=== PATIENT | male | born 1960 | race Caucasian/White ===

== ENCOUNTER 2020-09-19 06:48 | Outpatient (REF) | payer OTHER, SELFPAY | END 2020-09-19 06:49 | disposition home or self-care (01) | LOC: HO.LAB 06:48 | PROVIDERS: PCP Internal Medicine; Visit Provider Internal Medicine | DX: Z20.828 Contact with and (suspected) exposure to other viral communicable diseases (principal) | CPT/HCPCS: C9803; U0003 ==

== ENCOUNTER 2020-10-27 11:54 | Emergency (ER) | payer OTHER, SELFPAY ==
[2020-10-27 12:46] VITALS: BP 164/87; PULSE 84; RESP 16; TEMP 37; O2SAT 96
--- NOTE | 2020-10-27 13:06 | CT_ITS ---
NECK CT WITH IV CONTRAST INDICATION: Left facial swelling. Rule out left-sided peritonitis. COMPARISON: None available. TECHNIQUE: Multidetector CT acquisition of the neck was obtained following the administration of 60cc of Omnipaque 350IV contrast. Multiplanar reformats were acquired and utilized for image interpretation. This CT examination was performed using dose optimization techniques as appropriate, variously including the following: *Automated exposure control *Adjustment of mA and/or kV according to patient size (this includes techniques or standardized protocols for targeted exams where dose is matched to indication/reason for exam; i.e. extremities or head) *Use of iterative reconstruction technique FINDINGS: There is subtle stranding superficial to the left parotid gland and inferior to the left parotid tail that could reflect early parotitis. No drainable fluid collections to suggest abscess. No radiopaque calculi along Stensen's or Abad's duct. The submandibular glands are normal. There is a heterogeneous 1.4 cm right thyroid lobe nodule that should be further assessed with thyroid ultrasound. No contour abnormality or pathologic enhancement is seen within the oral cavity or pharyngeal mucosal space. No retropharyngeal fluid collection is seen. The laryngeal structures are normal. The parapharyngeal fat is preserved. The carotid sheath vasculature opacify normally. The superior mediastinum is unremarkable. The lung apices are clear. The mastoid air cells and visualized portions of the paranasal sinuses are well-aerated. Multilevel cervical spondylosis. The imaged portions of the brain parenchyma are unremarkable. CT/CT soft tissue neck w con IMPRESSION: - There is subtle stranding superficial to the left parotid gland and inferior to the left parotid tail that could reflect early parotitis. No drainable fluid collections to suggest abscess. No radiopaque calculi along Stensen's or Abad's duct. - There is a heterogeneous 1.4 cm right thyroid lobe nodule that should be further assessed with thyroid ultrasound.
[2020-10-27] MEDS: Acetaminophen 325 MG TABLET 650 MG PO (13:21)
--- NOTE | 2020-10-27 13:45 | ED.GENADULT ---
HPI - General Adult General Chief complaint: General Medical Stated complaint: Dental Pain Time Seen by Provider: 10/27/20 12:53 Source: patient Mode of arrival: ambulatory History of Present Illness HPI narrative: 60-year-old male with past medical history of hypertension, hyperlipidemia, diabetes presenting to the emergency department with facial pain x2 weeks. He states he started having upper dental pain which progressed into facial swelling. He states the left side is more swollen than the right. He had a phone call with his primary care doctor on 10/23 who prescribed him amoxicillin which he has been taking. He states the swelling has gone down with antibiotics but today the pain was severe so he came to the ED. He did not take his medications today along with the antibiotics. He states the pain radiates to his neck and head. He denies associated dizziness, nasal congestion, sore throat, difficulty swallowing, chest pain, shortness of breath, cough, vomiting. He denies similar episodes previously. He denies sick contacts at home. Related Data Previous Rx's Medication Instructions Recorded losartan 50 mg tablet 100 mg PO DAILY #180 tab 08/23/20 mometasone-formoterol HFA 100 2 puff INHALATION BID 30 Days #13 g 08/30/20 mcg-5 mcg/actuation aerosol inhaler blood sugar diagnostic #200 ea 09/05/20 chlorthalidone 25 mg tablet 25 mg PO DAILY #90 tab 10/01/20 montelukast 10 mg tablet 10 mg PO DAILY 90 Days #90 tab 10/09/20 fenofibrate micronized 200 mg 200 mg PO DAILY #30 cap 10/15/20 capsule amoxicillin 875 mg tablet 875 mg PO BID 7 Days #14 tab 10/23/20 ciprofloxacin [Cipro] 500 mg PO BID 10 Days #100 ml 10/27/20 clindamycin HCl [Cleocin HCl] 450 mg PO TID 10 Days #90 cap 10/27/20 Allergies Allergy/AdvReac Type Severity Reaction Status Date / Time acetaminophen [From PERCOCET] Allergy Unknown SWELLING Unverified 07/12/20 15:31 aspirin [ASA] Allergy Unknown UNKNOWN Unverified 07/12/20 15:31 oxycodone [From PERCOCET] Allergy Unknown SWELLING Unverified 07/12/20 15:31 promethazine [From PHENERGAN] Allergy Unknown RASH Unverified 07/12/20 15:31 seafood Allergy Unknown anaphylaxis Unverified 06/26/20 00:00 tramadol [TRAMADOL] Allergy Unknown UNKNOWN, Unverified 07/12/20 15:31 GI upset fluticasone [Advair Diskus] AdvReac Unknown tachycardia Verified 04/26/20 00:00 salmeterol [Advair Diskus] AdvReac Unknown tachycardia Verified 04/26/20 00:00 Cortisone Allergy Unknown Uncoded 06/26/20 00:00 Isoniazid Allergy Unknown rash Uncoded 06/26/20 00:00 SEAFOOD Allergy Unknown ANAPHYLAXIS Uncoded 07/12/20 15:31 Review of Systems Constitutional: Constitutional: Denies fever(s) and Reports headache(s) Eyes: Eyes: Reports no additional eye complaints ENT: Denies dizziness, Denies otalgia, Reports headache(s), Denies nasal congestion and Denies sore throat Comments: Facial swelling and pain Cardiovascular: Cardiovascular: Denies chest pain and Denies dyspnea Respiratory: Respiratory: Denies cough and Denies dyspnea Gastrointestinal: Gastrointestinal: Denies abdominal pain and Denies vomiting Musculoskeletal: Musculoskeletal: Reports no additional musculoskeletal complaints Integumentary/Breasts: Skin/Breast: Denies rash Neurologic: Denies dizziness and Reports headache(s) Psychiatric: Psychiatric: Reports no additional psychiatric complaints Hematologic/Lymphatic: Hematologic/Lymphatic: Denies easy bleeding PMFSH Past Medical History Medical History Chronic inflammation of pancreas Diabetes type 1, uncontrolled FH: cholecystectomy Hypertriglyceridemia Pancreatic abnormality Social History Social History Alcohol intake: never Smoking Status: Never smoker Advance Directives: No Advance Directives Information Provided: Yes Physical Exam Vital Signs: Vital Signs: Last Vital Signs Temp 98.7 F 10/27/20 15:23 Pulse 75 10/27/20 15:23 Resp 16 10/27/20 15:23 BP 165/87 H 10/27/20 15:23 Pulse Ox 98 10/27/20 15:23 Body Mass Index 30.0 Const: Other: Sitting upright in bed General: cooperative Orientation/consciousness: patient oriented x3 HENMT: Other: Dentition intact, no pharyngeal erythema, no tonsillar hypertrophy, no uvular deviation, no sublingual woodiness, swelling noted to bilateral preauricular regions left greater than the right, tenderness to palpation in the left preauricular region, no erythema or warmth, no dental abscess or fluctuance, no dental tenderness, no trismus Head: Yes atraumatic Ears: TM's normal bilaterally and mastoids normal Mouth: Normal oral and palatal mucosa present and moist mucous membranes Eyes: Pupils: Equal, round and reactive pupils present EOM: EOMs intact bilaterally Neck: Neck: Yes no meningeal signs, Yes trachea midline and Yes supple Resp: Other: no stridor Effort & Inspection: normal respiratory effort, able to speak in complete sentences and no audible wheezes Cardio: Rate: regular rate GI: Inspection: No distended and No obesity Skin: Lesions: no lesions Rashes: no rashes Neuro: General: patient oriented x3 and no meningeal signs Cranial nerves: Yes Equal, round and reactive pupils present Extrem: General: Yes normal to inspection Course Reevaluation(s) Reevaluation #1: patient at CT now Time: 14:54 Reevaluation #2: Pt. sitting upright, no changes in respiratory status. CT shows early signs of parotitis will change antibiotic course, advised pt. to stop the amoxicillin. Will discharge home with antibiotics and follow up with PCP. Thyroid nodule was also incidentally found, which I did not mention upon discharge. 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 A communication was sent to his primary for further follow up. Medical Decision Making MDM Narrative Medical decision making narrative: 60-year-old male presenting to the emergency department with facial pain, currently taking amoxicillin Vital significant for hypertension blood pressure 160-87 most likely because he did not take his blood pressure medications today, otherwise nontoxic appearing, hemodynamically stable Will plan for basic labs. We will check for electrolyte abnormalities. Will check inflammatory markers. Patient is afebrile will defer blood cultures at this time. Will plan for CT of the soft tissues to rule out underlying infection. He does not have evidence of dental pain or abscess. No pharyngeal erythema to suggest peritonsillar abscess. Neck is supple less likely to be a retropharyngeal abscess. No sublingual willingness to suggest Clarence's. He does not have any respiratory compromise, handling his secretions well. He does have swelling around his parotid gland will plan for CT as mentioned above. No evidence of mastoiditis. No evidence of otitis media. Lab Data Result diagrams: 10/27/20 13:49 10/27/20 13:49 Labs: Lab Results 10/27/20 10/27/20 10/27/20 Range/Units 13:49 13:49 13:49 WBC 8.4 (4.8-10.8) X10*3/uL RBC 4.94 (4.60-5.80) X10*6/uL Hgb 13.6 L (14.0-18.0) g/dl Hct 40.0 L (42-52) % MCV 81.0 (80-98) fL MCH 27.5 (27.0-33.0) pg MCHC 34.0 (31.0-36.0) g/dl RDW 13.1 (11.0-16.0) % Plt Count 233 (160-400) X10*3/uL MPV 10.2 (9.4-12.4) fL Immature Gran % (Auto) 0.4 (0.0-0.4) % Neut % (Auto) 78.0 H (45-73) % Lymph % (Auto) 12.1 L (20-40) % Kendall % (Auto) 8.5 (2-11) % Eos % (Auto) 0.4 (0-4) % Baso % (Auto) 0.6 (0-2) % Lymph # (Auto) 1.0 L (1.2-4.9) X10*3/uL Kendall # (Auto) 0.7 (0.1-1.2) X10*3/uL Eos # (Auto) 0.0 (0.0-0.4) X10*3/uL Baso # (Auto) 0.1 (0.0-0.2) X10*3/uL Abs Immat Gran (auto) 0.03 (0.00-0.03) X10*3/uL Absolute Neuts (auto) 6.6 (2.0-8.3) X10*3/uL Absolute Nucleated RBC 0.000 (0.0-0.012) X10*3/uL Nucleated RBC % (auto) 0.0 (0.0-0.2) /100WBC ESR 6 (0-15) MM/HR Sodium (135-145) mmol/L Potassium (3.3-5.1) mmol/l Chloride (96-108) mmol/L Carbon Dioxide (22-29) mmol/L Anion Gap (12-20) BUN (9-16) mg/dL Creatinine (0.5-1.4) mg/dL Estim Creat Clear Calc Estimated GFR Random Glucose (60-115) mg/dL Calcium (8.4-10.2) mg/dL Total Bilirubin (0.0-1.0) mg/dL AST (5-37) U/L ALT (0-40) U/L Alkaline Phosphatase (39-117) U/L C-Reactive Protein 1.16 H (< or = 0.50) mg/dL Total Protein (6.5-8.0) g/dL Albumin (3.5-5.0) g/dL 10/27/20 Range/Units 13:49 WBC (4.8-10.8) X10*3/uL RBC (4.60-5.80) X10*6/uL Hgb (14.0-18.0) g/dl Hct (42-52) % MCV (80-98) fL MCH (27.0-33.0) pg MCHC (31.0-36.0) g/dl RDW (11.0-16.0) % Plt Count (160-400) X10*3/uL MPV (9.4-12.4) fL Immature Gran % (Auto) (0.0-0.4) % Neut % (Auto) (45-73) % Lymph % (Auto) (20-40) % Kendall % (Auto) (2-11) % Eos % (Auto) (0-4) % Baso % (Auto) (0-2) % Lymph # (Auto) (1.2-4.9) X10*3/uL Kendall # (Auto) (0.1-1.2) X10*3/uL Eos # (Auto) (0.0-0.4) X10*3/uL Baso # (Auto) (0.0-0.2) X10*3/uL Abs Immat Gran (auto) (0.00-0.03) X10*3/uL Absolute Neuts (auto) (2.0-8.3) X10*3/uL Absolute Nucleated RBC (0.0-0.012) X10*3/uL Nucleated RBC % (auto) (0.0-0.2) /100WBC ESR (0-15) MM/HR Sodium 138 (135-145) mmol/L Potassium 3.9 (3.3-5.1) mmol/l Chloride 100 (96-108) mmol/L Carbon Dioxide 29 (22-29) mmol/L Anion Gap 13 (12-20) BUN 16 (9-16) mg/dL Creatinine 0.92 (0.5-1.4) mg/dL Estim Creat Clear Calc 87.7 Estimated GFR > 60 Random Glucose 146 H (60-115) mg/dL Calcium 9.6 (8.4-10.2) mg/dL Total Bilirubin 0.9 (0.0-1.0) mg/dL AST 24 (5-37) U/L ALT 21 (0-40) U/L Alkaline Phosphatase 60 (39-117) U/L C-Reactive Protein (< or = 0.50) mg/dL Total Protein 7.0 (6.5-8.0) g/dL Albumin 4.4 (3.5-5.0) g/dL Discharge Plan Discharge Clinical Impression: Facial swelling, Acute parotitis, Thyroid nodule Patient Disposition: Home, Self-Care Additional Instructions: Your lab tests today were unremarkable. Your CT scan shows you have parotitis no evidence of a dental infection. Please return to the emergency department for swelling worsens, difficulty swallowing, trouble breathing, unable to swallow her saliva, unable to eat or drink, but open your mouth, high fevers, unsteadiness, dizziness, or any other concerning symptoms. you may take Tylenol for pain as directed. Please stop taking amoxicillin antibiotics prescribed by your doctor. We are going to continue two different antibiotics, clindamycin and ciprofloxacin.You may experience some diarrhea with these so please drink plenty of fluids. Please call your doctor on Thursday for a follow up visit. Prescriptions: New clindamycin HCl [Cleocin HCl] 150 mg capsule 450 mg PO TID 10 Days Qty: 90 RF: 0 ciprofloxacin [Cipro] 500 mg/5 mL suspension,microcapsule recon 500 mg PO BID 10 Days Qty: 100 RF: 0 No Action losartan 50 mg tablet 100 mg PO DAILY Qty: 180 RF: 0 Dulera 100-5 mcg/actuation HFA aerosol inhaler 2 puff inhalation BID 30 Days Qty: 13 RF: 2 (DME) FreeStyle Lite Strips Strip See Rx Instructions .ROUTE .MEDSUPPLY Qty: 200 RF: 5 chlorthalidone 25 mg tablet 25 mg PO DAILY Qty: 90 RF: 0 montelukast 10 mg tablet 10 mg PO DAILY 90 Days Qty: 90 RF: 0 fenofibrate micronized 200 mg capsule 200 mg PO DAILY Qty: 30 RF: 2 amoxicillin 875 mg tablet 875 mg PO BID 7 Days Qty: 14 RF: 0 Interventions: ED Discharge Assessment Last Done: 10/27/20 15:43 Discharge Date/Time: 10/27/20 15:43
[2020-10-27 14:00] LABS: MANUAL DIFF FLAG NO
[2020-10-27 14:04] LABS: Basophils Absolute Auto 0.1 X10*3/uL (0.0-0.2); Basophils Percent Auto 0.6 % (0-2); Eosinophils Percent Auto 0.4 % (0-4); Hemoglobin 13.6 g/dl (14.0-18.0); Imm Gran Abs Auto 0.03 X10*3/uL (0.00-0.03); Imm Gran Pct Auto 0.4 % (0.0-0.4); Lymphocytes Percent Auto 12.1 % (20-40); Mean Corpuscular Hemoglobin 27.5 pg (27.0-33.0); Mean Platelet Volume 10.2 fL (9.4-12.4); Monocytes Absolute Auto 0.7 X10*3/uL (0.1-1.2); Monocytes Percent Auto 8.5 % (2-11); Neutrophils Absolute Auto 6.6 X10*3/uL (2.0-8.3); Platelet Count 233 X10*3/uL (160-400); Red Blood Count 4.94 X10*6/uL (4.60-5.80); Red Cell Distribution Width 13.1 % (11.0-16.0); White Blood Count 8.4 X10*3/uL (4.8-10.8)
[2020-10-27 14:19] LABS: C Reactive Protein 1.16 mg/dL (< or = 0.50)
[2020-10-27 14:22] LABS: Alanine Aminotransferase 21 U/L (0-40); Albumin Level 4.4 g/dL (3.5-5.0); Alkaline Phosphatase 60 U/L (39-117); Anion Gap 13 (12-20); Aspartate Amino Transferase 24 U/L (5-37); Bilirubin Total 0.9 mg/dL (0.0-1.0); Blood Urea Nitrogen 16 mg/dL (9-16); Calcium 9.6 mg/dL (8.4-10.2); Carbon Dioxide 29 mmol/L (22-29); Chloride 100 mmol/L (96-108); Creatinine Clr Calc Pharmacy 87.7; Estimated Glomerular Filt Rate > 60; Glucose Random 146 mg/dL (60-115); Potassium 3.9 mmol/l (3.3-5.1); Sodium 138 mmol/L (135-145)
[2020-10-27] MEDS: iohexoL 350 MG/ML 100 ML INFUS..BTL IV (14:54)
--- NOTE | 2020-10-27 14:57 | PC.NURSE ---
unsuccessful #20 iv insertion attempt by this rn rt anticubYaquelin louis rn successfully inserted #20 left AC
[2020-10-27 15:00] LABS: Erythrocyte Sedimentation Rate 6 MM/HR (0-15)
[2020-10-27 15:23] VITALS: BP 165/87; PULSE 75; RESP 16; TEMP 37.1; O2SAT 98
== END 2020-10-27 15:43 | disposition home or self-care (01) ==
PROVIDERS: Physician Assistant Medical; Emergency Provider Emergency Medicine; PCP Internal Medicine
DX: R22.0 Localized swelling, mass and lump, head (principal); K11.21 Acute sialoadenitis; E04.1 Nontoxic single thyroid nodule; I10 Essential (primary) hypertension; E10.9 Type 1 diabetes mellitus without complications
CPT/HCPCS: 36415; 70491; 80053; 85025; 85652; 86140; 99284; Q9967

== ENCOUNTER → 2020-10-30 10:14 | Outpatient (BNVA) | payer OTHER, SELFPAY | PROVIDERS: PCP Internal Medicine; Referring Provider Internal Medicine; Visit Provider Internal Medicine Endocrinology, Diabetes & Metabolism | DX: Z13.89 Encounter for screening for other disorder (principal) | CPT/HCPCS: Q3014 ==

== ENCOUNTER 2020-11-01 12:35 | Outpatient (REF) | payer OTHER, SELFPAY ==
--- NOTE | 2020-11-01 12:38 | US_ITS ---
EXAMINATION: US THYROID CLINICAL INFORMATION: Nontoxic single thyroid nodule. COMPARISON: CT soft tissue neck 10/27/2020. TECHNIQUE: Linear transducer hayes-scale and color Doppler examination with attention to the region of the thyroid. FINDINGS: SIZE: Measurements of the thyroid lobes and nodules are given in sagittal, anteroposterior and transverse dimensions respectively. Right Thyroid Lobe: 5.5 x 1.9 x 2.1 cm, volume 11.9 mL. Parenchyma: The gland echotexture is homogeneous. Thyroid vascularity is normal. Left Thyroid Lobe: 5.0 x 1.9 x 1.9 cm, volume 9.5 mL. Parenchyma: The gland echotexture is homogeneous. Thyroid vascularity is normal. Isthmus: 0.3 cm in maximum AP dimension. RIGHT THYROID LOBE: There are 4 nodules seen. 1. Location: Middle. Size: 1.2 x 0.8 x 1.2 cm. Nodule characteristics: Heterogeneous echogenicity with smooth margins and no intranodular Doppler flow 2. Location: Inferior. Size: 1.0 x 0.8 x 0.9 cm. Nodule characteristics: Heterogeneous echogenicity with smooth margins and additional nodular Doppler flow. 3. Location: Middle. Size: 0.6 x 0.3 x 0.5 cm. Nodule characteristics: Heterogeneous echogenicity with smooth margins and intranodular Doppler flow. 4. Location: Middle. Size: 0.3 x 0.2 x 0.3 cm. Nodule characteristics: Simple cyst. ISTHMUS: No nodules. LEFT THYROID LOBE: There are 4 nodules seen. 1. Location: Inferior. Size: 0.5 x 0.3 x 0.4 cm. Nodule characteristics: Heterogeneous echogenicity with smooth margins and intranodular Doppler flow.. 2. Location: Middle. Size: 0.6 x 0.4 x 0.5 cm. Nodule characteristics: Hypoechoic with smooth margins and no intranodular Doppler flow. 3. Location: Middle. Size: 0.2 x 0.1 x 0.2 cm. Nodule characteristics: Complex cyst. 4. Location: Superior. Size: 0.2 x 0.1 x 0.2 cm. Nodule characteristics: Complex cyst. NODES: No pathologic size criteria lymphadenopathy. US/US thyroid IMPRESSION: Multinodular thyroid gland. The largest nodules within the midpole and lower pole of the right thyroid lobe measure up to 1.2 cm and 1 cm respectively. Various management parameters for solitary thyroid nodules are in the literature. According to the latest 2016 [place] [employer] guidelines, recommendations for thyroid nodules are as follows: Benign: Purely cystic nodules (no solid component). Estimated risk of malignancy < 1%. Recommendation: No biopsy or ultrasound follow up required. Very low suspicion: Spongiform or partially cystic nodules without any of the sonographic features described in low, intermediate or high suspicions patterns. Estimated risk of malignancy < 3%. Recommendation: Consider FNA at > 2 cm. Observation without FNA is also a reasonable option. Recommend repeat ultrasound in 24 months for nodules measuring greater than 1 cm. Nodule measuring less than 1 cm do not require ultrasound follow up. Low suspicion: Isoechoic or hyperechoic solid nodule, or partially cystic nodule with eccentric solid areas, without microcalcification, irregular margin or extrathyroidal extension, or taller than wide shape. Estimated risk of malignancy 5-10%. Recommendation: FNA at > 1.5 cm. Recommend repeat ultrasound in 12-24 months for nodules measuring less than 1.5 cm. Intermediate suspicion: Hypoechoic solid nodule with smooth margins without microcalcification, extrathyroidal extension, or taller than wide shape. Estimated risk of malignancy 10-20%. Recommendation: FNA at > 1 cm. Recommend repeat ultrasound in 12-24 months for nodules measuring less than 1 cm. High suspicion: Solid hypoechoic nodule or solid hypoechoic component of a partially cystic nodule with one or more of the following features: irregular margins (infiltrative, microlobulated), microcalcifications, taller than wide shape, rim calcifications with small extrusive soft tissue component, evidence of extrathyroidal extension. Estimated risk of malignancy > 70-90%. Recommendation: FNA at > 1 cm. Recommend repeat ultrasound in 6-12 months for nodules measuring less than 1 cm.
== END 2020-11-01 12:36 | disposition home or self-care (01) ==
LOC: HO.US 12:35
PROVIDERS: PCP Internal Medicine; Visit Provider Internal Medicine
DX: E04.1 Nontoxic single thyroid nodule (principal)
CPT/HCPCS: 76536

== ENCOUNTER 2020-12-20 06:32 | Outpatient (REF) | payer OTHER, SELFPAY ==
[2020-12-20 08:31] LABS: Free T4 (Free Thyroxine) 0.94 ng/dL (0.71-1.85); Thyroid Stimulating Hormone 0.95 uIU/mL (0.32-4.0)
== END 2020-12-20 06:33 | disposition home or self-care (01) ==
LOC: HO.LAB 06:32
PROVIDERS: PCP Internal Medicine; Visit Provider Internal Medicine Endocrinology, Diabetes & Metabolism
DX: E10.65 Type 1 diabetes mellitus with hyperglycemia (principal)
CPT/HCPCS: 36415; 84439; 84443

== ENCOUNTER → 2021-01-09 09:04 | Outpatient (BNVA) | payer OTHER, SELFPAY | PROVIDERS: PCP Internal Medicine; Visit Provider Internal Medicine Endocrinology, Diabetes & Metabolism | DX: E04.2 Nontoxic multinodular goiter (principal) | CPT/HCPCS: 99212 ==

== ENCOUNTER 2021-01-09 10:13 | Outpatient (REF) | payer OTHER, SELFPAY ==
[2021-01-09 14:46] LABS: Free T4 (Free Thyroxine) 0.87 ng/dL (0.71-1.85); Thyroid Stimulating Hormone 0.62 uIU/mL (0.32-4.0)
[2021-01-14 18:07] LABS: Thyroglobulin Antibodies <1 IU/mL (< or = 1); Thyroid Peroxidase Antibodies <1 IU/mL (<9)
[2021-01-16 15:27] LABS: Thyroid Stimulating Immunoglob <89 % baseline (<140)
[2021-01-16 22:16] LABS: Thyrotropin Receptor Antibody <1.00 IU/L (<=2.00)
== END 2021-01-09 10:14 | disposition home or self-care (01) ==
LOC: HO.10HDL 10:13
PROVIDERS: Visit Provider Internal Medicine Endocrinology, Diabetes & Metabolism
DX: E04.2 Nontoxic multinodular goiter (principal)
CPT/HCPCS: 36415; 83520; 84439; 84443; 84445; 86376; 86800

== ENCOUNTER 2021-01-15 10:42 | Outpatient (REF) | payer OTHER, SELFPAY | END 2021-01-15 10:43 | disposition home or self-care (01) | LOC: HO.LAB 10:42 | PROVIDERS: Visit Provider Internal Medicine | DX: Z20.822 Contact with and (suspected) exposure to COVID-19 (principal) | CPT/HCPCS: 36415; C9803; U0003; U0005 ==

== ENCOUNTER → 2021-01-29 11:22 | Outpatient (BNVA) | payer OTHER, SELFPAY | PROVIDERS: PCP Internal Medicine; Visit Provider Internal Medicine Endocrinology, Diabetes & Metabolism | DX: E10.65 Type 1 diabetes mellitus with hyperglycemia (principal); E78.1 Pure hyperglyceridemia; I10 Essential (primary) hypertension; E66.9 Obesity, unspecified; E04.2 Nontoxic multinodular goiter | CPT/HCPCS: 82947; 99212 ==

== ENCOUNTER 2021-02-05 13:03 | Outpatient (REF) | payer OTHER, SELFPAY ==
[2021-02-05 14:18] LABS: Alanine Aminotransferase 19 U/L (0-40); Albumin Level 4.4 g/dL (3.5-5.0); Alkaline Phosphatase 56 U/L (39-117); Anion Gap 14 (12-20); Aspartate Amino Transferase 22 U/L (5-37); Bilirubin Total 1.1 mg/dL (0.0-1.0); Blood Urea Nitrogen 13 mg/dL (9-16); Calcium 9.5 mg/dL (8.4-10.2); Carbon Dioxide 25 mmol/L (22-29); Chloride 103 mmol/L (96-108); Estimated Glomerular Filt Rate > 60; Glucose Random 140 mg/dL (60-115); Potassium 3.9 mmol/L (3.3-5.1); Sodium 138 mmol/L (135-145); Total Protein 6.8 g/dL (6.5-8.0)
== END 2021-02-05 13:04 | disposition home or self-care (01) ==
LOC: HO.HMGCLDS 13:03
PROVIDERS: PCP Internal Medicine; Visit Provider Internal Medicine
DX: I10 Essential (primary) hypertension (principal); E10.65 Type 1 diabetes mellitus with hyperglycemia; E78.1 Pure hyperglyceridemia
CPT/HCPCS: 36415; 80053

== ENCOUNTER 2021-02-14 07:27 | Outpatient (REF) | payer OTHER, SELFPAY ==
--- NOTE | 2021-02-14 08:44 | PM.OP ---
Brief Operative Note Date of Service: 02/14/21 Pre-op diagnosis: Nontoxic multinodular goiter Post-op diagnosis: same Procedure: This procedure was explained to the patient. Alternatives, risks and benefits were discussed. Written consent was obtained. After sterile preparation of the skin, fine-needle aspiration biopsy of right lower pole thyroid nodule size 1.0 x 0.8 x 0.9 cm was performed under direct ultrasound guidance to confirm accurate needle placement. Five passes were performed with 27 gauge needles. Sample was submitted to cytology, initial cytology reading was adequate. 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 Patient tolerated procedure well. Aftercare instructions were provided. Impression: uncomplicated fine-needle aspiration biopsy of right lower pole thyroid nodule under direct ultrasound guidance. Surgeon: Kenneth Woods MD Anesthesia: local (Lidocaine 1 %.) Estimated blood loss (mL): 0 Condition: stable Disposition: same day
[2021-02-14] MEDS: Lidocaine HCl 1 % 20 ML VIAL 5 ML SUBCUT (09:56)
== END 2021-02-14 07:28 | disposition home or self-care (01) ==
LOC: HO.US 07:27
PROVIDERS: Visit Provider Internal Medicine Endocrinology, Diabetes & Metabolism
DX: E04.2 Nontoxic multinodular goiter (principal)
CPT/HCPCS: 10005; 88172; 88173

== ENCOUNTER → 2021-03-14 12:08 | Outpatient (BNVA) | payer OTHER, SELFPAY | PROVIDERS: PCP Internal Medicine; Visit Provider Internal Medicine Endocrinology, Diabetes & Metabolism | DX: E04.2 Nontoxic multinodular goiter (principal) | CPT/HCPCS: 99212 ==

== ENCOUNTER 2021-05-02 09:04 | Outpatient (REF) | payer OTHER, SELFPAY ==
[2021-05-02 14:04] LABS: Alanine Aminotransferase 19 U/L (0-40); Albumin Level 4.5 g/dL (3.5-5.0); Alkaline Phosphatase 52 U/L (39-117); Anion Gap 13 (12-20); Aspartate Amino Transferase 29 U/L (5-37); Bilirubin Total 1.4 mg/dL (0.0-1.0); Blood Urea Nitrogen 14 mg/dL (9-16); Calcium 9.5 mg/dL (8.4-10.2); Carbon Dioxide 26 mmol/L (22-29); Chloride 102 mmol/L (96-108); Cholesterol 162 mg/dL; Estimated Glomerular Filt Rate > 60; Glucose Fasting 183 mg/dL (60-99); HDL Cholesterol 41 mg/dL; LDL Cholesterol Calculated 95 mg/dl; Potassium 4.1 mmol/L (3.3-5.1); Sodium 137 mmol/L (135-145); Total Protein 7.1 g/dL (6.5-8.0); Triglycerides 132 mg/dL
[2021-05-03 07:56] LABS: LDL Cholesterol Direct 102 mg/dL (<100)
== END 2021-05-02 09:05 | disposition home or self-care (01) ==
LOC: HO.10HDL 09:04
PROVIDERS: Visit Provider Internal Medicine Endocrinology, Diabetes & Metabolism
DX: E78.1 Pure hyperglyceridemia (principal); E10.65 Type 1 diabetes mellitus with hyperglycemia
CPT/HCPCS: 36415; 80053; 80061; 83721

== ENCOUNTER → 2021-05-02 09:30 | Outpatient (BNVA) | payer OTHER, SELFPAY | PROVIDERS: PCP Internal Medicine; Visit Provider Internal Medicine Endocrinology, Diabetes & Metabolism | DX: E10.65 Type 1 diabetes mellitus with hyperglycemia (principal); E78.1 Pure hyperglyceridemia; E66.9 Obesity, unspecified; E04.2 Nontoxic multinodular goiter; I10 Essential (primary) hypertension | CPT/HCPCS: 82947; 99212 ==

== ENCOUNTER 2021-07-19 14:09 | Outpatient (REF) | payer OTHER, SELFPAY | END 2021-07-19 14:10 | disposition home or self-care (01) | LOC: HO.LAB 14:09 | PROVIDERS: PCP Internal Medicine; Visit Provider Internal Medicine | DX: Z20.822 Contact with and (suspected) exposure to COVID-19 (principal) | CPT/HCPCS: C9803; U0003; U0005 ==

== ENCOUNTER → 2021-08-16 09:20 | Outpatient (BNVA) | payer OTHER, SELFPAY | PROVIDERS: PCP Internal Medicine; Visit Provider Nurse Practitioner Gerontology | DX: E10.65 Type 1 diabetes mellitus with hyperglycemia (principal); E78.1 Pure hyperglyceridemia; E66.09 Other obesity due to excess calories; I10 Essential (primary) hypertension; Z68.30 Body mass index [BMI] 30.0-30.9, adult | CPT/HCPCS: 82947; 83036; 99212 ==

== ENCOUNTER 2021-09-02 08:53 | Emergency (ER) | payer OTHER, SELFPAY ==
--- NOTE | ~2021-09-02 | XR_ITS ---
EXAMINATION: XR CHEST CLINICAL INFORMATION: Left-sided pain COMPARISON: Previous chest x-ray most recent May 2018 TECHNIQUE: 2 views of the chest were obtained. FINDINGS: The cardiac and mediastinal contours are stable. The lungs are clear. There is no pleural effusion or pneumothorax. There are degenerative changes of the spine. XR/XR chest 2V IMPRESSION: Unremarkable examination.
--- NOTE | 2021-09-02 08:58 | ECG_ITS ---
Test Reason : CHEST PAIN Blood Pressure : / mmHG Vent. Rate : 083 BPM Atrial Rate : 083 BPM P-R Int : 166 ms QRS Dur : 086 ms QT Int : 364 ms P-R-T Axes : 031 001 014 degrees QTc Int : 427 ms Normal sinus rhythm Left axis deviation Otherwise normal ECG No significant changes seen Referred By: Generic ED Physician Electronically Signed By:LENY MARKS MD
[2021-09-02 09:10] VITALS: BP 173/100; PULSE 87; RESP 20; TEMP 36.3; O2SAT 98
--- NOTE | 2021-09-02 10:50 | ED.CHESTPAIN ---
HPI - Chest Pain General Chief Complaint: Chest Pain Stated Complaint: shoulder/chest/arm pain Time Seen by Provider: 09/02/21 09:58 Source: patient Mode of arrival: ambulatory History of Present Illness HPI narrative: 60-year-old male with past medical history of diabetes, HTN, HLD, nontoxic multinodular goiter, obesity, presenting to the ED complaining of left-sided chest pain rating down LUE x2 days with associated left finger/arm paresthesia/numbness. Reports swelling/pain to left anterior chest wall, pain worsened with arm movement/palpation. Also reports nausea. Denies fever, chills, cough, SOB, abdominal pain, LE edema, recent travel MD complaint: chest pain Related Data Home Medications Medication Instructions Recorded Confirmed albuterol sulfate 90 mcg/actuation 2 puff PO Q6H PRN 10/30/20 08/16/21 aerosol inhaler dutasteride 0.5 mg capsule 0.5 mg PO DAILY 10/30/20 08/16/21 tamsulosin 0.4 mg capsule 0.4 mg PO DAILY 10/30/20 08/16/21 azathioprine 50 mg tablet 100 mg PO DAILY 03/14/21 08/16/21 Previous Rx's Medication Instructions Recorded ondansetron HCl 4 mg tablet 4 mg PO DAILY PRN 30 Days #30 tab 02/19/21 (Zofran) clotrimazole-betamethasone 1 1 appl TOPICAL ONCE 30 Days #45 g 02/21/21 %-0.05 % topical cream omeprazole 20 mg capsule,delayed 20 mg PO BID #180 cap 02/21/21 release BD Insulin Syringe Ultra-Fine 0.5 #150 ea NS 05/02/21 mL 31 gauge x 5/16 (insulin syringe-needle U-100) Lantus Solostar U-100 Insulin 100 35 unit (0.35 mL) SUBCUT DAILY 30 05/02/21 unit/mL (3 mL) subcutaneous pen Days #15 ml NS (insulin glargine) alcohol swabs (Alcohol Prep Pads) 1 pad TOPICAL .6 times a day 30 05/02/21 Days #200 ea fenofibrate 160 mg tablet 160 mg PO DAILY 90 Days #90 tab 05/02/21 pen needle, diabetic 32 gauge x #50 ea 05/02/21 (BD Doris 2nd Gen Pen Needle) chlorthalidone 50 mg tablet 50 mg PO DAILY 90 Days #90 tab 06/25/21 montelukast 10 mg tablet 10 mg PO DAILY 90 Days #90 tab 07/18/21 losartan 50 mg tablet 100 mg PO DAILY #180 tab 08/12/21 atorvastatin 20 mg tablet 20 mg PO BEDTIME #30 tab 08/16/21 blood sugar diagnostic (FreeStyle #200 ea 08/16/21 Lite Strips) insulin aspart U-100 100 unit/mL 120 unit (1.2 mL) SUBCUT DAILY 30 08/16/21 subcutaneous solution ( Days #40 ml U-100 Insulin aspart) lancets 28 gauge #200 ea 08/16/21 mometasone-formoterol HFA 100 2 puff INHALATION BID 30 Days #13 g 08/19/21 mcg-5 mcg/actuation aerosol inhaler (Dulera) acetaminophen 500 mg tablet 500 mg PO Q6H PRN #20 tab 09/02/21 (Tylenol Extra Strength) cyclobenzaprine 5 mg tablet 5 mg PO Q8H PRN 5 Days #14 tab 09/02/21 lidocaine 5 % topical patch 1 patch TOPICAL DAILY PRN #30 ea 09/02/21 (Lidoderm) MDD remove after 12 hours naproxen 500 mg tablet 500 mg PO BID PRN 10 Days #20 tab 09/02/21 Allergies Allergy/AdvReac Type Severity Reaction Status Date / Time oxycodone [From PERCOCET] Allergy Unknown SWELLING Verified 08/16/21 10:22 promethazine [From PHENERGAN] Allergy Unknown RASH Verified 08/16/21 10:22 seafood Allergy Unknown anaphylaxis Verified 08/16/21 10:22 tramadol [TRAMADOL] Allergy Unknown UNKNOWN, Verified 08/16/21 10:22 GI upset fluticasone [Advair Diskus] AdvReac Unknown tachycardia Verified 08/16/21 10:22 salmeterol [Advair Diskus] AdvReac Unknown tachycardia Verified 08/16/21 10:22 Cortisone Allergy Unknown unknown Uncoded 08/16/21 10:22 Isoniazid Allergy Unknown rash Uncoded 08/16/21 10:22 Review of Systems Review of Systems: Constitutional: No Fever, No Chills, No Fatigue, No Malaise ENT/Mouth: No Ear Pain, No Nasal Congestion, No sore throat, No Rhinorrhea Eyes: No Eye Pain, No Swelling, No Vision Changes Cardiovascular:+ Chest Pain, No SOB, No Orthopnea, No Edema Respiratory: No Cough, No Dyspnea Gastrointestinal: + Nausea, No Vomiting, No Diarrhea, No Constipation, No Abdominal pain Genitourinary: No Dysuria, No Urinary Frequency, No Hematuria, No Urinary Incontinence, No Urgency, No Flank Pain Musculoskeletal: No joint pain, No Myalgias, No Joint Swelling Skin: No Skin Lesions, No rash Neuro: No Weakness, + Numbness, + Paresthesias,No Dizziness, No Headache Yes all other systems are reviewed and are negative Neurologic: Denies Sensory deficit (Neuro) [facility] Past Medical History Attestation statement: The following information was validated with the patient. Medical History (Updated 09/02/21 @ 14:51 by ARISTIDES James) Chronic inflammation of pancreas Diabetes type 1, uncontrolled FH: cholecystectomy Hypertension Hypertriglyceridemia Non-toxic multinodular goiter Obesity (BMI 30.0-34.9) Obesity due to excess calories Pancreatic abnormality Surgical History History of laminectomy Hx of cholecystectomy Hx of colonoscopy Hx of endoscopy Family History Family History Father Hypertension Hyperlipidemia Prostate cancer Diabetes Arthritis Mother Arthritis Hyperlipidemia Diabetes Osteoporosis Social History Social History Household Members: Spouse and Children Household Members Other:: daughter, , son Housing: House Alcohol intake: former Patient Tobacco Use Status: Never used Tobacco Second Hand Smoke Exposure: No Advance Directives: Yes Advance Directives Information Provided: Yes Advance Directives on File: No Current occupational status: disabled Physical Exam Vital Signs: Vital Signs: Last Vital Signs Temp 98.9 F 09/02/21 11:45 Pulse 89 09/02/21 11:45 Resp 12 09/02/21 11:45 BP 184/89 H 09/02/21 11:45 Pulse Ox 99 09/02/21 11:45 Body Mass Index 30.0 Const: General: cooperative, healthy appearing and no acute distress Orientation/consciousness: patient oriented x3 Limitations: no limitations HENMT: Head: Yes normal to inspection Ears: hearing grossly normal bilaterally General nose exam: Normal external nose present Face and sinus: Yes normal facial exam Eyes: General: appearance normal, both eyes and all related structures EOM: EOMs intact bilaterally Neck: Neck: Yes normal visual inspection and Yes no meningeal signs Chest: Other: + mild swelling noted to left superior anterior chest wall midclavicular line. No fluctuance/induration or cellulitis Chest palpation & inspection: no crepitus and tenderness (Left anterior chest wall reproducing subjective complaint) Resp: Effort & Inspection: normal respiratory effort Auscultation: clear to auscultation bilaterally, no rales, no rhonchi and no wheezes Cardio: Rate: regular rate Heart sounds: S1 normal heart sound present and S2 normal heart sound present GI: Inspection: Yes normal to inspection Palpation (GI): Soft to palpation, nontender, no guarding and not rigid Skin: Rashes: no rashes Wounds: no wounds Neuro: General: patient oriented x3, tone normal and no meningeal signs Sensory Exam: No Sensory deficit (Neuro) Extrem: General: Yes normal to inspection, Yes no pedal edema and Yes no calf tenderness Course Course Course Narrative: -1214--no leukocytosis. H&H stable. Initial troponin 5.9 > will obtain 3 hour repeat. Labs otherwise unremarkable XR chest 2V IMPRESSION: Unremarkable examination. -1450--repeat troponin without 50% rise, DE unlikely, results discussed with patient. Reports symptomatic improvement after additional medications given in the ED. Discussed worrisome signs and symptoms a needed follow-up with PCP/cardiology, verbalized understanding feel safe for discharge home at this time MDM - Chest Pain MDM Narrative Medical decision making narrative: 60-year-old male with past medical history of diabetes, HTN, HLD, nontoxic multinodular goiter, obesity, presenting to the ED complaining of left-sided chest pain rating down LUE x2 days with associated left finger/arm paresthesia/numbness. On exam hypertensive, patient took BP medication in triage, NAD/nontoxic, chest pain reproducible on exam, no crepitus, lungs CTA, no pedal edema/calf tenderness, distal pulses intact. Concern for ACS vs costochondritis vs MSK spasming. R/o PNA. Lower concern for PE/CHF Plan: EKG, labs, CXR, re-evaluate Medical Records Data Attestation: I reviewed the patient's medical records. Lab Data Attestation: I reviewed the patient's lab results. Result diagrams: 09/02/21 11:12 09/02/21 11:12 Labs: Lab Results 09/02/21 09/02/21 09/02/21 Range/Units 11:12 11:12 11:12 WBC 9.0 (4.8-10.8) X10*3/uL RBC 5.18 (4.60-5.80) X10*6/uL Hgb 14.4 (14.0-18.0) g/dl Hct 41.3 L (42.0-52.0) % MCV 79.7 L (80.0-98.0) fL MCH 27.8 (27.0-33.0) pg MCHC 34.9 (31.0-36.0) g/dl RDW 12.7 (11.0-16.0) % Plt Count 228 (160-400) X10*3/uL MPV 9.8 (9.4-12.4) fL Immature Gran % (Auto) 0.2 (0.0-0.4) % Neut % (Auto) 83.9 H (45-73) % Lymph % (Auto) 8.4 L (20-40) % [place] % (Auto) 7.1 (2-11) % Eos % (Auto) 0.1 (0-4) % Baso % (Auto) 0.3 (0-2) % Lymph # (Auto) 0.8 L (1.2-4.9) X10*3/uL [place] # (Auto) 0.6 (0.1-1.2) X10*3/uL Eos # (Auto) 0.0 (0.0-0.4) X10*3/uL Baso # (Auto) 0.0 (0.0-0.2) X10*3/uL Abs Immat Gran (auto) 0.02 (0.00-0.03) X10*3/uL Absolute Neuts (auto) 7.6 (2.0-8.3) x10*3/uL Absolute Nucleated RBC 0.000 (0.0-0.012) X10*3/uL Nucleated RBC % (auto) 0.0 (0.0-0.2) /100WBC Sodium 134 L (135-145) mmol/L Potassium 3.7 (3.3-5.1) mmol/L Chloride 99 (96-108) mmol/L Carbon Dioxide 26 (22-29) mmol/L Anion Gap 13 (12-20) BUN 13 (9-16) mg/dL Creatinine 0.91 (0.5-1.4) mg/dL Estim Creat Clear Calc 88.6 Estimated GFR > 60 Random Glucose 161 H (60-115) mg/dL Calcium 9.3 (8.4-10.2) mg/dL Magnesium 1.9 (1.6-2.6) mg/dL Total Bilirubin 1.0 (0.0-1.0) mg/dL Direct Bilirubin 0.3 (0.0-0.5) mg/dL AST 25 (5-37) U/L ALT 22 (0-40) U/L Alkaline Phosphatase 55 (39-117) U/L Troponin I High Sens 5.9 (<3.5-35.0) ng/L B-Natriuretic Peptide 20 (<100) pg/mL Total Protein 7.1 (6.5-8.0) g/dL Albumin 4.5 (3.5-5.0) g/dL 09/02/21 Range/Units 14:05 WBC (4.8-10.8) X10*3/uL RBC (4.60-5.80) X10*6/uL Hgb (14.0-18.0) g/dl Hct (42.0-52.0) % MCV (80.0-98.0) fL MCH (27.0-33.0) pg MCHC (31.0-36.0) g/dl RDW (11.0-16.0) % Plt Count (160-400) X10*3/uL MPV (9.4-12.4) fL Immature Gran % (Auto) (0.0-0.4) % Neut % (Auto) (45-73) % Lymph % (Auto) (20-40) % [place] % (Auto) (2-11) % Eos % (Auto) (0-4) % Baso % (Auto) (0-2) % Lymph # (Auto) (1.2-4.9) X10*3/uL [place] # (Auto) (0.1-1.2) X10*3/uL Eos # (Auto) (0.0-0.4) X10*3/uL Baso # (Auto) (0.0-0.2) X10*3/uL Abs Immat Gran (auto) (0.00-0.03) X10*3/uL Absolute Neuts (auto) (2.0-8.3) x10*3/uL Absolute Nucleated RBC (0.0-0.012) X10*3/uL Nucleated RBC % (auto) (0.0-0.2) /100WBC Sodium (135-145) mmol/L Potassium (3.3-5.1) mmol/L Chloride (96-108) mmol/L Carbon Dioxide (22-29) mmol/L Anion Gap (12-20) BUN (9-16) mg/dL Creatinine (0.5-1.4) mg/dL Estim Creat Clear Calc Estimated GFR Random Glucose (60-115) mg/dL Calcium (8.4-10.2) mg/dL Magnesium (1.6-2.6) mg/dL Total Bilirubin (0.0-1.0) mg/dL Direct Bilirubin (0.0-0.5) mg/dL AST (5-37) U/L ALT (0-40) U/L Alkaline Phosphatase (39-117) U/L Troponin I High Sens 7.3 (<3.5-35.0) ng/L B-Natriuretic Peptide (<100) pg/mL Total Protein (6.5-8.0) g/dL Albumin (3.5-5.0) g/dL ECG Data ECG #1: Attestation: I personally reviewed and interpreted this ECG as follows: ECG interpretation date: 09/02/21 ECG interpretation time: 10:02 Interpretation: EKG normal sinus rhythm with a rate of 83. Pr interval 166. QTC 427. Nonischemic-no STEMI Discharge Plan Discharge Clinical Impression: Chest pain Patient Disposition: Home, Self-Care Instructions: Chest Wall Pain (ED) Additional Instructions: Your blood work was reassuring today in the ED Is important for you to follow-up with her primary care doctor and cardiology If your symptoms persist or worsen, pain, for constant, dull shortness her, fever, swelling in her legs please return to the ED Flexeril is a muscle relaxer, take at night as it makes you drowsy, do not drive, drink alcohol, or operate machinery while taking it Naproxen as an anti-inflammatory / pain medication, take with food Lidoderm patches are numbing patches, apply to painful area In addition take Tylenol at home If symptoms persist or worsen, pain becomes unbearable, you developed urinary retention or incontinence, or weakness return to the ED Prescriptions: New acetaminophen [Tylenol Extra Strength] 500 mg tablet 500 mg PO Q6H PRN (Reason: pain or fever) Qty: 20 RF: 0 lidocaine [Lidoderm] 5 % adhesive patch,medicated 1 patch topical DAILY MDD remove after 12 hours PRN (Reason: pain) Qty: 30 RF: 0 naproxen 500 mg tablet 500 mg PO BID PRN (Reason: pain) 10 Days Qty: 20 RF: 0 cyclobenzaprine 5 mg tablet 5 mg PO Q8H PRN (Reason: pain (scale score 7-10)) 5 Days Qty: 14 RF: 0 No Action ondansetron HCl [Zofran] 4 mg tablet 4 mg PO DAILY PRN (Reason: nausea and vomiting) 30 Days Qty: 30 RF: 0 clotrimazole-betamethasone 1-0.05 % cream 1 appl topical ONCE 30 Days Qty: 45 RF: 0 omeprazole 20 mg capsule,delayed release(DR/EC) 20 mg PO BID Qty: 180 RF: 2 montelukast 10 mg tablet 10 mg PO DAILY 90 Days Qty: 90 RF: 0 losartan 50 mg tablet 100 mg PO DAILY Qty: 180 RF: 0 Dulera 100-5 mcg/actuation HFA aerosol inhaler 2 puff inhalation BID 30 Days Qty: 13 RF: 2 chlorthalidone 50 mg tablet 50 mg PO DAILY 90 Days Qty: 90 RF: 0 azathioprine 50 mg tablet 100 mg PO DAILY RF: 0 alcohol swabs [Alcohol Prep Pads] Pads, Medicated 1 pad topical .6 times a day 30 Days Qty: 200 RF: 8 fenofibrate 160 mg tablet 160 mg PO DAILY 90 Days Qty: 90 RF: 1 Lantus Solostar U-100 Insulin 100 unit/mL (3 mL) insulin pen 35 unit subcut DAILY 30 Days Qty: 15 RF: 5 (DME) pen needle, diabetic [BD Doris 2nd Gen Pen Needle] 32 gauge x 5/32 needle See Rx Instructions .ROUTE .MEDSUPPLY Qty: 50 RF: 4 (DME) insulin syringe-needle U-100 [BD Insulin Syringe Ultra-Fine] 0.5 mL 31 gauge x 5/16 syringe See Rx Instructions .ROUTE .MEDSUPPLY Qty: 150 RF: 6 dutasteride 0.5 mg capsule 0.5 mg PO DAILY RF: 0 tamsulosin 0.4 mg capsule 0.4 mg PO DAILY RF: 0 albuterol sulfate 90 mcg/actuation HFA aerosol inhaler 2 puff PO Q6H PRNRF: 0 insulin aspart U-100 [Novolog U-100 Insulin aspart] 100 unit/mL solution 120 unit subcut DAILY 30 Days Qty: 40 RF: 6 (DME) FreeStyle Lite Strips Strip See Rx Instructions .ROUTE .MEDSUPPLY Qty: 200 RF: 8 (DME) lancets 28 gauge misc See Rx Instructions ea topical .MEDSUPPLY Qty: 200 RF: 11 atorvastatin 20 mg tablet 20 mg PO BEDTIME Qty: 30 RF: 6 Referrals: Da Fall MD [Physician] - 5 days Kushal Cobb MD [Primary Care Provider] - 2 days
[2021-09-02] MEDS: NaPROXEN 500 MG TABLET PO (11:18)
[2021-09-02 11:19] LABS: MANUAL DIFF FLAG NO
[2021-09-02 11:21] LABS: Basophils Percent Auto 0.3 % (0-2); Eosinophils Percent Auto 0.1 % (0-4); Hematocrit 41.3 % (42.0-52.0); Hemoglobin 14.4 g/dl (14.0-18.0); Imm Gran Abs Auto 0.02 X10*3/uL (0.00-0.03); Imm Gran Pct Auto 0.2 % (0.0-0.4); Lymphocytes Absolute Auto 0.8 X10*3/uL (1.2-4.9); Lymphocytes Percent Auto 8.4 % (20-40); Mean Corpuscular HGB Conc 34.9 g/dl (31.0-36.0); Mean Corpuscular Hemoglobin 27.8 pg (27.0-33.0); Mean Corpuscular Volume 79.7 fL (80.0-98.0); Mean Platelet Volume 9.8 fL (9.4-12.4); Monocytes Absolute Auto 0.6 X10*3/uL (0.1-1.2); Monocytes Percent Auto 7.1 % (2-11); Neutrophils Absolute Auto 7.6 x10*3/uL (2.0-8.3); Neutrophils Percent Auto 83.9 % (45-73); Platelet Count 228 X10*3/uL (160-400); Red Blood Count 5.18 X10*6/uL (4.60-5.80); Red Cell Distribution Width 12.7 % (11.0-16.0)
[2021-09-02 11:45] VITALS: BP 184/89; PULSE 89; RESP 12; TEMP 37.2; O2SAT 99
[2021-09-02 11:48] LABS: Alanine Aminotransferase 22 U/L (0-40); Albumin Level 4.5 g/dL (3.5-5.0); Alkaline Phosphatase 55 U/L (39-117); Anion Gap 13 (12-20); Aspartate Amino Transferase 25 U/L (5-37); Bilirubin Direct 0.3 mg/dL (0.0-0.5); Blood Urea Nitrogen 13 mg/dL (9-16); Calcium 9.3 mg/dL (8.4-10.2); Carbon Dioxide 26 mmol/L (22-29); Chloride 99 mmol/L (96-108); Creatinine Clr Calc Pharmacy 88.6; Estimated Glomerular Filt Rate > 60; Glucose Random 161 mg/dL (60-115); Magnesium 1.9 mg/dL (1.6-2.6); Potassium 3.7 mmol/L (3.3-5.1); Sodium 134 mmol/L (135-145); Total Protein 7.1 g/dL (6.5-8.0)
[2021-09-02 11:52] LABS: B Type Natriuretic Peptide 20 pg/mL (<100); Troponin-I High Sensitivity 5.9 ng/L (<3.5-35.0)
[2021-09-02] MEDS: Cyclobenzaprine HCl 10 MG TABLET PO (14:02)
[2021-09-02] MEDS: Lidocaine 4 % Patch ADH..PATCH 1 PATCH TRANSDERMA (14:24)
[2021-09-02 14:38] LABS: Troponin-I High Sensitivity 7.3 ng/L (<3.5-35.0)
== END 2021-09-02 15:21 | disposition home or self-care (01) ==
PROVIDERS: Physician Assistant; Emergency Provider Emergency Medicine; PCP Internal Medicine
DX: R07.89 Other chest pain (principal); R20.2 Paresthesia of skin; Z79.899 Other long term (current) drug therapy
CPT/HCPCS: 36415; 71046; 80048; 80076; 83735; 83880; 84484; 85025; 93005; 99283; 99284

== ENCOUNTER → 2021-09-05 12:36 | Outpatient (BNVA) | payer OTHER, SELFPAY | PROVIDERS: PCP Internal Medicine; Referring Provider Internal Medicine; Visit Provider Internal Medicine | DX: R07.2 Precordial pain (principal) | CPT/HCPCS: 99202 ==

== ENCOUNTER 2021-09-10 10:02 | Emergency (ER) | payer OTHER, SELFPAY | END 2021-09-10 13:38 | disposition left against medical advice (07) | PROVIDERS: Emergency Provider Emergency Medicine; PCP Internal Medicine | DX: M54.50 Low back pain, unspecified (principal); M79.602 Pain in left arm ==

== ENCOUNTER 2021-09-11 17:38 | Emergency (ER) | payer OTHER, SELFPAY ==
--- NOTE | ~2021-09-11 | XR_ITS ---
EXAMINATION: XR CHEST CLINICAL INFORMATION: Chest pain COMPARISON: Chest x-ray 09/02/2021 TECHNIQUE: Frontal view of the chest was obtained. 1950 hours FINDINGS: Lungs are clear. No pulmonary vascular congestion. There is no pleural effusion. The heart size is normal. The cardiac and mediastinal contours are normal. There are multilevel degenerative changes of dorsal spine. XR/XR chest 1V IMPRESSION: Unremarkable examination.
[2021-09-11 18:15] VITALS: BP 172/99; PULSE 86; RESP 16; TEMP 36.7; O2SAT 98
[2021-09-11 19:20] VITALS: BP 206/83; PULSE 85; RESP 18; TEMP 37.1; O2SAT 97
--- NOTE | 2021-09-11 19:48 | ECG_ITS ---
Test Reason : hypertension Blood Pressure : / mmHG Vent. Rate : 082 BPM Atrial Rate : 082 BPM P-R Int : 170 ms QRS Dur : 094 ms QT Int : 364 ms P-R-T Axes : 027 002 015 degrees QTc Int : 425 ms Normal sinus rhythm Normal ECG When compared with ECG of 02-SEP-2021 10:02, No significant change was found Referred By: Boston Harris Electronically Signed By:LENY MARKS MD
--- NOTE | 2021-09-11 19:52 | ED_ITS ---
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 Patient's symptoms started about 10 days ago was seen and evaluated in the emergency department for chest pain with a negative cardiac workup then. Pain was described as severe constant dull aching pain radiates down from the neck to left shoulder, left scapular area, left chest, and left upper extremities. Pain is aggravated with movement of the neck or the left upper extremities, nothing relieves the pain, patient was seen by his PCP was prescribed oxycodone with partial relief of his pain. Patient declined any neck injury. Patient also is known to have high blood pressure taking losartan 100 mg and HCTZ 25 mg but found to have high blood pressure in the ED which thought to be pain related hypertension. Related Data Home Medications Medication Instructions Recorded Confirmed albuterol sulfate 90 mcg/actuation 2 puff PO Q6H PRN 10/30/20 09/05/21 aerosol inhaler dutasteride 0.5 mg capsule 0.5 mg PO DAILY 10/30/20 09/05/21 tamsulosin 0.4 mg capsule 0.4 mg PO DAILY 10/30/20 09/05/21 azathioprine 50 mg tablet 100 mg PO DAILY 03/14/21 09/05/21 Previous Rx's Medication Instructions Recorded ondansetron HCl 4 mg tablet 4 mg PO DAILY PRN 30 Days #30 tab 02/19/21 (Zofran) clotrimazole-betamethasone 1 1 appl TOPICAL ONCE 30 Days #45 g 02/21/21 %-0.05 % topical cream omeprazole 20 mg capsule,delayed 20 mg PO BID #180 cap 02/21/21 release BD Insulin Syringe Ultra-Fine 0.5 #150 ea NS 05/02/21 mL 31 gauge x 5/16 (insulin syringe-needle U-100) Lantus Solostar U-100 Insulin 100 35 unit (0.35 mL) SUBCUT DAILY 30 05/02/21 unit/mL (3 mL) subcutaneous pen Days #15 ml NS (insulin glargine) alcohol swabs (Alcohol Prep Pads) 1 pad TOPICAL .6 times a day 30 05/02/21 Days #200 ea fenofibrate 160 mg tablet 160 mg PO DAILY 90 Days #90 tab 05/02/21 pen needle, diabetic 32 gauge x #50 ea 05/02/21 (BD Doris 2nd Gen Pen Needle) losartan 50 mg tablet 100 mg PO DAILY #180 tab 08/12/21 atorvastatin 20 mg tablet 20 mg PO BEDTIME #30 tab 08/16/21 blood sugar diagnostic (FreeStyle #200 ea 08/16/21 Lite Strips) insulin aspart U-100 100 unit/mL 120 unit (1.2 mL) SUBCUT DAILY 30 08/16/21 subcutaneous solution (Novo Days #40 ml U-100 Insulin aspart) lancets 28 gauge #200 ea 08/16/21 mometasone-formoterol HFA 100 2 puff INHALATION BID 30 Days #13 g 08/19/21 mcg-5 mcg/actuation aerosol inhaler (Dulera) acetaminophen 500 mg tablet 500 mg PO Q6H PRN #20 tab 09/02/21 (Tylenol Extra Strength) cyclobenzaprine 5 mg tablet 5 mg PO Q8H PRN 5 Days #14 tab 09/02/21 lidocaine 5 % topical patch 1 patch TOPICAL DAILY PRN #30 ea 09/02/21 (Lidoderm) MDD remove after 12 hours naproxen 500 mg tablet 500 mg PO BID PRN 10 Days #20 tab 09/02/21 alprazolam 0.25 mg tablet 0.25 mg PO DAILY 30 Days #30 tab 09/04/21 chlorthalidone 25 mg tablet 25 mg PO DAILY 90 Days #90 tab 09/09/21 hydromorphone 2 mg tablet 2 mg PO Q6H PRN #7 tab 09/11/21 (Dilaudid) Allergies Allergy/AdvReac Type Severity Reaction Status Date / Time oxycodone [From PERCOCET] Allergy Unknown SWELLING Verified 09/05/21 13:28 promethazine [From PHENERGAN] Allergy Unknown RASH Verified 09/05/21 13:28 seafood Allergy Unknown anaphylaxis Verified 09/05/21 13:28 tramadol [TRAMADOL] Allergy Unknown UNKNOWN, Verified 09/05/21 13:28 GI upset fluticasone [Advair Diskus] AdvReac Unknown tachycardia Verified 09/05/21 13:28 salmeterol [Advair Diskus] AdvReac Unknown tachycardia Verified 09/05/21 13:28 Cortisone Allergy Unknown unknown Uncoded 09/05/21 13:28 Isoniazid Allergy Unknown rash Uncoded 09/05/21 13:28 Review of Systems Review of Systems: All other systems are reviewed and are negative Constitutional: Reports as per HPI and Reports no additional constitutional complaints Eyes: Reports as per HPI and Reports no additional eye complaints Reports system reviewed and no additional complaints, except as documented Cardiovascular: Reports as per HPI and Reports no additional cardiovascular complaints Respiratory: Reports as per HPI and Reports no additional respiratory complaints Gastrointestinal: Reports as per HPI and Reports no additional gastrointestinal complaints Genitourinary: Reports no additional female genitourinary complaints Musculoskeletal: Reports no additional musculoskeletal complaints Skin/Breast: Reports system reviewed and no additional complaints, except as docu Psychiatric: Reports no additional psychiatric complaints Endocrine: Reports no additional endocrine complaints Hematologic/Lymphatic: Reports no additional hematologic/lymphatic complaints Allergic/Immunologic: Reports no additional allergic/immunologic complaints Reports system reviewed and no additional complaints, except as documented and Reports Abnormal speech present [facility] Past Medical History Medical History Chronic inflammation of pancreas Diabetes type 1, uncontrolled FH: cholecystectomy Hypertension Hypertriglyceridemia Non-toxic multinodular goiter Obesity (BMI 30.0-34.9) Obesity due to excess calories Pancreatic abnormality Surgical History History of laminectomy Hx of cholecystectomy Hx of colonoscopy Hx of endoscopy Family History Family History Father Hypertension Hyperlipidemia Prostate cancer Diabetes Arthritis Mother Arthritis Hyperlipidemia Diabetes Osteoporosis Social History Social History Household Members: Spouse and Children Household Members Other:: daughter, , son Housing: House Alcohol intake: unknown Patient Tobacco Use Status: Never used Tobacco Second Hand Smoke Exposure: No Use of substances other than those prescribed or required for medical reasons: Unknown Advance Directives: No Advance Directives Information Provided: No Current occupational status: disabled Physical Exam Vital Signs: Vital Signs: Last Vital Signs Temp 98.8 F 09/11/21 19:20 Pulse 84 09/11/21 20:18 Resp 18 09/11/21 20:18 BP 137/110 H 09/11/21 20:18 Pulse Ox 99 09/11/21 20:18 Body Mass Index 30.0 Vital signs have been reviewed as appeared to be correct. Blood pressure elevated.Heart rate normal. Respiration rate normal. Temperature normal. Oxygen saturation normal. Appearance: Alert. Oriented X3. No acute distress. Head: Normal external exam. Normocephalic. Atraumatic. No Berkowitz signs noted. No raccoon eyes noted Eyes: PERRLA. EOMI. Conjunctiva and sclera normal. Eyelids normal. ENT: TM's Normal. Pharynx normal. Uvula midline. Moist mucous membranes. No trismus noted. No drooling noted. No muffled voice noted. Neck: Normal inspection. Neck supple. FROM. No adenopathy. Thyroid Normal. No meningeal signs. No neck mass noted. Increase pain radiating to the left upper extremities with turning the head to the right or left. CVS: Normal heart rate and rhythm. Heart sound normal. No murmurs noted. Pulses normal throughout. Respiratory: No respiratory distress. Painless inspiration. Breath sounds normal. No wheezes/rales/rhonchi noted. Chest nontender. No accessory muscle usage noted or decreased air movement noted. Abdomen: Soft and nontender. Bowel sounds normal in all 4 quadrants. No distention noted. No organomegaly noted. No visible injury noted. Back: No CVA tenderness. Full range of motion noted. Skin: Skin warm and dry. Normal skin color. Normal skin turgor. No rashes/lesions/lacerations noted. Extremities: No lower extremity edema. Extremities exhibit normal range of motion. Extremities nontender. Neuro: Oriented X 3. Cranial nerve exam: II-XII are grossly intact No motor deficit. No sensory deficit. Reflexes normal. Course Course Course Narrative: Assessment and plan. 61-year-old male came in with chest pain, physical exam labs are more consistent with cervical radiculopathy. Patient feels better with IV Dilaudid given in the ED. will discharge the patient on p.o. Dilaudid. Patient was instructed to follow up with his PCP to consider outpatient cervical spine MRI if symptoms persist. Medical Decision Making Lab Data Lab results reviewed: Yes I reviewed the patient's lab results. Result diagrams: 09/11/21 20:08 09/11/21 20:08 Labs: Lab Results 09/11/21 09/11/21 09/11/21 Range/Units 20:08 20:08 20:08 WBC 9.1 (4.8-10.8) X10*3/uL RBC 5.13 (4.60-5.80) X10*6/uL Hgb 14.5 (14.0-18.0) g/dl Hct 40.3 L (42.0-52.0) % MCV 78.6 L (80.0-98.0) fL MCH 28.3 (27.0-33.0) pg MCHC 36.0 (31.0-36.0) g/dl RDW 12.9 (11.0-16.0) % Plt Count 239 (160-400) X10*3/uL MPV 9.8 (9.4-12.4) fL Immature Gran % (Auto) 0.1 (0.0-0.4) % Neut % (Auto) 74.1 H (45-73) % Lymph % (Auto) 16.2 L (20-40) % [place] % (Auto) 8.4 (2-11) % Eos % (Auto) 0.9 (0-4) % Baso % (Auto) 0.3 (0-2) % Lymph # (Auto) 1.5 (1.2-4.9) X10*3/uL [place] # (Auto) 0.8 (0.1-1.2) X10*3/uL Eos # (Auto) 0.1 (0.0-0.4) X10*3/uL Baso # (Auto) 0.0 (0.0-0.2) X10*3/uL Abs Immat Gran (auto) 0.01 (0.00-0.03) X10*3/uL Absolute Neuts (auto) 6.7 (2.0-8.3) x10*3/uL Absolute Nucleated RBC 0.000 (0.0-0.012) X10*3/uL Nucleated RBC % (auto) 0.0 (0.0-0.2) /100WBC Sodium 133 L (135-145) mmol/L Potassium 3.6 (3.3-5.1) mmol/L Chloride 98 (96-108) mmol/L Carbon Dioxide 27 (22-29) mmol/L Anion Gap 12 (12-20) BUN 13 (9-16) mg/dL Creatinine 0.84 (0.5-1.4) mg/dL Estim Creat Clear Calc 94.8 Estimated GFR > 60 Random Glucose 105 (60-115) mg/dL Calcium 9.3 (8.4-10.2) mg/dL Total Bilirubin 0.7 (0.0-1.0) mg/dL Direct Bilirubin 0.2 (0.0-0.5) mg/dL AST 25 (5-37) U/L ALT 21 (0-40) U/L Alkaline Phosphatase 63 (39-117) U/L Troponin I High Sens 9.0 (<3.5-35.0) ng/L Total Protein 6.9 (6.5-8.0) g/dL Albumin 4.3 (3.5-5.0) g/dL Lipase 13 (8-78) U/L Imaging Data Chest x-ray: Radiologist's impression: Unremarkable examination ECG Data Attestation: I personally reviewed and interpreted this ECG as follows: Interpretation: Normal sinus rhythm at 82 beats per minute. Discharge Plan Discharge Clinical Impression: Cervical radiculopathy Patient Disposition: Home, Self-Care Instructions: Cervical Radiculopathy (ED) Prescriptions: New hydromorphone [Dilaudid] 2 mg tablet 2 mg PO Q6H PRN (Reason: pain) Qty: 7 RF: 0 No Action ondansetron HCl [Zofran] 4 mg tablet 4 mg PO DAILY PRN (Reason: nausea and vomiting) 30 Days Qty: 30 RF: 0 clotrimazole-betamethasone 1-0.05 % cream 1 appl topical ONCE 30 Days Qty: 45 RF: 0 omeprazole 20 mg capsule,delayed release(DR/EC) 20 mg PO BID Qty: 180 RF: 2 losartan 50 mg tablet 100 mg PO DAILY Qty: 180 RF: 0 Dulera 100-5 mcg/actuation HFA aerosol inhaler 2 puff inhalation BID 30 Days Qty: 13 RF: 2 chlorthalidone 25 mg tablet 25 mg PO DAILY 90 Days Qty: 90 RF: 0 acetaminophen [Tylenol Extra Strength] 500 mg tablet 500 mg PO Q6H PRN (Reason: pain or fever) Qty: 20 RF: 0 lidocaine [Lidoderm] 5 % adhesive patch,medicated 1 patch topical DAILY MDD remove after 12 hours PRN (Reason: pain) Qty: 30 RF: 0 naproxen 500 mg tablet 500 mg PO BID PRN (Reason: pain) 10 Days Qty: 20 RF: 0 cyclobenzaprine 5 mg tablet 5 mg PO Q8H PRN (Reason: pain (scale score 7-10)) 5 Days Qty: 14 RF: 0 alprazolam 0.25 mg tablet 0.25 mg PO DAILY 30 Days Qty: 30 RF: 0 azathioprine 50 mg tablet 100 mg PO DAILY RF: 0 alcohol swabs [Alcohol Prep Pads] Pads, Medicated 1 pad topical .6 times a day 30 Days Qty: 200 RF: 8 fenofibrate 160 mg tablet 160 mg PO DAILY 90 Days Qty: 90 RF: 1 Lantus Solostar U-100 Insulin 100 unit/mL (3 mL) insulin pen 35 unit subcut DAILY 30 Days Qty: 15 RF: 5 (DME) pen needle, diabetic [BD Doris 2nd Gen Pen Needle] 32 gauge x 5/32 needle See Rx Instructions .ROUTE .MEDSUPPLY Qty: 50 RF: 4 (DME) insulin syringe-needle U-100 [BD Insulin Syringe Ultra-Fine] 0.5 mL 31 gauge x 5/16 syringe See Rx Instructions .ROUTE .MEDSUPPLY Qty: 150 RF: 6 dutasteride 0.5 mg capsule 0.5 mg PO DAILY RF: 0 tamsulosin 0.4 mg capsule 0.4 mg PO DAILY RF: 0 albuterol sulfate 90 mcg/actuation HFA aerosol inhaler 2 puff PO Q6H PRNRF: 0 insulin aspart U-100 [Novolog U-100 Insulin aspart] 100 unit/mL solution 120 unit subcut DAILY 30 Days Qty: 40 RF: 6 (DME) FreeStyle Lite Strips Strip See Rx Instructions .ROUTE .MEDSUPPLY Qty: 200 RF: 8 (DME) lancets 28 gauge misc See Rx Instructions ea topical .MEDSUPPLY Qty: 200 RF: 11 atorvastatin 20 mg tablet 20 mg PO BEDTIME Qty: 30 RF: 6 Referrals: Kushal Cobb MD [Primary Care Provider] - 2 days
[2021-09-11 20:16] VITALS: RESP 18
[2021-09-11 20:16] LABS: MANUAL DIFF FLAG NO
[2021-09-11] MEDS: HYDROmorphone HCl 2 MG/ML VIAL IVPUSH (20:16)
[2021-09-11 20:17] LABS: Basophils Percent Auto 0.3 % (0-2); Eosinophils Absolute Auto 0.1 X10*3/uL (0.0-0.4); Eosinophils Percent Auto 0.9 % (0-4); Hematocrit 40.3 % (42.0-52.0); Hemoglobin 14.5 g/dl (14.0-18.0); Imm Gran Abs Auto 0.01 X10*3/uL (0.00-0.03); Imm Gran Pct Auto 0.1 % (0.0-0.4); Lymphocytes Absolute Auto 1.5 X10*3/uL (1.2-4.9); Lymphocytes Percent Auto 16.2 % (20-40); Mean Corpuscular Hemoglobin 28.3 pg (27.0-33.0); Mean Corpuscular Volume 78.6 fL (80.0-98.0); Mean Platelet Volume 9.8 fL (9.4-12.4); Monocytes Absolute Auto 0.8 X10*3/uL (0.1-1.2); Monocytes Percent Auto 8.4 % (2-11); Neutrophils Absolute Auto 6.7 x10*3/uL (2.0-8.3); Neutrophils Percent Auto 74.1 % (45-73); Platelet Count 239 X10*3/uL (160-400); Red Blood Count 5.13 X10*6/uL (4.60-5.80); Red Cell Distribution Width 12.9 % (11.0-16.0); White Blood Count 9.1 X10*3/uL (4.8-10.8)
[2021-09-11 20:18] VITALS: BP 137/110; PULSE 84; RESP 18; O2SAT 99
[2021-09-11 20:34] LABS: Alanine Aminotransferase 21 U/L (0-40); Albumin Level 4.3 g/dL (3.5-5.0); Alkaline Phosphatase 63 U/L (39-117); Anion Gap 12 (12-20); Aspartate Amino Transferase 25 U/L (5-37); Bilirubin Direct 0.2 mg/dL (0.0-0.5); Bilirubin Total 0.7 mg/dL (0.0-1.0); Blood Urea Nitrogen 13 mg/dL (9-16); Calcium 9.3 mg/dL (8.4-10.2); Carbon Dioxide 27 mmol/L (22-29); Chloride 98 mmol/L (96-108); Creatinine Clr Calc Pharmacy 94.8; Estimated Glomerular Filt Rate > 60; Glucose Random 105 mg/dL (60-115); Lipase 13 U/L (8-78); Potassium 3.6 mmol/L (3.3-5.1); Sodium 133 mmol/L (135-145); Total Protein 6.9 g/dL (6.5-8.0)
== END 2021-09-11 22:22 | disposition home or self-care (01) ==
PROVIDERS: Emergency Provider Emergency Medicine; PCP Internal Medicine
DX: M54.12 Radiculopathy, cervical region (principal); E10.9 Type 1 diabetes mellitus without complications; I10 Essential (primary) hypertension
CPT/HCPCS: 36415; 71045; 80048; 80076; 83690; 84484; 85025; 93005; 96374; 99284; J1170

== ENCOUNTER 2021-10-11 12:47 | Outpatient (REF) | payer OTHER, SELFPAY ==
--- NOTE | ~2021-10-11 | XR_ITS ---
EXAMINATION: XR CERVICAL SPINE CLINICAL INFORMATION: Myalgia. Pain in the shoulder. COMPARISON: Multiple prior examinations including CT of the neck October 2020 and x-ray of the cervical spine January 2019. TECHNIQUE: 5 views of the cervical spine including swimmer's view. FINDINGS: Multilevel cervical spondylosis manifested by endplate osteophytes and variable disc space narrowing involving C3-C4 through C5-C6. The cervical thoracic junction is partially obscured by overlying soft tissues and bone. Facets appear normal. The surrounding bone and soft tissues are unremarkable. XR/XR cervical spine 3V IMPRESSION: Multilevel cervical spondylosis, overall [id number], unchanged, compared with the prior exams.
--- NOTE | ~2021-10-11 | XR_ITS ---
EXAMINATION: XR SHOULDER, LEFT CLINICAL INFORMATION: Pain in left shoulder. COMPARISON: X-ray of the left shoulder February 2017. TECHNIQUE: AP external rotation, Grashey, scapular Y, and axillary views of the left shoulder. FINDINGS: Acromioclavicular Joint: Mild osteoarthritis with small marginal osteophytes, unchanged compared to prior. Glenohumeral Joint: Mild osteoarthritis with small marginal osteophytes. Surrounding bones, joints and soft tissues unremarkable. XR/XR shoulder LT min 2V IMPRESSION: Stable mild osteoarthritis.
== END 2021-10-11 12:48 | disposition home or self-care (01) ==
LOC: HO.XRAY 12:47
PROVIDERS: PCP Internal Medicine; Visit Provider Nurse Practitioner Family
DX: M79.18 Myalgia, other site (principal); M54.12 Radiculopathy, cervical region; M25.512 Pain in left shoulder
CPT/HCPCS: 72040; 73030; 99202

== ENCOUNTER → 2021-11-20 12:04 | Outpatient (BNVA) | payer OTHER, SELFPAY | PROVIDERS: PCP Internal Medicine; Visit Provider Registered Nurse Diabetes Educator | DX: E10.9 Type 1 diabetes mellitus without complications (principal) | CPT/HCPCS: 99211 ==

== ENCOUNTER → 2021-12-03 08:51 | Outpatient (BNVA) | payer OTHER, SELFPAY | PROVIDERS: PCP Internal Medicine; Visit Provider Nurse Practitioner Family | DX: M25.512 Pain in left shoulder (principal); M47.22 Other spondylosis with radiculopathy, cervical region | CPT/HCPCS: 99212 ==

== ENCOUNTER 2021-12-05 10:00 | Outpatient (RCR) | payer OTHER, SELFPAY ==
[2021-11-06 09:59] VITALS: BP 159/87
--- NOTE | 2021-11-06 13:37 | MHC.PT.EP ---
[facility] [place] Office [place] Office [place] Office [address] James Mojica [address] [phone] F: [phone] F: [phone] F: [phone] F: [phone] Physical Therapy Plan of Care Date of Evaluation: Date of Surgery: N/A Diagnosis: Radiculopathy,cervical region Assessment: Pt is a 61yo M who presents to PT with L neck pain radiating into his L UE. He presents today with current impairments in pain, decreased cervical ROM, decreased L shoulder ROM, decreased L UE strength, soft tissue restrictions, and impaired strength. He has soft tissue restrictions throughout L UT, levator, medial scap border. He is limited functionally by lifting, reaching, overhead ADLs, rotation, and general UE movement. His signs and symptoms may be consistent with cervical radiculopathy. He is a good candidate for skilled PT services to address current impairments in order to facilitate return to PLOF. Frequency and Duration: The patient will be seen 2x/week for 4 weeks Short Term Goals: Pt will be I with HEP to promote self management of symptoms Pt will centralize symptoms Penitentiary Goals: Pt will improve cervical ROM to WFL Pt will perform overhead ADLs without compensation with pain < 5 / 10 Pt will demonstrate improvements in functional mobility as evidenced by statistically significant improvement in Neck Pain Disability Index Questionnaire Treatment Plan: Modalities to reduce pain, spasms and effusion. Manual therapy to restore motion and function. Therapeutic exercise to improve strength and flexibility. Neuromuscular re-education for posture and balance. Therapeutic activities to return to functional activities of daily living. Electronically signed by: Liv Dominguez, PT, DPT Please sign and return to therapist. Thank you for your referral.
--- NOTE | 2021-12-13 12:51 | MHC.PT.DC ---
[facility] [place] Office [place] Office [place] Office [address] James Mojica [address] [phone] F: [phone] F: [phone] F: [phone] F: [phone] Physical Therapy Discharge Report Diagnosis: Radiculopathy,cervical region Date of Surgery: N/A Date of Evaluation: 11/06/21 Date of Discharge: 12/13/21 Treatments to Date: 6 Cancellations to Date: 3 No Shows to Date: 0 Discharge Status: Patient Elected to Stop Discharge Summary: Pt was seen for PT from 11/06/21-12/05/21. His last attended PT session was 12/05/21. Pt was making overall fair progress with skilled PT. Pt has requested to self D/C from PT as he continues to have a lot of pain. Pt is being D/C from PT at this time. Electronically signed by: Liv Dominguez, PT, DPT Please sign and return to therapist. Thank you for your referral.
== END 2021-12-13 12:51 | disposition home or self-care (01) ==
LOC: HO.PT 10:00
PROVIDERS: PCP Internal Medicine; Visit Provider Nurse Practitioner Family
DX: M54.12 Radiculopathy, cervical region (principal)
CPT/HCPCS: 97110; 97140; 97162; 97530

== ENCOUNTER → 2021-12-12 10:01 | Outpatient (BNVA) | payer OTHER, SELFPAY | PROVIDERS: PCP Internal Medicine; Visit Provider Nurse Practitioner Gerontology | DX: E10.65 Type 1 diabetes mellitus with hyperglycemia (principal); E78.1 Pure hyperglyceridemia; I10 Essential (primary) hypertension; E66.09 Other obesity due to excess calories; Z68.30 Body mass index [BMI] 30.0-30.9, adult; E04.2 Nontoxic multinodular goiter; B35.3 Tinea pedis; Z96.41 Presence of insulin pump (external) (internal) | CPT/HCPCS: 82947; 83036; 99212 ==

== ENCOUNTER 2021-12-30 08:37 | Outpatient (REF) | payer OTHER, SELFPAY ==
[2021-12-30 10:59] LABS: Blood Urea Nitrogen 17 mg/dL (9-16); Estimated Glomerular Filt Rate > 60
[2021-12-30 12:04] LABS: Microalbumin Urine < 5.0 mg/L
== END 2021-12-30 08:38 | disposition home or self-care (01) ==
LOC: HO.LAB 08:37
PROVIDERS: Nurse Practitioner Gerontology; PCP Internal Medicine; Visit Provider Nurse Practitioner Family
DX: Z01.818 Encounter for other preprocedural examination (principal); M96.1 Postlaminectomy syndrome, not elsewhere classified; M47.27 Other spondylosis with radiculopathy, lumbosacral region; M25.511 Pain in right shoulder; M79.18 Myalgia, other site; M25.512 Pain in left shoulder; M47.22 Other spondylosis with radiculopathy, cervical region; E10.9 Type 1 diabetes mellitus without complications; F41.1 Generalized anxiety disorder
CPT/HCPCS: 36415; 82043; 82565; 84520; 99212

== ENCOUNTER 2022-01-09 11:00 | Outpatient (REF) | payer OTHER, SELFPAY ==
--- NOTE | ~2022-01-09 | US_ITS ---
EXAMINATION: US THYROID CLINICAL INFORMATION: Nontoxic multinodular goiter. COMPARISON: Thyroid ultrasound 11/01/2020. CT soft tissue of the neck 10/27/2020. TECHNIQUE: Linear transducer grayscale and color Doppler examination with attention to the region of the thyroid. FINDINGS: SIZE: Measurements of the thyroid lobes and nodules are given in sagittal, anteroposterior and transverse dimensions respectively. Right Thyroid Lobe: 5.2 x 2.0 x 1.9 cm, volume 10.1 mL. Previously 5.5 x 1.9 x 2.1 cm, volume 11.9 mL. Parenchyma: The gland echotexture is homogeneous. Thyroid vascularity is normal. Left Thyroid Lobe: 4.4 x 1.8 x 1.7 cm, volume 7.1 mL. Previously 5.0 x 1.9 x 1.9 cm, volume 9.5 mL. Parenchyma: The gland echotexture is homogeneous. Thyroid vascularity is normal. Isthmus: 0.2 cm in maximum AP dimension. Previously 0.3 cm. Estimated total number of nodules greater than or equal to 1 cm: 0. Senior Office Assistant nodules are described as follows: 1. Location: Right mid. Size: 0.7 x 0.5 x 0.8 cm, volume 0.15 mL. Previously: 1.2 x 0.8 x 1.2 cm, volume 0.60 mL. Nodule characteristics: Composition: Mixed cystic and solid (1). Echogenicity: Hypoechoic (2). Shape: Not taller than wide (0). Margins: Smooth (0). Echogenic Foci: None (0). ACR TI-RADS total points: 3 ACR TI-RADS category: 3 Significant change in size (>/= 20% in 2 dimensions and minimal increase of 2 mm or 50% or greater increase in volume): This appears smaller and more cystic and less solid. Change in features: Change in ACR TI-RADS risk category: Not applicable 2. Location: Right inferior. Size: 0.35 x 0.30 x 0.37 cm, volume 0.02 mL. Previously: Not measured but probably stable image October exam. Nodule characteristics: Composition: Cystic(0). ACR TI-RADS total points: 0 ACR TI-RADS category: 1 Significant change in size (>/= 20% in 2 dimensions and minimal increase of 2 mm or 50% or greater increase in volume): Change in features: Change in ACR TI-RADS risk category: Not applicable Previously identified 1 x 0.8 x 0.9 cm spongiform nodule in the right lower pole is not appreciated. 3. Location: Left inferior. Size: 0.6 x 0.5 x 0.7 cm, volume 0.1 mL. Previously: 0.5 x 0.3 x 0.4 cm, volume 0.03 mL. Nodule characteristics: Composition: Solid/almost completely solid (2). Echogenicity: Hypoechoic (2). Shape: Not taller than wide (0). Margins: Smooth (0). Echogenic Foci: None (0). ACR TI-RADS total points: 4 ACR TI-RADS category: 4 Significant change in size (>/= 20% in 2 dimensions and minimal increase of 2 mm or 50% or greater increase in volume): Change in features: Change in ACR TI-RADS risk category: Not applicable 4. Location: Left mid. Size: 0.6 x 0.4 x 0.3 cm, volume 0.04 mL. Previously: 0.6 x 0.4 x 0.5 cm, volume 0.06 mL. Nodule characteristics: Composition: Solid/almost completely solid (2). Echogenicity: Hypoechoic (2). Shape: Not taller than wide (0). Margins: Smooth (0). Echogenic Foci: None (0). ACR TI-RADS total points: 4 ACR TI-RADS category: 4 Significant change in size (>/= 20% in 2 dimensions and minimal increase of 2 mm or 50% or greater increase in volume): Change in features: Change in ACR TI-RADS risk category: Not applicable NODES: There is a small right cervical lymph node. This is normal in size and demonstrates normal ultrasound morphology and flow.. US/US thyroid IMPRESSION: Small thyroid nodules. The largest nodule in the mid right lobe appears decreased in size and more cystic and less solid than on prior exam. Previously identified 1 x 0.8 x 0.9 cm spongiform nodule in the right lower pole is not appreciated.. ACR TI-RADS RECOMMENDATION REFERENCE: Ultrasound-guided fine-needle aspiration, followup ultrasound, no further follow up. * TR1 (0 point) and TR 2 (2 points): No FNA or follow up * TR3 (3 points): FNA if more than or equal to 2.5 cm in maximum dimension, followup ultrasound in 1, 3 and 5 years if 1.5 to 2.4 cm in maximum dimension. * TR4 (4-6 points): FNA if more than or equal to 1.5 cm in maximum dimension, followup ultrasound in 1, 2, 3 and 5 years if 1 to 1.4 cm in maximum dimension. * TR5 (more than or equal to 7 points): FNA if more than or equal to 1 cm in maximum dimension, followup ultrasound every year for 5 years if 0.5 to 0.9 cm in maximum dimension. * TR3, TR4 or TR5 nodules that are below the size threshold for follow up receive no follow up.
== END 2022-01-09 11:01 | disposition home or self-care (01) ==
LOC: HO.US 11:00
PROVIDERS: PCP Internal Medicine; Visit Provider Nurse Practitioner Gerontology
DX: E04.2 Nontoxic multinodular goiter (principal)
CPT/HCPCS: 76536

== ENCOUNTER → 2022-02-03 09:44 | Outpatient (BNVA) | payer OTHER, SELFPAY | PROVIDERS: PCP Internal Medicine; Visit Provider Internal Medicine Endocrinology, Diabetes & Metabolism | DX: E04.2 Nontoxic multinodular goiter (principal) | CPT/HCPCS: 99212 ==

== ENCOUNTER → 2022-02-26 08:31 | Outpatient (BNVA) | payer OTHER, SELFPAY | PROVIDERS: PCP Internal Medicine; Visit Provider Registered Nurse Diabetes Educator | DX: E10.9 Type 1 diabetes mellitus without complications (principal); Z96.41 Presence of insulin pump (external) (internal) | CPT/HCPCS: 99211 ==

== ENCOUNTER → 2022-03-13 09:46 | Outpatient (BNVA) | payer OTHER, SELFPAY | PROVIDERS: PCP Internal Medicine; Visit Provider Nurse Practitioner Gerontology | DX: E10.65 Type 1 diabetes mellitus with hyperglycemia (principal); E78.1 Pure hyperglyceridemia; E66.09 Other obesity due to excess calories; I10 Essential (primary) hypertension; Z68.30 Body mass index [BMI] 30.0-30.9, adult; Z79.4 Long term (current) use of insulin; Z96.41 Presence of insulin pump (external) (internal) | CPT/HCPCS: 82947; 83036; Q3014 ==

== ENCOUNTER → 2022-03-14 08:25 | Outpatient (BNVA) | payer OTHER, SELFPAY | PROVIDERS: PCP Internal Medicine; Visit Provider Registered Nurse Diabetes Educator | DX: E10.9 Type 1 diabetes mellitus without complications (principal); Z79.4 Long term (current) use of insulin; Z46.81 Encounter for fitting and adjustment of insulin pump | CPT/HCPCS: 99211 ==

== ENCOUNTER 2022-03-18 10:12 | Outpatient (REF) | payer OTHER, SELFPAY ==
[2022-03-18 11:49] LABS: Alanine Aminotransferase 23 U/L (0-40); Albumin Level 4.2 g/dL (3.5-5.0); Alkaline Phosphatase 66 U/L (39-117); Anion Gap 13 (12-20); Aspartate Amino Transferase 25 U/L (5-37); Bilirubin Total 1.4 mg/dL (0.0-1.0); Blood Urea Nitrogen 16 mg/dL (9-16); Calcium 9.7 mg/dL (8.4-10.2); Carbon Dioxide 32 mmol/L (22-29); Chloride 98 mmol/L (96-108); Cholesterol 160 mg/dL; Estimated Glomerular Filt Rate > 60; Glucose Fasting 148 mg/dL (60-99); HDL Cholesterol 34 mg/dL; LDL Cholesterol Calculated 76 mg/dl; Potassium 3.5 mmol/L (3.3-5.1); Sodium 139 mmol/L (135-145); Total Protein 6.9 g/dL (6.5-8.0); Triglycerides 250 mg/dL
[2022-03-18 12:08] LABS: Microalbumin Urine < 5.0 mg/L
[2022-03-19 08:32] LABS: LDL Cholesterol Direct 65 mg/dL (<100)
== END 2022-03-18 10:13 | disposition home or self-care (01) ==
LOC: HO.HMGCLDS 10:12
PROVIDERS: PCP Internal Medicine; Visit Provider Nurse Practitioner Gerontology
DX: E10.9 Type 1 diabetes mellitus without complications (principal)
CPT/HCPCS: 36415; 80053; 80061; 82043; 83721

== ENCOUNTER → 2022-05-19 08:57 | Outpatient (BNVA) | payer OTHER, SELFPAY | PROVIDERS: PCP Internal Medicine; Visit Provider Registered Nurse Diabetes Educator | DX: E10.9 Type 1 diabetes mellitus without complications (principal); Z46.81 Encounter for fitting and adjustment of insulin pump; Z79.4 Long term (current) use of insulin | CPT/HCPCS: 99211 ==

== ENCOUNTER → 2022-06-23 09:46 | Outpatient (BNVA) | payer OTHER, SELFPAY | PROVIDERS: PCP Internal Medicine; Visit Provider Registered Nurse Diabetes Educator | DX: E10.65 Type 1 diabetes mellitus with hyperglycemia (principal); Z46.81 Encounter for fitting and adjustment of insulin pump; Z79.4 Long term (current) use of insulin | CPT/HCPCS: 99211 ==

== ENCOUNTER → 2022-06-26 09:18 | Outpatient (BNVA) | payer OTHER, SELFPAY | PROVIDERS: PCP Internal Medicine; Visit Provider Student in an Organized Health Care Education/Training Program | DX: M25.541 Pain in joints of right hand (principal); M54.50 Low back pain, unspecified; R60.9 Edema, unspecified; K85.90 Acute pancreatitis without necrosis or infection, unspecified | CPT/HCPCS: 99202 ==

== ENCOUNTER 2022-06-26 10:46 | Outpatient (REF) | payer OTHER, SELFPAY ==
[2022-06-26 14:16] LABS: Bacteria Urine None Seen (None Seen); Hyaline Casts Urine 0-2 /LPF (0-2); RBC Urine 0-2 /HPF (0-2); Squamous Epithelial Cell Urine 0-2 /HPF (0-2); WBC Urine 0-5 /HPF (0-5)
[2022-06-26 14:19] LABS: Color Urine Yellow; Glucose Urine UA Negative (Negative); Leukocyte Esterase Urine Negative (Negative); Nitrite Urine Negative (Negative); Specific Gravity - Urine 1.015 (1.005-1.025); Urine Blood Negative (Negative); Urine Ketones Negative (Negative); Urine Protein Negative (Neg-Trace)
[2022-06-26 14:22] LABS: Appearance Urine Hazy
[2022-06-26 14:32] LABS: Alanine Aminotransferase 18 U/L (0-40); Albumin Level 4.3 g/dL (3.5-5.0); Alkaline Phosphatase 67 U/L (39-117); Anion Gap 17 (12-20); Aspartate Amino Transferase 24 U/L (5-37); Bilirubin Total 1.2 mg/dL (0.0-1.0); Blood Urea Nitrogen 13 mg/dL (9-16); C Reactive Protein 0.69 mg/dL (< or = 0.50); Calcium 9.5 mg/dL (8.4-10.2); Carbon Dioxide 27 mmol/L (22-29); Chloride 100 mmol/L (96-108); Estimated Glomerular Filt Rate > 60; Glucose Random 136 mg/dL (60-115); Potassium 3.9 mmol/L (3.3-5.1); Sodium 140 mmol/L (135-145); Total Protein 6.9 g/dL (6.5-8.0); Uric Acid 4.9 mg/dL (3.4-7.0)
[2022-06-26 14:40] LABS: Creatinine Urine 100.87 mg/dL; Total Protein Urine Random < 7 mg/dL (<12)
[2022-06-26 14:54] LABS: Thyroid Stimulating Hormone 0.72 uIU/mL (0.32-4.0)
[2022-06-26 15:00] LABS: Erythrocyte Sedimentation Rate 7 MM/HR (0-15)
[2022-06-27 08:16] LABS: HBS Num1 0.68 mIU/mL (0-7.99); HBc Num1 0.07 S/CO (0.00-0.79); HBsAGNum1 0.28 S/CO (0.00-0.99); Hepatitis A Antibody IgM 0.67 Index (0-0.79); Hepatitis B Core Antibody Nonreactive (Nonreactive); Hepatitis B Surface Antigen Negative (Negative); ~HepC Num1 0.11 S/CO (0.00-0.79); ~Hepatitis A Antibody IgM Nonreactive (Nonreactive); ~Hepatitis B Surface Antibody NONREACTIVE (Nonreactive); ~Hepatitis C Antibody Nonreactive (Nonreactive)
[2022-06-27 14:07] LABS: Complement C3 144 mg/dL (82-185)
[2022-06-28 15:41] LABS: IgA 204 mg/dL (70-320); IgG 1068 mg/dL (600-1540); IgM 41 mg/dL (50-300)
[2022-06-28 23:12] LABS: Anti Nuclear Antibody Screen NEGATIVE (NEGATIVE)
[2022-07-01 14:32] LABS: Immunoglobulin G Subclass 1 584 mg/dL (382-929); Immunoglobulin G Subclass 2 293 mg/dL (241-700); Immunoglobulin G Subclass 3 35 mg/dL (22-178); Immunoglobulin G Subclass 4 38.4 mg/dL (4-86); Immunoglobulin G Total 978 mg/dL (600-1540)
[2022-07-01 23:52] LABS: Prot Elec - Albumin 4.4 g/dL (3.8-4.8); Prot Elec - Alpha1 0.3 g/dL (0.2-0.3); Prot Elec - Alpha2 0.6 g/dL (0.5-0.9); Prot Elec - Beta 1 0.4 g/dL (0.4-0.6); Prot Elec - Beta 2 0.3 g/dL (0.2-0.5); Prot Elec - Gamma 0.9 g/dL (0.8-1.7); Prot Elec - Total Protein 6.9 g/dL (6.1-8.1)
[2022-07-02 09:11] LABS: TS Negative Control Passed; TS Panel A 9; TS Panel B 1; TS Positive Control Passed; TSpotTB Positive (Negative)
[2022-07-02 09:17] LABS: Anti DNA DS Antibody <1 IU/mL; Antibody to SS-A Antigen <1.0 NEG AI (<1.0 NEG); Antibody to SS-B Antigen <1.0 NEG AI (<1.0 NEG); SM/Ribonucleoprotein Ab <1.0 NEG AI (<1.0 NEG); Smith Protein <1.0 NEG AI (<1.0 NEG)
== END 2022-06-26 10:47 | disposition home or self-care (01) ==
LOC: HO.10HDL 10:46
PROVIDERS: Visit Provider Student in an Organized Health Care Education/Training Program
DX: M25.50 Pain in unspecified joint (principal); R80.9 Proteinuria, unspecified; D89.89 Other specified disorders involving the immune mechanism, not elsewhere classified; M25.511 Pain in right shoulder; M25.541 Pain in joints of right hand; M25.542 Pain in joints of left hand; M25.572 Pain in left ankle and joints of left foot; M79.671 Pain in right foot; M54.50 Low back pain, unspecified; R60.9 Edema, unspecified; Z11.59 Encounter for screening for other viral diseases; Z22.7 Latent tuberculosis
CPT/HCPCS: 36415; 80053; 81001; 82784; 84156; 84165; 84443; 84550; 85652; 86038; 86039; 86140; 86160; 86225; 86235; 86481; 86704; 86706; 86709; 86803; 87340

== ENCOUNTER 2022-06-27 09:18 | Outpatient (REF) | payer OTHER, SELFPAY ==
--- NOTE | ~2022-06-27 | XR_ITS ---
EXAMINATION: XR HAND, BILATERAL XR WRIST, BILATERAL CLINICAL INFORMATION: Pain. COMPARISON: None TECHNIQUE: 4 views of the bilateral hands and wrists. FINDINGS: Right: Bone alignment is normal. No fracture or dislocation is seen. There is mild arthritis at the DIP joint of the 2nd finger and IP joint and MCP joint of the thumb. Joint spaces are otherwise normal. Soft tissues are normal. Left: Bone alignment is normal. No fracture or dislocation is seen. There is mild arthritis at the IP joint and MCP joint of the thumb. Joint spaces are otherwise normal. Soft tissues are normal. XR/XR hand wrist RT IMPRESSION: Mild bilateral arthritis.
--- NOTE | ~2022-06-27 | XR_ITS ---
EXAMINATION: XR FOOT, BILATERAL XR ANKLE, BILATERAL CLINICAL INFORMATION: Pain. COMPARISON: Right foot x-ray October 2008. TECHNIQUE: 3 views of each foot and ankle. FINDINGS: Right Foot: Bone alignment is normal. No fracture or dislocation is seen. There is arthritis at the 1st MTP joint with joint space narrowing and osteophyte formation. Joint spaces are otherwise normal. There are calcaneal spurs. Right Ankle: Bone alignment is normal. No fracture or dislocation is seen. The ankle mortise is normal. Soft tissues are normal. Left Foot: Bone alignment is normal. No fracture or dislocation is seen. There is arthritis at the 1st MTP joint with joint space narrowing and osteophyte formation. Joint spaces are otherwise normal. There are calcaneal spurs. Left Ankle: Bone alignment is normal. No fracture or dislocation is seen. The ankle mortise is normal. Soft tissues are normal. XR/XR ankle LT 2V IMPRESSION: Bilateral arthritis at the 1st MTP joints and bilateral calcaneal spurs.
--- NOTE | ~2022-06-27 | XR_ITS ---
EXAMINATION: XR FOOT, BILATERAL XR ANKLE, BILATERAL CLINICAL INFORMATION: Pain. COMPARISON: Right foot x-ray October 2008. TECHNIQUE: 3 views of each foot and ankle. FINDINGS: Right Foot: Bone alignment is normal. No fracture or dislocation is seen. There is arthritis at the 1st MTP joint with joint space narrowing and osteophyte formation. Joint spaces are otherwise normal. There are calcaneal spurs. Right Ankle: Bone alignment is normal. No fracture or dislocation is seen. The ankle mortise is normal. Soft tissues are normal. Left Foot: Bone alignment is normal. No fracture or dislocation is seen. There is arthritis at the 1st MTP joint with joint space narrowing and osteophyte formation. Joint spaces are otherwise normal. There are calcaneal spurs. Left Ankle: Bone alignment is normal. No fracture or dislocation is seen. The ankle mortise is normal. Soft tissues are normal. 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
--- NOTE | ~2022-06-27 | XR_ITS ---
EXAMINATION: XR FOOT, BILATERAL XR ANKLE, BILATERAL CLINICAL INFORMATION: Pain. COMPARISON: Right foot x-ray October 2008. TECHNIQUE: 3 views of each foot and ankle. FINDINGS: Right Foot: Bone alignment is normal. No fracture or dislocation is seen. There is arthritis at the 1st MTP joint with joint space narrowing and osteophyte formation. Joint spaces are otherwise normal. There are calcaneal spurs. Right Ankle: Bone alignment is normal. No fracture or dislocation is seen. The ankle mortise is normal. Soft tissues are normal. Left Foot: Bone alignment is normal. No fracture or dislocation is seen. There is arthritis at the 1st MTP joint with joint space narrowing and osteophyte formation. Joint spaces are otherwise normal. There are calcaneal spurs. Left Ankle: Bone alignment is normal. No fracture or dislocation is seen. The ankle mortise is normal. Soft tissues are normal. 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
--- NOTE | ~2022-06-27 | XR_ITS ---
EXAMINATION: XR SACROILIAC JOINTS CLINICAL INFORMATION: Low back pain COMPARISON: None TECHNIQUE: 3 views of the sacroiliac joints FINDINGS: The sacroiliac joints are normal. No evidence of erosive or proliferative arthritis is seen. There are degenerative changes of the lower lumbar spine. Soft tissues are normal. XR/XR sacroiliac joint 1-2V IMPRESSION: Normal sacroiliac joints. Degenerative changes of the lower lumbar spine.
--- NOTE | ~2022-06-27 | XR_ITS ---
EXAMINATION: XR FOOT, BILATERAL XR ANKLE, BILATERAL CLINICAL INFORMATION: Pain. COMPARISON: Right foot x-ray October 2008. TECHNIQUE: 3 views of each foot and ankle. FINDINGS: Right Foot: Bone alignment is normal. No fracture or dislocation is seen. There is arthritis at the 1st MTP joint with joint space narrowing and osteophyte formation. Joint spaces are otherwise normal. There are calcaneal spurs. Right Ankle: Bone alignment is normal. No fracture or dislocation is seen. The ankle mortise is normal. Soft tissues are normal. Left Foot: Bone alignment is normal. No fracture or dislocation is seen. There is arthritis at the 1st MTP joint with joint space narrowing and osteophyte formation. Joint spaces are otherwise normal. There are calcaneal spurs. Left Ankle: Bone alignment is normal. No fracture or dislocation is seen. The ankle mortise is normal. Soft tissues are normal. 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
--- NOTE | ~2022-06-27 | XR_ITS ---
EXAMINATION: XR HAND, BILATERAL XR WRIST, BILATERAL CLINICAL INFORMATION: Pain. COMPARISON: None TECHNIQUE: 4 views of the bilateral hands and wrists. FINDINGS: Right: Bone alignment is normal. No fracture or dislocation is seen. There is mild arthritis at the DIP joint of the 2nd finger and IP joint and MCP joint of the thumb. Joint spaces are otherwise normal. Soft tissues are normal. Left: Bone alignment is normal. No fracture or dislocation is seen. There is mild arthritis at the IP joint and MCP joint of the thumb. Joint spaces are otherwise normal. Soft tissues are normal. XR/XR hand wrist LT IMPRESSION: Mild bilateral arthritis.
== END 2022-06-27 09:19 | disposition home or self-care (01) ==
LOC: HO.XRAY 09:18
PROVIDERS: PCP Internal Medicine; Visit Provider Student in an Organized Health Care Education/Training Program
DX: M79.671 Pain in right foot (principal); M25.542 Pain in joints of left hand; M25.572 Pain in left ankle and joints of left foot; M25.571 Pain in right ankle and joints of right foot; M54.50 Low back pain, unspecified; M25.531 Pain in right wrist; M25.532 Pain in left wrist
CPT/HCPCS: 72200; 73110; 73130; 73600; 73620

== ENCOUNTER 2022-07-02 09:53 | Outpatient (REF) | payer OTHER, SELFPAY ==
[2022-07-07 10:47] LABS: HLA B27 Negative (Negative)
== END 2022-07-02 09:54 | disposition home or self-care (01) ==
LOC: HO.10HDL 09:53
PROVIDERS: Visit Provider Student in an Organized Health Care Education/Training Program
DX: M25.511 Pain in right shoulder (principal)
CPT/HCPCS: 36415; 86812

== ENCOUNTER → 2022-07-17 09:13 | Outpatient (BNVA) | payer OTHER, SELFPAY | PROVIDERS: PCP Internal Medicine; Visit Provider Student in an Organized Health Care Education/Training Program | DX: M25.541 Pain in joints of right hand (principal); M25.572 Pain in left ankle and joints of left foot; R60.9 Edema, unspecified; M54.50 Low back pain, unspecified; K85.90 Acute pancreatitis without necrosis or infection, unspecified | CPT/HCPCS: 99212 ==

== ENCOUNTER 2022-07-18 09:44 | Outpatient (REF) | payer OTHER, SELFPAY ==
--- NOTE | ~2022-07-18 | CT_ITS ---
EXAMINATION: CT SOFT TISSUE NECK WITH CONTRAST CLINICAL INFORMATION: Edema, bilateral parotid. COMPARISON: Neck CT 10/27/2020. TECHNIQUE: Following the administration of 100 mL of Omnipaque 300 intravenous contrast, helical imaging was performed in the axial plane with generation of coronal and sagittal reformatted images. This CT examination was performed using dose optimization techniques as appropriate, variously including the following: *Automated exposure control *Adjustment of mA and/or kV according to patient size (this includes techniques or standardized protocols for targeted exams where dose is matched to indication/reason for exam; i.e. extremities or head) *Use of iterative reconstruction technique DLP: 425 mGy-cm FINDINGS: The parotid glands appear normal and symmetric. There is no evidence of fat stranding, sialolith, or dilatation of the parotid duct. The submandibular glands appear normal. The pharyngeal and laryngeal contours appear normal and unchanged from prior. The vocal folds are symmetric. No laryngeal lesion is seen. No enlarged or suspicious appearing cervical lymph nodes are seen. Thyroid nodules are again demonstrated, better defined on recent thyroid ultrasounds. There is no upper mediastinal adenopathy. No consolidation is seen within the upper lungs. The major neck vessels demonstrate normal enhancement. The imaged intracranial contents are unremarkable. The paranasal sinuses and mastoid air cells are clear. Multilevel degenerative changes are noted in the spine. CT/CT soft tissue neck w IV con IMPRESSION: No parotid abnormality identified. No evidence of inflammation or ductal dilatation. No evidence of neck mass or lymphadenopathy.
[2022-07-18] MEDS: iohexoL 350 MG/ML 100 ML INFUS..BTL IV (11:06)
== END 2022-07-18 09:45 | disposition home or self-care (01) ==
LOC: HO.CT 09:44
PROVIDERS: PCP Internal Medicine; Visit Provider Student in an Organized Health Care Education/Training Program
DX: R60.9 Edema, unspecified (principal)
CPT/HCPCS: 70491; Q9967

== ENCOUNTER → 2022-07-22 09:40 | Outpatient (BNVA) | payer OTHER, SELFPAY | PROVIDERS: PCP Internal Medicine; Visit Provider Registered Nurse Diabetes Educator | DX: Z46.81 Encounter for fitting and adjustment of insulin pump (principal); E10.9 Type 1 diabetes mellitus without complications | CPT/HCPCS: 99211 ==

== ENCOUNTER 2022-07-25 11:47 | Outpatient (REF) | payer OTHER, SELFPAY ==
--- NOTE | ~2022-07-25 | XR_ITS ---
EXAMINATION: XR CHEST 2 VIEWS CLINICAL INFORMATION: Latent tuberculosis. COMPARISON: Chest radiographs dated 09/11/2021. TECHNIQUE: Frontal and lateral views of the chest were obtained. FINDINGS: The heart, great vessels, pulmonary vasculature and mediastinum are normal. The lungs show no focal infiltrate, effusion or pneumothorax. There is no mass, nodule or thoracic lymphadenopathy seen. There is no acute osseous abnormality. There are upper abdominal surgical clips. XR/XR chest 2V IMPRESSION: No active cardiopulmonary disease.
== END 2022-07-25 11:48 | disposition home or self-care (01) ==
LOC: HO.XRAY 11:47
PROVIDERS: Visit Provider Internal Medicine
DX: Z22.7 Latent tuberculosis (principal)
CPT/HCPCS: 71046

== ENCOUNTER 2022-08-05 12:47 | Outpatient (REF) | payer OTHER, SELFPAY | END 2022-08-05 12:48 | disposition home or self-care (01) | LOC: HO.MRI 12:47 | PROVIDERS: Visit Provider Student in an Organized Health Care Education/Training Program | DX: Z13.89 Encounter for screening for other disorder (principal) ==

== ENCOUNTER → 2022-08-26 08:55 | Outpatient (BNVA) | payer OTHER, SELFPAY | PROVIDERS: PCP Internal Medicine; Visit Provider Internal Medicine Endocrinology, Diabetes & Metabolism | DX: Z46.81 Encounter for fitting and adjustment of insulin pump (principal); E10.65 Type 1 diabetes mellitus with hyperglycemia; Z79.4 Long term (current) use of insulin | CPT/HCPCS: 82947; 99212 ==

== ENCOUNTER 2022-09-05 08:35 | Outpatient (REF) | payer OTHER, SELFPAY ==
[2022-09-05 12:29] LABS: Microalbum/Creatinine Ratio Ur 3.7 ug/mg cr
[2022-09-05 12:52] LABS: Estimated Average Glucose 148 mg/dL; Hemoglobin A1c % 6.8 %
[2022-09-05 12:54] LABS: Rheumatoid Factor < 15.0 IU/mL (<15.0)
[2022-09-05 13:01] LABS: Cholesterol 180 mg/dL; HDL Cholesterol 31 mg/dL; LDL Cholesterol Calculated 71 mg/dl; Triglycerides 390 mg/dL
[2022-09-08 22:26] LABS: IgA 200 mg/dL (70-320); IgG 1004 mg/dL (600-1540); IgM 42 mg/dL (50-300)
[2022-09-09 14:32] LABS: Cyclic Citrullinated Peptide <16 UNITS
[2022-09-11 14:06] LABS: Vitamin D 25-OH, D2 <4 ng/mL; Vitamin D 25-OH, D3 32 ng/mL; Vitamin D 25-OH, Total 32 ng/mL (30-100)
== END 2022-09-05 08:36 | disposition home or self-care (01) ==
LOC: HO.HMGCLDS 08:35
PROVIDERS: Student in an Organized Health Care Education/Training Program; PCP Internal Medicine; Visit Provider Internal Medicine Endocrinology, Diabetes & Metabolism
DX: Z13.21 Encounter for screening for nutritional disorder (principal); E10.65 Type 1 diabetes mellitus with hyperglycemia; M25.541 Pain in joints of right hand; M25.511 Pain in right shoulder
CPT/HCPCS: 36415; 80061; 82043; 82306; 82784; 83036; 86200; 86334; 86431

== ENCOUNTER 2022-09-23 10:50 | Outpatient (REF) | payer OTHER, SELFPAY ==
[2022-09-23 13:34] LABS: MANUAL DIFF FLAG NO
[2022-09-23 13:35] LABS: Basophils Absolute Auto 0.1 X10*3/uL (0.0-0.2); Basophils Percent Auto 0.7 % (0-2); Eosinophils Percent Auto 0.6 % (0-4); Hematocrit 41.4 % (42.0-52.0); Hemoglobin 13.7 g/dl (14.0-18.0); Imm Gran Abs Auto 0.02 X10*3/uL (0.00-0.03); Imm Gran Pct Auto 0.3 % (0.0-0.4); Lymphocytes Absolute Auto 1.2 X10*3/uL (1.2-4.9); Mean Corpuscular HGB Conc 33.1 g/dl (31.0-36.0); Mean Corpuscular Hemoglobin 26.7 pg (27.0-33.0); Mean Corpuscular Volume 80.7 fL (80.0-98.0); Mean Platelet Volume 10.8 fL (9.4-12.4); Monocytes Absolute Auto 0.6 X10*3/uL (0.1-1.2); Monocytes Percent Auto 8.6 % (2-11); Neutrophils Absolute Auto 5.2 x10*3/uL (2.0-8.3); Neutrophils Percent Auto 72.8 % (45-73); Platelet Count 223 X10*3/uL (160-400); Red Blood Count 5.13 X10*6/uL (4.60-5.80); Red Cell Distribution Width 13.5 % (11.0-16.0); White Blood Count 7.2 X10*3/uL (4.8-10.8)
[2022-09-23 13:53] LABS: Alanine Aminotransferase 23 U/L (0-40); Albumin Level 4.2 g/dL (3.5-5.0); Alkaline Phosphatase 59 U/L (39-117); Anion Gap 11 (12-20); Aspartate Amino Transferase 22 U/L (5-37); Bilirubin Total 1.3 mg/dL (0.0-1.0); Blood Urea Nitrogen 13 mg/dL (9-16); Calcium 9.4 mg/dL (8.4-10.2); Carbon Dioxide 28 mmol/L (22-29); Chloride 102 mmol/L (96-108); Estimated Glomerular Filt Rate > 60; Glucose Random 107 mg/dL (60-115); Potassium 4.1 mmol/L (3.3-5.1); Sodium 137 mmol/L (135-145); Total Protein 6.7 g/dL (6.5-8.0)
[2022-09-23 14:13] LABS: Erythrocyte Sedimentation Rate 6 MM/HR (0-15)
[2022-10-10 19:03] LABS: TPMT Activity 13
== END 2022-09-23 10:51 | disposition home or self-care (01) ==
LOC: HO.10HDL 10:50
PROVIDERS: Visit Provider Student in an Organized Health Care Education/Training Program
DX: Z51.81 Encounter for therapeutic drug level monitoring (principal); Z79.624 Long term (current) use of inhibitors of nucleotide synthesis; M06.9 Rheumatoid arthritis, unspecified; K86.1 Other chronic pancreatitis; Z22.7 Latent tuberculosis
CPT/HCPCS: 36415; 80053; 82657; 85025; 85652; 86140; 99212

== ENCOUNTER 2022-10-23 12:59 | Outpatient (REF) | payer OTHER, SELFPAY ==
[2022-10-23 13:49] LABS: MANUAL DIFF FLAG NO
[2022-10-23 13:59] LABS: Basophils Percent Auto 0.7 % (0-2); Eosinophils Percent Auto 0.5 % (0-4); Hematocrit 41.3 % (42.0-52.0); Hemoglobin 13.5 g/dl (14.0-18.0); Imm Gran Abs Auto 0.02 X10*3/uL (0.00-0.03); Imm Gran Pct Auto 0.3 % (0.0-0.4); Lymphocytes Absolute Auto 0.9 X10*3/uL (1.2-4.9); Lymphocytes Percent Auto 15.3 % (20-40); Mean Corpuscular HGB Conc 32.7 g/dl (31.0-36.0); Mean Corpuscular Hemoglobin 26.6 pg (27.0-33.0); Mean Corpuscular Volume 81.5 fL (80.0-98.0); Mean Platelet Volume 10.4 fL (9.4-12.4); Monocytes Absolute Auto 0.5 X10*3/uL (0.1-1.2); Neutrophils Absolute Auto 4.6 x10*3/uL (2.0-8.3); Neutrophils Percent Auto 75.2 % (45-73); Platelet Count 248 X10*3/uL (160-400); Red Blood Count 5.07 X10*6/uL (4.60-5.80); Red Cell Distribution Width 13.8 % (11.0-16.0); White Blood Count 6.1 X10*3/uL (4.8-10.8)
[2022-10-23 14:30] LABS: Alanine Aminotransferase 52 U/L (0-40); Albumin Level 4.4 g/dL (3.5-5.0); Alkaline Phosphatase 50 U/L (39-117); Anion Gap 12 (12-20); Aspartate Amino Transferase 42 U/L (5-37); Bilirubin Total 1.9 mg/dL (0.0-1.0); Blood Urea Nitrogen 12 mg/dL (9-16); C Reactive Protein 0.43 mg/dL (< or = 0.50); Calcium 9.3 mg/dL (8.4-10.2); Carbon Dioxide 27 mmol/L (22-29); Chloride 105 mmol/L (96-108); Estimated Glomerular Filt Rate > 60; Glucose Random 164 mg/dL (60-115); Sodium 140 mmol/L (135-145); Total Protein 6.6 g/dL (6.5-8.0)
[2022-10-23 14:36] LABS: Erythrocyte Sedimentation Rate 8 MM/HR (0-15)
== END 2022-10-23 13:00 | disposition home or self-care (01) ==
LOC: HO.HMGCLDS 12:59
PROVIDERS: PCP Internal Medicine; Visit Provider Student in an Organized Health Care Education/Training Program
DX: M06.9 Rheumatoid arthritis, unspecified (principal); Z79.624 Long term (current) use of inhibitors of nucleotide synthesis; Z51.81 Encounter for therapeutic drug level monitoring
CPT/HCPCS: 36415; 80053; 85025; 85652; 86140

== ENCOUNTER 2022-11-04 12:26 | Outpatient (REF) | payer OTHER, SELFPAY ==
[2022-11-04 13:50] LABS: MANUAL DIFF FLAG NO
[2022-11-04 13:55] LABS: Basophils Absolute Auto 0.1 X10*3/uL (0.0-0.2); Eosinophils Absolute Auto 0.1 X10*3/uL (0.0-0.4); Eosinophils Percent Auto 1.2 % (0-4); Hemoglobin 13.3 g/dl (14.0-18.0); Imm Gran Abs Auto 0.02 X10*3/uL (0.00-0.03); Imm Gran Pct Auto 0.3 % (0.0-0.4); Lymphocytes Absolute Auto 1.2 X10*3/uL (1.2-4.9); Lymphocytes Percent Auto 17.1 % (20-40); Mean Corpuscular HGB Conc 32.4 g/dl (31.0-36.0); Mean Corpuscular Hemoglobin 26.3 pg (27.0-33.0); Mean Corpuscular Volume 81.2 fL (80.0-98.0); Mean Platelet Volume 11.2 fL (9.4-12.4); Monocytes Absolute Auto 0.6 X10*3/uL (0.1-1.2); Monocytes Percent Auto 8.7 % (2-11); Neutrophils Absolute Auto 5.2 x10*3/uL (2.0-8.3); Neutrophils Percent Auto 71.7 % (45-73); Platelet Count 229 X10*3/uL (160-400); Red Blood Count 5.05 X10*6/uL (4.60-5.80); Red Cell Distribution Width 14.1 % (11.0-16.0); White Blood Count 7.2 X10*3/uL (4.8-10.8)
[2022-11-04 14:18] LABS: Alanine Aminotransferase 75 U/L (0-40); Albumin Level 4.2 g/dL (3.5-5.0); Alkaline Phosphatase 54 U/L (39-117); Anion Gap 13 (12-20); Aspartate Amino Transferase 50 U/L (5-37); Bilirubin Total 1.3 mg/dL (0.0-1.0); Blood Urea Nitrogen 10 mg/dL (9-16); C Reactive Protein 0.48 mg/dL (< or = 0.50); Calcium 9.1 mg/dL (8.4-10.2); Carbon Dioxide 28 mmol/L (22-29); Chloride 103 mmol/L (96-108); Estimated Glomerular Filt Rate > 60; Glucose Random 151 mg/dL (60-115); Potassium 4.1 mmol/L (3.3-5.1); Sodium 140 mmol/L (135-145); Total Protein 6.6 g/dL (6.5-8.0)
[2022-11-04 14:42] LABS: Erythrocyte Sedimentation Rate 7 MM/HR (0-15)
== END 2022-11-04 12:27 | disposition home or self-care (01) ==
LOC: HO.10HDL 12:26
PROVIDERS: Visit Provider Student in an Organized Health Care Education/Training Program
DX: Z51.81 Encounter for therapeutic drug level monitoring (principal); Z79.624 Long term (current) use of inhibitors of nucleotide synthesis
CPT/HCPCS: 36415; 80053; 85025; 85652; 86140

== ENCOUNTER → 2022-11-05 10:56 | Outpatient (BNVA) | payer OTHER, SELFPAY | PROVIDERS: PCP Internal Medicine; Visit Provider Student in an Organized Health Care Education/Training Program | DX: M06.09 Rheumatoid arthritis without rheumatoid factor, multiple sites (principal); K86.1 Other chronic pancreatitis; Z22.7 Latent tuberculosis; Z79.899 Other long term (current) drug therapy | CPT/HCPCS: 99212 ==

== ENCOUNTER → 2022-11-26 09:06 | Outpatient (BNVA) | payer OTHER, SELFPAY | PROVIDERS: PCP Internal Medicine; Visit Provider Internal Medicine Endocrinology, Diabetes & Metabolism | DX: E10.65 Type 1 diabetes mellitus with hyperglycemia (principal); Z79.4 Long term (current) use of insulin; Z96.41 Presence of insulin pump (external) (internal) | CPT/HCPCS: 82947; 83036; 99212 ==

== ENCOUNTER → 2022-12-22 07:39 | Outpatient (REF) | payer OTHER, SELFPAY ==
[2022-12-22 07:50] LABS: MANUAL DIFF FLAG NO
[2022-12-22 08:01] LABS: Basophils Percent Auto 0.6 % (0-2); Eosinophils Absolute Auto 0.1 X10*3/uL (0.0-0.4); Eosinophils Percent Auto 1.1 % (0-4); Hematocrit 41.3 % (42.0-52.0); Imm Gran Abs Auto 0.01 X10*3/uL (0.00-0.03); Imm Gran Pct Auto 0.2 % (0.0-0.4); Lymphocytes Absolute Auto 1.5 X10*3/uL (1.2-4.9); Mean Corpuscular HGB Conc 33.9 g/dl (31.0-36.0); Mean Corpuscular Volume 79.6 fL (80.0-98.0); Monocytes Absolute Auto 0.6 X10*3/uL (0.1-1.2); Monocytes Percent Auto 9.2 % (2-11); Neutrophils Absolute Auto 4.2 x10*3/uL (2.0-8.3); Neutrophils Percent Auto 64.9 % (45-73); Platelet Count 181 X10*3/uL (160-400); Red Blood Count 5.19 X10*6/uL (4.60-5.80); Red Cell Distribution Width 13.8 % (11.0-16.0); White Blood Count 6.4 X10*3/uL (4.8-10.8)
--- NOTE | 2022-12-22 08:23 | ECG_ITS ---
Test Reason : chest pain Blood Pressure : / mmHG Vent. Rate : 090 BPM Atrial Rate : 090 BPM P-R Int : 160 ms QRS Dur : 084 ms QT Int : 350 ms P-R-T Axes : 038 015 027 degrees QTc Int : 428 ms Normal sinus rhythm Normal ECG When compared with ECG of 11-SEP-2021 20:02, No significant change was found Referred By: Kiley Napier Electronically Signed By:VAMSHI MANCINI MD
--- NOTE | 2022-12-22 08:23 | CA_ITS ---
Acquisition Time: 2022-12-22 10:46:27 Total Exercise Time: 00:05:05 Test Indications: CP Medications: SEE H Protocol: BHAVANI Max HR: 136 BPM 87% of Pred: 156 BPM Max BP: 210/088 mmHG Max Work Load: 7.0 METS Exercise stress test using Bhavani protoco total of 5 min 5 sec, METS 7.00, TAPHR up to 87% Pt tolerated well without any chest pain, Hypertensive response to exercise. EKG with occasional PVC' during exercise without any ischemic changes. Test reviewed with Dr. Mojica. Referred By: Kiley Napier Overread By: Montse Cummings NP
[2022-12-22 08:56] LABS: Alanine Aminotransferase 40 U/L (0-40); Albumin Level 4.1 g/dL (3.5-5.0); Alkaline Phosphatase 58 U/L (39-117); Anion Gap 13 (12-20); Aspartate Amino Transferase 29 U/L (5-37); Bilirubin Total 1.3 mg/dL (0.0-1.0); Blood Urea Nitrogen 11 mg/dL (9-16); Carbon Dioxide 27 mmol/L (22-29); Chloride 102 mmol/L (96-108); Cholesterol 155 mg/dL; Estimated Glomerular Filt Rate > 60; Glucose Fasting 240 mg/dL (60-99); HDL Cholesterol 31 mg/dL; LDL Cholesterol Calculated 59 mg/dl; Sodium 138 mmol/L (135-145); Total Protein 6.5 g/dL (6.5-8.0); Triglycerides 327 mg/dL
[2022-12-22 09:22] LABS: Creatinine Urine 206.55 mg/dL; Microalbum/Creatinine Ratio Ur 11.1 ug/mg cr
== END ==
LOC: HO.CARD 07:39
PROVIDERS: Student in an Organized Health Care Education/Training Program; PCP Internal Medicine; Visit Provider Internal Medicine
DX: R07.9 Chest pain, unspecified (principal); E78.5 Hyperlipidemia, unspecified; E10.9 Type 1 diabetes mellitus without complications; Z79.624 Long term (current) use of inhibitors of nucleotide synthesis
CPT/HCPCS: 36415; 80053; 80061; 82043; 85025; 93005; 93017

== ENCOUNTER 2023-02-16 12:23 | Outpatient (REF) | payer OTHER, SELFPAY ==
--- NOTE | ~2023-02-16 | XR_ITS ---
EXAMINATION: XR ABDOMEN KUB CLINICAL INDICATION: Chronic constipation COMPARISON: None available. TECHNIQUE: AP view of the abdomen. FINDINGS: There is a small amount of stool seen in the right colon. There are no dilated loops of bowel to suggest obstruction. There is no evidence of free air. No suspicious calcifications. Degenerative changes of the spine and hip joints. Post cholecystectomy. XR/XR abdomen 1V IMPRESSION: Small amount of stool in the right colon. No evidence of obstruction.
== END 2023-02-16 12:24 | disposition home or self-care (01) ==
LOC: HO.HMGCX 12:23
PROVIDERS: PCP Internal Medicine; Visit Provider Physician Assistant
DX: K59.04 Chronic idiopathic constipation (principal)
CPT/HCPCS: 74018

== ENCOUNTER → 2023-03-03 10:08 | Outpatient (BNVA) | payer OTHER, SELFPAY | PROVIDERS: PCP Internal Medicine; Visit Provider Internal Medicine Endocrinology, Diabetes & Metabolism | DX: E10.65 Type 1 diabetes mellitus with hyperglycemia (principal); E04.2 Nontoxic multinodular goiter; I10 Essential (primary) hypertension; E78.2 Mixed hyperlipidemia; Z79.4 Long term (current) use of insulin; Z96.41 Presence of insulin pump (external) (internal) | CPT/HCPCS: 82947; 83036; 99212 ==

== ENCOUNTER 2023-03-04 11:26 | Outpatient (REF) | payer OTHER, SELFPAY ==
[2023-03-04 12:59] LABS: Alanine Aminotransferase 29 U/L (0-40); Albumin Level 4.5 g/dL (3.5-5.0); Alkaline Phosphatase 71 U/L (39-117); Anion Gap 13 (12-20); Aspartate Amino Transferase 31 U/L (5-37); Bilirubin Total 1.8 mg/dL (0.0-1.0); Blood Urea Nitrogen 14 mg/dL (9-16); Calcium 9.4 mg/dL (8.4-10.2); Carbon Dioxide 27 mmol/L (22-29); Chloride 104 mmol/L (96-108); Estimated Glomerular Filt Rate > 60; Glucose Random 137 mg/dL (60-115); Sodium 140 mmol/L (135-145); Total Protein 6.9 g/dL (6.5-8.0)
== END 2023-03-04 11:27 | disposition home or self-care (01) ==
LOC: HO.LAB 11:26
PROVIDERS: PCP Internal Medicine; Visit Provider Nurse Practitioner Family
DX: R60.0 Localized edema (principal); I82.403 Acute embolism and thrombosis of unspecified deep veins of lower extremity, bilateral
CPT/HCPCS: 36415; 80053

== ENCOUNTER 2023-03-05 13:44 | Outpatient (REF) | payer OTHER, SELFPAY ==
--- NOTE | ~2023-03-05 | US_ITS ---
EXAMINATION: US VENOUS ULTRASOUND WITH DOPPLER LOWER EXTREMITY, BILATERAL CLINICAL INFORMATION: Pain. COMPARISON: No similar priors. TECHNIQUE: Ultrasound of the deep veins is performed from the hip to the calf with compression sonography and color and pulse Doppler assessment. Spectral analysis with color-flow imaging is performed. FINDINGS: RIGHT: There is normal venous compression and respiratory variation and augmented flow. The visualized common femoral vein, superficial femoral vein, profunda femoral vein, popliteal vein, and the trifurcation region shows no evidence of deep venous thrombosis. There is no significant popliteal fossa cyst. LEFT: There is normal venous compression and respiratory variation and augmented flow. The visualized common femoral vein, superficial femoral vein, profunda femoral vein, popliteal vein, and the trifurcation region shows no evidence of deep venous thrombosis. There is no significant popliteal fossa cyst. If the patient's symptoms persist, followup ultrasound in 5 days 7 days might be of value to exclude proximal propagation from a non-visualized calf vein. US/US venous duplex LE BI IMPRESSION: No DVT demonstrated in the bilateral lower extremities.
== END 2023-03-05 13:45 | disposition home or self-care (01) ==
LOC: HO.HMGCX 13:44
PROVIDERS: PCP Internal Medicine; Visit Provider Nurse Practitioner Family
DX: I82.403 Acute embolism and thrombosis of unspecified deep veins of lower extremity, bilateral (principal); R60.0 Localized edema
CPT/HCPCS: 93970

== ENCOUNTER → 2023-03-12 11:39 | Outpatient (BNVA) | payer OTHER, SELFPAY | PROVIDERS: PCP Internal Medicine; Visit Provider Student in an Organized Health Care Education/Training Program | DX: M06.09 Rheumatoid arthritis without rheumatoid factor, multiple sites (principal); K86.1 Other chronic pancreatitis; Z22.7 Latent tuberculosis | CPT/HCPCS: 99212 ==

== ENCOUNTER 2023-04-16 11:35 | Outpatient (REF) | payer OTHER, SELFPAY ==
[2023-04-16 12:15] LABS: Binax Internal Control QC Valid; Binax Now Covid-19 Ag Negative (Negative)
[2023-04-16 14:51] LABS: Influenza A PCR NEGATIVE (Negative); Influenza B PCR NEGATIVE (Negative); Resp Syncy Virus RNA Qual PCR NEGATIVE (Negative); SARS COV2 PCR INHOUSE NEGATIVE (Negative)
[2023-04-16 14:55] LABS: Anion Gap 11 (12-20); Blood Urea Nitrogen 15 mg/dL (9-16); Calcium 9.1 mg/dL (8.4-10.2); Carbon Dioxide 27 mmol/L (22-29); Chloride 104 mmol/L (96-108); Estimated Glomerular Filt Rate > 60; Glucose Random 132 mg/dL (60-115); Sodium 138 mmol/L (135-145)
== END 2023-04-16 11:36 | disposition home or self-care (01) ==
LOC: HO.HMGCLDS 11:35
PROVIDERS: Nurse Practitioner Family; Visit Provider Physician Assistant
DX: Z20.822 Contact with and (suspected) exposure to COVID-19 (principal); I10 Essential (primary) hypertension; B34.9 Viral infection, unspecified
CPT/HCPCS: 0241U; 36415; 80048; 87811

== ENCOUNTER 2023-05-04 09:11 | Outpatient (AMB) | payer OTHER, SELFPAY ==
--- NOTE | 2023-05-04 10:18 | MHC.OFFWIV ---
Intake Vital Signs 05/04/23 10: BP 142/84 H Blood Pressure Location Lt brachial Position Sitting Pulse 72 Pulse Source Pulse Oximeter Pulse Oximetry (%) 98 Oxygen Delivery Method Room Air Intake Visit Reasons: EST/right ear blockage(lobby) Intake Note: Patient here [place] the park this [place] he had a bug fly into his ear, he heard the insect kind of moving i his ear and is unsure if it came out. Patient Tobacco Use Status: Never used Tobacco Allergies cortisone Allergy (Unknown, Verified 05/04/23 10:22) Unknown isoniazid Allergy (Unknown, Verified 05/04/23 10:22) Rash oxycodone [From PERCOCET] Allergy (Unknown, Verified 05/04/23 10:) SWELLING promethazine [From PHENERGAN] Allergy (Unknown, Verified 05/04/23 10:) RASH seafood Allergy (Unknown, Verified 05/04/23 10:22) Anaphylaxis tramadol [TRAMADOL] Allergy (Unknown, Verified 05/04/23 10:) UNKNOWN, GI upset doxycycline Adverse Reaction (Intermediate, Verified 05/04/23 10:22) dizziness, abdominal discomfort fluticasone [Advair Diskus] Adverse Reaction (Unknown, Verified 05/04/23 10:22) tachycardia salmeterol [Advair Diskus] Adverse Reaction (Unknown, Verified 05/04/23 10:) tachycardia Do you need a note to return to daycare/school/sports/work: No HPI HPI Comments History of Present Illness Details Patient presents with discomfort in the right ear canal after a insect flew into it 2 days ago. He denies pain or discharge from the ear or difficulty hearing. Denies congestion or any other complaints. [facility] Medical History Ankle pain, left Bilateral hand pain Chronic inflammation of pancreas Diabetes type 1, uncontrolled DVT of lower extremity, bilateral FH: cholecystectomy GERD (gastroesophageal reflux disease) Hypertension Hypertriglyceridemia Mixed hyperlipidemia Mixed hyperlipidemia Non-toxic multinodular goiter Obesity (BMI 30.0-34.9) Obesity due to excess calories Pancreatic abnormality Surgical History History of laminectomy Hx of cholecystectomy Hx of colonoscopy Hx of endoscopy Family History Father Hypertension Hyperlipidemia Prostate cancer Diabetes Arthritis Mother Arthritis Hyperlipidemia Diabetes Osteoporosis Social History Household Members: Spouse and Children Household Members Other:: daughter, , son Housing: House Alcohol intake: former Year quit: 26 Patient Tobacco Use Status: Never used Tobacco e-Cigarette/Vaping Use: Never Used Second Hand Smoke Exposure: No service: No Current occupational status: disabled Cognitive needs: No Hearing needs: No Vision needs: No Review of Systems Const Reports as per HPI and Reports no additional complaints ENT Reports no additional complaints and Reports as per HPI Skin/Breast Denies lesions Neuro Reports no additional complaints and Reports as per HPI Physical Exam Vital Signs: Last Vital Signs Pulse 72 05/04/23 10:23 BP 142/84 H 05/04/23 10:23 Pulse Ox 98 05/04/23 10:23 Oxygen Delivery Method Room Air 05/04/23 10:23 Const General: cooperative, comfortable and no acute distress Orientation/consciousness: patient oriented x3 HEENT Ears: hearing grossly normal bilaterally, external ears normal, TM's normal bilaterally and Abnormal EAC present (Left canal reveals a small amount of dried blood) other (Remove blood with a peroxide soaked Q-tip. No insect or infection present.) Resp Effort & Inspection: normal respiratory effort Auscultation: clear to auscultation bilaterally Cardio Rate: regular rate Rhythm: regular rhythm Heart sounds: S1 normal heart sound present and S2 normal heart sound present Neuro General: patient oriented x3 Assessment & Plan Assessment & Plan (1) Insect bite of left ear: Code(s): S00.462A - Insect bite (nonvenomous) of left ear, initial encounter; W57.XXXA - Bitten or stung by nonvenomous insect and other nonvenomous arthropods, initial encounter Qualifiers: Encounter type: initial encounter Qualified Code(s): S00.462A - Insect bite (nonvenomous) of left ear, initial encounter; W57.XXXA - Bitten or stung by nonvenomous insect and other nonvenomous arthropods, initial encounter Plan: Advised patient there is no visible damage from insect and no insect remaining ear. There is no cerumen impaction. Return to clinic if any concerning symptoms. Coding Level of Care Code Est Pt Level 3 (61878) Diagnoses Insect bite of left ear S00.462A; W57.XXXA Encounter type: initial encounter
[2023-05-04 10:23] VITALS: BP 142/84; PULSE 72; O2SAT 98
== END 2023-05-04 10:50 | disposition home or self-care (01) ==
PROVIDERS: PCP Internal Medicine; Visit Provider Physician Assistant
DX: S00.462A Insect bite (nonvenomous) of left ear, initial encounter (principal); W57.XXXA Bitten or stung by nonvenomous insect and other nonvenomous arthropods, initial encounter
CPT/HCPCS: 99213

== ENCOUNTER 2023-05-14 09:25 | Outpatient (AMB) | payer OTHER, SELFPAY ==
--- NOTE | 2023-05-14 10:00 | MHC.AMDMED ---
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: DM1 with pump and sensor Associate Artistic Director Required: Yes Associate Artistic Director Language: Meter Repairer Name: Barbra [facility] [place] Accompanied by: Self / Same As Patient Allergies cortisone Allergy (Unknown, Verified 05/04/23 10:22) Unknown isoniazid Allergy (Unknown, Verified 05/04/23 10:22) Rash oxycodone [From PERCOCET] Allergy (Unknown, Verified 05/04/23 10:22) SWELLING promethazine [From PHENERGAN] Allergy (Unknown, Verified 05/04/23 10:) RASH seafood Allergy (Unknown, Verified 05/04/23 10:22) Anaphylaxis tramadol [TRAMADOL] Allergy (Unknown, Verified 05/04/23 10:) UNKNOWN, GI upset doxycycline Adverse Reaction (Intermediate, Verified 05/04/23 10:) dizziness, abdominal discomfort fluticasone [Advair Diskus] Adverse Reaction (Unknown, Verified 05/04/23 10:22) tachycardia salmeterol [Advair Diskus] Adverse Reaction (Unknown, Verified 05/04/23 10:) tachycardia HPI Comprehensive Diabetes Asmnt Most Recent Diabetes Results: Creatinine 0.85 mg/dL (0.5-1.4) 04/16/23 Blood Urea Nitrogen 15 mg/dL (9-16) 04/16/23 Sodium 138 mmol/L (135-145) 04/16/23 Potassium 4.0 mmol/L (3.3-5.1) 04/16/23 Chloride 104 mmol/L (96-108) 04/16/23 Carbon Dioxide 27 mmol/L (22-29) 04/16/23 Calcium 9.1 mg/dL (8.4-10.2) 04/16/23 AST 31 U/L (5-37) 03/04/23 ALT 29 U/L (0-40) 03/04/23 Total Protein 6.9 g/dL (6.5-8.0) 03/04/23 Albumin 4.5 g/dL (3.5-5.0) 03/04/23 [facility] Medical History Ankle pain, left Bilateral hand pain Chronic inflammation of pancreas Diabetes type 1, uncontrolled DVT of lower extremity, bilateral FH: cholecystectomy GERD (gastroesophageal reflux disease) Hypertension Hypertriglyceridemia Mixed hyperlipidemia Mixed hyperlipidemia Non-toxic multinodular goiter Obesity (BMI 30.0-34.9) Obesity due to excess calories Pancreatic abnormality Surgical History History of laminectomy Hx of cholecystectomy Hx of colonoscopy Hx of endoscopy Family History Father Hypertension Hyperlipidemia Prostate cancer Diabetes Arthritis Mother Arthritis Hyperlipidemia Diabetes Osteoporosis Social History Household Members: Spouse and Children Household Members Other:: daughter, , son Housing: House Alcohol intake: former Year quit: 26 Patient Tobacco Use Status: Never used Tobacco e-Cigarette/Vaping Use: Never Used Second Hand Smoke Exposure: No service: No Current occupational status: disabled Cognitive needs: No Hearing needs: No Vision needs: No Assessment & Plan Assessment & Plan (1) Diabetes mellitus type 1: Code(s): E10.9 - Type 1 diabetes mellitus without complications Plan: Patient presents for pump training for? T slim with control? IQ and Dexcom G6 Patient is experiencing postprandial hyperglycemia in the afternoon, and pattern of hyperglycemia overnight. See changes insulin pump below Patient given contact information for reliable Diabetes in order to switch insulin pump supplies provider The following topics were reviewed today: ?Sensor setting (if applicable) ??? High Alert: 200 mg/dl ??? Low Alert: 80 mg/dl Above Target: 41% At Target:59% Below Target: 0% Average glucose for the last 2 weeks 175 mg/dL Reviewed with patient the importance of accurate carb counting, and bolusing 15 minutes before meals Due to pattern of hyperglycemia after supper we have changed insulin to carb ratio in late afternoon and evening Insulin delivery settings Instructed patient to only use room temperature insulin, how to load cartridge or fill pod, with insulin. Fill tubing and cannula (if applicable) Troubleshooting after starting new pod or inserting new insulin set: Occlusion, adhesive tape sensitivity, redness Check BG 2 hours after site change Safety information: Patient understands the basic concepts of pump therapy, how to give insulin for meals and snacks, how to troubleshoot for hyper and hypoglycemia. Setting verified by [facility] Basal rate(s) (units/hour) : New 12 AM to 3 AM 1.9 units / hr New 3 AM to 11 AM 1.8 units / hr 11 AM? to 12 AM? 1.9 units / hr Bolus setting Insulin Carbohydrate Ratio (s) 12 AM? to 12 AM 1:4.5?? 11 AM to 2 PM 1:4 ?New 2 PM to 12 AM 1:3 Correction Factor / Sensitivity Factor 12 AM? to 12 AM 1:20 Active Insulin Time:? 3 hours Target(s): 12 AM? to 12 AM 120 mg/dL Target with Control IQ: 12 AM? to 12 AM 110 mg/dL Coding Level of Care Code Est Pt Level 1 (18438) Diagnoses Diabetes mellitus type 1 E10.9
== END 2023-05-14 10:02 | disposition home or self-care (01) ==
PROVIDERS: PCP Internal Medicine; Visit Provider Registered Nurse Diabetes Educator
DX: E10.9 Type 1 diabetes mellitus without complications (principal)

== ENCOUNTER → 2023-05-14 09:28 | Outpatient (BNVA) | payer OTHER, SELFPAY | PROVIDERS: PCP Internal Medicine; Visit Provider Registered Nurse Diabetes Educator | DX: Z46.81 Encounter for fitting and adjustment of insulin pump (principal); E10.9 Type 1 diabetes mellitus without complications | CPT/HCPCS: 99211 ==

== ENCOUNTER 2023-05-19 14:44 | Emergency (ER) | payer OTHER, SELFPAY ==
[2023-05-19 14:57] VITALS: BP 194/92; PULSE 87; RESP 18; TEMP 37; O2SAT 98; BMI 30.3
--- NOTE | 2023-05-19 14:59 | ED_ITS ---
HPI - General Adult General Chief complaint: Upper Respiratory Symptoms Stated complaint: Sore Throat Time Seen by Provider: 05/19/23 18:17 Source: patient, RN notes reviewed and old records reviewed Mode of arrival: ambulatory History of Present Illness HPI narrative: 62-year-old male with a past medical history of diabetes, GERD, HTN, HLD, ANA with CPAP, presenting to the ED complaining of sore throat/dryness x 6 months. States when lies down at night requires water next to bed and feels sometimes like he can not breathe from dryness. Denies difficulty urine inability to swallow/eat, choking, CP/SOB at present, ear pain, fever Onset (ago): month(s) Related Data Home Medications Medication Instructions Recorded Confirmed dutasteride 0.5 mg capsule 0.5 mg PO DAILY 10/30/20 04/23/23 alprazolam 0.25 mg tablet 0.25 mg PO DAILY PRN 06/26/22 04/23/23 polyethylene glycol 3350 17 g PO DAILY PRN 06/26/22 04/23/23 gram/dose oral powder betamethasone dipropionate 0.05 % topical 03/03/23 04/23/23 topical ointment Previous Rx's Medication Instructions Recorded mometasone-formoterol HFA 100 2 puff inhalation BID 30 days #13 08/19/21 mcg-5 mcg/actuation aerosol grams inhaler (Dulera) terbinafine HCl 1 % topical cream 1 appl topical BID Athelete's foot 12/12/21 #15 grams gabapentin 100 mg capsule 200 mg PO BID PRN for pain #120 03/27/22 caps albuterol sulfate 90 mcg/actuation 2 puff PO Q6H PRN bronchospasm 30 06/19/22 aerosol inhaler days #6.7 grams omeprazole 20 mg capsule,delayed 20 mg PO BID #180 caps 07/21/22 release blood sugar diagnostic (FreeStyle #200 ea 08/26/22 Lite Strips) glucagon 3 mg/actuation nasal 3 mg intranasal ONCE #2 ea 08/26/22 spray (Baqsimi) azathioprine 50 mg tablet 100 mg PO DAILY #60 tabs 10/24/22 BD Insulin Syringe Ultra-Fine 0.5 #150 ea 11/26/22 mL 31 gauge x 5/16 (insulin syringe-needle U-100) Lantus Solostar U-100 Insulin 100 35 unit (0.35 mL) subcut DAILY 30 11/26/22 unit/mL (3 mL) subcutaneous pen days #15 mL (insulin glargine) pen needle, diabetic 32 gauge x #50 ea 11/26/22 (BD Doris 2nd Gen Pen Needle) clotrimazole 1 % topical cream 1 appl topical BID 2 weeks #60 12/09/22 grams insulin aspart U-100 100 unit/mL 120 unit (1.2 mL) subcut DAILY 30 12/09/22 subcutaneous solution (Novolog days #40 mL U-100 Insulin aspart) tizanidine 2 mg tablet See Rx Instructions .Route 12/11/22 .COMPLEX #270 tabs atorvastatin 20 mg tablet 20 mg PO BEDTIME #90 tabs 01/15/23 losartan 100 mg tablet 100 mg PO DAILY 90 days #90 tabs 01/28/23 sennosides 8.6 mg tablet (senna) 8.6 mg PO BEDTIME PRN constipation 01/28/23 7 days #7 tabs tamsulosin 0.4 mg capsule (Flomax) 0.4 mg PO DAILY 5 days #5 caps 02/16/23 fluticasone propionate 50 1 spray intranasal DAILY 30 days 02/20/23 mcg/actuation nasal #16 grams spray,suspension (Allergy Relief (fluticasone)) alcohol swabs (Alcohol Prep Pads) 1 pad topical .6 times a day 30 03/03/23 days #200 ea lancets 28 gauge #200 ea 03/03/23 diclofenac sodium 1 % topical gel 4 g topical QID #100 grams 03/31/23 albuterol sulfate 90 mcg/actuation 2 puff inhalation Q6H PRN 04/16/23 aerosol inhaler shortness of breath or wheezing #6.7 grams ondansetron HCl 4 mg tablet 4 mg PO DAILY PRN nausea and 05/07/23 vomiting 30 days #30 tabs chlorthalidone 25 mg tablet 25 mg PO DAILY 90 days #90 tabs 05/17/23 Allergies Allergy/AdvReac Type Severity Reaction Status Date / Time cortisone Allergy Unknown Unknown Verified 05/19/23 14:56 isoniazid Allergy Unknown Rash Verified 05/19/23 14:56 oxycodone [From PERCOCET] Allergy Unknown SWELLING Verified 05/19/23 14:56 promethazine [From PHENERGAN] Allergy Unknown RASH Verified 05/19/23 14:56 seafood Allergy Unknown Anaphylaxis Verified 05/19/23 14:56 tramadol [TRAMADOL] Allergy Unknown UNKNOWN, Verified 05/19/23 14:56 GI upset doxycycline AdvReac Intermediate dizziness, Verified 05/19/23 14:56 abdominal discomfort fluticasone [Advair Diskus] AdvReac Unknown tachycardia Verified 05/19/23 14:56 salmeterol [Advair Diskus] AdvReac Unknown tachycardia Verified 05/19/23 14:56 Review of Systems Review of Systems: Constitutional: No Fever, No Chills ENT/Mouth: No Ear Pain, No Nasal Congestion, No Sinus Pain, No Hoarseness, +sore throat, No Rhinorrhea, No Swallowing Difficulty Cardiovascular: No Chest Pain, No SOB Respiratory: No Cough, No Sputum Gastrointestinal: No Nausea, No Vomiting, No Diarrhea, No Constipation, No Abdominal pain Musculoskeletal: No joint pain, No Myalgias, No Joint Swelling Skin: No Skin Lesions, No rash Neuro: No Weakness, No Numbness, No Paresthesias Yes all other systems are reviewed and are negative Constitutional: Constitutional: Reports as per [facility] Past Medical History Attestation statement: The following information was validated with the patient. Source: old records reviewed Medical History Ankle pain, left Bilateral hand pain Chronic inflammation of pancreas Diabetes type 1, uncontrolled DVT of lower extremity, bilateral FH: cholecystectomy GERD (gastroesophageal reflux disease) Hypertension Hypertriglyceridemia Mixed hyperlipidemia Mixed hyperlipidemia Non-toxic multinodular goiter Obesity (BMI 30.0-34.9) Obesity due to excess calories Pancreatic abnormality Surgical History History of laminectomy Hx of cholecystectomy Hx of colonoscopy Hx of endoscopy Family History Family History Father Hypertension Hyperlipidemia Prostate cancer Diabetes Arthritis Mother Arthritis Hyperlipidemia Diabetes Osteoporosis Social History Social History Household Members: Spouse and Children Household Members Other:: daughter, , son Housing: House Alcohol intake: former Year quit: 26 Patient Tobacco Use Status: Never used Tobacco e-Cigarette/Vaping Use: Never Used Second Hand Smoke Exposure: No Advance Directives: No Advance Directives Information Provided: No service: No Current occupational status: disabled Cognitive needs: No Hearing needs: No Vision needs: No Physical Exam ED Vital Signs: Vital Signs - 24 hr 05/19/23 14:57 Temperature 98.6 F Pulse Rate 87 Respiratory Rate 18 Blood Pressure 194/92 H Pulse Oximetry 98 Oxygen Delivery Method Room Air BMI result Body Mass Index 30.3 Const General: cooperative, healthy appearing and no acute distress Orientation/consciousness: patient oriented x3 Limitations: no limitations HENMT Head: Yes normal to inspection and Yes atraumatic Ears: hearing grossly normal bilaterally, external ears normal, TM's normal bilaterally and mastoids normal General nose exam: Normal external nose present Face and sinus: Yes normal facial exam Mouth: Normal oral and palatal mucosa present Teeth and gingiva: dentition normal Throat: Yes posterior oropharynx normal, Yes tonsils normal, Yes uvula midline, No peritonsillar mass, No uvula laterally displaced and No uvular edema Eyes General: appearance normal, both eyes and all related structures EOM: EOMs intact bilaterally Neck Neck: Yes normal visual inspection, Yes full ROM, Yes no lymphadenopathy, Yes no meningeal signs, Yes supple, No anterior neck swelling, No torticollis and No tracheal deviation Thyroid: Thyroid normal Resp Effort & Inspection: normal respiratory effort, not labored, no respiratory distress and no stridor Auscultation: clear to auscultation bilaterally Cardio Rate: regular rate Heart sounds: S1 normal heart sound present and S2 normal heart sound present Skin Rashes: no rashes Wounds: no wounds Neuro General: patient oriented x3, tone normal and no meningeal signs Gait exam (Neuro): Normal gait present Extrem General: Yes normal to inspection Course Course Course Narrative: RME- 62 year old male presents for evaluation of sore throat for the last week. Symptoms are worse at night. Plan for COVID and strep testing -1839--COVID and rapid strep negative. Discussed with patient at length with drilling engineering manager recommended close ENT and endocrinology follow-up Results discussed with patient including worrisome signs and symptoms and strict return precautions, and when to return to the emergency department. They verbalized understanding and feel safe for discharge at this time. Medications Administered Discontinued Medications Generic Name Dose Route Start Last Admin Trade Name Freq PRN Reason Stop Dose Admin Lidocaine/Diphenhydr/Alum/Mg/Simeth 10 ml 05/19/23 18:38 05/19/23 18:44 Mag&Al/Sim/Diphenhyd/Lidocaine 10 Ml Oral.Susp PO 05/19/23 18:39 10 ml ONCE ONE Administration Protocol Medical Decision Making Medical Decision Making MDM Narrative: 62-year-old male with a past medical history of diabetes, GERD, HTN, HLD, ANA with CPAP, presenting to the ED complaining of sore throat/dryness x 6 months. On exam hypertensive, NAD, nontoxic appearing, talking in complete sentences, no stridor, or pharynx WNL, uvula midline, no appreciable facial or neck swelling or torticollis. Handling secretions. Concern for ANA/CPAP causing/exacerbating symptoms vs underlying endocrinopathy vs strep pharyngitis. No evidence of INDUSTRIAL MECHANIC. Low suspicion for retropharyngeal abscess or obstruction Plan: COVID/rapid strep testing Please refer to course for remaining clinical decision making, interpretation of labs/imaging results, and discussions with consultants and/or family members. Differential Diagnosis Differential Diagnoses: The differential diagnosis associated with the presentation includes As above Lab Data MDM Lab Attestation statement: I reviewed the patient's lab results. Labs: Lab Results 05/19/23 05/19/23 Range/Units 16:44 16:44 COVID-19 (BIANCA) Negative (Negative) COVID-19 Clin Com See Note S. pyogenes GrpA REJI Negative (Negative) External Record Review External record reviewed: Inpatient record, Office record, Outpatient record, Prior outpatient labs, Prior outpatient radiology, Primary care record and Outside ED record Tests considered The following testing was considered but not selected: As above Discharge Plan Discharge Clinical Impression: Chronic sore throat, Throat dryness Patient Disposition: Home, Self-Care Instructions: Strep Throat (DC) Additional Instructions: You tested negative for strep and COVID Please follow-up with in the ENT specialist Gargle with warm salt water If you develop constant worsening sore throat, you are unable to eat/swallow, shortness of breath return to the emergency department Frank negativo para estreptococo y COVID Por favor, ashly un seguimiento con el especialista en otorrinolaringolog?a. Ashly g?rgaras con agua tibia con gisselle Si presenta dolor de garganta que empeora constantemente, no puede comer/tragar, dificultad para respirar, regrese al departamento de emergencias Prescriptions: No Action Dulera 100-5 mcg/actuation HFA aerosol inhaler 2 puff inhalation BID 30 Days Qty: 13 2RF gabapentin 100 mg capsule 200 mg PO BID PRN (Reason: for pain) Qty: 120 1RF albuterol sulfate 90 mcg/actuation HFA aerosol inhaler 2 puff PO Q6H PRN (Reason: bronchospasm) 30 Days Qty: 6.7 1RF omeprazole 20 mg capsule,delayed release(DR/EC) 20 mg PO BID Qty: 180 2RF azathioprine 50 mg tablet 100 mg PO DAILY Qty: 60 1RF insulin aspart U-100 [Novolog U-100 Insulin aspart] 100 unit/mL solution 120 unit subcut DAILY 30 Days Qty: 40 6RF Rx Instructions: via pump tizanidine 2 mg tablet See Rx Instructions .ROUTE .COMPLEX Qty: 270 0RF Dose Instruction: TAKE 1 TABLET BY MOUTH 3 TIMES A DAY NEEDED FOR FOR MUSCLE SPASM FOR 90 DAYS Rx Instructions: TAKE 1 TABLET BY MOUTH 3 TIMES A DAY NEEDED FOR FOR MUSCLE SPASM FOR 90 DAYS atorvastatin 20 mg tablet 20 mg PO BEDTIME Qty: 90 2RF fluticasone propionate [Allergy Relief (fluticasone)] 50 mcg/actuation spray,suspension 1 spray intranasal DAILY 30 Days Qty: 16 3RF Rx Instructions: administer into each nostril diclofenac sodium 1 % gel 4 g topical QID Qty: 100 1RF ondansetron HCl 4 mg tablet 4 mg PO DAILY PRN (Reason: nausea and vomiting) 30 Days Qty: 30 0RF chlorthalidone 25 mg tablet 25 mg PO DAILY 90 Days Qty: 90 0RF clotrimazole 1 % cream 1 appl topical BID 14 Days Qty: 60 0RF losartan 100 mg tablet 100 mg PO DAILY 90 Days Qty: 90 1RF sennosides [senna] 8.6 mg tablet 8.6 mg PO BEDTIME PRN (Reason: constipation) 7 Days Qty: 7 0RF tamsulosin [Flomax] 0.4 mg capsule 0.4 mg PO DAILY 5 Days Qty: 5 0RF Rx Instructions: Pt increasing daily dose 0.8mg temporarily, this is in addition to his regular 0.4mg. albuterol sulfate 90 mcg/actuation HFA aerosol inhaler 2 puff inhalation Q6H PRN (Reason: shortness of breath or wheezing) Qty: 6.7 0RF dutasteride 0.5 mg capsule 0.5 mg PO DAILY terbinafine HCl 1 % cream 1 appl topical BID Qty: 15 4RF Baqsimi 3 mg/actuation spray,non-aerosol 3 mg intranasal ONCE Qty: 2 5RF (DME) FreeStyle Lite Strips Strip See Rx Instructions .ROUTE .MEDSUPPLY Qty: 200 11RF Rx Instructions: 6 times a day betamethasone dipropionate 0.05 % ointment topical (DME) lancets 28 gauge misc See Rx Instructions topical .MEDSUPPLY Qty: 200 11RF Rx Instructions: 6 times a day alcohol swabs [Alcohol Prep Pads] Pads, Medicated 1 pad topical .6 times a day 30 Days Qty: 200 8RF alprazolam 0.25 mg tablet 0.25 mg PO DAILY PRN polyethylene glycol 3350 17 gram/dose powder PO DAILY PRN (DME) insulin syringe-needle U-100 [BD Insulin Syringe Ultra-Fine] 0.5 mL 31 gauge x 5/16 syringe See Rx Instructions .ROUTE .MEDSUPPLY Qty: 150 6RF Rx Instructions: 5 times a day Lantus Solostar U-100 Insulin 100 unit/mL (3 mL) insulin pen 35 unit subcut DAILY 30 Days Qty: 15 5RF (DME) pen needle, diabetic [BD Doris 2nd Gen Pen Needle] 32 gauge x 5/32 needle See Rx Instructions .ROUTE .MEDSUPPLY Qty: 50 4RF Rx Instructions: once a day Referrals: Kunal Hines [Physician] - Kiley Morris MD [Primary Care Provider] - 5 days Interventions: ED Discharge Assessment Last Done: 05/19/23 18:48 Discharge Date/Time: 05/19/23 18:48 Print Language: Macedonian
--- NOTE | 2023-05-19 16:47 | PC.NURSE ---
VIRAL SWABS OBTAINED, SENT TO LAB
[2023-05-19 17:37] LABS: COVID-19 Test Negative (Negative); IDNOW Serial# 6674DD1D; IDNOW Serial# BCCEAD1C; Strep A Nucleic Acid Negative (Negative)
[2023-05-19] MEDS: Mag&Al/Sim/Diphenhyd/Lidocaine 10 ML ORAL.SUSP PO (18:44)
== END 2023-05-19 18:48 | disposition home or self-care (01) ==
PROVIDERS: Physician Assistant; Emergency Provider Emergency Medicine; PCP Internal Medicine
DX: J02.9 Acute pharyngitis, unspecified (principal); Z20.822 Contact with and (suspected) exposure to COVID-19; E10.8 Type 1 diabetes mellitus with unspecified complications; I10 Essential (primary) hypertension; E78.2 Mixed hyperlipidemia; Z96.41 Presence of insulin pump (external) (internal); K21.9 Gastro-esophageal reflux disease without esophagitis; Z79.899 Other long term (current) drug therapy; Z79.4 Long term (current) use of insulin
CPT/HCPCS: 87635; 87651; 99282; 99283

== ENCOUNTER 2023-06-02 09:46 | Outpatient (AMB) | payer OTHER, SELFPAY ==
--- NOTE | 2023-06-02 09:47 | MHC.PC.OV ---
Vital Signs 06/02/23 09:49 Height 5 ft 7 in Weight 195 lb BMI 30.5 BP 150/80 H Blood Pressure Location Rt brachial Position Sitting Pulse 74 Pulse Source Pulse Oximeter Pulse Oximetry (%) 97 Intake Visit Reasons: [facility] – [place] 05/19 Throat pain Intake Note: pt is here for ED f/u from 05/19 for throat pain Global Compensation Manager Required: Yes Global Compensation Manager Language: Transportation Maintenance Supervisor Name: [id number] Information Interpreted: non-clinical & clinical Allergies cortisone Allergy (Unknown, Verified 06/02/23 10:06) Unknown isoniazid Allergy (Unknown, Verified 06/02/23 10:06) Rash oxycodone [From PERCOCET] Allergy (Unknown, Verified 06/02/23 10:06) SWELLING promethazine [From PHENERGAN] Allergy (Unknown, Verified 06/02/23 10:06) RASH seafood Allergy (Unknown, Verified 06/02/23 10:06) Anaphylaxis tramadol [TRAMADOL] Allergy (Unknown, Verified 06/02/23 10:06) UNKNOWN, GI upset doxycycline Adverse Reaction (Intermediate, Verified 06/02/23 10:06) dizziness, abdominal discomfort fluticasone [Advair Diskus] Adverse Reaction (Unknown, Verified 06/02/23 10:06) tachycardia salmeterol [Advair Diskus] Adverse Reaction (Unknown, Verified 06/02/23 10:06) tachycardia Medication List - Last Reconciled 06/02/23 by MONIQUE Jane albuterol sulfate 90 mcg/actuation 2 puffs PO Q6H PRN 30 days alcohol swabs (Alcohol Prep Pads) 1 pad topical .6 times a day 30 days atorvastatin 20 mg PO BEDTIME azathioprine 100 mg (2 x 50 mg) PO DAILY BD Insulin Syringe Ultra-Fine (insulin syringe-needle U-100) 5 times a day NS betamethasone dipropionate 0.05% topical blood sugar diagnostic (FreeStyle Lite Strips) 6 times a day chlorthalidone 25 mg PO DAILY 90 days clotrimazole 1% 1 appl topical BID 2 weeks diclofenac sodium 1% 4 grams topical QID dutasteride 0.5 mg PO DAILY fluticasone propionate 50 mcg/actuation (Allergy Relief (fluticasone)) 1 spray intranasal DAILY 30 days gabapentin 200 mg (2 x 100 mg) PO BID PRN glucagon 3 mg/actuation (Baqsimi) 3 mg intranasal ONCE insulin aspart U-100 (Novolog U-100 Insulin aspart) 120 units (1.2 mL) subcut DAILY 30 days lancets 6 times a day Lantus Solostar U-100 Insulin (insulin glargine) 35 units (0.35 mL) subcut DAILY 30 days NS losartan 100 mg PO DAILY 90 days mometasone-formoterol 100-5 mcg/actuation (Dulera) 2 puffs inhalation BID 30 days omeprazole 20 mg PO BID ondansetron HCl 4 mg PO DAILY PRN 30 days pen needle, diabetic (BD Doris 2nd Gen Pen Needle) once a day sennosides (senna) 8.6 mg PO BEDTIME PRN 7 days tamsulosin (Flomax) 0.4 mg PO DAILY 5 days terbinafine HCl 1% 1 appl topical BID tizanidine TAKE 1 TABLET BY MOUTH 3 TIMES A DAY NEEDED FOR FOR MUSCLE SPASM FOR 90 DAYS Tobacco use date assessed: 03/25/23 Fall risk assessment: No Falls in past year Last assessed Fall Risk: 06/02/23 Dental Screening Dental Screen Date: 06/02/23 Did you have a dental visit in the last 12 months?: Yes Did you have a dental problem in the last 6 months where you did not have access to dental care?: No Was dental information given to patient?: Patient has dentist HPI HPI Comments History of Present Illness Details 62-year-old male past medical history significant for chronic idiopathic constipation, hyperlipidemia, hypertension, rheumatoid arthritis, anxiety, GERD, type 1 diabetes mellitus, asthma and hypertriglyceridemia. Patient reported to [facility] Emergency Room for sore throat and dryness x6 months. Patient reports a requires water at bedside nightly and sometimes he feels like he cannot breathe due to dryness. Patient denied difficulty swallowing/eating, choking chest pain, shortness of breath ear pain or fever. COVID and rapid strep test negative. Patient was prescribed lidocaine viscous and recommeded to follow up with ENT. Patient states 2 weeks sorethroat and dryness. Patient states fells like his face gets swollen. Denies trouble swallowing, eating, sob, CP.Denies fevers,chills cough. ENT appointment scheduled for 06/08/23 [facility] Medical History (Updated 06/02/23 @ 10:26 by MONIQUE Jane) Ankle pain, left Bilateral hand pain Chronic inflammation of pancreas Chronic sore throat Diabetes type 1, uncontrolled DVT of lower extremity, bilateral FH: cholecystectomy GERD (gastroesophageal reflux disease) Hypertension Hypertriglyceridemia Mixed hyperlipidemia Mixed hyperlipidemia Non-toxic multinodular goiter Obesity (BMI 30.0-34.9) Obesity due to excess calories Pancreatic abnormality Surgical History History of laminectomy Hx of cholecystectomy Hx of colonoscopy Hx of endoscopy Family History Father Hypertension Hyperlipidemia Prostate cancer Diabetes Arthritis Mother Arthritis Hyperlipidemia Diabetes Osteoporosis Social History Household Members: Spouse and Children Household Members Other:: daughter, , son Housing: House Alcohol intake: former Year quit: 28 Patient Tobacco Use Status: Never used Tobacco e-Cigarette/Vaping Use: Never Used Second Hand Smoke Exposure: No service: No Current occupational status: disabled Cognitive needs: No Hearing needs: No Vision needs: No Questionnaire Thrive Questionnaire Date Thrive assessed: 12/09/22 JAVIER-7 AMB Questionnaire JAVIER-7 Date JAVIER - 7 assessed: 12/09/22 Source: Developed by Drs. Dontae Murray, Denice Jeff, Lai Eric and colleagues, with an educational braulio from [employer]. Review of Systems Const Denies chills, Denies fatigue, Denies fever(s) and Denies poor appetite Eyes Denies no additional complaints ENT Reports Normal hearing present, Denies dysphagia, Denies facial pain, Reports hoarseness, Denies nasal discharge, Denies neck pain, Denies odynophagia, Denies sinus pain, Reports sore throat and Denies tongue swelling Card Denies chest pain, Denies syncope, Denies rapid heart rate and Denies dyspnea Resp Denies cough and Denies dyspnea GI Denies change in stool character, Denies constipation, Denies dysphagia, Denies diarrhea, Denies nausea, Denies odynophagia and Denies vomiting Denies dysuria, Denies urinary frequency and Denies urinary urgency Musc Denies neck pain Neuro Reports Normal hearing present, Denies confusion and Denies syncope Psych Denies confusion Endo Denies fatigue Aller/Immun Denies tongue swelling Physical exam (Primary Care) Vital Signs: Last Vital Signs Pulse 74 06/02/23 09:49 BP 150/80 H 06/02/23 09:49 Pulse Ox 97 06/02/23 09:49 BMI result Body Mass Index 30.5 Tobacco/Smoking Status: Tobacco use Status Tobacco use date assessed 03/25/23 06/02/23 09:53 Patient Tobacco Use Status Never used Tobacco 06/02/23 09:53 e-Cigarette/Vaping Use Never Used 06/02/23 09:53 Thrive Assessment: Date of Thrive Assessment Date Thrive assessed 12/09/22 06/02/23 09:53 Const General: No confusion Orientation/consciousness: No confusion HENMT Head: Yes normocephalic and Yes atraumatic Ears: external ears normal and TM's normal bilaterally General nose exam: Normal external nose present and Normal nasal mucous membranes and turbinates present Face and sinus: Yes normal facial exam and Yes sinuses nontender Mouth: moist mucous membranes Throat: Yes tonsils normal Eyes Conjunctivae: conjunctivae normal Sclerae: sclerae normal Pupils: Equal, round and reactive pupils present and Pupils normal by confrontation EOM: EOMs intact bilaterally Direct Ophthalmoscopy: normal light reflex Chest Chest palpation & inspection: normal inspection of the chest Resp Effort & Inspection: normal respiratory effort Auscultation: clear to auscultation bilaterally, no crackles, no rhonchi and no wheezes Cardio Rate: regular rate Rhythm: regular rhythm Heart sounds: S1 normal heart sound present and S2 normal heart sound present GI Inspection: Yes normal to inspection Neuro General: No confusion Cranial nerves: Yes Equal, round and reactive pupils present and Yes Normal hearing present Extrem General: No edema Assessment and Plan Assessment & Plan (1) Diabetes type 1, uncontrolled: Code(s): E10.65 - Type 1 diabetes mellitus with hyperglycemia Plan: Cotninue on current medications (2) Hypertension: Code(s): I10 - Essential (primary) hypertension Qualifiers: Hypertension type: primary hypertension Qualified Code(s): I10 - Essential (primary) hypertension Plan: Continue on current medications. (3) Dry mouth: Code(s): R68.2 - Dry mouth, unspecified Plan: CBC, BMP, VLADIMIR, CRP and ESR ordered to r/o out autoimmune cause. (4) Chronic sore throat: Code(s): J31.2 - Chronic pharyngitis Plan: Patient advised to keep scheduled appointment with ENT and 06/08/2023 for further evaluation and treatment. Patient advised can gargle with warm salt water to Caitlin throat and advised to use cool mist humidifier nightly to put we straightened the recommended to drink plenty of fluids to stay hydrated. Patient agreeable with plan of care. Plan keep scheduled follow up with pcp. Orders: Orders Comprehensive Met. Panel Today R68.2 - Dry mouth, unspecified Basic Metabolic Panel Today R68.2 - Dry mouth, unspecified C Reactive Protein Today R68.2 - Dry mouth, unspecified Erythrocyte Sedimentation Rate Today R68.2 - Dry mouth, unspecified VLADIMIR Reflex Titer and Pattern Today R68.2 - Dry mouth, unspecified Coding Level of Care Code Est Pt Level 3 (12637) Diagnoses Diabetes type 1, uncontrolled E10.65 Hypertension I10 Hypertension type: primary hypertension Dry mouth R68.2 Chronic sore throat J31.2
[2023-06-02 09:49] VITALS: BP 150/80; PULSE 74; O2SAT 97; BMI 30.5
== END 2023-06-02 10:40 | disposition home or self-care (01) ==
PROVIDERS: PCP Internal Medicine; Visit Provider Nurse Practitioner Family
DX: E10.65 Type 1 diabetes mellitus with hyperglycemia (principal); I10 Essential (primary) hypertension; R68.2 Dry mouth, unspecified; J31.2 Chronic pharyngitis
CPT/HCPCS: 99213

== ENCOUNTER 2023-06-02 10:29 | Outpatient (REF) | payer OTHER, SELFPAY ==
[2023-06-02 11:50] LABS: Erythrocyte Sedimentation Rate 6 MM/HR (0-15)
[2023-06-02 12:50] LABS: Alanine Aminotransferase 22 U/L (0-40); Albumin Level 4.3 g/dL (3.5-5.0); Alkaline Phosphatase 64 U/L (39-117); Anion Gap 12 (12-20); Aspartate Amino Transferase 25 U/L (5-37); Bilirubin Total 1.6 mg/dL (0.0-1.0); Blood Urea Nitrogen 13 mg/dL (9-16); C Reactive Protein 0.54 mg/dL (< or = 0.50); Calcium 9.5 mg/dL (8.4-10.2); Carbon Dioxide 30 mmol/L (22-29); Chloride 101 mmol/L (96-108); Estimated Glomerular Filt Rate > 60; Glucose Random 163 mg/dL (60-115); Potassium 3.7 mmol/L (3.3-5.1); Sodium 139 mmol/L (135-145); Total Protein 7.3 g/dL (6.5-8.0)
[2023-06-08 15:18] LABS: Anti Nuclear Antibody Screen NEGATIVE (NEGATIVE)
== END 2023-06-02 10:30 | disposition home or self-care (01) ==
LOC: HO.10HDL 10:29
PROVIDERS: Visit Provider Nurse Practitioner Family
DX: R68.2 Dry mouth, unspecified (principal)
CPT/HCPCS: 36415; 80053; 85652; 86038; 86140

== ENCOUNTER 2023-06-15 09:15 | Outpatient (REF) | payer OTHER, SELFPAY ==
[2023-06-15 11:27] LABS: MANUAL DIFF FLAG NO
[2023-06-15 12:09] LABS: Basophils Absolute Auto 0.1 X10*3/uL (0.0-0.2); Basophils Percent Auto 0.8 % (0-2); Eosinophils Absolute Auto 0.1 X10*3/uL (0.0-0.4); Eosinophils Percent Auto 1.6 % (0-4); Hematocrit 42.5 % (42.0-52.0); Hemoglobin 14.3 g/dl (14.0-18.0); Imm Gran Abs Auto 0.02 X10*3/uL (0.00-0.03); Imm Gran Pct Auto 0.3 % (0.0-0.4); Lymphocytes Absolute Auto 1.4 X10*3/uL (1.2-4.9); Lymphocytes Percent Auto 22.4 % (20-40); Mean Corpuscular HGB Conc 33.6 g/dl (31.0-36.0); Mean Corpuscular Volume 80.2 fL (80.0-98.0); Mean Platelet Volume 10.4 fL (9.4-12.4); Monocytes Absolute Auto 0.6 X10*3/uL (0.1-1.2); Monocytes Percent Auto 9.3 % (2-11); Neutrophils Absolute Auto 4.2 x10*3/uL (2.0-8.3); Neutrophils Percent Auto 65.6 % (45-73); Platelet Count 221 X10*3/uL (160-400); White Blood Count 6.3 X10*3/uL (4.8-10.8)
[2023-06-15 12:44] LABS: Alanine Aminotransferase 20 U/L (0-40); Albumin Level 4.2 g/dL (3.5-5.0); Alkaline Phosphatase 66 U/L (39-117); Anion Gap 12 (12-20); Aspartate Amino Transferase 40 U/L (5-37); Blood Urea Nitrogen 12 mg/dL (9-16); C Reactive Protein 0.55 mg/dL (< or = 0.50); Calcium 9.5 mg/dL (8.4-10.2); Carbon Dioxide 29 mmol/L (22-29); Chloride 100 mmol/L (96-108); Estimated Glomerular Filt Rate > 60; Glucose Random 184 mg/dL (60-115); Potassium 3.6 mmol/L (3.3-5.1); Sodium 137 mmol/L (135-145); Total Protein 7.2 g/dL (6.5-8.0)
[2023-06-15 13:40] LABS: Erythrocyte Sedimentation Rate 10 MM/HR (0-15)
== END 2023-06-15 09:16 | disposition home or self-care (01) ==
LOC: HO.HMGCLDS 09:15
PROVIDERS: Nurse Practitioner Family; PCP Student in an Organized Health Care Education/Training Program; Visit Provider Student in an Organized Health Care Education/Training Program
DX: M06.9 Rheumatoid arthritis, unspecified (principal); R68.2 Dry mouth, unspecified
CPT/HCPCS: 36415; 80053; 85025; 85652; 86140

== ENCOUNTER 2023-06-16 10:56 | Outpatient (AMB) | payer OTHER, SELFPAY ==
[2023-06-16 11:00] VITALS: BP 154/88; PULSE 82; BMI 31.0
--- NOTE | 2023-06-16 11:00 | MHC.OFFVIS ---
Intake Vital Signs 06/16/23 11:00 Height 5 ft 7 in Weight 198 lb 3.129 oz BMI 31.0 BP 154/88 H Blood Pressure Location Lt brachial Position Sitting Pulse 82 Pulse Source Pulse Oximeter Intake Visit Reasons: f/u Type 1 DM Intake Note: Patient present today to follow up on Type 2 Diabetes Mellitus. Patient receives DME supplies through: [facility] Last Diabetic Eye exam: 06/16 has upcoming appointment 06/23/23 for eye exam. Last Podiatry Visit: None Random Glucose: 107mg/dl HgA1C: 6.9% Microbiology Laboratory Manager Required: Yes Microbiology Laboratory Manager Language: Base Loader Name: Madhavi medical staff Accompanied by: Self / Same As Patient Allergies cortisone Allergy (Unknown, Verified 06/16/23 11:07) Unknown isoniazid Allergy (Unknown, Verified 06/16/23 11:07) Rash oxycodone [From PERCOCET] Allergy (Unknown, Verified 06/16/23 11:07) SWELLING promethazine [From PHENERGAN] Allergy (Unknown, Verified 06/16/23 11:07) RASH seafood Allergy (Unknown, Verified 06/16/23 11:07) Anaphylaxis tramadol [TRAMADOL] Allergy (Unknown, Verified 06/16/23 11:07) UNKNOWN, GI upset doxycycline Adverse Reaction (Intermediate, Verified 06/16/23 11:07) dizziness, abdominal discomfort fluticasone [Advair Diskus] Adverse Reaction (Unknown, Verified 06/16/23 11:07) tachycardia salmeterol [Advair Diskus] Adverse Reaction (Unknown, Verified 06/16/23 11:07) tachycardia Medication List - Last Reconciled 06/16/23 by Dontae Callaway MD albuterol sulfate 90 mcg/actuation 2 puffs PO Q6H PRN 30 days alcohol swabs (Alcohol Prep Pads) 1 pad topical .6 times a day 30 days atorvastatin 20 mg PO BEDTIME azathioprine 100 mg (2 x 50 mg) PO DAILY BD Insulin Syringe Ultra-Fine (insulin syringe-needle U-100) 5 times a day NS betamethasone dipropionate 0.05% topical blood sugar diagnostic (FreeStyle Lite Strips) 6 times a day chlorthalidone 25 mg PO DAILY 90 days clotrimazole 1% 1 appl topical BID 2 weeks diclofenac sodium 1% 4 grams topical QID dutasteride 0.5 mg PO DAILY fluticasone propionate 50 mcg/actuation (Allergy Relief (fluticasone)) 1 spray intranasal DAILY 30 days gabapentin 200 mg (2 x 100 mg) PO BID PRN glucagon 3 mg/actuation (Baqsimi) 3 mg intranasal ONCE insulin aspart U-100 (Novolog U-100 Insulin aspart) 120 units (1.2 mL) subcut DAILY 30 days lancets 6 times a day Lantus Solostar U-100 Insulin (insulin glargine) 35 units (0.35 mL) subcut DAILY 30 days NS losartan 100 mg PO DAILY 90 days mometasone-formoterol 100-5 mcg/actuation (Dulera) 2 puffs inhalation BID 30 days omeprazole 20 mg PO BID ondansetron HCl 4 mg PO DAILY PRN 30 days pen needle, diabetic (BD Doris 2nd Gen Pen Needle) once a day sennosides (senna) 8.6 mg PO BEDTIME PRN 7 days tamsulosin (Flomax) 0.4 mg PO DAILY 5 days terbinafine HCl 1% 1 appl topical BID tizanidine TAKE 1 TABLET BY MOUTH 3 TIMES A DAY NEEDED FOR FOR MUSCLE SPASM FOR 90 DAYS HPI HPI Comments History of Present Illness Details Patient is 62 yo male with DM type 1 diagnosed around 2016 who presents for management of diabetes. He also has a multinodular goiter and is followed here for that as well Past medical history: DM1, HTN, HLD, NTMNG (managed by this practice) Micro and macrovascular complications: Diabetes medications: backup plan 35 units of Lantus and Novolog with pump settings. Novolog via Tandem pump 48% basal,28 % food bolus, 20% correction bolus, Control IQ bolus 13%. Average total daily dose 113 units Cartridge change every 1.8 days, tubing every 1.8 days, Site cannula every 1.8 days. Control IQ use 95% of the time Basal rate(s) (units/hour) : New 12 AM to 3 AM 1.9 units / hr New 3 AM to 11 AM 1.8 units / hr 11 AM? to 2 PM ? 1.9 units / hr 2PM to 12 AM1.9 Bolus setting Insulin Carbohydrate Ratio (s) 12 AM? to 12 AM 1:4.5?? 11 AM to 2 PM 1:4 ?New 2 PM to 12 AM 1:3 Correction Factor / Sensitivity Factor 12 AM? to 12 AM 1:20 Active Insulin Time:? 3 hours Target(s): 12 AM? to 12 AM 120 mg/dL Target with Control IQ: 12 AM? to 12 AM 110 mg/d CGM: Average 186 , range 68-400 0% low. 53% in target range of 70-180. 47% above target 0% below target C GM is active 13days Coefficient variation 26 . 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 Cream Gatherer: not currently Dental exam: goes every 6 month Ophthalmology evaluation: has appt in 2 wks - retinopathy Laboratory Tests 12/12/21 12/30/21 12/30/21 10:16 10:10 11:00 Creatinine 1.02 Estimated GFR > 60 Hgb A1c (Clinic) 7.8 H Microalb/Creat Rat io TNP 09/11/21 20:08 Creatinine 0.84 Estimated GFR > 60 05/02/21 05/02/21 08/16/21 10:28 10:28 09:55 Creatinine 1.09 Estimated GFR > 60 Hgb A1c (Clinic) 7.6 H Triglycerides 132 Cholesterol 162 LDL Cholesterol Di rect 102 H LDL Cholesterol, C alc 95 HDL Cholesterol 41 PFSH Medical History (Updated 06/02/23 @ 10:26 by MONIQUE Jane) Ankle pain, left Bilateral hand pain Chronic inflammation of pancreas Chronic sore throat Diabetes type 1, uncontrolled DVT of lower extremity, bilateral FH: cholecystectomy GERD (gastroesophageal reflux disease) Hypertension Hypertriglyceridemia Mixed hyperlipidemia Mixed hyperlipidemia Non-toxic multinodular goiter Obesity (BMI 30.0-34.9) Obesity due to excess calories Pancreatic abnormality Surgical History History of laminectomy Hx of cholecystectomy Hx of colonoscopy Hx of endoscopy Family History Father Hypertension Hyperlipidemia Prostate cancer Diabetes Arthritis Mother Arthritis Hyperlipidemia Diabetes Osteoporosis Social History Household Members: Spouse and Children Household Members Other:: daughter, , son Housing: House Alcohol intake: former Year quit: 28 Patient Tobacco Use Status: Never used Tobacco e-Cigarette/Vaping Use: Never Used Second Hand Smoke Exposure: No service: No Current occupational status: disabled Cognitive needs: No Hearing needs: No Vision needs: No Physical Exam Vital Signs: Last Vital Signs Pulse 82 06/16/23 11:00 BP 154/88 H 06/16/23 11:00 BMI result Body Mass Index 31.0 Absence of Cushingoid features. Absence of acromegalic features. Neck exam reveals nl size thyroid about 15 gms. No thyroid nodules palpable. No carotid bruits present. Lungs CTA. Heart S1 S2, Reg R/R. No M/R/ G. Skin exam reveals absence of vitiligo or acanthosis nigricans. Abdominal exam reveals Soft NT/ND with NA BS. No organomegaly present. Extrem Other: Visual exam of foot performed. No ulcerations or open lesions. No onchomycosis, no callouses.Pulses 2 + distally. Sensation intact to monofilament exam. Vibratory sensation sensed 10 seconds in right, 10 seconds in left with 128 Hz tuning fork Results AMB Hemoglobin A1c AMB Hemoglobin A1c 6.9 % Last Edit by Tash Abarca on 06/16/23 11:24 Results Reviewed Results Reviewed: 06/16/23 11:12 Glucose, Whole Blood Routine Laboratory Last Values Glucose (Clinic) 107 mg/dL (60-115) 06/16/23 11:12 Hgb A1c (Clinic) 6.9 % (4.0-6.0) H 06/16/23 11:16 Assessment & Plan Assessment & Plan (1) Diabetes type 1, uncontrolled: Code(s): E10.65 - Type 1 diabetes mellitus with hyperglycemia Plan: This 62-year-old male with a history of type 1 diabetes being treated with a T-slim X 2 with control IQ with excellent glycemic control and no known microvascular or macrovascular complications. The plan is to tighten the insulin: Carbohydrate at 14:00. to 1:2.7 and a correction factor 1:15. I will have him follow up with chemical educator. (2) Thyroid nodule: Code(s): E04.1 - Nontoxic single thyroid nodule Plan: Will repeat thyroid ultrasound and check TSH and free T4 Orders: Orders AMB Hemoglobin A1c Today E10.9 - Type 1 diabetes mellitus without complications Free T4 (Free Thyroxine) Today E04.1 - Nontoxic single thyroid nodule Thyroid Stimulating Hormone Today E04.1 - Nontoxic single thyroid nodule US thyroid Today E04.1 - Nontoxic single thyroid nodule Coding Level of Care Code Est Pt Level 4 (64096) Diagnoses Diabetes type 1, uncontrolled E10.65 Thyroid nodule E04.1
[2023-06-16 11:17] LABS: Glucose, Whole Blood 107 mg/dL (60-115)
== END 2023-06-16 11:45 | disposition home or self-care (01) ==
PROVIDERS: PCP Internal Medicine; Visit Provider Internal Medicine Endocrinology, Diabetes & Metabolism
DX: E10.65 Type 1 diabetes mellitus with hyperglycemia (principal); E04.1 Nontoxic single thyroid nodule; E10.9 Type 1 diabetes mellitus without complications
CPT/HCPCS: 99214

== ENCOUNTER → 2023-06-16 10:56 | Outpatient (BNVA) | payer OTHER, SELFPAY | PROVIDERS: Visit Provider Internal Medicine Endocrinology, Diabetes & Metabolism | DX: Z46.81 Encounter for fitting and adjustment of insulin pump (principal); E10.65 Type 1 diabetes mellitus with hyperglycemia; E04.1 Nontoxic single thyroid nodule; Z79.4 Long term (current) use of insulin | CPT/HCPCS: 82947; 83036; 99212 ==

== ENCOUNTER 2023-06-16 12:03 | Outpatient (REF) | payer OTHER, SELFPAY ==
[2023-06-16 13:54] LABS: Free T4 (Free Thyroxine) 0.89 ng/dL (0.71-1.85); Thyroid Stimulating Hormone 0.74 uIU/mL (0.32-4.0)
== END 2023-06-16 12:04 | disposition home or self-care (01) ==
LOC: HO.10HDL 12:03
PROVIDERS: Visit Provider Internal Medicine Endocrinology, Diabetes & Metabolism
DX: E10.65 Type 1 diabetes mellitus with hyperglycemia (principal); E04.1 Nontoxic single thyroid nodule; Z79.899 Other long term (current) drug therapy; Z79.4 Long term (current) use of insulin
CPT/HCPCS: 36415; 84439; 84443

== ENCOUNTER 2023-06-19 10:28 | Outpatient (AMB) | payer OTHER, SELFPAY ==
--- NOTE | 2023-06-19 10:39 | A.OFFVIS_ITS ---
Intake Vital Signs 06/19/23 10:41 Height 5 ft 7 in Weight 197 lb 12.074 oz BMI 31.0 BP 138/78 Blood Pressure Location Rt brachial Position Sitting Pulse 71 Pulse Source Pulse Oximeter Temp 97.7 F Temp Source Skin Pulse Oximetry (%) 97 Oxygen Delivery Method Room Air Intake Visit Reasons: RA Intake Note: Here for RA follow up. Sole Leveler Required: No Accompanied by: Daughter Allergies cortisone Allergy (Unknown, Verified 06/19/23 10:40) Unknown isoniazid Allergy (Unknown, Verified 06/19/23 10:40) Rash oxycodone [From PERCOCET] Allergy (Unknown, Verified 06/19/23 10:40) SWELLING promethazine [From PHENERGAN] Allergy (Unknown, Verified 06/19/23 10:40) RASH seafood Allergy (Unknown, Verified 06/19/23 10:40) Anaphylaxis tramadol [TRAMADOL] Allergy (Unknown, Verified 06/19/23 10:40) UNKNOWN, GI upset doxycycline Adverse Reaction (Intermediate, Verified 06/19/23 10:40) dizziness, abdominal discomfort fluticasone [Advair Diskus] Adverse Reaction (Unknown, Verified 06/19/23 10:40) tachycardia salmeterol [Advair Diskus] Adverse Reaction (Unknown, Verified 06/19/23 10:40) tachycardia Medication List - Last Reconciled 06/19/23 by Joel Card MD albuterol sulfate 90 mcg/actuation 2 puffs PO Q6H PRN 30 days alcohol swabs (Alcohol Prep Pads) 1 pad topical .6 times a day 30 days atorvastatin 20 mg PO BEDTIME azathioprine 100 mg (2 x 50 mg) PO DAILY BD Insulin Syringe Ultra-Fine (insulin syringe-needle U-100) 5 times a day NS betamethasone dipropionate 0.05% topical blood sugar diagnostic (FreeStyle Lite Strips) 6 times a day chlorthalidone 25 mg PO DAILY 90 days clotrimazole 1% 1 appl topical BID 2 weeks diclofenac sodium 1% 4 grams topical QID dutasteride 0.5 mg PO DAILY fluticasone propionate 50 mcg/actuation (Allergy Relief (fluticasone)) 1 spray intranasal DAILY 30 days gabapentin 200 mg (2 x 100 mg) PO BID PRN glucagon 3 mg/actuation (Baqsimi) 3 mg intranasal ONCE hydrochlorothiazide 25 mg PO DAILY insulin aspart U-100 (Novolog U-100 Insulin aspart) 120 units (1.2 mL) subcut DAILY 30 days lancets 6 times a day Lantus Solostar U-100 Insulin (insulin glargine) 35 units (0.35 mL) subcut DAILY 30 days NS losartan 100 mg PO DAILY 90 days mometasone-formoterol 100-5 mcg/actuation (Dulera) 2 puffs inhalation BID 30 days omeprazole 20 mg PO BID ondansetron HCl 4 mg PO DAILY PRN 30 days pen needle, diabetic (BD Doris 2nd Gen Pen Needle) once a day sennosides (senna) 8.6 mg PO BEDTIME PRN 7 days tamsulosin (Flomax) 0.4 mg PO DAILY 5 days terbinafine HCl 1% 1 appl topical BID tizanidine TAKE 1 TABLET BY MOUTH 3 TIMES A DAY NEEDED FOR FOR MUSCLE SPASM FOR 90 DAYS HPI HPI Comments History of Present Illness Details This is a 62-year-old male with 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 He is here with his daughter who is translating for him. Patient states that he did not want to take Enbrel for fear of side effects. Patient state that has multiple complicated medical problems, he already takes Imuran which is an immunosuppressive and was worried about side effects. Continues to have same pain stiffness and weakness of his hands, worse on the right. Initial history: 61-year-old male with a complex past medical history including upon diabetes mellitus on insulin pump, hypertension, dyslipidemia, pancreatic inflammation, chronic low back pain presents for evaluation of bilateral hand pain ankle and feet pain. The condition has been ongoing for a few years but has gotten worse. Has difficultly closing his hands. He has pain and stiffness of his hands lasting all day. He also has intermittent bilateral ankle and heel pain. Worse with walking. Patient states that around 4 years ago he was admitted at [facility] wit h abdominal issues. He mentioned that his pancreas was damaged of unclear cause. Since then he has been a type 1 diabetic. 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 Also reviewing his chart he had an episode of parotitis October of last year, treated with antibiotics and eating sour food. He use that his parotid glands are somewhat swollen now. He denies Raynaud's, blood or froth in urine. He has intermittent dry mouth but no dry eyes. [facility] Medical History Ankle pain, left Bilateral hand pain Chronic inflammation of pancreas Chronic sore throat Diabetes type 1, uncontrolled DVT of lower extremity, bilateral FH: cholecystectomy GERD (gastroesophageal reflux disease) Hypertension Hypertriglyceridemia Mixed hyperlipidemia Mixed hyperlipidemia Non-toxic multinodular goiter Obesity (BMI 30.0-34.9) Obesity due to excess calories Pancreatic abnormality Surgical History History of laminectomy Hx of cholecystectomy Hx of colonoscopy Hx of endoscopy Family History Father Hypertension Hyperlipidemia Prostate cancer Diabetes Arthritis Mother Arthritis Hyperlipidemia Diabetes Osteoporosis Social History Household Members: Spouse and Children Household Members Other:: daughter, , son Housing: House Alcohol intake: former Year quit: 28 Patient Tobacco Use Status: Never used Tobacco e-Cigarette/Vaping Use: Never Used Second Hand Smoke Exposure: No service: No Current occupational status: disabled Cognitive needs: No Hearing needs: No Vision needs: No Review of Systems Musc Reports arthralgias and Reports stiffness Physical Exam Vital Signs: Last Vital Signs Temp 97.7 F 06/19/23 10:41 Pulse 71 06/19/23 10:41 BP 138/78 06/19/23 10:41 Pulse Ox 97 06/19/23 10:41 Oxygen Delivery Method Room Air 06/19/23 10:41 BMI result Body Mass Index 31.0 Const General: cooperative, comfortable and no acute distress Nutritional Appearance: obese Orientation/consciousness: patient oriented x3 Resp Effort & Inspection: normal respiratory effort and able to speak in complete sentences Skin Other: Dry skin on his palms, Neuro General: patient oriented x3 Extrem Other: No obvious joint swelling but tender to palpation on his MCPs PIP is and the DIP Bilateral 3rd and 4th flexor tendon tenderness. 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 Somewhat dystrophic toes Assessment & Plan Assessment & Plan (1) Rheumatoid arthritis: Code(s): M06.9 - Rheumatoid arthritis, unspecified Qualifiers: Rheumatoid arthritis location: multiple sites Rheumatoid factor presence: without rheumatoid factor Qualified Code(s): M06.09 - Rheumatoid arthritis without rheumatoid factor, multiple sites Plan: This is a 62-year-old male with a complicated past medical history including type 1 diabetes mellitus, dyslipidemia, IgG4 related disease with pancreatitis maintained on Imuran 100 mg daily presents for follow-up of seronegative rheumatoid arthritis ( Right hand MRI 08/2022 showed 2nd through 5th flexor tendon tenosynovitis) For the treatment of his RA Imuran dose was increased to 150 mg daily but patient developed GI upset as well as fatigue and transaminitis. He is back on Imuran 100 mg daily with resolution of transaminitis Would avoid DMARDs such as methotrexate, sulfasalazine and leflunomide due to risk of transaminitis. Last visit we discussed Enbrel. Patient agreed to proceed however he did not start it as he was worried about side effects. We discussed risks and benefits of hydroxychloroquine. 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 Douglass.??A few years ago patient presented with pancreatitis. His pancreaticogram was consistent with autoimmune pancreatitis as well as significantly elevated IgG4 levels. Patient was started on Imuran and repeat imaging showed resolution of the abnormalities on pancreaticogram. Picture consistent with IgG4 related disease. CT abdomen in 2015 did not show any findings suggestive of aortitis Continue to Follow up with Gastroenterology. (3) Latent tuberculosis: Code(s): Z22.7 - Latent tuberculosis Plan: Patient was evaluated by Infectious Disease Dr. Mendez in 2018. He was on isoniazid and rifapnetin for 2-3 months but developed some allergic side effects. Per Dr. Mendez's note in 2018, latent TB treatment was stopped permanently as maximal benefit nearly reached likely with treatment course Plan I spent 30 minutes reviewing patient's chart, evaluating patient, placing orders counseling patient & his daughter and documenting in the chart Medications: New hydroxychloroquine 200 mg PO BID 60 tabs 2RF Coding Level of Care Code Est Pt Level 4 (51201) Diagnoses Rheumatoid arthritis M06.09 Rheumatoid arthritis location: multiple sites Rheumatoid factor presence: without rheumatoid factor 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 Latent tuberculosis Z22.7
[2023-06-19 10:41] VITALS: BP 138/78; PULSE 71; TEMP 36.5; O2SAT 97; BMI 31.0
== END 2023-06-19 11:16 | disposition home or self-care (01) ==
PROVIDERS: PCP Internal Medicine; Visit Provider Student in an Organized Health Care Education/Training Program
DX: M06.09 Rheumatoid arthritis without rheumatoid factor, multiple sites (principal); K86.1 Other chronic pancreatitis; Z22.7 Latent tuberculosis
CPT/HCPCS: 99214

== ENCOUNTER → 2023-06-19 10:28 | Outpatient (BNVA) | payer OTHER, SELFPAY | PROVIDERS: PCP Internal Medicine; Visit Provider Student in an Organized Health Care Education/Training Program | DX: M06.09 Rheumatoid arthritis without rheumatoid factor, multiple sites (principal); K86.1 Other chronic pancreatitis; Z22.7 Latent tuberculosis | CPT/HCPCS: 99212 ==

== ENCOUNTER 2023-07-02 09:09 | Outpatient (AMB) | payer OTHER, SELFPAY ==
--- NOTE | 2023-07-02 09:11 | A.OFFPC_ITS ---
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: No Accompanied by: Self / Same As Patient Allergies cortisone Allergy (Unknown, Verified 07/02/23 09:42) Unknown isoniazid Allergy (Unknown, Verified 07/02/23 09:42) Rash oxycodone [From PERCOCET] Allergy (Unknown, Verified 07/02/23 09:42) SWELLING promethazine [From PHENERGAN] Allergy (Unknown, Verified 07/02/23 09:42) RASH seafood Allergy (Unknown, Verified 07/02/23 09:42) Anaphylaxis tramadol [TRAMADOL] Allergy (Unknown, Verified 07/02/23 09:42) UNKNOWN, GI upset doxycycline Adverse Reaction (Intermediate, Verified 07/02/23 09:42) dizziness, abdominal discomfort fluticasone [Advair Diskus] Adverse Reaction (Unknown, Verified 07/02/23 09:42) tachycardia salmeterol [Advair Diskus] Adverse Reaction (Unknown, Verified 07/02/23 09:42) tachycardia Medication List - Last Reconciled 07/02/23 by Kiley Napier MD albuterol sulfate 90 mcg/actuation 2 puffs PO Q6H PRN 30 days alcohol swabs (Alcohol Prep Pads) 1 pad topical .6 times a day 30 days atorvastatin 20 mg PO BEDTIME azathioprine 100 mg (2 x 50 mg) PO DAILY BD Insulin Syringe Ultra-Fine (insulin syringe-needle U-100) 5 times a day NS betamethasone dipropionate 0.05% topical blood sugar diagnostic (FreeStyle Lite Strips) 6 times a day chlorthalidone 25 mg PO DAILY 90 days clotrimazole 1% 1 appl topical BID 2 weeks diclofenac sodium 1% 4 grams topical QID dutasteride 0.5 mg PO DAILY fluticasone propionate 50 mcg/actuation (Allergy Relief (fluticasone)) 1 spray intranasal DAILY 30 days gabapentin 200 mg (2 x 100 mg) PO BID PRN glucagon 3 mg/actuation (Baqsimi) 3 mg intranasal ONCE hydrochlorothiazide 25 mg PO DAILY hydroxychloroquine 200 mg PO BID insulin aspart U-100 (Novolog U-100 Insulin aspart) 120 units (1.2 mL) subcut DAILY 30 days lancets 6 times a day Lantus Solostar U-100 Insulin (insulin glargine) 35 units (0.35 mL) subcut DAILY 30 days NS losartan 100 mg PO DAILY 90 days mometasone-formoterol 100-5 mcg/actuation (Dulera) 2 puffs inhalation BID 30 days omeprazole 20 mg PO BID ondansetron HCl 4 mg PO DAILY PRN 30 days pen needle, diabetic (BD Doris 2nd Gen Pen Needle) once a day sennosides (senna) 8.6 mg PO BEDTIME PRN 7 days tamsulosin (Flomax) 0.4 mg PO DAILY 5 days terbinafine HCl 1% 1 appl topical BID tizanidine TAKE 1 TABLET BY MOUTH 3 TIMES A DAY NEEDED FOR FOR MUSCLE SPASM FOR 90 DAYS Tobacco use date assessed: 03/25/23 Fall risk assessment: No Falls in past year Last assessed Fall Risk: 07/02/23 Dental Screening Dental Screen Date: 07/02/23 Did you have a dental visit in the last 12 months?: Yes Did you have a dental problem in the last 6 months where you did not have access to dental care?: No Was dental information given to patient?: Patient has dentist HPI HPI Comments History of Present Illness Details This is a 62-year-old male with rheumatoid arthritis, IgG 4 related disease and diabetes mellitus type 1 on long-term current use of insulin that comes for his physical exam. Last colonoscopy was 2016 at [facility] who follows him for IgG4 related disease. Next colonoscopy should be 2026. Last diabetic eye exam was May 2023. Denies any chest pain or shortness of breath. A1c within goal. Rheumatoid arthritis follow by Rheumatology. Blood pressure elevated and I will increase chlorthalidone from 25 mg to 50 mg. Blood pressure will be recheck in 3 weeks by nurse navigator. [facility] Medical History (Updated 07/02/23 @ 10:49 by Kiley Napier MD) Chronic sore throat DVT of lower extremity, bilateral Ankle pain, left Mixed hyperlipidemia Bilateral hand pain Mixed hyperlipidemia GERD (gastroesophageal reflux disease) Obesity due to excess calories Non-toxic multinodular goiter Obesity (BMI 30.0-34.9) Hypertension Chronic inflammation of pancreas Pancreatic abnormality FH: cholecystectomy Hypertriglyceridemia Diabetes type 1, uncontrolled Surgical History Hx of cholecystectomy Hx of endoscopy Hx of colonoscopy History of laminectomy Family History (Updated 07/02/23 @ 09:53 by Kiley Napier MD) Father Hypertension Hyperlipidemia Prostate cancer Diabetes Arthritis Mother Arthritis Hyperlipidemia Diabetes Osteoporosis Social History Household Members: Spouse and Children Household Members Other:: daughter, , son Housing: House Alcohol intake: former Year quit: 28 Patient Tobacco Use Status: Never used Tobacco e-Cigarette/Vaping Use: Never Used Second Hand Smoke Exposure: No service: No Current occupational status: disabled Cognitive needs: No Hearing needs: No Vision needs: No Questionnaire Thrive Questionnaire Date Thrive assessed: 12/09/22 JAVIER-7 AMB Questionnaire JAVIER-7 Date JAVIER - 7 assessed: 12/09/22 Source: Developed by Drs. Dontae Murray, Denice Jeff, Lai Eric and colleagues, with an educational braulio from [employer]. Review of Systems Const All systems reviewed & are unremarkable except as noted in HPI and below Eyes Reports no additional complaints, Denies change in vision and Denies other visual disturbances Card Denies chest pain at rest, Denies chest pain with activity, Denies edema, Denies irregular heart rhythm, Denies claudication, Denies dyspnea, Denies dyspnea on exertion, Denies orthopnea, Denies paroxysmal nocturnal dyspnea and Denies slow heart rate Resp Denies cough, Denies dyspnea and Denies dyspnea on exertion GI Denies abdominal pain, Denies change in bowel habits, Denies excessive flatus, Denies nausea and Denies vomiting Denies urinary hesitancy, Denies urinary incontinence and Denies urinary urgency Musc Denies abnormal gait, Denies atrophy, Denies deformity and Denies limited range of motion Skin/Breast Denies bleeding lesions, Denies changing lesions and Denies rash Neuro Denies abnormal gait, Denies confusion and Denies lack of coordination Psych Denies confusion Physical exam (Primary Care) Vital Signs: Last Vital Signs BP 150/90 H 07/02/23 09:14 BMI result Body Mass Index 30.2 Tobacco/Smoking Status: Tobacco use Status Tobacco use date assessed 03/25/23 07/02/23 09:20 Patient Tobacco Use Status Never used Tobacco 07/02/23 09:20 e-Cigarette/Vaping Use Never Used 07/02/23 09:20 Thrive Assessment: Date of Thrive Assessment Date Thrive assessed 12/09/22 07/02/23 09:20 Const General: No confusion Orientation/consciousness: patient oriented x3 and No confusion HENMT Head: Yes normal to inspection, Yes normocephalic and Yes atraumatic Ears: external ears normal Eyes General: appearance normal, both eyes and all related structures Eyelids: Yes eyelids normal Conjunctivae: conjunctivae normal Neck Neck: Yes normal visual inspection and Yes supple Resp Effort & Inspection: normal respiratory effort Auscultation: clear to auscultation bilaterally Cardio Jugular venous distension: no JVD Rate: regular rate Rhythm: regular rhythm Heart sounds: S1 normal heart sound present and S2 normal heart sound present GI Inspection: Yes normal to inspection Palpation (GI): Soft to palpation and nontender Auscultation: normal bowel sounds Skin General skin exam: no rashes or lesions noted Neuro General: patient oriented x3, no focal motor deficits and No confusion Extrem General: Yes full ROM Psych Appearance: grossly normal Assessment and Plan Assessment & Plan (1) Physical exam: Code(s): Z00.00 - Encounter for general adult medical examination without abnormal findings Plan: Repeat in a year (2) Rheumatoid arthritis: Code(s): M06.9 - Rheumatoid arthritis, unspecified Qualifiers: Rheumatoid arthritis location: multiple sites Rheumatoid factor presence: without rheumatoid factor Qualified Code(s): M06.09 - Rheumatoid arthritis without rheumatoid factor, multiple sites Plan: Continue Plaquenil. Follow-up with rheumatology. (3) IgG4 related disease: Code(s): D89.89 - Other specified disorders involving the immune mechanism, not elsewhere classified Plan: Continue azathioprine. Follow-up with [facility]. (4) Diabetes mellitus type 1: Code(s): E10.9 - Type 1 diabetes mellitus without complications Plan: Continue insulin. A1c goal is equal or less than 7%. Orders: Orders Microalbumin, Random (w Creat) 4 Months E11.9 - Type 2 diabetes mellitus without complications Comprehensive Robinson. Panel Fast 4 Months K86.1 - Other chronic pancreatitis Lipid Panel 4 Months E78.5 - Hyperlipidemia, unspecified Medications: New chlorthalidone 50 mg PO DAILY 90 days 90 tabs 1RF Refilled omeprazole 20 mg PO BID 180 caps 2RF Discontinued chlorthalidone Discontinued Reason: Patient Completed Course 25 mg PO DAILY 90 days 90 tabs 0RF I10 - Essential (primary) hypertension Coding Level of Care Code Est Pt Prev Care 40-64y(67931) Diagnoses Physical exam Z00.00 Rheumatoid arthritis of multiple sites with negative rheumatoid factor M06.09 Rheumatoid arthritis location: multiple sites Rheumatoid factor presence: without rheumatoid factor IgG4 related disease D89.89 Diabetes mellitus type 1 E10.9 Time Spent (min) 35
[2023-07-02 09:14] VITALS: BP 150/90; BMI 30.2
[2023-07-02 10:46] VITALS: BP 150/90
== END 2023-07-02 09:57 | disposition home or self-care (01) ==
PROVIDERS: Visit Provider Internal Medicine
DX: Z00.00 Encounter for general adult medical examination without abnormal findings (principal); M06.09 Rheumatoid arthritis without rheumatoid factor, multiple sites; D89.89 Other specified disorders involving the immune mechanism, not elsewhere classified; E10.9 Type 1 diabetes mellitus without complications
CPT/HCPCS: 99396

== ENCOUNTER 2023-07-07 08:23 | Outpatient (AMB) | payer OTHER, SELFPAY ==
[2023-07-07 08:31] VITALS: BP 168/80; PULSE 83; O2SAT 99; BMI 30.1
--- NOTE | 2023-07-07 08:31 | A.OFFPC_ITS ---
Vital Signs 07/07/23 08:31 07/07/23 08:52 Height 5 ft 7 in Weight 192 lb BMI 30.1 BP 168/80 H 156/78 H Blood Pressure Location Lt brachial Lt brachial Position Sitting Sitting Pulse 83 Pulse Source Pulse Oximeter Temp Source Skin Pulse Oximetry (%) 99 Oxygen Delivery Method Room Air Intake Visit Reasons: Pinched Nerve On Neck Intake Note: pt states pinched nerve X1 week with severe pain Observation Assistant Required: No Allergies cortisone Allergy (Unknown, Verified 07/07/23 08:44) Unknown isoniazid Allergy (Unknown, Verified 07/07/23 08:44) Rash oxycodone [From PERCOCET] Allergy (Unknown, Verified 07/07/23 08:44) SWELLING promethazine [From PHENERGAN] Allergy (Unknown, Verified 07/07/23 08:44) RASH seafood Allergy (Unknown, Verified 07/07/23 08:44) Anaphylaxis tramadol [TRAMADOL] Allergy (Unknown, Verified 07/07/23 08:44) UNKNOWN, GI upset doxycycline Adverse Reaction (Intermediate, Verified 07/07/23 08:44) dizziness, abdominal discomfort fluticasone [Advair Diskus] Adverse Reaction (Unknown, Verified 07/07/23 08:44) tachycardia salmeterol [Advair Diskus] Adverse Reaction (Unknown, Verified 07/07/23 08:44) tachycardia Medication List - Last Reconciled 07/07/23 by MONIQUE Kearney albuterol sulfate 90 mcg/actuation 2 puffs PO Q6H PRN 30 days alcohol swabs (Alcohol Prep Pads) 1 pad topical .6 times a day 30 days atorvastatin 20 mg PO BEDTIME azathioprine 100 mg (2 x 50 mg) PO DAILY BD Insulin Syringe Ultra-Fine (insulin syringe-needle U-100) 5 times a day NS betamethasone dipropionate 0.05% topical blood sugar diagnostic (FreeStyle Lite Strips) 6 times a day chlorthalidone 50 mg PO DAILY 90 days clotrimazole 1% 1 appl topical BID 2 weeks diclofenac sodium 1% 4 grams topical QID dutasteride 0.5 mg PO DAILY fluticasone propionate 50 mcg/actuation (Allergy Relief (fluticasone)) 1 spray intranasal DAILY 30 days gabapentin 200 mg (2 x 100 mg) PO BID PRN glucagon 3 mg/actuation (Baqsimi) 3 mg intranasal ONCE hydroxychloroquine 200 mg PO BID insulin aspart U-100 (Novolog U-100 Insulin aspart) 120 units (1.2 mL) subcut DAILY 30 days lancets 6 times a day Lantus Solostar U-100 Insulin (insulin glargine) 35 units (0.35 mL) subcut DAILY 30 days NS losartan 100 mg PO DAILY 90 days mometasone-formoterol 100-5 mcg/actuation (Dulera) 2 puffs inhalation BID 30 days omeprazole 20 mg PO BID ondansetron HCl 4 mg PO DAILY PRN 30 days pen needle, diabetic (BD Doris 2nd Gen Pen Needle) once a day sennosides (senna) 8.6 mg PO BEDTIME PRN 7 days tamsulosin (Flomax) 0.4 mg PO DAILY 5 days terbinafine HCl 1% 1 appl topical BID tizanidine TAKE 1 TABLET BY MOUTH 3 TIMES A DAY NEEDED FOR FOR MUSCLE SPASM FOR 90 DAYS Tobacco use date assessed: 07/07/23 Fall risk assessment: No Falls in past year Last assessed Fall Risk: 07/07/23 Dental Screening Dental Screen Date: 07/07/23 Did you have a dental visit in the last 12 months?: Yes Did you have a dental problem in the last 6 months where you did not have access to dental care?: No Was dental information given to patient?: Patient has dentist HPI Pinched Nerve On Neck HPI Details Patient is a 62-year-old male presents today for an office visit due to neck pain for the past [address] Medical history significant for diabetes type 1, hypertension, thyroid nodule, asthma, GERD, failed back surgical syndrome, rheumatoid arthritis among others. Patient reports constant back neck pain 8/10 scale presently. Reports doing heating packs, ice packs, Biofreeze with mild improvement, he also take Tylenol with some improvement. Reports that he did not take tizanidine that he has at home. Reports gabapentin did not help him. Feels maybe like some chills. No numbness or tingling. Reports neck pain is worse with range of motion. Feels like neck from back radiates toward his front neck. Denies injury. Reports similar pain in the past and he was receiving steroidal injections, denies referral to pain management or physical therapy. [facility] Medical History Chronic sore throat DVT of lower extremity, bilateral Ankle pain, left Mixed hyperlipidemia Bilateral hand pain Mixed hyperlipidemia GERD (gastroesophageal reflux disease) Obesity due to excess calories Non-toxic multinodular goiter Obesity (BMI 30.0-34.9) Hypertension Chronic inflammation of pancreas Pancreatic abnormality FH: cholecystectomy Hypertriglyceridemia Diabetes type 1, uncontrolled Surgical History Hx of cholecystectomy Hx of endoscopy Hx of colonoscopy History of laminectomy Family History Father Hypertension Hyperlipidemia Prostate cancer Diabetes Arthritis Mother Arthritis Hyperlipidemia Diabetes Osteoporosis Social History Household Members: Spouse and Children Household Members Other:: daughter, , son Housing: House Alcohol intake: former Year quit: 28 Patient Tobacco Use Status: Never used Tobacco e-Cigarette/Vaping Use: Never Used Second Hand Smoke Exposure: No service: No Current occupational status: disabled Cognitive needs: No Hearing needs: No Vision needs: No Questionnaire Thrive Questionnaire Date Thrive assessed: 12/09/22 AUDIT C Alcohol Use Questionnaire (AUDIT-C) 1. How often do you have a drink containing alcohol?: Never Total Score: 0 Score Reviewed/Action Taken: No JAVIER-7 AMB Questionnaire JAVIER-7 Date JAVIER - 7 assessed: 12/09/22 Source: Developed by Drs. Dontae Murray, Denice Jeff, Lai Eric and colleagues, with an educational braulio from [employer]. Review of Systems Const Denies body aches, Denies chills, Denies fever(s) and Denies headache(s) Eyes Denies change in vision ENT Denies dizziness, Denies otalgia, Denies headache(s), Denies nasal discharge, Denies sinus pain and Denies sore throat Card Denies chest pain, Denies edema, Denies lightheadedness and Denies dyspnea Resp Denies cough, Denies dyspnea and Denies wheezing GI Denies abdominal pain Denies dysuria Musc Denies myalgias Skin/Breast Denies rash Neuro Denies dizziness and Denies headache(s) Aller/Immun Denies wheezing Physical exam (Primary Care) Vital Signs: Last Vital Signs Pulse 83 07/07/23 08:31 BP 156/78 H 07/07/23 08:52 Pulse Ox 99 07/07/23 08:31 Oxygen Delivery Method Room Air 07/07/23 08:31 BMI result Body Mass Index 30.1 Tobacco/Smoking Status: Tobacco use Status Tobacco use date assessed 07/07/23 07/07/23 08:32 Patient Tobacco Use Status Never used Tobacco 07/07/23 08:32 e-Cigarette/Vaping Use Never Used 07/07/23 08:32 Thrive Assessment: Date of Thrive Assessment Date Thrive assessed 12/09/22 07/07/23 08:32 Const General: cooperative and no acute distress Orientation/consciousness: patient oriented x3 HENMT Head: Yes normocephalic and Yes atraumatic Ears: TM's normal bilaterally Face and sinus: Yes sinuses nontender Mouth: oropharynx normal and moist mucous membranes Throat: Yes posterior oropharynx normal Eyes General: appearance normal, both eyes and all related structures Pupils: Equal, round and reactive pupils present Neck Neck: Yes normal visual inspection, Yes full ROM and Yes no lymphadenopathy Resp Effort & Inspection: normal respiratory effort and able to speak in complete sentences Auscultation: clear to auscultation bilaterally, no crackles, no rales, no rhonchi and no wheezes Cardio Rate: regular rate Rhythm: regular rhythm Heart sounds: S1 normal heart sound present and S2 normal heart sound present GI Auscultation: normal bowel sounds Back/Spine/Pelvis Cervical Spine: cervical muscular tenderness (Bilateral), pain with cervical ROM and Cervical spine tenderness Thoracic/Lumbar Spine: No paraspinal muscle tenderness, No thoracic spinal tenderness and No lumbar spinal tenderness Skin General skin exam: no rashes or lesions noted Neuro General: patient oriented x3 and CN's II-XI intact bilaterally Cranial nerves: Yes Equal, round and reactive pupils present Gait exam (Neuro): Normal gait present Extrem General: Yes full ROM and No edema Assessment and Plan Assessment & Plan (1) Neck pain: Code(s): M54.2 - Cervicalgia Plan: Patient presents with neck pain for the past 1 week, reports this in the past as well. Denies any injury. Suspect musculoskeletal in origin. Will treat with prednisone 20 mg daily for 5 days. Patient is to start taking tizanidine that he has at home - educated about drowsiness. Continue heat/cold packs p.r.n.. Continue with [id number] Tylenol p.r.n.. Patient reports that he is unable to tolerate ibuprofen. Declined physical therapy referral. Signs and symptoms reviewed when to notify provider or go to the emergency department. Patient agreed with the plan. Medications: New prednisone 20 mg PO DAILY 5 tabs 0RF M54.2 - Cervicalgia Coding Level of Care Code Est Pt Level 3 (01969) Diagnoses Neck pain M54.2
[2023-07-07 08:52] VITALS: BP 156/78
== END 2023-07-07 09:37 | disposition home or self-care (01) ==
PROVIDERS: PCP Internal Medicine; Visit Provider Nurse Practitioner Family
DX: M54.2 Cervicalgia (principal)
CPT/HCPCS: 99213

== ENCOUNTER 2023-07-09 09:40 | Outpatient (REF) | payer OTHER, SELFPAY ==
--- NOTE | ~2023-07-09 | FL_ITS ---
EXAMINATION: XR FLUOROSCOPY BARIUM SWALLOW WITH AIR CLINICAL INFORMATION: Patient complaining of globus sensation and tightness in throat with episodic oropharyngeal dysphasia. GERD. COMPARISON: No additional barium study is identified. CT soft tissue neck 07/18/2022 reviewed. TECHNIQUE: Fluoroscopic air contrast barium swallow examination was performed utilizing standard techniques with thin and thick barium and effervescent granules. Numerous spot images were obtained. FINDINGS: Lateral cine images of the oropharynx and hypopharynx demonstrate normal swallow mechanism with normal epiglottic inversion and soft palate elevation. No tracheal penetration, glottic or subglottic aspiration identified on thick barium. Trace nasopharyngeal reflux present. Minor pooling was noted in the piriform sinuses and vallecula, which cleared upon subsequent swallows. Hypopharyngeal structures appear normal without evidence of mass or diverticulum. There was minimal cricopharyngeal achalasia. Dual and single contrast images of the esophagus demonstrate normal caliber, contour, and mucosal pattern. No evidence of stricture, mass, or ulcerations identified. Esophageal peristalsis was disordered, with a mildly weakened primary peristaltic wave, and numerous nonpropulsive tertiary contractions, findings consistent with advanced presbyesophagus. A small type I hiatus hernia was identified. Mild to moderate gastroesophageal reflux was seen during the course of the examination to the approximate level of the aortic arch. Dual contrast and single contrast images of the stomach demonstrated normal contour and mucosal pattern without evidence of mass, ulceration, or other abnormality. Contrast freely passed into the gastric antrum and duodenal bulb without delay. Single and air-contrast images of the duodenal bulb demonstrate no abnormality. The duodenal sweep has a normal appearance, course, and mucosal fold appearance. The imaged proximal jejunum has a normal fold pattern and caliber. Cholecystectomy clips noted. FLUOROSCOPY TIME: 4 minutes 15 seconds. Number of Spot Images: 21 spot images, and 519 cine fluoroscopy images. DOSE AREA PRODUCT: 40.11 uGy-m2 (microgray-meter squared) FL/FL barium swallow with air IMPRESSION: 1. Small type I hiatus hernia. 2. Marked esophageal dysmotility consistent with presbyesophagus. 3. Episodic gastroesophageal reflux to the level of the aortic arch. 4. Normal-appearing stomach, duodenal bulb, sweep, and proximal small bowel.
== END 2023-07-09 09:41 | disposition home or self-care (01) ==
LOC: HO.XRAY 09:40
PROVIDERS: PCP Internal Medicine; Visit Provider Otolaryngology
DX: R13.10 Dysphagia, unspecified (principal)
CPT/HCPCS: 74221

== ENCOUNTER → 2023-07-09 09:41 | Outpatient (BNV) | payer OTHER, SELFPAY | PROVIDERS: PCP Internal Medicine; Visit Provider Radiology Diagnostic Radiology | DX: K21.9 Gastro-esophageal reflux disease without esophagitis (principal) | CPT/HCPCS: 74221 ==

== ENCOUNTER 2023-07-13 10:10 | Outpatient (REF) | payer OTHER, SELFPAY ==
--- NOTE | ~2023-07-13 | US_ITS ---
EXAMINATION: US THYROID CLINICAL INFORMATION: Nontoxic single thyroid nodule. COMPARISON: CT soft tissue neck with contrast 07/18/2022. Ultrasound thyroid 01/09/2022 and 11/01/2020. TECHNIQUE: Linear transducer hayes-scale and color Doppler examination with attention to the region of the thyroid. FINDINGS: SIZE: Measurements of the thyroid lobes and nodules are given in sagittal, anteroposterior and transverse dimensions respectively. Right Thyroid Lobe: 5.2 x 2.5 x 2.0 cm, volume 13.1 mL. Previously 5.2 x 2.0 x 1.9 cm, volume 11.9 mL. Parenchyma: The gland echotexture is homogeneous. Thyroid vascularity is normal. Left Thyroid Lobe: 3.4 x 1.7 x 1.9 cm, volume 5.7 mL. Previously 4.4 x 1.8 x 1.7 cm, volume 7.1 mL. Parenchyma: The gland echotexture is homogeneous. Thyroid vascularity is normal. Isthmus: 0.4 cm in maximum AP dimension. Previously 0.2 cm. Estimated total number of nodules greater than or equal to 1 cm: 0. Digital Content Manager nodules are described as follows: 1. Location: Right mid. Size: 0.5 x 0.4 x 0.5 cm, volume 0.1 mL. Previously: 0.7 x 0.5 x 0.8 cm, volume 0.2 mL. Nodule characteristics: Composition: Solid/almost completely solid (2). Echogenicity: Isoechoic (1). Shape: Not taller than wide (0). Margins: Smooth (0). Echogenic Foci: None (0). ACR TI-RADS total points: 3 Previous: 3 ACR TI-RADS category: 3 Previous: 3 Significant change in size (>/= 20% in 2 dimensions and minimal increase of 2 mm or 50% or greater increase in volume): No Change in features: More solid on the current study Change in ACR TI-RADS risk category: No 2. Location: Right inferior. Size: 0.4 x 0.3 x 0.4 cm, volume 0.02 mL. Previously: 0.4 x 0.3 x 0.4 cm, volume 0.02 mL. Nodule characteristics: Composition: Cystic(0). ACR TI-RADS total points: 0 Previous: 0 ACR TI-RADS category: 1 Previous: 1 Significant change in size (>/= 20% in 2 dimensions and minimal increase of 2 mm or 50% or greater increase in volume): No Change in features: No Change in ACR TI-RADS risk category: No 3. Location: Left mid. Size: 0.7 x 0.3 x 0.5 cm, volume 0.1 mL. Previously: 0.6 x 0.4 x 0.3 cm, volume 0.04 mL. Nodule characteristics: Composition: Solid/almost completely solid (2). Echogenicity: Isoechoic (1). Shape: Not taller than wide (0). Margins: Smooth (0). Echogenic Foci: None (0). ACR TI-RADS total points: 3 Previous: 4 ACR TI-RADS category: 3 Previous: 4 Significant change in size (>/= 20% in 2 dimensions and minimal increase of 2 mm or 50% or greater increase in volume): No Change in features: No Change in ACR TI-RADS risk category: Yes 4. Location: Left inferior. Size: 0.7 x 0.5 x 0.7 cm, volume 0.1 mL. Previously: 0.6 x 0.5 x 0.7 cm, volume 0.1 mL. Nodule characteristics: Composition: Solid/almost completely solid (2). Echogenicity: Isoechoic (1). Shape: Not taller than wide (0). Margins: Smooth (0). Echogenic Foci: None (0). ACR TI-RADS total points: 3 Previous: 4 ACR TI-RADS category: 3 Previous: 4 Significant change in size (>/= 20% in 2 dimensions and minimal increase of 2 mm or 50% or greater increase in volume): No Change in features: No Change in ACR TI-RADS risk category: Yes NODES: 0.8 cm TRV benign-appearing lymph node is seen on the right at level 3, similar to the prior study. US/US thyroid IMPRESSION: Homogeneous thyroid gland with subcentimeter thyroid nodules. Based on ACR TI-RADS recommendations, no follow-up imaging is recommended. ACR TI-RADS RECOMMENDATION REFERENCE: Ultrasound-guided fine-needle aspiration, follow up ultrasound, no further followup. * TR1 (0 point) and TR2 (2 points): No FNA or followup * TR3 (3 points): FNA if more than or equal to 2.5 cm in maximum dimension, follow up ultrasound in 1, 3 and 5 years if 1.5 to 2.4 cm in maximum dimension. * TR4 (4-6 points): FNA if more than or equal to 1.5 cm in maximum dimension, follow up ultrasound in 1, 2, 3 and 5 years if 1 to 1.4 cm in maximum dimension. * TR5 (more than or equal to 7 points): FNA if more than or equal to 1 cm in maximum dimension, follow up ultrasound every year for 5 years if 0.5 to 0.9 cm in maximum dimension. * TR3, TR4 or TR5 nodules that are below the size threshold for follow up receive no followup.
== END 2023-07-13 10:11 | disposition home or self-care (01) ==
LOC: HO.US 10:10
PROVIDERS: PCP Internal Medicine; Visit Provider Internal Medicine Endocrinology, Diabetes & Metabolism
DX: E04.1 Nontoxic single thyroid nodule (principal)
CPT/HCPCS: 76536

== ENCOUNTER 2023-08-27 09:22 | Outpatient (AMB) | payer OTHER, SELFPAY ==
--- NOTE | 2023-08-27 09:54 | MHC.AMDMED ---
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: Tandem Pump Issues Human Resources Manager Required: Yes Human Resources Manager Language: Drapery Maker Name: Elizabeth [id number] Accompanied by: Self / Same As Patient Allergies cortisone Allergy (Unknown, Verified 07/07/23 08:44) Unknown isoniazid Allergy (Unknown, Verified 07/07/23 08:44) Rash oxycodone [From PERCOCET] Allergy (Unknown, Verified 07/07/23 08:44) SWELLING promethazine [From PHENERGAN] Allergy (Unknown, Verified 07/07/23 08:44) RASH seafood Allergy (Unknown, Verified 07/07/23 08:44) Anaphylaxis tramadol [TRAMADOL] Allergy (Unknown, Verified 07/07/23 08:44) UNKNOWN, GI upset doxycycline Adverse Reaction (Intermediate, Verified 07/07/23 08:44) dizziness, abdominal discomfort fluticasone [Advair Diskus] Adverse Reaction (Unknown, Verified 07/07/23 08:44) tachycardia salmeterol [Advair Diskus] Adverse Reaction (Unknown, Verified 07/07/23 08:44) tachycardia HPI Comprehensive Diabetes Asmnt Most Recent Diabetes Results: Creatinine 0.90 mg/dL (0.5-1.4) 06/15/23 Blood Urea Nitrogen 12 mg/dL (9-16) 06/15/23 Sodium 137 mmol/L (135-145) 06/15/23 Potassium 3.6 mmol/L (3.3-5.1) 06/15/23 Chloride 100 mmol/L (96-108) 06/15/23 Carbon Dioxide 29 mmol/L (22-29) 06/15/23 Calcium 9.5 mg/dL (8.4-10.2) 06/15/23 AST 40 U/L (5-37) H 06/15/23 ALT 20 U/L (0-40) 06/15/23 Total Protein 7.2 g/dL (6.5-8.0) 06/15/23 Albumin 4.2 g/dL (3.5-5.0) 06/15/23 [facility] Medical History Chronic sore throat DVT of lower extremity, bilateral Ankle pain, left Mixed hyperlipidemia Bilateral hand pain Mixed hyperlipidemia GERD (gastroesophageal reflux disease) Obesity due to excess calories Non-toxic multinodular goiter Obesity (BMI 30.0-34.9) Hypertension Chronic inflammation of pancreas Pancreatic abnormality FH: cholecystectomy Hypertriglyceridemia Diabetes type 1, uncontrolled Surgical History Hx of cholecystectomy Hx of endoscopy Hx of colonoscopy History of laminectomy Family History Father Hypertension Hyperlipidemia Prostate cancer Diabetes Arthritis Mother Arthritis Hyperlipidemia Diabetes Osteoporosis Social History Household Members: Spouse and Children Household Members Other:: daughter, , son Housing: House Alcohol intake: former Year quit: 26 Patient Tobacco Use Status: Never used Tobacco e-Cigarette/Vaping Use: Never Used Second Hand Smoke Exposure: No service: No Current occupational status: disabled Cognitive needs: No Hearing needs: No Vision needs: No Assessment & Plan Assessment & Plan (1) Diabetes mellitus type 1: Code(s): E10.9 - Type 1 diabetes mellitus without complications Plan: Patient presents for pump training for? T slim with control? IQ and Dexcom G6 Patient is experiencing postprandial hyperglycemia in the afternoon, and in the evening. See changes insulin pump below The following topics were reviewed today: ?Sensor setting (if applicable) ??? High Alert: 200 mg/dl ??? Low Alert: 80 mg/dl Above Target: 44% At Target:55% Below Target: 0% Average glucose for the last 2 weeks 185 mg/dL Patient reported in the past he has had difficulty with his insulin pump not giving the correct amount of insulin for boluses. Reports he took his pump up for a week, his daughter spoke with tandem and after resuming pump therapy his pump seems to be working reliably. Patient also complains that his Dexcom G6 sensors have been failing. Instructed patient he must call Dexcom if sensors fail to get G6 replacement sensors. The clinic is no longer supplied with G6 Dexcom sensor Reviewed with patient the importance of accurate carb counting, and bolusing 15 minutes before meals Due to pattern of hyperglycemia after supper we have changed insulin to carb ratio in late afternoon and evening Insulin delivery settings Instructed patient to only use room temperature insulin, how to load cartridge or fill pod, with insulin. Fill tubing and cannula (if applicable) Troubleshooting after starting new pod or inserting new insulin set: Occlusion, adhesive tape sensitivity, redness Check BG 2 hours after site change Safety information: Patient understands the basic concepts of pump therapy, how to give insulin for meals and snacks, how to troubleshoot for hyper and hypoglycemia. Setting verified by [facility] Basal rate(s) (units/hour) : New 12 AM to 3 AM 1.9 units / hr New 3 AM to 11 AM 1.8 units / hr 11 AM? to 12 AM? 1.9 units / hr Bolus setting Insulin Carbohydrate Ratio (s) 12 AM? to 12 AM 1:4.5?? 11 AM to 2 PM 1:4 New 10 AM to 2 PM 1:3.5 2 PM to 12 AM 1:2.7 New 2 PM to 12 AM 1:2.5 Correction Factor / Sensitivity Factor 12 AM? to 12 AM 1:20 New 12 AM? to 12 AM 1:15 Active Insulin Time:? 3 hours Target(s): 12 AM? to 12 AM 120 mg/dL Target with Control IQ: 12 AM? to 12 AM 110 mg/dL Coding Level of Care Code Est Pt Level 1 (23137) Diagnoses Diabetes mellitus type 1 E10.9
== END 2023-08-27 09:55 | disposition home or self-care (01) ==
PROVIDERS: PCP Internal Medicine; Visit Provider Registered Nurse Diabetes Educator
DX: E10.9 Type 1 diabetes mellitus without complications (principal)

== ENCOUNTER → 2023-08-27 09:22 | Outpatient (BNVA) | payer OTHER, SELFPAY | PROVIDERS: PCP Internal Medicine; Visit Provider Registered Nurse Diabetes Educator | DX: Z46.81 Encounter for fitting and adjustment of insulin pump (principal); E10.9 Type 1 diabetes mellitus without complications; Z79.4 Long term (current) use of insulin | CPT/HCPCS: 99211 ==

== ENCOUNTER 2023-09-16 11:10 | Outpatient (AMB) | payer OTHER, SELFPAY ==
[2023-09-16 11:20] VITALS: BP 137/86; PULSE 76; BMI 31.4
--- NOTE | 2023-09-16 11:20 | A.OFFVIS_ITS ---
Intake Vital Signs 09/16/23 11:20 Height 5 ft 7 in Weight 200 lb 9.93 oz BMI 31.4 BP 137/86 Blood Pressure Location Lt brachial Position Sitting Pulse 76 Pulse Source Pulse Oximeter Intake Visit Reasons: f/u Type 1 DM-CONFIRMED Intake Note: Patient present today to follow up on Type 1 Diabetes Mellitus. Patient receives DME supplies through: [facility] Last Diabetic Eye exam: 06/25/23 Last Podiatry Visit: None Random Glucose: 148 mg/dl HgA1C: 7.5% Marine Oiler Required: Yes Marine Oiler Language: Italian Information Interpreted: non-clinical & clinical Accompanied by: Self / Same As Patient Allergies cortisone Allergy (Unknown, Verified 09/16/23 11:27) Unknown isoniazid Allergy (Unknown, Verified 09/16/23 11:27) Rash oxycodone [From PERCOCET] Allergy (Unknown, Verified 09/16/23 11:27) SWELLING promethazine [From PHENERGAN] Allergy (Unknown, Verified 09/16/23 11:27) RASH seafood Allergy (Unknown, Verified 09/16/23 11:27) Anaphylaxis tramadol [TRAMADOL] Allergy (Unknown, Verified 09/16/23 11:27) UNKNOWN, GI upset doxycycline Adverse Reaction (Intermediate, Verified 09/16/23 11:27) dizziness, abdominal discomfort fluticasone [Advair Diskus] Adverse Reaction (Unknown, Verified 09/16/23 11:27) tachycardia salmeterol [Advair Diskus] Adverse Reaction (Unknown, Verified 09/16/23 11:27) tachycardia HPI HPI Comments History of Present Illness Details Patient is 62 yo male with DM type 1 diagnosed around 2015 who presents for management of diabetes. He also has a multinodular goiter and is followed here for that as well Past medical history: DM1, HTN, HLD, NTMNG (managed by this practice) Micro and macrovascular complications: Diabetes medications: backup plan 35 units of Lantus and Novolog with pump settings. Novolog via Tandem pump 43% basal,57 % food bolus, 20% correctio n bolus, Control IQ bolus 13%. Average total daily dose 103 units Cartridge change every 2 days, tubing every 2 days, Site cannula every 1.8 days. Control IQ use 94% of the time Basal rate(s) (units/hour) : New 12 AM to 3 AM 1.9 units / hr New 3 AM to 11 AM 1.8 units / hr 2 PM to 12 AM? 1.9 units / hr Bolus setting Insulin Carbohydrate Ratio (s) 12 AM? to 12 AM 1:5?? New 10 AM to 2 PM 1:3.5 New 2 PM to 12 AM 1:2.5 Correction Factor / Sensitivity Factor 12 AM? to 12 AM 1:20 New 12 AM? to 12 AM 1:15 Active Insulin Time:? 3 hours Target(s): 12 AM? to 12 AM 120 mg/dL Target with Control IQ: 12 AM? to 12 AM 110 mg/dL CGM: Average 169 , range 97-402 0% low. 67% in target range of 70-180. 33% above target 0% below target C GM is active 13days Coefficient variation 31 . Pattern shows postlunchpost-dinner hyperglycemia Symptoms reported: numbness, tingling, cramping in lower extremities Hypoglycemia: rarely with symptoms of shaking, sweating Hyperglycemia: + urinary frequency (uses diuretic), +nocturia (2-3x/night), +polydypsia Exercise: always moving, 15-20 minutes most days, limited due to back pain Printing Assistant - CDE education: currently. Grades 9 Thru 12 Visiting Teacher: not currently Dental exam: goes every 6 month Ophthalmology evaluation: 6 mos ago - retinopathy Laboratory Tests 12/12/21 12/30/21 12/30/21 10:16 10:10 11:00 Creatinine 1.02 Estimated GFR > 60 Hgb A1c (Clinic) 7.8 H Microalb/Creat Rat io TNP 09/11/21 20:08 Creatinine 0.84 Estimated GFR > 60 05/02/21 05/02/21 08/16/21 10:28 10:28 09:55 Creatinine 1.09 Estimated GFR > 60 Hgb A1c (Clinic) 7.6 H Triglycerides 132 Cholesterol 162 LDL Cholesterol Di rect 102 H LDL Cholesterol, C alc 95 HDL Cholesterol 41 PFSH Medical History Chronic sore throat DVT of lower extremity, bilateral Ankle pain, left Mixed hyperlipidemia Bilateral hand pain Mixed hyperlipidemia GERD (gastroesophageal reflux disease) Obesity due to excess calories Non-toxic multinodular goiter Obesity (BMI 30.0-34.9) Hypertension Chronic inflammation of pancreas Pancreatic abnormality FH: cholecystectomy Hypertriglyceridemia Diabetes type 1, uncontrolled Surgical History Hx of cholecystectomy Hx of endoscopy Hx of colonoscopy History of laminectomy Family History Father Hypertension Hyperlipidemia Prostate cancer Diabetes Arthritis Mother Arthritis Hyperlipidemia Diabetes Osteoporosis Household Members: Spouse and Children Household Members Other:: daughter, , son Housing: House Alcohol intake: former Year quit: 28 Patient Tobacco Use Status: Never used Tobacco e-Cigarette/Vaping Use: Never Used Second Hand Smoke Exposure: No service: No Current occupational status: disabled Cognitive needs: No Hearing needs: No Vision needs: No Physical Exam Vital Signs: Last Vital Signs Pulse 76 09/16/23 11:20 BP 137/86 09/16/23 11:20 BMI result Body Mass Index 31.4 Absence of Cushingoid features. Absence of acromegalic features. Neck exam reveals nl size thyroid about 15 gms. No thyroid nodules palpable. No carotid bruits present. Lungs CTA. Heart S1 S2, Reg R/R. No M/R/ G. Skin exam reveals absence of vitiligo or acanthosis nigricans. Abdominal exam reveals Soft NT/ND with NA BS. No organomegaly present. Extrem Other: Visual exam of foot performed. No ulcerations or open lesions. No onchomycosis, no callouses.Pulses 2 + distally. Sensation intact to monofilament exam. Vibratory sensation sensed 10 seconds in right, 10 seconds in left with 128 Hz tuning fork Results AMB Hemoglobin A1c AMB Hemoglobin A1c 7.5 % Last Edit by Tash Abarca on 09/16/23 11:50 Results Reviewed Results Reviewed: Laboratory Last Values Glucose (Clinic) 148 mg/dL (60-115) H 09/16/23 11:31 Assessment & Plan Assessment & Plan (1) Diabetes type 1, uncontrolled: Code(s): E10.65 - Type 1 diabetes mellitus with hyperglycemia Plan: This 62-year-old male with a history of type 1 diabetes being treated with a T-slim X 2 with control IQ with excellent glycemic control and no known microvascular or macrovascular complications. The plan is to tighten the insulin: Carbohydrate to 1:3 at 10 AM and 1:2 at 2 PM . I will have him follow up with adaptive physical educator. (2) Thyroid nodule: Code(s): E04.1 - Nontoxic single thyroid nodule Plan: Repeat thyroid ultrasound shows benign-appearing subcentimeter nodules. Patient is clinically and biochemically euthyroid Orders: Orders AMB Hemoglobin A1c Today E10.9 - Type 1 diabetes mellitus without complications Coding Level of Care Code Est Pt Level 4 (15498) Diagnoses Diabetes type 1, uncontrolled E10.65 Thyroid nodule E04.1
[2023-09-16 11:35] LABS: Glucose, Whole Blood 148 mg/dL (60-115)
== END 2023-09-16 12:45 | disposition home or self-care (01) ==
PROVIDERS: PCP Student in an Organized Health Care Education/Training Program; Visit Provider Internal Medicine Endocrinology, Diabetes & Metabolism
DX: E10.65 Type 1 diabetes mellitus with hyperglycemia (principal); Z96.41 Presence of insulin pump (external) (internal); E04.2 Nontoxic multinodular goiter
CPT/HCPCS: 99214

== ENCOUNTER → 2023-09-16 11:10 | Outpatient (BNVA) | payer OTHER, SELFPAY | PROVIDERS: PCP Student in an Organized Health Care Education/Training Program; Visit Provider Internal Medicine Endocrinology, Diabetes & Metabolism | DX: E10.65 Type 1 diabetes mellitus with hyperglycemia (principal); E04.1 Nontoxic single thyroid nodule; I10 Essential (primary) hypertension; E78.5 Hyperlipidemia, unspecified; Z96.41 Presence of insulin pump (external) (internal); Z79.4 Long term (current) use of insulin | CPT/HCPCS: 82947; 83036; 99212 ==

== ENCOUNTER 2023-11-09 10:34 | Outpatient (AMB) | payer OTHER, SELFPAY ==
[2023-11-09 10:38] VITALS: BP 168/90; BMI 30.7
--- NOTE | 2023-11-09 10:38 | A.OFFPC_ITS ---
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: No Accompanied by: Self / Same As Patient Allergies cortisone Allergy (Unknown, Verified 11/09/23 10:56) Unknown isoniazid Allergy (Unknown, Verified 11/09/23 10:56) Rash oxycodone [From PERCOCET] Allergy (Unknown, Verified 11/09/23 10:56) SWELLING promethazine [From PHENERGAN] Allergy (Unknown, Verified 11/09/23 10:56) RASH seafood Allergy (Unknown, Verified 11/09/23 10:56) Anaphylaxis tramadol [TRAMADOL] Allergy (Unknown, Verified 11/09/23 10:56) UNKNOWN, GI upset doxycycline Adverse Reaction (Intermediate, Verified 11/09/23 10:56) dizziness, abdominal discomfort fluticasone [Advair Diskus] Adverse Reaction (Unknown, Verified 11/09/23 10:56) tachycardia salmeterol [Advair Diskus] Adverse Reaction (Unknown, Verified 11/09/23 10:56) tachycardia Medication List - Last Reconciled 11/09/23 by Kiley Napier MD albuterol sulfate 90 mcg/actuation 2 puffs PO Q6H PRN 30 days alcohol swabs (Alcohol Prep Pads) 1 pad topical .6 times a day 30 days atorvastatin 20 mg PO BEDTIME azathioprine 100 mg (2 x 50 mg) PO DAILY BD Insulin Syringe Ultra-Fine (insulin syringe-needle U-100) 5 times a day NS betamethasone dipropionate 0.05% topical blood sugar diagnostic (FreeStyle Lite Strips) 6 times a day chlorthalidone 50 mg PO DAILY 90 days clotrimazole 1% 1 appl topical BID 2 weeks diclofenac sodium 1% 4 grams topical QID dutasteride 0.5 mg PO DAILY fluticasone propionate 50 mcg/actuation (Allergy Relief (fluticasone)) 1 spray intranasal DAILY 30 days gabapentin 200 mg (2 x 100 mg) PO BID PRN glucagon 3 mg/actuation (Baqsimi) 3 mg intranasal ONCE insulin aspart U-100 (Novolog U-100 Insulin aspart) Up to 120 units via a insulin pump subcutaneously; lancets 6 times a day Lantus Solostar U-100 Insulin (insulin glargine) 35 units (0.35 mL) subcut DAILY 30 days NS losartan 100 mg PO DAILY 90 days omeprazole 20 mg PO BID ondansetron HCl 4 mg PO DAILY PRN 30 days pen needle, diabetic (BD Doris 2nd Gen Pen Needle) once a day sennosides (senna) 8.6 mg PO BEDTIME PRN 7 days tamsulosin (Flomax) 0.4 mg PO DAILY 5 days terbinafine HCl 1% 1 appl topical BID tizanidine TAKE 1 TABLET BY MOUTH 3 TIMES A DAY NEEDED FOR FOR MUSCLE SPASM FOR 90 DAYS Tobacco use date assessed: 11/09/23 Fall risk assessment: No Falls in past year Last assessed Fall Risk: 11/09/23 Dental Screening Dental Screen Date: 11/09/23 Did you have a dental visit in the last 12 months?: Yes Did you have a dental problem in the last 6 months where you did not have access to dental care?: No Was dental information given to patient?: Patient has dentist HPI HPI Comments History of Present Illness Details This is a 63-year-old male with diabetes mellitus type 1 on long-term current use of insulin, hypertension, and IgG4 related disorders that complains of a new daily persistent headache that started 2 weeks ago associated with some vertigo and loss of balance. No weakness associated with it. No blurry vision. MRI of the brain was ordered. Last A1c was not on goal and he is on insulin pump follow by Endocrinology. Blood pressure borderline normal to elevated. Low-salt diet was advised. On azathioprine for IgG 4 related disorders and this is follow by Gastroenterology. No chest pain or shortness of breath. [facility] Medical History (Updated 11/09/23 @ 12:16 by Kiley Napier MD) Chronic sore throat DVT of lower extremity, bilateral Ankle pain, left Mixed hyperlipidemia Bilateral hand pain Mixed hyperlipidemia GERD (gastroesophageal reflux disease) Obesity due to excess calories Non-toxic multinodular goiter Obesity (BMI 30.0-34.9) Hypertension Chronic inflammation of pancreas Pancreatic abnormality FH: cholecystectomy Hypertriglyceridemia Diabetes type 1, uncontrolled Surgical History Hx of cholecystectomy Hx of endoscopy Hx of colonoscopy History of laminectomy Family History Father Hypertension Hyperlipidemia Prostate cancer Diabetes Arthritis Mother Arthritis Hyperlipidemia Diabetes Osteoporosis Social History Household Members: Spouse and Children Household Members Other:: daughter, , son Housing: House Alcohol intake: former Year quit: 28 Patient Tobacco Use Status: Never used Tobacco e-Cigarette/Vaping Use: Never Used Second Hand Smoke Exposure: No service: No Current occupational status: disabled Cognitive needs: No Hearing needs: No Vision needs: No Questionnaire PHQ-9 Over the last 2 weeks, how often have you been bothered by any of the following problems? 1. Little interest or pleasure in doing things: not at all 2. Feeling down, depressed, or hopeless: not at all 3. Trouble falling or staying asleep, or sleeping too much: not at all 4. Feeling tired or having little energy: not at all 5. Poor appetite or overeating: not at all 6. Feeling bad about yourself - or that you are a failure or have let yourself or your family down: not at all 7. Trouble concentrating on things, such as reading the newspaper or watching television: not at all 8. Moving or speaking so slowly that other people could have noticed. Or the opposite - being so fidgety or restless that you have been moving around a lot more than usual: not at all 9. Thoughts that you would be better off or of hurting yourself in some way: not at all Total score: 0 Depression Screening Interpretation: Negative Depression Screening Done: Yes 11597 - PHQ-9 Billing: Yes Source: Developed by Drs. Dontae Murray, Denice Jeff, Lai Eric and colleagues, with an educational braulio from [employer]. Thrive Questionnaire Date Thrive assessed: 11/09/23 I am a: Patient What is your living situation today?: I have a steady place to live Within the past 12 months, did the food you bought not last and you didn't have the money to get more?: Never true Within the past 12 months, did you worry whether your food would run out before you got money to buy more?: Never true Do you have trouble paying for medicines?: No Do you have trouble getting transportation to medical appointments?: No Do you have trouble paying your heating and electricity bill?: No Do you have trouble taking care of your child, family member or friend?: No Do you have trouble with day-to-day activities such as bathing, preparing meals, shopping, managing finances, etc.?: No Are you currently unemployed and looking for a job?: No Are you interested in more education?: No Please select the resources that you would like help with: None AUDIT C Alcohol Use Questionnaire (AUDIT-C) 1. How often do you have a drink containing alcohol?: Never Total Score: 0 JAVIER-7 AMB Questionnaire JAVIER-7 Date JAVIER - 7 assessed: 11/09/23 Feeling nervous, anxious, or on edge: 1 = Several days Not being able to stop or control worryin = Not at all Worrying too much about different things: 1 = Several days Trouble relaxin = Not at all Being so restless that it is hard to sit still: 0 = Not at all Becoming easily annoyed or irritable: 0 = Not at all Feeling afraid as if something awful might happen: 0 = Not at all Total JAVIER-7 score (0-4 normal; 5-9 mild; 10-14 moderate; 15-21 severe): 2 Source: Developed by Drs. Dontae Murray, Denice Jeff, Lai Eric and colleagues, with an educational braulio from [employer]. JAVIER-7 Assessment Billing JAVIER-7 Assessment Tool: JAVIER-7 Assessment 22896 Review of Systems Const All systems reviewed & are unremarkable except as noted in HPI and below Eyes Reports no additional complaints, Denies change in vision and Denies other visua l disturbances Card Denies chest pain at rest, Denies chest pain with activity, Denies edema, Denies irregular heart rhythm, Denies claudication, Denies dyspnea, Denies dyspnea on exertion, Denies orthopnea, Denies paroxysmal nocturnal dyspnea and Denies slow heart rate Resp Denies cough, Denies dyspnea and Denies dyspnea on exertion GI Denies abdominal pain, Denies change in bowel habits, Denies excessive flatus, Denies nausea and Denies vomiting Denies urinary hesitancy, Denies urinary incontinence and Denies urinary urgency Musc Denies abnormal gait, Denies atrophy, Denies deformity and Denies limited range of motion Skin/Breast Denies bleeding lesions, Denies changing lesions and Denies rash Neuro Denies abnormal gait, Denies behavioral changes and Denies lack of coordination Psych Denies behavioral changes Physical exam (Primary Care) Vital Signs: Last Vital Signs BP 168/90 H 11/09/23 10:38 BMI result Body Mass Index 30.7 Tobacco/Smoking Status: Tobacco use Status Tobacco use date assessed 11/09/23 11/09/23 10:45 Patient Tobacco Use Status Never used Tobacco 11/09/23 10:45 e-Cigarette/Vaping Use Never Used 11/09/23 10:45 PHQ-9: PHQ-9 Score PHQ-9: Total score 0 11/09/23 10:59 Depression Screening Interpretation: Negative Thrive Assessment: Date of Thrive Assessment Date Thrive assessed 11/09/23 11/09/23 10:45 Eyes General: appearance normal, both eyes and all related structures Eyelids: Yes eyelids normal Conjunctivae: conjunctivae normal Neck Neck: Yes normal visual inspection and Yes supple Resp Effort & Inspection: normal respiratory effort Auscultation: clear to auscultation bilaterally Cardio Jugular venous distension: no JVD Rate: regular rate Rhythm: regular rhythm Heart sounds: S1 normal heart sound present and S2 normal heart sound present Neuro Romberg Test: Negative Extrem General: Yes full ROM Assessment and Plan Assessment & Plan (1) Diabetes mellitus type 1: Code(s): E10.9 - Type 1 diabetes mellitus without complications Qualifiers: Diabetes mellitus complication status: with hyperglycemia Qualified Code(s): E10.65 - Type 1 diabetes mellitus with hyperglycemia Plan: Follow-up with endocrinology. A1c goal is equal or less than 7%. Continue insulin pump. (2) Hypertension: Code(s): I10 - Essential (primary) hypertension Qualifiers: Hypertension type: primary hypertension Qualified Code(s): I10 - Essential (primary) hypertension Plan: Continue chlorthalidone. Blood pressure goal is equal or less than 130/80. Continue losartan. (3) IgG4 related disease: Code(s): D89.89 - Other specified disorders involving the immune mechanism, not elsewhere classified Plan: Continue azathioprine. Follow-up with Gastroenterology. (4) New daily persistent headache: Code(s): G44.52 - New daily persistent headache (NDPH) Plan: MRI of the brain ordered. Orders: Orders MR head/brain wo con Today G44.52 - New daily persistent headache (NDPH), R42 - Dizziness and giddiness Complete Blood Count Auto Diff Today D64.9 - Anemia, unspecified IRON PROFILE Today D64.9 - Anemia, unspecified Vitamin B12 and Folate Today E53.8 - Deficiency of other specified B group vitamins Microalbumin, Random (w Creat) Today E11.9 - Type 2 diabetes mellitus without complications Vitamin D 25-OH Total Today E55.9 - Vitamin D deficiency, unspecified Lipid Panel Today E78.5 - Hyperlipidemia, unspecified Comprehensive [place]. Panel Fast Today E10.9 - Type 1 diabetes mellitus without complications Coding Level of Care Code Est Pt Level 4 (24019) Diagnoses Type 1 diabetes mellitus with hyperglycemia E10.65 Diabetes mellitus complication status: with hyperglycemia Primary hypertension I10 Hypertension type: primary hypertension IgG4 related disease D89.89 New daily persistent headache G44.52 Additional Codes JAVIER-7 Assessment Billing - JAVIER-7 Assessment Tool: JAVIER-7 Assessment 08771 ([id number]) Time Spent (min) 24
[2023-11-09 12:11] VITALS: BP 160/90
== END 2023-11-09 11:06 | disposition home or self-care (01) ==
PROVIDERS: PCP Internal Medicine; Visit Provider Internal Medicine
DX: E10.65 Type 1 diabetes mellitus with hyperglycemia (principal); I10 Essential (primary) hypertension; D89.89 Other specified disorders involving the immune mechanism, not elsewhere classified; G44.52 New daily persistent headache (NDPH)
CPT/HCPCS: 99214

== ENCOUNTER 2023-11-19 11:02 | Outpatient (REF) | payer OTHER, SELFPAY ==
[2023-11-19 13:52] LABS: MANUAL DIFF FLAG NO
[2023-11-19 13:59] LABS: Basophils Absolute Auto 0.1 X10*3/uL (0.0-0.2); Basophils Percent Auto 0.8 % (0-2); Eosinophils Absolute Auto 0.1 X10*3/uL (0.0-0.4); Eosinophils Percent Auto 0.9 % (0-4); Hematocrit 40.8 % (42.0-52.0); Hemoglobin 13.8 g/dl (14.0-18.0); Imm Gran Abs Auto 0.02 X10*3/uL (0.00-0.03); Imm Gran Pct Auto 0.3 % (0.0-0.4); Lymphocytes Absolute Auto 1.4 X10*3/uL (1.2-4.9); Lymphocytes Percent Auto 17.3 % (20-40); Mean Corpuscular HGB Conc 33.8 g/dl (31.0-36.0); Mean Corpuscular Hemoglobin 26.9 pg (27.0-33.0); Mean Corpuscular Volume 79.5 fL (80.0-98.0); Mean Platelet Volume 10.3 fL (9.4-12.4); Monocytes Absolute Auto 0.7 X10*3/uL (0.1-1.2); Neutrophils Absolute Auto 5.6 x10*3/uL (2.0-8.3); Neutrophils Percent Auto 71.7 % (45-73); Platelet Count 229 X10*3/uL (160-400); Red Blood Count 5.13 X10*6/uL (4.60-5.80); Red Cell Distribution Width 13.5 % (11.0-16.0); White Blood Count 7.8 X10*3/uL (4.8-10.8)
[2023-11-19 14:35] LABS: Alanine Aminotransferase 31 U/L (0-40); Albumin Level 4.2 g/dL (3.5-5.0); Alkaline Phosphatase 71 U/L (39-117); Anion Gap 11 (12-20); Aspartate Amino Transferase 32 U/L (5-37); Bilirubin Total 1.3 mg/dL (0.0-1.0); Blood Urea Nitrogen 16 mg/dL (9-16); Calcium 9.8 mg/dL (8.4-10.2); Carbon Dioxide 31 mmol/L (22-29); Chloride 97 mmol/L (96-108); Cholesterol 172 mg/dL (<200); Estimated Glomerular Filt Rate > 60; Glucose Fasting 128 mg/dL (60-99); HDL Cholesterol 30 mg/dL (>40); Iron 77 mcg/dL (45-160); Percent Iron Saturation 29 % (15-50); Potassium 3.3 mmol/L (3.3-5.1); Sodium 136 mmol/L (135-145); Total Iron Binding Capacity 270 mcg/dL (228-428); Total Protein 7.1 g/dL (6.5-8.0); Triglycerides 442 mg/dL (<150); Unsaturated Iron Binding 193 ug/dL
[2023-11-19 14:41] LABS: Creatinine Urine 66.37 mg/dL; Microalbumin Urine < 5.0 mg/L
[2023-11-19 14:43] LABS: Vitamin D 25-OH Total 40.9 ng/mL (>30)
[2023-11-19 14:55] LABS: Folate 10.9 ng/mL (> or = 4.0); Vitamin B12 1294 pg/mL (200-900)
== END 2023-11-19 11:03 | disposition home or self-care (01) ==
LOC: HO.10HDL 11:02
PROVIDERS: Visit Provider Internal Medicine
DX: D64.9 Anemia, unspecified (principal); E53.8 Deficiency of other specified B group vitamins; E10.9 Type 1 diabetes mellitus without complications; E55.9 Vitamin D deficiency, unspecified; E78.5 Hyperlipidemia, unspecified
CPT/HCPCS: 36415; 80053; 80061; 82043; 82306; 82570; 82607; 82746; 83540; 85025

== ENCOUNTER 2023-12-03 13:01 | Outpatient (AMB) | payer OTHER, SELFPAY ==
--- NOTE | 2023-12-03 13:25 | HO.NEPHOV ---
HPI HPI Comments History of Present Illness Details I would the privilege of seeing Vaibhav in consultation for hypertension. He has a diabetic. 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 He has BPH and takes tamsulosin. He checks his blood sugar regularly and his last hemoglobin A1c was 7.5. He has not known to have any proteinuria. He is on losartan & chlorthalidone for his blood pressure regulation. He is on statins. He denies peripheral arterial disease, carotid stenosis, coronary artery disease, congestive heart failure, CVA, renal artery stenosis, hypokalemia, uncontrolled thyroid disorders. He checks his blood pressure at home and has been labile. He does not have any flushing, palpitation, diarrhea, headache, visual disturbances, new weakness. He is followed up by his primary care physician very closely. [facility] Medical History Chronic sore throat DVT of lower extremity, bilateral Ankle pain, left Mixed hyperlipidemia Bilateral hand pain Mixed hyperlipidemia GERD (gastroesophageal reflux disease) Obesity due to excess calories Non-toxic multinodular goiter Obesity (BMI 30.0-34.9) Hypertension Chronic inflammation of pancreas Pancreatic abnormality FH: cholecystectomy Hypertriglyceridemia Diabetes type 1, uncontrolled Surgical History Hx of cholecystectomy Hx of endoscopy Hx of colonoscopy History of laminectomy Family History Father Hypertension Hyperlipidemia Prostate cancer Diabetes Arthritis Mother Arthritis Hyperlipidemia Diabetes Osteoporosis Social History Household Members: Spouse and Children Household Members Other:: daughter, , son Housing: House Alcohol intake: former Year quit: 28 Patient Tobacco Use Status: Never used Tobacco e-Cigarette/Vaping Use: Never Used Second Hand Smoke Exposure: No service: No Current occupational status: disabled Cognitive needs: No Hearing needs: No Vision needs: No Vital Signs 12/03/23 13:26 Height 5 ft 7 in Weight 198 lb BMI 31.0 BP 170/80 H Blood Pressure Location Lt brachial Position Sitting Pulse 75 Pulse Source Pulse Oximeter Pulse Oximetry (%) 98 Oxygen Delivery Method Room Air Physical Exam Vital Signs: Last Vital Signs Pulse 75 02/08/24 13:26 BP 170/80 H 02/08/24 13:26 Pulse Ox 98 12/03/23 13:26 Oxygen Delivery Method Room Air 12/03/23 13:26 BMI result Body Mass Index 31.0 Const General: comfortable and no acute distress Orientation/consciousness: patient oriented x3 HEENT Head: Yes normocephalic Mouth: Normal oral and palatal mucosa present Eyes EOM: EOMs intact bilaterally Neck Neck: Yes supple Resp Auscultation: clear to auscultation bilaterally Cardio Jugular venous distension: no JVD Rate: regular rate GI Palpation (GI): Soft to palpation Auscultation: normal bowel sounds General: Yes no CVA tenderness Back/Spine/Pelvis Back: no CVA tenderness Skin General skin exam: no rashes or lesions noted Neuro General: patient oriented x3 and moves all extremities Extrem General: Yes no pedal edema Assessment & Plan Assessment & Plan (1) Hypertension: Code(s): I10 - Essential (primary) hypertension Qualifiers: Hypertension type: primary hypertension Qualified Code(s): I10 - Essential (primary) hypertension Plan Vaibhav has longstanding hypertension. He is on losartan 100 mg as well as chlorthalidone. His blood pressure continues to be labile. He has been having low serum potassium. I ordered renin, aldosterone, aldosterone renin ratio, follow-up renal functions. I cut back his chlorthalidone to 25 mg daily and introduced carvedilol 6.25 mg twice daily. His blood pressure needs to maintain at goal. He should be on a low-sodium diet. He should avoid nonsteroidal anti-inflammatories. He has no LVH, proteinuria or retinopathy. His renal functions are normal. I will consider doing Doppler of his renal arteries. I did not make any other medication changes this visit. All his and his 's questions were answered. Follow-up appointment given. Orders: Orders Aldost/Renin 12/03/23 I10 - Essential (primary) hypertension Electrolytes 12/03/23 I10 - Essential (primary) hypertension Renin 12/03/23 I10 - Essential (primary) hypertension Aldosterone 12/03/23 I10 - Essential (primary) hypertension Creatinine 12/03/23 I10 - Essential (primary) hypertension Blood Urea Nitrogen 12/03/23 I10 - Essential (primary) hypertension Medications: New carvedilol must administer with a meal/food 6.25 mg PO BID 60 tabs 1RF 30 days Changed From chlorthalidone 50 mg PO DAILY 90 days 90 tabs 1RF To chlorthalidone 25 mg (1/2 x 50 mg) PO DAILY 45 tabs 1RF 90 days Coding Level of Care Code New Pt Level 4 (05300) Diagnoses Primary hypertension I10 Hypertension type: primary hypertension Results Reviewed Nephrology Results: Hgb 13.8 g/dl (14.0-18.0) L 11/19/23 WBC 7.8 X10*3/uL (4.8-10.8) 11/19/23 Plt Count 229 X10*3/uL (160-400) 11/19/23 Sodium 136 mmol/L (135-145) 11/19/23 Potassium 3.3 mmol/L (3.3-5.1) 11/19/23 Chloride 97 mmol/L (96-108) 11/19/23 Carbon Dioxide 31 mmol/L (22-29) H 11/19/23 BUN 16 mg/dL (9-16) 11/19/23 Creatinine 0.89 mg/dL (0.5-1.4) 11/19/23 Calcium 9.8 mg/dL (8.4-10.2) 11/19/23 Urine Creatinine 66.37 mg/dL 11/19/23
[2023-12-03 13:26] VITALS: BP 170/80; PULSE 75; O2SAT 98; BMI 31.0
== END 2023-12-03 14:05 | disposition home or self-care (01) ==
PROVIDERS: PCP Internal Medicine; Visit Provider Internal Medicine Nephrology
DX: I10 Essential (primary) hypertension (principal)
CPT/HCPCS: 99204

== ENCOUNTER → 2023-12-03 13:01 | Outpatient (BNVA) | payer OTHER, SELFPAY | PROVIDERS: PCP Internal Medicine; Visit Provider Internal Medicine Nephrology | DX: I10 Essential (primary) hypertension (principal) | CPT/HCPCS: 99202 ==

== ENCOUNTER 2023-12-07 10:19 | Outpatient (AMB) | payer OTHER, SELFPAY ==
[2023-12-07 10:42] VITALS: BP 140/70; PULSE 76; TEMP 36.5; O2SAT 97; BMI 31.2
--- NOTE | 2023-12-07 10:42 | AM.OFFWIN_ITS ---
Intake Vital Signs 12/07/23 10:42 Height 5 ft 7 in Weight 199 lb BMI 31.2 BP 140/70 H Blood Pressure Location Lt brachial Position Sitting Pulse 76 Pulse Source Pulse Oximeter Temp 97.7 F Temp Source Temporal Artery Scan Pulse Oximetry (%) 97 Oxygen Delivery Method Room Air Intake Visit Reasons: EP Cough, Chest discomfort due [id number] Intake Note: pt is here today for cough chest discomfort due to cough started thursday Patient Tobacco Use Status: Never used Tobacco Allergies cortisone Allergy (Unknown, Verified 12/07/23 11:42) Unknown isoniazid Allergy (Unknown, Verified 12/07/23 11:42) Rash oxycodone [From PERCOCET] Allergy (Unknown, Verified 12/07/23 11:42) SWELLING promethazine [From PHENERGAN] Allergy (Unknown, Verified 12/07/23 11:42) RASH seafood Allergy (Unknown, Verified 12/07/23 11:42) Anaphylaxis tramadol [TRAMADOL] Allergy (Unknown, Verified 12/07/23 11:42) UNKNOWN, GI upset doxycycline Adverse Reaction (Intermediate, Verified 12/07/23 11:42) dizziness, abdominal discomfort fluticasone [Advair Diskus] Adverse Reaction (Unknown, Verified 12/07/23 11:42) tachycardia salmeterol [Advair Diskus] Adverse Reaction (Unknown, Verified 12/07/23 11:42) tachycardia Medication List - Last Reconciled 12/07/23 by Sanket Vargas MD albuterol sulfate 90 mcg/actuation 2 puffs PO Q6H PRN 30 days alcohol swabs (Alcohol Prep Pads) 1 pad topical .6 times a day 30 days atorvastatin 20 mg PO BEDTIME azathioprine 100 mg (2 x 50 mg) PO DAILY azithromycin take 500 mg today (day 1), then 250 mg for 4 days (days 2-5) PO BD Insulin Syringe Ultra-Fine (insulin syringe-needle U-100) 5 times a day NS betamethasone dipropionate 0.05% topical blood sugar diagnostic (FreeStyle Lite Strips) 6 times a day blood-glucose meter,continuous (Dexcom G6 Aircraft Structure Mechanic) As directed blood-glucose sensor (Dexcom G6 Sensor device) As directed change every 10 days blood-glucose transmitter (Dexcom G6 Transmitter device) As directed carvedilol 6.25 mg PO BID 30 days chlorthalidone 25 mg (1/2 x 50 mg) PO DAILY 90 days clotrimazole 1% 1 appl topical BID 2 weeks diclofenac sodium 1% 4 grams topical QID dutasteride 0.5 mg PO DAILY fenofibrate 54 mg PO DAILY 90 days fluticasone propionate 50 mcg/actuation (Allergy Relief (fluticasone)) 1 spray intranasal DAILY 30 days gabapentin 200 mg (2 x 100 mg) PO BID PRN glucagon 3 mg/actuation (Baqsimi) 3 mg intranasal ONCE insulin aspart U-100 (Novolog U-100 Insulin aspart) Up to 120 units via a insulin pump subcutaneously; lancets 6 times a day Lantus Solostar U-100 Insulin (insulin glargine) 35 units (0.35 mL) subcut DAILY 30 days NS losartan 100 mg PO DAILY 90 days omeprazole 20 mg PO BID ondansetron HCl 4 mg PO DAILY PRN 30 days pen needle, diabetic (BD Doris 2nd Gen Pen Needle) once a day sennosides (senna) 8.6 mg PO BEDTIME PRN 7 days tamsulosin (Flomax) 0.4 mg PO DAILY 5 days terbinafine HCl 1% 1 appl topical BID Do you need a note to return to daycare/school/sports/work: Yes HPI EP Cough, Chest discomfort due [id number] HPI Details Patient presents for a sick visit. Reporting symptoms of sinus congestion, sore throat and difficulty swallowing. Low-grade fever. No family member is sick. No recent travel. Patient reports symptoms of malaise and fatigue. [facility] Medical History Chronic sore throat DVT of lower extremity, bilateral Ankle pain, left Mixed hyperlipidemia Bilateral hand pain Mixed hyperlipidemia GERD (gastroesophageal reflux disease) Obesity due to excess calories Non-toxic multinodular goiter Obesity (BMI 30.0-34.9) Hypertension Chronic inflammation of pancreas Pancreatic abnormality FH: cholecystectomy Hypertriglyceridemia Diabetes type 1, uncontrolled Surgical History Hx of cholecystectomy Hx of endoscopy Hx of colonoscopy History of laminectomy Family History Father Hypertension Hyperlipidemia Prostate cancer Diabetes Arthritis Mother Arthritis Hyperlipidemia Diabetes Osteoporosis Social History Household Members: Spouse and Children Household Members Other:: daughter, , son Housing: House Alcohol intake: former Year quit: 26 Patient Tobacco Use Status: Never used Tobacco e-Cigarette/Vaping Use: Never Used Second Hand Smoke Exposure: No service: No Current occupational status: disabled Cognitive needs: No Hearing needs: No Vision needs: No Physical Exam Vital Signs: Last Vital Signs Temp 97.7 F 12/07/23 10:42 Pulse 76 12/07/23 10:42 BP 140/70 H 12/07/23 10:42 Pulse Ox 97 12/07/23 10:42 Oxygen Delivery Method Room Air 12/07/23 10:42 BMI result Body Mass Index 31.2 Const General: cooperative and healthy appearing Nutritional Appearance: well nourished Orientation/consciousness: patient oriented x3 Limitations: no limitations HEENT Head: Yes normal to inspection Eyes General: appearance normal, both eyes and all related structures Neck Neck: Yes normal visual inspection Chest Chest palpation & inspection: normal palpation of entire chest wall Resp Effort & Inspection: normal respiratory effort Neuro General: patient oriented x3 Assessment & Plan Assessment & Plan (1) Upper respiratory tract infection: Code(s): J06.9 - Acute upper respiratory infection, unspecified Plan: Antibiotics ordered. Increase fluid intake. Tylenol for aches and pains. If symptoms worsen, follow-up here for a recheck. Will call with the results of the viral swab Orders: Orders SARS-CoV2/FLU/RSV Today R43.9 - Unspecified disturbances of smell and taste Medications: New azithromycin take 500 mg today (day 1), then 250 mg for 4 days (days 2-5) PO 6 tabs 0RF Coding Level of Care Code Est Pt Level 3 (34140) Diagnoses Upper respiratory tract infection J06.9
== END 2023-12-07 12:00 | disposition home or self-care (01) ==
PROVIDERS: PCP Internal Medicine; Visit Provider Internal Medicine
DX: J06.9 Acute upper respiratory infection, unspecified (principal)
CPT/HCPCS: 99213

== ENCOUNTER 2023-12-07 15:10 | Outpatient (REF) | payer OTHER, SELFPAY ==
[2023-12-07 17:56] LABS: Influenza A PCR POSITIVE (Negative); Influenza B PCR NEGATIVE (Negative); Resp Syncy Virus RNA Qual PCR NEGATIVE (Negative); SARS COV2 PCR INHOUSE NEGATIVE (Negative)
== END 2023-12-07 15:11 | disposition home or self-care (01) ==
LOC: HO.LAB 15:10
PROVIDERS: Visit Provider Internal Medicine
DX: R43.9 Unspecified disturbances of smell and taste (principal); Z11.52 Encounter for screening for COVID-19; Z20.828 Contact with and (suspected) exposure to other viral communicable diseases
CPT/HCPCS: 0241U

== ENCOUNTER 2023-12-15 09:44 | Outpatient (AMB) | payer OTHER, SELFPAY ==
--- NOTE | 2023-12-15 10:23 | A.OFFVIS_ITS ---
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: dm [employer] Sergeant Required: Yes [employer] Sergeant Name: Barbra [facility] [place] Accompanied by: Self / Same As Patient Allergies cortisone Allergy (Unknown, Verified 12/07/23 11:42) Unknown isoniazid Allergy (Unknown, Verified 12/07/23 11:42) Rash oxycodone [From PERCOCET] Allergy (Unknown, Verified 12/07/23 11:42) SWELLING promethazine [From PHENERGAN] Allergy (Unknown, Verified 12/07/23 11:42) RASH seafood Allergy (Unknown, Verified 12/07/23 11:42) Anaphylaxis tramadol [TRAMADOL] Allergy (Unknown, Verified 12/07/23 11:42) UNKNOWN, GI upset doxycycline Adverse Reaction (Intermediate, Verified 12/07/23 11:42) dizziness, abdominal discomfort fluticasone [Advair Diskus] Adverse Reaction (Unknown, Verified 12/07/23 11:42) tachycardia salmeterol [Advair Diskus] Adverse Reaction (Unknown, Verified 12/07/23 11:42) tachycardia HPI Comprehensive Diabetes Asmnt Most Recent Diabetes Results: Microalb/Creat Ratio TNP 11/19/23 Cholesterol 172 mg/dL (<200) 11/19/23 HDL Cholesterol 30 mg/dL (>40) L 11/19/23 Triglycerides 442 mg/dL (<150) H 11/19/23 Creatinine 0.89 mg/dL (0.5-1.4) 11/19/23 Blood Urea Nitrogen 16 mg/dL (9-16) 11/19/23 Sodium 136 mmol/L (135-145) 11/19/23 Potassium 3.3 mmol/L (3.3-5.1) 11/19/23 Chloride 97 mmol/L (96-108) 11/19/23 Carbon Dioxide 31 mmol/L (22-29) H 11/19/23 Calcium 9.8 mg/dL (8.4-10.2) 11/19/23 AST 32 U/L (5-37) 11/19/23 ALT 31 U/L (0-40) 11/19/23 Total Protein 7.1 g/dL (6.5-8.0) 11/19/23 Albumin 4.2 g/dL (3.5-5.0) 11/19/23 [facility] Medical History Chronic sore throat DVT of lower extremity, bilateral Ankle pain, left Mixed hyperlipidemia Bilateral hand pain Mixed hyperlipidemia GERD (gastroesophageal reflux disease) Obesity due to excess calories Non-toxic multinodular goiter Obesity (BMI 30.0-34.9) Hypertension Chronic inflammation of pancreas Pancreatic abnormality FH: cholecystectomy Hypertriglyceridemia Diabetes type 1, uncontrolled Surgical History Hx of cholecystectomy Hx of endoscopy Hx of colonoscopy History of laminectomy Family History Father Hypertension Hyperlipidemia Prostate cancer Diabetes Arthritis Mother Arthritis Hyperlipidemia Diabetes Osteoporosis Social History Household Members: Spouse and Children Household Members Other:: daughter, , son Housing: House Alcohol intake: former Year quit: 26 Patient Tobacco Use Status: Never used Tobacco e-Cigarette/Vaping Use: Never Used Second Hand Smoke Exposure: No service: No Current occupational status: disabled Cognitive needs: No Hearing needs: No Vision needs: No Assessment & Plan Assessment & Plan (1) Diabetes mellitus type 1: Code(s): E10.9 - Type 1 diabetes mellitus without complications Qualifiers: Diabetes mellitus complication status: with hyperglycemia Qualified Code(s): E10.65 - Type 1 diabetes mellitus with hyperglycemia Plan: Patient presents for pump training for? T slim with control? IQ and Dexcom G6 Patient is experiencing postprandial hyperglycemia in the evening. See changes insulin pump below The following topics were reviewed today: -sleep schedule -activity function ?Sensor setting (if applicable) ??? High Alert: 200 mg/dl ??? Low Alert: 80 mg/dl Above Target: 29% At Target:70% Below Target: 1% Average glucose for the last 2 weeks 159 mg/dL Patient has been turning sleep schedule on and off manually Patient sleep schedule reset to resume at 23:00 through 06:00 every day. Patient also is having slight rise in glucose levels after 16:00 Patient given information regarding switching from new [employer]isha home medical equipment to reliable Diabetes Insulin delivery settings Instructed patient to only use room temperature insulin, how to load cartridge or fill pod, with insulin. Fill tubing and cannula (if applicable) Troubleshooting after starting new pod or inserting new insulin set: Occlusion, adhesive tape sensitivity, redness Check BG 2 hours after site change Safety information: Patient understands the basic concepts of pump therapy, how to give insulin for meals and snacks, how to troubleshoot for hyper and hypoglycemia. Setting verified by CDCES, see changes to setting below: Basal rate(s) (units/hour) : 12 AM to 3 AM 1.9 units / hr 3 AM to 2 PM 1.8 units / hr 2 PM to 12 AM? 1.9 units / hr New 2 PM to 12 AM? 2.0 units / hr Bolus setting Insulin Carbohydrate Ratio (s) 12 AM? to 12 AM 1:4.5?? 10 AM to 2 PM 1:3 2 PM to 12 AM 1:2 Correction Factor / Sensitivity Factor 12 AM? to 10 AM 1:20 10 AM? to 12 AM 1:15 Active Insulin Time:? 3 hours Target(s): 12 AM? to 12 AM 120 mg/dL Target with Control IQ: 12 AM? to 12 AM 110 mg/dL Patient Instructions: Instructed patient if there is an increase in hypoglycemic events contact Diabetes Education nurse Patient has upcoming appointment December [address] Callaway. After that visit patient will make appointment with Diabetes Education nurse Coding Level of Care Code Est Pt Level 1 (13632) Diagnoses Type 1 diabetes mellitus with hyperglycemia E10.65 Diabetes mellitus complication status: with hyperglycemia
== END 2023-12-15 10:26 | disposition home or self-care (01) ==
PROVIDERS: PCP Internal Medicine; Visit Provider Registered Nurse Diabetes Educator
DX: E10.65 Type 1 diabetes mellitus with hyperglycemia (principal)

== ENCOUNTER → 2023-12-15 09:44 | Outpatient (BNVA) | payer OTHER, SELFPAY | PROVIDERS: PCP Internal Medicine; Visit Provider Registered Nurse Diabetes Educator | DX: E10.65 Type 1 diabetes mellitus with hyperglycemia (principal) | CPT/HCPCS: 99211 ==

== ENCOUNTER 2023-12-23 12:45 | Outpatient (REF) | payer OTHER, SELFPAY ==
[2023-12-23 14:31] LABS: Anion Gap 10 (12-20); Blood Urea Nitrogen 18 mg/dL (9-16); Carbon Dioxide 31 mmol/L (22-29); Chloride 101 mmol/L (96-108); Estimated Glomerular Filt Rate > 60; Potassium 3.8 mmol/L (3.3-5.1); Sodium 138 mmol/L (135-145)
[2023-12-28 14:59] LABS: Renin 2.85 ng/mL/h (0.25-5.82)
[2023-12-28 15:08] LABS: Aldosterone/Renin Ratio 1.1 Ratio (0.9-28.9)
== END 2023-12-23 12:46 | disposition home or self-care (01) ==
LOC: HO.HMGCLDS 12:45
PROVIDERS: PCP Internal Medicine; Visit Provider Internal Medicine Nephrology
DX: I10 Essential (primary) hypertension (principal)
CPT/HCPCS: 36415; 80051; 82088; 82565; 84244; 84520

== ENCOUNTER 2023-12-29 11:22 | Outpatient (AMB) | payer OTHER, SELFPAY ==
--- NOTE | 2023-12-29 11:34 | HO.NEPHOV_ITS ---
HPI HPI Comments History of Present Illness Details I would the privil ege of seeing Vaibhav in consultation f or hypertension. He has a diabetic. He has IG G4 dis ease of the pancre as and is on Imura n. He has BPH and takes tamsulosin. He checks his bl ood sugar regularl y and his last hem oglobin A1c was 7. 5. He has not kno wn to have any pro teinuria. He is o n losartan & chlor thalidone for his blood pressure reg ulation. He is on statins. He demetrio es peripheral zulema rial disease, haney tid stenosis, ray nary artery diseas e, congestive hear t failure, CVA, re nal artery stenosi s, hypokalemia, un controlled thyroid disorders. He ch ecks his blood pre ssure at home and has been labile. He does not have a ny flushing, palpi tation, diarrhea, headache, visual d isturbances, new w eakness. He is fo llowed up by his [facility] physic jermaine very closely. [facility] Medical History Chronic sore throat DVT of lower extremity, bilateral Ankle pain, left Mixed hyperlipidemia Bilateral hand pain Mixed hyperlipidemia GERD (gastroesophageal reflux disease) Obesity due to excess calories Non-toxic multinodular goiter Obesity (BMI 30.0-34.9) Hypertension Chronic inflammation of pancreas Pancreatic abnormality FH: cholecystectomy Hypertriglyceridemia Diabetes type 1, uncontrolled Surgical History Hx of cholecystectomy Hx of endoscopy Hx of colonoscopy History of laminectomy Family History Father Hypertension Hyperlipidemia Prostate cancer Diabetes Arthritis Mother Arthritis Hyperlipidemia Diabetes Osteoporosis Social History Household Members: Spouse and Children Household Members Other:: daughter, , son Housing: House Alcohol intake: former Year quit: 28 Patient Tobacco Use Status: Never used Tobacco e-Cigarette/Vaping Use: Never Used Second Hand Smoke Exposure: No service: No Current occupational status: disabled Cognitive needs: No Hearing needs: No Vision needs: No Vital Signs 12/29/23 11:35 Height 5 ft 7 in BP 130/62 Blood Pressure Location Lt brachial Position Sitting Pulse 56 Pulse Source Pulse Oximeter Pulse Oximetry (%) 96 Oxygen Delivery Method Room Air Physical Exam Vital Signs: Last Vital Signs Pulse 56 12/29/23 11:35 BP 130/62 12/29/23 11:35 Pulse Ox 96 12/29/23 11:35 Oxygen Delivery Method Room Air 12/29/23 11:35 Const General: comfortable and no acute distress Orientation/consciousness: patient oriented x3 HEENT Head: Yes normocephalic Mouth: Normal oral and palatal mucosa present Eyes EOM: EOMs intact bilaterally Neck Neck: Yes supple Resp Auscultation: clear to auscultation bilaterally Cardio Jugular venous distension: no JVD Rate: regular rate GI Palpation (GI): Soft to palpation Auscultation: normal bowel sounds General: Yes no CVA tenderness Back/Spine/Pelvis Back: no CVA tenderness Skin General skin exam: no rashes or lesions noted Neuro General: patient oriented x3 and moves all extremities Extrem General: Yes no pedal edema Assessment & Plan Assessment & Plan (1) Hypertension: Code(s): I10 - Essential (primary) hypertension Qualifiers: Hypertension type: primary hypertension Qualified Code(s): I10 - Essential (primary) hypertension Plan Vaibhav has longstanding hypertension. He is on losartan 100 mg as well as chlorthalidone. His blood pressure is at goal now. He has been having low serum potassium. HIs renin, aldosterone, aldosterone renin ratio, follow-up renal functions were reviewed. He could continue on chlorthalidone 25 mg daily and carvedilol 6.25 mg twice daily along with losartan 100 mg daily. His blood pressure needs to maintain at goal. He should be on a low-sodium diet. He should avoid nonsteroidal anti-inflammatories. He has no LVH, proteinuria or retinopathy. His renal functions are stable. I will consider doing Doppler of his renal arteries. I did not make any other medication changes this visit. All his questions were answered. Follow-up appointment given. Orders: Orders Blood Urea Nitrogen Today I10 - Essential (primary) hypertension Electrolytes Today I10 - Essential (primary) hypertension Creatinine Today I10 - Essential (primary) hypertension Medications: Changed From chlorthalidone 25 mg (1/2 x 50 mg) PO DAILY 90 days 45 tabs 1RF To chlorthalidone 25 mg PO DAILY 90 tabs 1RF 90 days Refilled losartan 100 mg PO DAILY 90 tabs 1RF 90 days carvedilol 6.25 mg PO BID 180 tabs 1RF Coding Level of Care Code Est Pt Level 3 (83844) Diagnoses Primary hypertension I10 Hypertension type: primary hypertension Results Reviewed Nephrology Results: Hgb 13.8 g/dl (14.0-18.0) L 11/19/23 WBC 7.8 X10*3/uL (4.8-10.8) 11/19/23 Plt Count 229 X10*3/uL (160-400) 11/19/23 Sodium 138 mmol/L (135-145) 12/23/23 Potassium 3.8 mmol/L (3.3-5.1) 12/23/23 Chloride 101 mmol/L (96-108) 12/23/23 Carbon Dioxide 31 mmol/L (22-29) H 12/23/23 BUN 18 mg/dL (9-16) H 12/23/23 Creatinine 1.05 mg/dL (0.5-1.4) 12/23/23 Calcium 9.8 mg/dL (8.4-10.2) 11/19/23 Urine Creatinine 66.37 mg/dL 11/19/23
[2023-12-29 11:35] VITALS: BP 130/62; PULSE 56; O2SAT 96
== END 2023-12-29 12:01 | disposition home or self-care (01) ==
PROVIDERS: PCP Internal Medicine; Visit Provider Internal Medicine Nephrology
DX: I10 Essential (primary) hypertension (principal)
CPT/HCPCS: 99213

== ENCOUNTER → 2023-12-29 11:22 | Outpatient (BNVA) | payer OTHER, SELFPAY | PROVIDERS: PCP Internal Medicine; Visit Provider Internal Medicine Nephrology | DX: I10 Essential (primary) hypertension (principal) | CPT/HCPCS: 99212 ==

== ENCOUNTER 2024-01-04 09:51 | Outpatient (AMB) | payer OTHER, SELFPAY ==
[2024-01-04 09:53] VITALS: BP 142/80; PULSE 57; BMI 30.5
--- NOTE | 2024-01-04 09:53 | MHC.OFFVIS ---
Intake Vital Signs 01/04/24 09:53 Height 5 ft 7 in Weight 194 lb 7.163 oz BMI 30.5 BP 142/80 H Blood Pressure Location Lt brachial Position Sitting Pulse 57 Pulse Source Pulse Oximeter Intake Visit Reasons: f/u Type 1 DM-confirmed Intake Note: Patient present today to follow up on Type 1 Diabetes Mellitus. Patient receives DME supplies through: Pharmacy Patient receives insulin pump supplies through: [employer]/ [employer] Last Diabetic Eye exam: 06/25/2023 [facility] Last Podiatry Visit: Doesn't have one Random Glucose: 121 mg/dl HgA1C: 7.5% Transformer Maker Required: No Accompanied by: Self / Same As Patient Allergies cortisone Allergy (Unknown, Verified 01/04/24 09:58) Unknown isoniazid Allergy (Unknown, Verified 01/04/24 09:58) Rash oxycodone [From PERCOCET] Allergy (Unknown, Verified 01/04/24 09:58) SWELLING promethazine [From PHENERGAN] Allergy (Unknown, Verified 01/04/24 09:58) RASH seafood Allergy (Unknown, Verified 01/04/24 09:58) Anaphylaxis tramadol [TRAMADOL] Allergy (Unknown, Verified 01/04/24 09:58) UNKNOWN, GI upset doxycycline Adverse Reaction (Intermediate, Verified 01/04/24 09:58) dizziness, abdominal discomfort fluticasone [Advair Diskus] Adverse Reaction (Unknown, Verified 01/04/24 09:58) tachycardia salmeterol [Advair Diskus] Adverse Reaction (Unknown, Verified 01/04/24 09:58) tachycardia Medication List - Last Reconciled 01/04/24 by Dontae Callaway MD albuterol sulfate 90 mcg/actuation 2 puffs PO Q6H PRN 30 days alcohol swabs (Alcohol Prep Pads) 1 pad topical .6 times a day 30 days atorvastatin 20 mg PO BEDTIME azathioprine 100 mg (2 x 50 mg) PO DAILY BD Insulin Syringe Ultra-Fine (insulin syringe-needle U-100) 5 times a day NS betamethasone dipropionate 0.05% topical blood sugar diagnostic (FreeStyle Lite Strips) 6 times a day blood-glucose meter,continuous (Dexcom G6 Manager Of Purchasing) As directed blood-glucose sensor (Dexcom G6 Sensor device) As directed change every 10 days blood-glucose transmitter (Dexcom G6 Transmitter device) As directed carvedilol 6.25 mg PO BID chlorthalidone 25 mg PO DAILY 90 days clotrimazole 1% 1 appl topical BID 2 weeks diclofenac sodium 1% 4 grams topical QID dutasteride 0.5 mg PO DAILY fenofibrate 54 mg PO DAILY 90 days fluticasone propionate 50 mcg/actuation (Allergy Relief (fluticasone)) 1 spray intranasal DAILY 30 days glucagon 3 mg/actuation (Baqsimi) 3 mg intranasal ONCE guaifenesin ER (Mucinex) 600 mg PO Q12H PRN 5 days insulin aspart U-100 (Novolog U-100 Insulin aspart) Up to 120 units via a insulin pump subcutaneously; lancets 6 times a day Lantus Solostar U-100 Insulin (insulin glargine) 35 units (0.35 mL) subcut DAILY 30 days NS losartan 100 mg PO DAILY 90 days omeprazole 20 mg PO BID ondansetron HCl 4 mg PO DAILY PRN 30 days pen needle, diabetic (BD Doris 2nd Gen Pen Needle) once a day tamsulosin (Flomax) 0.4 mg PO DAILY 5 days terbinafine HCl 1% 1 appl topical BID HPI HPI Comments History of Present Illness Details Patient is 63 yo male with DM type 1 diagnosed around 2015 who presents for management of diabetes. He also has a multinodular goiter and is followed here for that as well Past medical history: DM1, HTN, HLD, NTMNG (managed by this practice) Micro and macrovascular complications: Diabetes medications: backup plan 35 units of Lantus and Novolog with pump settings. Novolog via Tandem pump 50% basal, 50% food bolus, % correction bolus, Control IQ bolus %. Average total daily dose 99.8 units Cartridge change every 2 days, tubing every 2 days, Site cannula every 1.8 days. Control IQ use 94% of the time Basal rate(s) (units/hour) : 12 AM to 3 AM 1.9 units / hr 3 AM to 10 AM 1.8 units / hr 10 AM to 2 PM? 1.8 units / hr New 2 PM to 12 AM? 2.0 units / hr Bolus setting Insulin Carbohydrate Ratio (s) 12 AM? to 10 AM 1:5?? 10 AM to 2 PM 1:3 2 PM to 12 AM 1:2 Correction Factor / Sensitivity Factor 12 AM? to 10 AM 1:20 10 AM? to 12 AM 1:15 Active Insulin Time:? 3 hours Target(s): 12 AM? to 12 AM 120 mg/dL Target with Control IQ: 12 AM? to 12 AM 110 mg/dL CGM: Average , range - 0% low. % in target range of 70-180. % above target 0% below target C GM is active 13days Coefficient variation 31 . Pattern shows post-dinner hyperglycemia Symptoms reported: numbness, tingling, cramping in lower extremities Hypoglycemia: rarely with symptoms of shaking, sweating - none lately Hyperglycemia: + urinary frequency (uses diuretic), +nocturia (2-3x/night), +polydypsia Exercise: always moving, 15-20 minutes most days, limited due to back pain Component Inspector - CDE education: currently. House Decorator: not currently Dental exam: goes every 6 month Ophthalmology evaluation: last appt Summer 2022 - retinopathy Laboratory Tests 12/12/21 12/30/21 12/30/21 10:16 10:10 11:00 Creatinine 1.02 Estimated GFR > 60 Hgb A1c (Clinic) 7.8 H Microalb/Creat Rat io TNP 09/11/21 20:08 Creatinine 0.84 Estimated GFR > 60 05/02/21 05/02/21 08/16/21 10:28 10:28 09:55 Creatinine 1.09 Estimated GFR > 60 Hgb A1c (Clinic) 7.6 H Triglycerides 132 Cholesterol 162 LDL Cholesterol Di rect 102 H LDL Cholesterol, C alc 95 HDL Cholesterol 41 On Fenofibrate for incresed trigs. Can't take fish oils PFSH Medical History Chronic sore throat DVT of lower extremity, bilateral Ankle pain, left Mixed hyperlipidemia Bilateral hand pain Mixed hyperlipidemia GERD (gastroesophageal reflux disease) Obesity due to excess calories Non-toxic multinodular goiter Obesity (BMI 30.0-34.9) Hypertension Chronic inflammation of pancreas Pancreatic abnormality FH: cholecystectomy Hypertriglyceridemia Diabetes type 1, uncontrolled Surgical History Hx of cholecystectomy Hx of endoscopy Hx of colonoscopy History of laminectomy Family History Father Hypertension Hyperlipidemia Prostate cancer Diabetes Arthritis Mother Arthritis Hyperlipidemia Diabetes Osteoporosis Social History Household Members: Spouse and Children Household Members Other:: daughter, , son Housing: House Alcohol intake: former Year quit: 28 Patient Tobacco Use Status: Never used Tobacco e-Cigarette/Vaping Use: Never Used Second Hand Smoke Exposure: No service: No Current occupational status: disabled Cognitive needs: No Hearing needs: No Vision needs: No Physical Exam Vital Signs: Last Vital Signs Pulse 57 01/04/24 09:53 BP 142/80 H 01/04/24 09:53 BMI result Body Mass Index 30.5 Results AMB Hemoglobin A1c AMB Hemoglobin A1c 7.5 % Last Edit by BRYNN Arias on 01/04/24 10:12 Assessment & Plan Assessment & Plan (1) Diabetes type 1, uncontrolled: Code(s): E10.65 - Type 1 diabetes mellitus with hyperglycemia Plan: This 63-year-old male with a history of type 1 diabetes being treated with a T-slim X 2 with control IQ with good but not optimal glycemic control and no known microvascular or macrovascular complications. The plan is to tighten the insulin: Carbohydrate to 1:1.5 at at 2 PM . I will have him follow up with systems test technician to make that adjustment. (2) Thyroid nodule: Code(s): E04.1 - Nontoxic single thyroid nodule Plan: Repeat thyroid ultrasound shows benign-appearing subcentimeter nodules. Patient is clinically and biochemically euthyroid Orders: Orders AMB Hemoglobin A1c Today E10.65 - Type 1 diabetes mellitus with hyperglycemia, E10.9 - Type 1 diabetes mellitus without complications, Z13.9 - Encounter for screening, unspecified Coding Level of Care Code Est Pt Level 4 (70785) Diagnoses Diabetes type 1, uncontrolled E10.65 Thyroid nodule E04.1
[2024-01-04 10:07] LABS: Glucose, Whole Blood 121 mg/dL (60-115)
== END 2024-01-04 10:22 | disposition home or self-care (01) ==
PROVIDERS: PCP Internal Medicine; Referring Provider Internal Medicine; Visit Provider Internal Medicine Endocrinology, Diabetes & Metabolism
DX: Z13.9 Encounter for screening, unspecified (principal); E10.65 Type 1 diabetes mellitus with hyperglycemia; E10.9 Type 1 diabetes mellitus without complications; E04.1 Nontoxic single thyroid nodule
CPT/HCPCS: 99214

== ENCOUNTER → 2024-01-04 09:51 | Outpatient (BNVA) | payer OTHER, SELFPAY | PROVIDERS: PCP Internal Medicine; Referring Provider Internal Medicine; Visit Provider Internal Medicine Endocrinology, Diabetes & Metabolism | DX: Z46.81 Encounter for fitting and adjustment of insulin pump (principal); E10.65 Type 1 diabetes mellitus with hyperglycemia; E04.1 Nontoxic single thyroid nodule; Z79.4 Long term (current) use of insulin | CPT/HCPCS: 82947; 83036; 99212 ==

== ENCOUNTER 2024-01-11 09:14 | Outpatient (AMB) | payer OTHER, SELFPAY ==
--- NOTE | 2024-01-11 09:41 | A.OFFVIS_ITS ---
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: T1DM Typesetting Machine Tender Required: Yes Typesetting Machine Tender Language: Patent Legal Assistant Name: [place] [facility] [place]panied by: Self / Same As Patient Allergies cortisone Allergy (Unknown, Verified 01/04/24 09:58) Unknown isoniazid Allergy (Unknown, Verified 01/04/24 09:58) Rash oxycodone [From PERCOCET] Allergy (Unknown, Verified 01/04/24 09:58) SWELLING promethazine [From PHENERGAN] Allergy (Unknown, Verified 01/04/24 09:58) RASH seafood Allergy (Unknown, Verified 01/04/24 09:58) Anaphylaxis tramadol [TRAMADOL] Allergy (Unknown, Verified 01/04/24 09:58) UNKNOWN, GI upset doxycycline Adverse Reaction (Intermediate, Verified 01/04/24 09:58) dizziness, abdominal discomfort fluticasone [Advair Diskus] Adverse Reaction (Unknown, Verified 01/04/24 09:58) tachycardia salmeterol [Advair Diskus] Adverse Reaction (Unknown, Verified 01/04/24 09:58) tachycardia HPI Comprehensive Diabetes Asmnt Most Recent Diabetes Results: Microalb/Creat Ratio TNP 11/19/23 Cholesterol 172 mg/dL (<200) 11/19/23 HDL Cholesterol 30 mg/dL (>40) L 11/19/23 Triglycerides 442 mg/dL (<150) H 11/19/23 Creatinine 1.05 mg/dL (0.5-1.4) 12/23/23 Blood Urea Nitrogen 18 mg/dL (9-16) H 12/23/23 Sodium 138 mmol/L (135-145) 12/23/23 Potassium 3.8 mmol/L (3.3-5.1) 12/23/23 Chloride 101 mmol/L (96-108) 12/23/23 Carbon Dioxide 31 mmol/L (22-29) H 12/23/23 Calcium 9.8 mg/dL (8.4-10.2) 11/19/23 AST 32 U/L (5-37) 11/19/23 ALT 31 U/L (0-40) 11/19/23 Total Protein 7.1 g/dL (6.5-8.0) 11/19/23 Albumin 4.2 g/dL (3.5-5.0) 11/19/23 [facility] Medical History Chronic sore throat DVT of lower extremity, bilateral Ankle pain, left Mixed hyperlipidemia Bilateral hand pain Mixed hyperlipidemia GERD (gastroesophageal reflux disease) Obesity due to excess calories Non-toxic multinodular goiter Obesity (BMI 30.0-34.9) Hypertension Chronic inflammation of pancreas Pancreatic abnormality FH: cholecystectomy Hypertriglyceridemia Diabetes type 1, uncontrolled Surgical History Hx of cholecystectomy Hx of endoscopy Hx of colonoscopy History of laminectomy Family History Father Hypertension Hyperlipidemia Prostate cancer Diabetes Arthritis Mother Arthritis Hyperlipidemia Diabetes Osteoporosis Social History Household Members: Spouse and Children Household Members Other:: daughter, , son Housing: House Alcohol intake: former Year quit: 28 Patient Tobacco Use Status: Never used Tobacco e-Cigarette/Vaping Use: Never Used Second Hand Smoke Exposure: No service: No Current occupational status: disabled Cognitive needs: No Hearing needs: No Vision needs: No Assessment & Plan Assessment & Plan (1) Diabetes mellitus type 1: Code(s): E10.9 - Type 1 diabetes mellitus without complications Qualifiers: Diabetes mellitus complication status: with hyperglycemia Qualified Code(s): E10.65 - Type 1 diabetes mellitus with hyperglycemia Plan: Patient presents for pump training for? T slim with control? IQ and Dexcom G6 Patient is experiencing postprandial hyperglycemia in the evening. See changes insulin pump below The following topics were reviewed today: -sleep schedule -activity function ?Sensor setting (if applicable) ??? High Alert: 200 mg/dl ??? Low Alert: 80 mg/dl Above Target: 23% At Target:76% Below Target: 1% Average glucose for the last 2 weeks 154 mg/dL At last visit Dr. Callaway recommended patient adjust 14:00 to 00:00 insulin to carb ratio from 1:2 to 1:1.5. Patient's A1c on 12/29/2023 was 7.5% Patient reported that [address] Callaway's visit he had had the flu, at today's visit patient's average glucose was 154 mg/dL. At today's visit we adjusted the 14:00 to 00:00 insulin to carb ratio to 1:1.7, due to patient's concern of hypoglycemia Instructed patient if hypoglycemic events increase to contact primary special educator Insulin delivery settings Instructed patient to only use room temperature insulin, how to load cartridge or fill pod, with insulin. Fill tubing and cannula (if applicable) Troubleshooting after starting new pod or inserting new insulin set: Occlusion, adhesive tape sensitivity, redness Check BG 2 hours after site change Safety information: Patient understands the basic concepts of pump therapy, how to give insulin for meals and snacks, how to troubleshoot for hyper and hypoglycemia. Setting verified by CDCES, see changes to setting below: Basal rate(s) (units/hour) : 12 AM to 3 AM 1.9 units / hr 3 AM to 2 PM 1.8 units / hr 2 PM to 12 AM? 2.0 units / hr Bolus setting Insulin Carbohydrate Ratio (s) 12 AM? to 12 AM 1:4.5?? 10 AM to 2 PM 1:3 2 PM to 12 AM 1:2 New 2 PM to 12 AM 1:1.7 Correction Factor / Sensitivity Factor 12 AM? to 10 AM 1:20 10 AM? to 12 AM 1:15 Active Insulin Time:? 3 hours Target(s): 12 AM? to 12 AM 120 mg/dL Target with Control IQ: 12 AM? to 12 AM 110 mg/dL Patient Instructions: Patient should follow-up with primary special educator in 4 months Coding Level of Care Code Est Pt Level 1 (40916) Diagnoses Type 1 diabetes mellitus with hyperglycemia E10.65 Diabetes mellitus complication status: with hyperglycemia
== END 2024-01-11 09:49 | disposition home or self-care (01) ==
PROVIDERS: PCP Internal Medicine; Visit Provider Registered Nurse Diabetes Educator
DX: E10.65 Type 1 diabetes mellitus with hyperglycemia (principal)

== ENCOUNTER → 2024-01-11 09:14 | Outpatient (BNVA) | payer OTHER, SELFPAY | PROVIDERS: PCP Internal Medicine; Visit Provider Registered Nurse Diabetes Educator | DX: E10.9 Type 1 diabetes mellitus without complications (principal) | CPT/HCPCS: 99211 ==

== ENCOUNTER 2024-02-17 11:18 | Outpatient (AMB) | payer OTHER, SELFPAY ==
[2024-02-17 11:22] VITALS: BP 150/70; PULSE 58; TEMP 36.7; O2SAT 96; BMI 31.3
--- NOTE | 2024-02-17 11:22 | MHC.OFFWIV ---
Intake Vital Signs 02/17/24 11:22 Height 5 ft 7 in Weight 200 lb BMI 31.3 BP 150/70 H Blood Pressure Location Lt brachial Position Sitting Pulse 58 Pulse Source Pulse Oximeter Temp 98.0 F Temp Source Temporal Artery Scan Pulse Oximetry (%) 96 Oxygen Delivery Method Room Air Intake Visit Reasons: EP sore throat/ears/nose cough Intake Note: pt is here today fo5 sore throat ear nose and cough started 1 week ago Patient Tobacco Use Status: Never used Tobacco Allergies cortisone Allergy (Unknown, Verified 02/17/24 11:43) Unknown isoniazid Allergy (Unknown, Verified 02/17/24 11:43) Rash oxycodone [From PERCOCET] Allergy (Unknown, Verified 02/17/24 11:43) SWELLING promethazine [From PHENERGAN] Allergy (Unknown, Verified 02/17/24 11:43) RASH seafood Allergy (Unknown, Verified 02/17/24 11:43) Anaphylaxis tramadol [TRAMADOL] Allergy (Unknown, Verified 02/17/24 11:43) UNKNOWN, GI upset doxycycline Adverse Reaction (Intermediate, Verified 02/17/24 11:43) dizziness, abdominal discomfort fluticasone [Advair Diskus] Adverse Reaction (Unknown, Verified 02/17/24 11:43) tachycardia salmeterol [Advair Diskus] Adverse Reaction (Unknown, Verified 02/17/24 11:43) tachycardia Medication List - Last Reconciled 02/17/24 by Sanket Vargas MD albuterol sulfate 90 mcg/actuation 2 puffs PO Q6H PRN 30 days alcohol swabs (Alcohol Prep Pads) 1 pad topical .6 times a day 30 days atorvastatin 20 mg PO BEDTIME azathioprine 100 mg (2 x 50 mg) PO DAILY BD Insulin Syringe Ultra-Fine (insulin syringe-needle U-100) 5 times a day NS betamethasone dipropionate 0.05% topical blood sugar diagnostic (FreeStyle Lite Strips) USE 6 TIMES A DAY blood-glucose meter,continuous (Dexcom G6 Doping Supervisor) As directed blood-glucose sensor (Dexcom G6 Sensor device) As directed change every 10 days blood-glucose transmitter (Dexcom G6 Transmitter device) As directed carvedilol 6.25 mg PO BID chlorthalidone 25 mg PO DAILY 90 days clotrimazole 1% 1 appl topical BID 2 weeks diclofenac sodium 1% 4 grams topical QID dutasteride 0.5 mg PO DAILY fenofibrate 54 mg PO DAILY 90 days fluticasone propionate 50 mcg/actuation (Allergy Relief (fluticasone)) 1 spray intranasal DAILY 30 days glucagon 3 mg/actuation (Baqsimi) 3 mg intranasal ONCE guaifenesin ER (Mucinex) 600 mg PO Q12H PRN 5 days insulin aspart U-100 (Novolog U-100 Insulin aspart) Up to 120 units via a insulin pump subcutaneously; lancets 6 times a day Lantus Solostar U-100 Insulin (insulin glargine) 35 units (0.35 mL) subcut DAILY 30 days NS losartan 100 mg PO DAILY 90 days omeprazole 20 mg PO BID ondansetron HCl 4 mg PO DAILY PRN 30 days pen needle, diabetic (BD Doris 2nd Gen Pen Needle) once a day tamsulosin (Flomax) 0.4 mg PO DAILY 5 days terbinafine HCl 1% 1 appl topical BID Do you need a note to return to daycare/school/sports/work: No HPI EP sore throat/ears/nose cough HPI Details Patient presents for a sick visit. Reporting symptoms of sinus congestion, sore throat and difficulty swallowing. Low-grade fever. No family member is sick. No recent travel. Patient reports symptoms of malaise and fatigue. [facility] Medical History Chronic sore throat DVT of lower extremity, bilateral Ankle pain, left Mixed hyperlipidemia Bilateral hand pain Mixed hyperlipidemia GERD (gastroesophageal reflux disease) Obesity due to excess calories Non-toxic multinodular goiter Obesity (BMI 30.0-34.9) Hypertension Chronic inflammation of pancreas Pancreatic abnormality FH: cholecystectomy Hypertriglyceridemia Diabetes type 1, uncontrolled Surgical History Hx of cholecystectomy Hx of endoscopy Hx of colonoscopy History of laminectomy Family History Father Hypertension Hyperlipidemia Prostate cancer Diabetes Arthritis Mother Arthritis Hyperlipidemia Diabetes Osteoporosis Social History Household Members: Spouse and Children Household Members Other:: daughter, , son Housing: House Alcohol intake: former Year quit: 26 Patient Tobacco Use Status: Never used Tobacco e-Cigarette/Vaping Use: Never Used Second Hand Smoke Exposure: No service: No Current occupational status: disabled Cognitive needs: No Hearing needs: No Vision needs: No Physical Exam Vital Signs: Last Vital Signs Temp 98.0 F 02/17/24 11:22 Pulse 58 02/17/24 11:22 BP 150/70 H 02/17/24 11:22 Pulse Ox 96 02/17/24 11:22 Oxygen Delivery Method Room Air 02/17/24 11:22 BMI result Body Mass Index 31.3 Const General: cooperative and healthy appearing Nutritional Appearance: well nourished Orientation/consciousness: patient oriented x3 Limitations: no limitations HEENT Head: Yes normal to inspection Eyes General: appearance normal, both eyes and all related structures Neck Neck: Yes normal visual inspection Chest Chest palpation & inspection: normal palpation of entire chest wall Resp Effort & Inspection: normal respiratory effort Neuro General: patient oriented x3 Results AMB Rapid Strep AMB Rapid Strep Negative Last Edit by Silvia Young MA on 02/17/24 11:43 Assessment & Plan Assessment & Plan (1) Upper respiratory tract infection: Code(s): J06.9 - Acute upper respiratory infection, unspecified Plan: Antibiotics ordered. Increase fluid intake. Tylenol for aches and pains. If symptoms worsen, follow-up here for a recheck. Coding Level of Care Code Est Pt Level 3 (20368) Diagnoses Upper respiratory tract infection J06.9
== END 2024-02-17 12:09 | disposition home or self-care (01) ==
PROVIDERS: PCP Internal Medicine; Visit Provider Internal Medicine
DX: J06.9 Acute upper respiratory infection, unspecified (principal)
CPT/HCPCS: 99213

== ENCOUNTER 2024-03-08 10:26 | Outpatient (REF) | payer OTHER, SELFPAY ==
[2024-03-08 14:06] LABS: Alanine Aminotransferase 16 U/L (0-40); Albumin Level 4.3 g/dL (3.5-5.0); Alkaline Phosphatase 51 U/L (39-117); Anion Gap 14 (12-20); Aspartate Amino Transferase 23 U/L (5-37); Bilirubin Total 1.1 mg/dL (0.0-1.0); Blood Urea Nitrogen 16 mg/dL (9-16); Calcium 9.6 mg/dL (8.4-10.2); Carbon Dioxide 26 mmol/L (22-29); Chloride 103 mmol/L (96-108); Cholesterol 166 mg/dL (<200); Estimated Glomerular Filt Rate > 60; Glucose Fasting 128 mg/dL (60-99); HDL Cholesterol 33 mg/dL (>40); LDL Cholesterol Calculated 84 mg/dL (<100); Potassium 3.8 mmol/L (3.3-5.1); Sodium 139 mmol/L (135-145); Triglycerides 247 mg/dL (<150)
[2024-03-08 14:21] LABS: Creatinine Urine 115.23 mg/dL; Microalbumin Urine < 5.0 mg/L
[2024-03-08 14:22] LABS: Vitamin D 25-OH Total 47.3 ng/mL (>30)
== END 2024-03-08 10:27 | disposition home or self-care (01) ==
LOC: HO.HMGCLDS 10:26
PROVIDERS: PCP Internal Medicine; Visit Provider Internal Medicine
DX: K86.1 Other chronic pancreatitis (principal); E55.9 Vitamin D deficiency, unspecified; E11.9 Type 2 diabetes mellitus without complications; E78.5 Hyperlipidemia, unspecified
CPT/HCPCS: 36415; 80053; 80061; 82043; 82306; 82570

== ENCOUNTER 2024-03-10 11:02 | Outpatient (AMB) | payer OTHER, SELFPAY ==
[2024-03-10 11:03] VITALS: BP 176/90; BMI 31.2
--- NOTE | 2024-03-10 11:03 | A.OFFPC_ITS ---
Vital Signs 03/10/24 11:03 Height 5 ft 7 in Weight 199 lb BMI 31.2 BP 176/90 H Blood Pressure Location Lt brachial Position Sitting Intake Visit Reasons: dm Intake Note: Patient here for a follow up DM Compliance Officer Required: No Accompanied by: Self / Same As Patient Allergies cortisone Allergy (Unknown, Verified 03/10/24 11:30) Unknown isoniazid Allergy (Unknown, Verified 03/10/24 11:30) Rash oxycodone [From PERCOCET] Allergy (Unknown, Verified 03/10/24 11:30) SWELLING promethazine [From PHENERGAN] Allergy (Unknown, Verified 03/10/24 11:30) RASH seafood Allergy (Unknown, Verified 03/10/24 11:30) Anaphylaxis tramadol [TRAMADOL] Allergy (Unknown, Verified 03/10/24 11:30) UNKNOWN, GI upset doxycycline Adverse Reaction (Intermediate, Verified 03/10/24 11:30) dizziness, abdominal discomfort fluticasone [Advair Diskus] Adverse Reaction (Unknown, Verified 03/10/24 11:30) tachycardia salmeterol [Advair Diskus] Adverse Reaction (Unknown, Verified 03/10/24 11:30) tachycardia Medication List - Last Reconciled 03/10/24 by Kiley Napier MD albuterol sulfate 90 mcg/actuation 2 puffs PO Q6H PRN 30 days alcohol swabs (Alcohol Prep Pads) 1 pad topical .6 times a day 30 days amoxicillin 500 mg PO Q8H atorvastatin 20 mg PO BEDTIME azathioprine 100 mg (2 x 50 mg) PO DAILY BD Insulin Syringe Ultra-Fine (insulin syringe-needle U-100) 5 times a day NS betamethasone dipropionate 0.05% topical blood sugar diagnostic (FreeStyle Lite Strips) USE 6 TIMES A DAY blood-glucose meter,continuous (Dexcom G6 Medical Administrator) As directed blood-glucose sensor (Dexcom G6 Sensor device) As directed change every 10 days blood-glucose transmitter (Dexcom G6 Transmitter device) As directed carvedilol 6.25 mg PO BID chlorthalidone 25 mg PO DAILY 90 days clotrimazole 1% 1 appl topical BID 2 weeks diclofenac sodium 1% 4 grams topical QID dutasteride 0.5 mg PO DAILY fenofibrate 54 mg PO DAILY 90 days fluticasone propionate 50 mcg/actuation (Allergy Relief (fluticasone)) 1 spray intranasal DAILY 30 days glucagon 3 mg/actuation (Baqsimi) 3 mg intranasal ONCE guaifenesin ER (Mucinex) 600 mg PO Q12H PRN 5 days insulin aspart U-100 (Novolog U-100 Insulin aspart) Up to 120 units via a insulin pump subcutaneously; lancets 6 times a day Lantus Solostar U-100 Insulin (insulin glargine) 35 units (0.35 mL) subcut DAILY 30 days NS losartan 100 mg PO DAILY 90 days omeprazole 20 mg PO BID ondansetron HCl 4 mg PO DAILY PRN 30 days pen needle, diabetic (BD Doris 2nd Gen Pen Needle) once a day tamsulosin (Flomax) 0.4 mg PO DAILY 5 days terbinafine HCl 1% 1 appl topical BID Tobacco use date assessed: 11/09/23 Fall risk assessment: No Falls in past year Last assessed Fall Risk: 03/10/24 Dental Screening Dental Screen Date: 11/09/23 HPI HPI Comments History of Present Illness Details This is a 63-year-old male with diabetes mellitus type 1, hypertension, mixed hyperlipidemia, IgG4 related disorders and rheumatoid arthritis that comes today for follow-up on his conditions. Last A1c was elevated but close to goal. This is follow by Endocrinology. Blood pressure elevated today and will be recheck in 3 weeks by nurse navigator. LDL slightly elevated and I will increase atorvastatin from 20 mg to 40 mg. 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 Rheumatoid arthritis follow by Rheumatology. [facility] Medical History Chronic sore throat DVT of lower extremity, bilateral Ankle pain, left Mixed hyperlipidemia Bilateral hand pain Mixed hyperlipidemia GERD (gastroesophageal reflux disease) Obesity due to excess calories Non-toxic multinodular goiter Obesity (BMI 30.0-34.9) Hypertension Chronic inflammation of pancreas Pancreatic abnormality FH: cholecystectomy Hypertriglyceridemia Diabetes type 1, uncontrolled Surgical History Hx of cholecystectomy Hx of endoscopy Hx of colonoscopy History of laminectomy Family History Father Hypertension Hyperlipidemia Prostate cancer Diabetes Arthritis Mother Arthritis Hyperlipidemia Diabetes Osteoporosis Social History Household Members: Spouse and Children Household Members Other:: daughter, , son Housing: House Alcohol intake: former Year quit: 28 Patient Tobacco Use Status: Never used Tobacco e-Cigarette/Vaping Use: Never Used Second Hand Smoke Exposure: No service: No Current occupational status: disabled Cognitive needs: No Hearing needs: No Vision needs: No Questionnaire Thrive Questionnaire Date Thrive assessed: 11/09/23 JAVIER-7 AMB Questionnaire JAVIER-7 Date JAVIER - 7 assessed: 11/09/23 Source: Developed by Drs. Dontae Murray, Denice Jeff, Lai Eric and colleagues, with an educational braulio from [employer]. Review of Systems Const All systems reviewed & are unremarkable except as noted in HPI and below Card Denies chest pain at rest, Denies chest pain with activity, Denies edema, Denies irregular heart rhythm, Denies claudication, Denies dyspnea, Denies dyspnea on exertion, Denies orthopnea, Denies paroxysmal nocturnal dyspnea and Denies slow heart rate Resp Denies cough, Denies dyspnea and Denies dyspnea on exertion GI Denies abdominal pain, Denies change in bowel habits, Denies excessive flatus, Denies nausea and Denies vomiting Denies urinary hesitancy, Denies urinary incontinence and Denies urinary urgency Physical exam (Primary Care) Vital Signs: Last Vital Signs BP 176/90 H 03/10/24 11:03 BMI result Body Mass Index 31.2 Tobacco/Smoking Status: Tobacco use Status Tobacco use date assessed 11/09/23 03/10/24 11:05 Patient Tobacco Use Status Never used Tobacco 03/10/24 11:05 e-Cigarette/Vaping Use Never Used 03/10/24 11:05 Thrive Assessment: Date of Thrive Assessment Date Thrive assessed 11/09/23 03/10/24 11:05 Resp Effort & Inspection: normal respiratory effort Auscultation: clear to auscultation bilaterally Cardio Jugular venous distension: no JVD Rate: regular rate Rhythm: regular rhythm Heart sounds: S1 normal heart sound present and S2 normal heart sound present Extrem General: Yes full ROM Results AMB Urinalysis, Automated UA Leukoctes 0 Coco/uL Last Edit by BRYNN Mata on 03/10/24 12:39 UA Nitrite Negative Last Edit by Hiren Sharif, RMA on 03/10/24 12:39 UA Urobilinogen 0.2 mg/dL Last Edit by Hiren Sharif, RMA on 03/10/24 12: 39 UA Protein 0 mg/dL Last Edit by Hiren Sharif, RMA on 03/10/24 12:39 UA pH 7.5 Last Edit by Kileylavonnewilmer Sharif, RMA on 03/10/24 12:39 UA Blood 0 Billy/uL Last Edit by Hiren Sharif, RMA on 03/10/24 12:39 UA Specific [place] 1.010 Last Edit by Hiren Sharif, RMA on 03/10/24 12 :39 UA Ketone Negative Last Edit by Hiren Sharif, RMA on 03/10/24 12:39 UA Bilirubin 0 mg/dL Last Edit by Hiren Sharif, RMA on 03/10/24 12:39 UA Glucose 3 mg/dL Last Edit by Hiren Sharif, A on 03/10/24 12:39 Results Reviewed Results Reviewed: Laboratory Last Values Urine pH (Auto) 7.5 03/10/24 12:36 Specific [place] (Auto) 1.010 03/10/24 12:36 Urine Protein (Auto) 0 mg/dL 03/10/24 12:36 Glucose (UA)(Auto) 3 mg/dL 03/10/24 12:36 Urine Ketones (Auto) Negative 03/10/24 12:36 Urine Blood (Auto) 0 Billy/uL 03/10/24 12:36 Urine Nitrite (Auto) Negative 03/10/24 12:36 Urine Bilirubin (Auto) 0 mg/dL 03/10/24 12:36 Urine Urobilinogen (Auto) 0.2 mg/dL 03/10/24 12:36 Leukocyte Esterase (Auto) 0 Coco/uL 03/10/24 12:36 Assessment and Plan Assessment & Plan (1) IgG4 related disease: Code(s): D89.89 - Other specified disorders involving the immune mechanism, not elsewhere classified Plan: Continue azathioprine. (2) Rheumatoid arthritis: Code(s): M06.9 - Rheumatoid arthritis, unspecified Qualifiers: Rheumatoid arthritis location: multiple sites Rheumatoid factor presence: without rheumatoid factor Qualified Code(s): M06.09 - Rheumatoid arthritis without rheumatoid factor, multiple sites Plan: Follow-up with rheumatology. (3) Mixed hyperlipidemia: Code(s): E78.2 - Mixed hyperlipidemia Plan: Increase statins. LDL goal is less than 70. (4) Diabetes mellitus type 1: Code(s): E10.9 - Type 1 diabetes mellitus without complications Qualifiers: Diabetes mellitus complication status: with hyperglycemia Qualified Code(s): E10.65 - Type 1 diabetes mellitus with hyperglycemia Plan: Continue insulin pump. Follow-up with endocrinology. A1c goal is equal or less than 7%. (5) Hypertension: Code(s): I10 - Essential (primary) hypertension Qualifiers: Hypertension type: primary hypertension Qualified Code(s): I10 - Essential (primary) hypertension Plan: Continue losartan, carvedilol and chlorthalidone. Blood pressure goal is equal or less than 130/80. Orders: Orders Lipid Panel 4 Months E78.5 - Hyperlipidemia, unspecified Microalbumin, Random (w Creat) 4 Months E11.9 - Type 2 diabetes mellitus without complications Vitamin D 25-OH Total 4 Months E55.9 - Vitamin D deficiency, unspecified Comprehensive Closplint. Panel Fast 4 Months E10.65 - Type 1 diabetes mellitus with hyperglycemia AMB Urinalysis Automated Today R80.9 - Proteinuria, unspecified Medications: New atorvastatin 40 mg PO BEDTIME 90 tabs 1RF 90 days Discontinued amoxicillin Discontinued Reason: Patient Completed Course 500 mg PO Q8H 30 caps 0RF atorvastatin Discontinued Reason: Patient Completed Course 20 mg PO BEDTIME 90 tabs 2RF Coding Level of Care Code Est Pt Level 4 (44870) Diagnoses IgG4 related disease D89.89 Rheumatoid arthritis of multiple sites with negative rheumatoid factor M06.09 Rheumatoid arthritis location: multiple sites Rheumatoid factor presence: without rheumatoid factor Mixed hyperlipidemia E78.2 Type 1 diabetes mellitus with hyperglycemia E10.65 Diabetes mellitus complication status: with hyperglycemia Primary hypertension I10 Hypertension type: primary hypertension Time Spent (min) 23
== END 2024-03-10 11:41 | disposition home or self-care (01) ==
PROVIDERS: PCP Internal Medicine; Visit Provider Internal Medicine
DX: D89.89 Other specified disorders involving the immune mechanism, not elsewhere classified (principal); M06.09 Rheumatoid arthritis without rheumatoid factor, multiple sites; E78.2 Mixed hyperlipidemia; E10.65 Type 1 diabetes mellitus with hyperglycemia; I10 Essential (primary) hypertension; R80.9 Proteinuria, unspecified
CPT/HCPCS: 81003; 99214

== ENCOUNTER 2024-04-05 08:44 | Outpatient (AMB) | payer OTHER, SELFPAY ==
--- NOTE | 2024-04-05 08:45 | A.OFFVIS_ITS ---
Vital Signs 04/05/24 08:46 Height 5 ft 7 in Weight 198 lb 6.656 oz BMI 31.1 BP 162/86 H Blood Pressure Location Lt brachial Position Sitting Pulse 58 Pulse Source Pulse Oximeter Intake Visit Reasons: T1DM/confirmed Intake Note: Patient present today to follow up on Type 1 Diabetes Mellitus. Patient receives DME supplies through: [employer] Last Diabetic Eye exam: 05/2023 Last Podiatry Visit: Doesn't have one. Random Glucose: 182 mg/dl HgA1C: 7.3% Merchandise Clerk Required: Yes Merchandise Clerk Language: Patternmaker Sample Name: Jorge Information Interpreted: non-clinical & clinical Accompanied by: Self / Same As Patient Allergies cortisone Allergy (Unknown, Verified 04/05/24 08:51) Unknown isoniazid Allergy (Unknown, Verified 04/05/24 08:51) Rash oxycodone [From PERCOCET] Allergy (Unknown, Verified 04/05/24 08:51) SWELLING promethazine [From PHENERGAN] Allergy (Unknown, Verified 04/05/24 08:51) RASH seafood Allergy (Unknown, Verified 04/05/24 08:51) Anaphylaxis tramadol [TRAMADOL] Allergy (Unknown, Verified 04/05/24 08:51) UNKNOWN, GI upset doxycycline Adverse Reaction (Intermediate, Verified 04/05/24 08:51) dizziness, abdominal discomfort fluticasone [Advair Diskus] Adverse Reaction (Unknown, Verified 04/05/24 08:51) tachycardia salmeterol [Advair Diskus] Adverse Reaction (Unknown, Verified 04/05/24 08:51) tachycardia HPI Comments Details: Patient is 63 yo male with DM type 1 diagnosed around 2015 who presents for management of diabetes. He also has a multinodular goiter and is followed here for that as well Past medical history: DM1, HTN, HLD, NTMNG (managed by this practice) Micro and macrovascular complications: Diabetes medications: backup plan 35 units of Lantus and Novolog with pump settings. Novolog via Tandem pump 48% basal, 52% food bolus, % correction bolus, Control IQ bolus 0%. Average total daily dose 87.4 units Cartridge change every 2 days, tubing every 2 days, Site cannula every 1.8 days. Control IQ use 94% of the time Basal rate(s) (units/hour) : 12 AM to 3 AM 1.9 units / hr 3 AM to 2 PM 1.8 units / hr 2 PM to 12 AM? 2.0 units / hr Bolus setting Insulin Carbohydrate Ratio (s) 12 AM? to 12 AM 1:.5?? 10 AM to 2 PM 1:3 2 PM to 12 AM 1:2 New 2 PM to 12 AM 1:1.7 Correction Factor / Sensitivity Factor 12 AM? to 10 AM 1:20 10 AM? to 12 AM 1:15 Active Insulin Time:? 3 hours Target(s): 12 AM? to 12 AM 120 mg/dL Target with Control IQ: 12 AM? to 12 AM 110 mg/dL He is having issues with the control IQ as well as exercise mode CGM: Average 195 , [id number] 0% low. 49 % in target range of 70-180. 61% above target 0% below target C GM is active 13days Coefficient variation 31 . Pattern shows post-dinner hyperglycemia Symptoms reported: numbness, tingling, cramping in lower extremities Hypoglycemia: rarely with symptoms of shaking, sweating - none lately Hyperglycemia: + urinary frequency (uses diuretic), +nocturia (2-3x/night), +polydypsia Exercise: always moving, 15-20 minutes most days, limited due to back pain Speech Language Assistant - CDE education: currently. [place] Hand: not currently Dental exam: goes every 6 month Ophthalmology evaluation: has appt in 05/2024 - retinopathy Laboratory Tests 12/12/21 12/30/21 12/30/21 10:16 10:10 11:00 Creatinine 1.02 Estimated GFR > 60 Hgb A1c (Clinic) 7.8 H Microalb/Creat Ratio TNP 09/11/21 20:08 Creatinine 0.84 Estimated GFR > 60 05/02/21 05/02/21 08/16/21 10:28 10:28 09:55 Creatinine 1.09 Estimated GFR > 60 Hgb A1c (Clinic) 7.6 H Triglycerides 132 Cholesterol 162 LDL Cholesterol Direct 102 H LDL Cholesterol, Calc 95 HDL Cholesterol 41 On Fenofibrate for incresed trigs. Can't take fish oils [facility] Medical History Chronic sore throat DVT of lower extremity, bilateral Ankle pain, left Mixed hyperlipidemia Bilateral hand pain Mixed hyperlipidemia GERD (gastroesophageal reflux disease) Obesity due to excess calories Non-toxic multinodular goiter Obesity (BMI 30.0-34.9) Hypertension Chronic inflammation of pancreas Pancreatic abnormality FH: cholecystectomy Hypertriglyceridemia Diabetes type 1, uncontrolled Surgical History Hx of cholecystectomy Hx of endoscopy Hx of colonoscopy History of laminectomy Family History Father Hypertension Hyperlipidemia Prostate cancer Diabetes Arthritis Mother Arthritis Hyperlipidemia Diabetes Osteoporosis Social History Household Members: Spouse and Children Household Members Other:: daughter, , son Housing: House Alcohol intake: former Year quit: 28 Patient Tobacco Use Status: Never used Tobacco e-Cigarette/Vaping Use: Never Used Second Hand Smoke Exposure: No service: No Current occupational status: disabled Cognitive needs: No Hearing needs: No Vision needs: No Physical Exam Vital Signs: Last Vital Signs Pulse 58 04/05/24 08:46 BP 162/86 H 04/05/24 08:46 BMI result Body Mass Index 31.1 Absence of Cushingoid features. Absence of acromegalic features. Neck exam reveals nl size thyroid about 15 gms. No thyroid nodules palpable. No carotid bruits present. Lungs CTA. Heart S1 S2, Reg R/R. No M/R/ G. Skin exam reveals absence of vitiligo or acanthosis nigricans. Abdominal exam reveals Soft NT/ND with NA BS. No organomegaly present. Extrem Other: Visual exam of foot performed. No ulcerations or open lesions. No onchomycosis, no callouses.Pulses 2 + distally. Sensation intact to monofilament exam. Vibratory sensation sensed 10 seconds in right, 10 seconds in left with 128 Hz tuning fork Results AMB Hemoglobin A1c AMB Hemoglobin A1c 7.3 % Last Edit by BRYNN Arias on 04/05/24 09:09 Results Reviewed Results Reviewed: Laboratory Last Values Glucose (Clinic) 182 mg/dL (60-115) H 04/05/24 08:53 Hgb A1c (Clinic) 7.3 % (4.0-6.0) H 04/05/24 08:56 Assessment & Plan Assessment & Plan (1) Diabetes type 1, uncontrolled: Code(s): E10.65 - Type 1 diabetes mellitus with hyperglycemia Category: Medical Plan: This 63-year-old male with a history of type 1 diabetes being treated with a T-slim X 2 with control IQ with good but not optimal glycemic control and no known microvascular or macrovascular complications. The plan is to have the patient follow-up with the political organizer the next few weeks. We could consider tighten the insulin: Carbohydrate to 1:1.2 at at 2 PM or set a bolus of 1:1.2 at 17:00 . I will have him follow up with political organizer to make that adjustment. (2) Thyroid nodule: Code(s): E04.1 - Nontoxic single thyroid nodule Category: Medical Plan: Repeat thyroid ultrasound shows benign-appearing subcentimeter nodules. Patient is clinically euthyroid Will check TSH and free T4 Orders: Orders AMB Hemoglobin A1c Today E10.65 - Type 1 diabetes mellitus with hyperglycemia, Z13.9 - Encounter for screening, unspecified Free T4 (Free Thyroxine) Today E04.1 - Nontoxic single thyroid nodule Thyroid Stimulating Hormone Today E04.1 - Nontoxic single thyroid nodule Coding Level of Care Code Est Pt Level 4 (90166) Diagnoses Diabetes type 1, uncontrolled E10.65 Thyroid nodule E04.1
[2024-04-05 08:46] VITALS: BP 162/86; PULSE 58; BMI 31.1
[2024-04-05 08:59] LABS: Glucose, Whole Blood 182 mg/dL (60-115)
== END 2024-04-05 09:15 | disposition home or self-care (01) ==
PROVIDERS: PCP Internal Medicine; Visit Provider Internal Medicine Endocrinology, Diabetes & Metabolism
DX: Z13.9 Encounter for screening, unspecified (principal); E10.65 Type 1 diabetes mellitus with hyperglycemia; E04.1 Nontoxic single thyroid nodule
CPT/HCPCS: 99214

== ENCOUNTER → 2024-04-05 08:44 | Outpatient (BNVA) | payer OTHER, SELFPAY | PROVIDERS: PCP Internal Medicine; Visit Provider Internal Medicine Endocrinology, Diabetes & Metabolism | DX: Z46.81 Encounter for fitting and adjustment of insulin pump (principal); E10.65 Type 1 diabetes mellitus with hyperglycemia; E04.1 Nontoxic single thyroid nodule; Z79.4 Long term (current) use of insulin | CPT/HCPCS: 82947; 83036; 99212 ==

== ENCOUNTER 2024-04-20 09:19 | Outpatient (AMB) | payer OTHER, SELFPAY ==
--- NOTE | 2024-04-20 09:40 | MHC.AMDMED ---
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 Supervisor Name: Serge Accompanied by: Self / Same As Patient Allergies cortisone Allergy (Unknown, Verified 04/05/24 08:51) Unknown isoniazid Allergy (Unknown, Verified 04/05/24 08:51) Rash oxycodone [From PERCOCET] Allergy (Unknown, Verified 04/05/24 08:51) SWELLING promethazine [From PHENERGAN] Allergy (Unknown, Verified 04/05/24 08:51) RASH seafood Allergy (Unknown, Verified 04/05/24 08:51) Anaphylaxis tramadol [TRAMADOL] Allergy (Unknown, Verified 04/05/24 08:51) UNKNOWN, GI upset doxycycline Adverse Reaction (Intermediate, Verified 04/05/24 08:51) dizziness, abdominal discomfort fluticasone [Advair Diskus] Adverse Reaction (Unknown, Verified 04/05/24 08:51) tachycardia salmeterol [Advair Diskus] Adverse Reaction (Unknown, Verified 04/05/24 08:51) tachycardia HPI Comprehensive Diabetes Asmnt Most Recent Diabetes Results: Microalb/Creat Ratio TNP 03/08/24 Cholesterol 166 mg/dL (<200) 03/08/24 HDL Cholesterol 33 mg/dL (>40) L 03/08/24 Triglycerides 247 mg/dL (<150) H 03/08/24 Creatinine 0.94 mg/dL (0.5-1.4) 03/08/24 Blood Urea Nitrogen 16 mg/dL (9-16) 03/08/24 Sodium 139 mmol/L (135-145) 03/08/24 Potassium 3.8 mmol/L (3.3-5.1) 03/08/24 Chloride 103 mmol/L (96-108) 03/08/24 Carbon Dioxide 26 mmol/L (22-29) 03/08/24 Calcium 9.6 mg/dL (8.4-10.2) 03/08/24 AST 23 U/L (5-37) 03/08/24 ALT 16 U/L (0-40) 03/08/24 Total Protein 7.0 g/dL (6.5-8.0) 03/08/24 Albumin 4.3 g/dL (3.5-5.0) 03/08/24 PFSH Medical History Chronic sore throat DVT of lower extremity, bilateral Ankle pain, left Mixed hyperlipidemia Bilateral hand pain Mixed hyperlipidemia GERD (gastroesophageal reflux disease) Obesity due to excess calories Non-toxic multinodular goiter Obesity (BMI 30.0-34.9) Hypertension Chronic inflammation of pancreas Pancreatic abnormality FH: cholecystectomy Hypertriglyceridemia Diabetes type 1, uncontrolled Surgical History Hx of cholecystectomy Hx of endoscopy Hx of colonoscopy History of laminectomy Family History Father Hypertension Hyperlipidemia Prostate cancer Diabetes Arthritis Mother Arthritis Hyperlipidemia Diabetes Osteoporosis Social History Household Members: Spouse and Children Household Members Other:: daughter, , son Housing: House Alcohol intake: former Year quit: 26 Patient Tobacco Use Status: Never used Tobacco e-Cigarette/Vaping Use: Never Used Second Hand Smoke Exposure: No service: No Current occupational status: disabled Cognitive needs: No Hearing needs: No Vision needs: No Assessment & Plan Assessment & Plan (1) Diabetes mellitus type 1: Code(s): E10.9 - Type 1 diabetes mellitus without complications Qualifiers: Diabetes mellitus complication status: with hyperglycemia Qualified Code(s): E10.65 - Type 1 diabetes mellitus with hyperglycemia Plan: Patient presents for pump training for? T slim with control? IQ and Dexcom G6 Patient is experiencing postprandial hyperglycemia in the evening. See changes insulin pump below The following topics were reviewed today: -sleep schedule -activity function ?Sensor setting (if applicable) ??? High Alert: 200 mg/dl ??? Low Alert: 80 mg/dl Above Target: 46.8% At Target:53% Below Target: 1% Average glucose for the last 2 weeks 179 mg/dL Discovered from patient's download that control IQ had been toggle off, time in December or January. Resumed control IQ at today's visit. Due to pump not having control IQ on we will not make adjustments at today's visit. Patient will return to clinical nurse educator to review glucose in 1 month Discussed with patient how to use activity function, patient reports that he had been turning on activity during exercise when he noticed his glucose was going down. Recommended to patient he start activity level 30 minutes prior to exercise and continue 30 minutes after exercise to prevent hypoglycemia Insulin delivery settings Troubleshooting after starting new pod or inserting new insulin set: Occlusion, adhesive tape sensitivity, redness Check BG 2 hours after site change Safety information: Patient understands the basic concepts of pump therapy, how to give insulin for meals and snacks, how to troubleshoot for hyper and hypoglycemia. Setting verified by CDCES, see changes to setting below: Basal rate(s) (units/hour) : 12 AM to 3 AM 1.9 units / hr 3 AM to 2 PM 1.8 units / hr 2 PM to 12 AM? 2.0 units / hr Bolus setting Insulin Carbohydrate Ratio (s) 12 AM? to 12 AM 1:4.5?? 10 AM to 2 PM 1:3 2 PM to 12 AM 1:1.7 Correction Factor / Sensitivity Factor 12 AM? to 10 AM 1:20 10 AM? to 12 AM 1:15 Active Insulin Time:? 3 hours Target(s): 12 AM? to 12 AM 120 mg/dL Target with Control IQ: 12 AM? to 12 AM 110 mg/dL Patient Instructions: Patient will follow-up with clinical nurse educator in 1 month Coding Level of Care Code Est Pt Level 1 (46494) Diagnoses Type 1 diabetes mellitus with hyperglycemia E10.65 Diabetes mellitus complication status: with hyperglycemia
== END 2024-04-20 09:41 | disposition home or self-care (01) ==
PROVIDERS: PCP Internal Medicine; Visit Provider Registered Nurse Diabetes Educator
DX: E10.65 Type 1 diabetes mellitus with hyperglycemia (principal)

== ENCOUNTER → 2024-04-20 09:19 | Outpatient (BNVA) | payer OTHER, SELFPAY | PROVIDERS: PCP Internal Medicine; Visit Provider Registered Nurse Diabetes Educator | DX: E10.65 Type 1 diabetes mellitus with hyperglycemia (principal); Z96.41 Presence of insulin pump (external) (internal); Z46.81 Encounter for fitting and adjustment of insulin pump | CPT/HCPCS: 99211 ==

== ENCOUNTER 2024-04-26 09:19 | Outpatient (REF) | payer OTHER, SELFPAY ==
[2024-04-26 12:08] LABS: Free T4 (Free Thyroxine) 0.94 ng/dL (0.71-1.85); Thyroid Stimulating Hormone 0.74 uIU/mL (0.32-4.0)
== END 2024-04-26 09:20 | disposition home or self-care (01) ==
LOC: HO.HMGCLDS 09:19
PROVIDERS: PCP Internal Medicine; Visit Provider Internal Medicine Endocrinology, Diabetes & Metabolism
DX: E04.1 Nontoxic single thyroid nodule (principal)
CPT/HCPCS: 36415; 84439; 84443

== ENCOUNTER 2024-04-27 08:42 | Outpatient (AMB) | payer OTHER, SELFPAY ==
--- NOTE | 2024-04-27 08:51 | MHC.OFFWIV ---
Intake Vital Signs 04/27/24 08:52 04/27/24 09:13 Height 5 ft 7 in Weight 197 lb BMI 30.9 BP 178/90 H 198/116 H Blood Pressure Location Lt brachial Lt brachial Position Sitting Pulse 67 Pulse Source Pulse Oximeter Temp 98.7 F Temp Source Oral Pulse Oximetry (%) 98 Oxygen Delivery Method Room Air Intake Visit Reasons: EP Sore throat, feels dry and like it's closing Intake Note: pt here c/o sore throat. Started Patient Tobacco Use Status: Never used Tobacco Allergies cortisone Allergy (Unknown, Verified 04/27/24 08:52) Unknown isoniazid Allergy (Unknown, Verified 04/27/24 08:52) Rash oxycodone [From PERCOCET] Allergy (Unknown, Verified 04/27/24 08:52) SWELLING promethazine [From PHENERGAN] Allergy (Unknown, Verified 04/27/24 08:52) RASH seafood Allergy (Unknown, Verified 04/27/24 08:52) Anaphylaxis tramadol [TRAMADOL] Allergy (Unknown, Verified 04/27/24 08:52) UNKNOWN, GI upset doxycycline Adverse Reaction (Intermediate, Verified 04/27/24 08:52) dizziness, abdominal discomfort fluticasone [Advair Diskus] Adverse Reaction (Unknown, Verified 04/27/24 08:52) tachycardia salmeterol [Advair Diskus] Adverse Reaction (Unknown, Verified 04/27/24 08:52) tachycardia Do you need a note to return to daycare/school/sports/work: No HPI HPI Comments History of Present Illness Details Patient is a 63-year-old [place]-speaking male complaining of feeling like his throat is dry and he is going to choke, he states this has been going on for months but it is getting worse. He states he uses a CPAP machine and when he uses the CPAP, it is definitely much worse. He has a list of his medications with him 1 of which is Flonase that he uses nightly. He feels like his throat is full and dry. He has to get up in the middle of the night and drank water and sit upright. He denies any shortness of breath or tickling in his throat or feeling like his throat is actually closing. He denies any new medications. He also states he has ?white coat syndrome? and his blood pressure is always elevated when he goes to the doctor's however he did not take his blood pressure medications this morning, he ate breakfast and came right here. Used [place] video emergency services dispatcher for this visit. [facility] Medical History Chronic sore throat DVT of lower extremity, bilateral Ankle pain, left Mixed hyperlipidemia Bilateral hand pain Mixed hyperlipidemia GERD (gastroesophageal reflux disease) Obesity due to excess calories Non-toxic multinodular goiter Obesity (BMI 30.0-34.9) Hypertension Chronic inflammation of pancreas Pancreatic abnormality FH: cholecystectomy Hypertriglyceridemia Diabetes type 1, uncontrolled Surgical History Hx of cholecystectomy Hx of endoscopy Hx of colonoscopy History of laminectomy Family History Father Hypertension Hyperlipidemia Prostate cancer Diabetes Arthritis Mother Arthritis Hyperlipidemia Diabetes Osteoporosis Social History Household Members: Spouse and Children Household Members Other:: daughter, , son Housing: House Alcohol intake: former Year quit: 26 Patient Tobacco Use Status: Never used Tobacco e-Cigarette/Vaping Use: Never Used Second Hand Smoke Exposure: No service: No Current occupational status: disabled Cognitive needs: No Hearing needs: No Vision needs: No Review of Systems Const All systems reviewed & are unremarkable except as noted in HPI and below Physical Exam Vital Signs: Last Vital Signs Temp 98.7 F 04/27/24 08:52 Pulse 67 04/27/24 08:52 BP 198/116 H 04/27/24 09:13 Pulse Ox 98 04/27/24 08:52 Oxygen Delivery Method Room Air 04/27/24 08:52 BMI result Body Mass Index 30.9 Const General: cooperative, healthy appearing, comfortable and no acute distress Orientation/consciousness: patient oriented x3 Limitations: no limitations HEENT Head: Yes normal to inspection Ears: external ears normal General nose exam: Normal external nose present Face and sinus: Yes normal facial exam and Yes face symmetric Mouth: Normal oral and palatal mucosa present, lip normal, tongue normal and moist mucous membranes Throat: Yes posterior oropharynx normal, Yes tonsils normal and Yes uvula midline Eyes General: appearance normal, both eyes and all related structures Neck Neck: Yes normal visual inspection, Yes full ROM and Yes no lymphadenopathy Resp Effort & Inspection: normal respiratory effort and able to speak in complete sentences Skin General skin exam: no rashes or lesions noted Neuro General: patient oriented x3 Assessment & Plan Assessment & Plan (1) Elevated blood pressure reading in office with diagnosis of hypertension: Code(s): I10 - Essential (primary) hypertension Plan: Recheck of his blood pressure in the office showed an even higher reading. Educated patient on risks of walking around with an elevated blood pressure. He assures me it is because he did not take all of his medications this morning. He assures me he will go home, take his medications and recheck his blood pressure in an hour and call me with the reading. He knows if it has over a 160 systolic that he is to go to the emergency room for further treatment. He understands he is at risk of a stroke. 10:45am: Called patient, he confirmed he did take the rest of his blood pressure medications. He is not home right now but he will call me with his blood pressure reading once he gets home 11:30am: Patient called me to report his blood pressure was 155 systolic after taking his meds, he is due to take another BP med in 30 mins. (2) Dry mouth: Code(s): R68.2 - Dry mouth, unspecified Plan: Recommended mouth spray or nasal saline spray instead of using Flonase nightly. If this continues, he knows he is to follow up with Dr. Way to see if there is a different option for his CPAP that will leave him less dry Plan see above Coding Level of Care Code Est Pt Level 4 (57084) Diagnoses Elevated blood pressure reading in office with diagnosis of hypertension I10 Dry mouth R68.2
[2024-04-27 08:52] VITALS: BP 178/90; PULSE 67; TEMP 37.1; O2SAT 98; BMI 30.9
[2024-04-27 09:13] VITALS: BP 198/116
== END 2024-04-27 09:40 | disposition home or self-care (01) ==
PROVIDERS: PCP Internal Medicine; Visit Provider Physician Assistant
DX: I10 Essential (primary) hypertension (principal); R68.2 Dry mouth, unspecified
CPT/HCPCS: 99214

== ENCOUNTER 2024-05-06 09:56 | Outpatient (REF) | payer OTHER, SELFPAY ==
[2024-05-06 13:38] LABS: Anion Gap 12 (12-20); Blood Urea Nitrogen 14 mg/dL (9-16); Carbon Dioxide 27 mmol/L (22-29); Chloride 101 mmol/L (96-108); Estimated Glomerular Filt Rate > 60; Sodium 136 mmol/L (135-145)
== END 2024-05-06 09:57 | disposition home or self-care (01) ==
LOC: HO.HMGCLDS 09:56
PROVIDERS: PCP Internal Medicine; Visit Provider Internal Medicine Nephrology
DX: I10 Essential (primary) hypertension (principal)
CPT/HCPCS: 36415; 80051; 82565; 84520

== ENCOUNTER 2024-05-10 10:19 | Outpatient (AMB) | payer OTHER, SELFPAY ==
[2024-05-10 10:46] VITALS: BP 130/72; PULSE 61; O2SAT 97; BMI 31.0
--- NOTE | 2024-05-10 10:46 | HO.NEPHOV_ITS ---
Vital Signs 05/10/24 10:46 Height 5 ft 7 in Weight 198 lb BMI 31.0 BP 130/72 Blood Pressure Location Rt popliteal Position Sitting Pulse 61 Pulse Source Pulse Oximeter Pulse Oximetry (%) 97 Oxygen Delivery Method Room Air Intake Visit Reasons: 4 mon follow up/ Conf Chief Science Officer Required: Yes Chief Science Officer Name: Larry [id number] Accompanied by: Self / Same As Patient Allergies cortisone Allergy (Unknown, Verified 05/10/24 10:48) Unknown isoniazid Allergy (Unknown, Verified 05/10/24 10:48) Rash oxycodone [From PERCOCET] Allergy (Unknown, Verified 05/10/24 10:48) SWELLING promethazine [From PHENERGAN] Allergy (Unknown, Verified 05/10/24 10:48) RASH seafood Allergy (Unknown, Verified 05/10/24 10:48) Anaphylaxis tramadol [TRAMADOL] Allergy (Unknown, Verified 05/10/24 10:48) UNKNOWN, GI upset doxycycline Adverse Reaction (Intermediate, Verified 05/10/24 10:48) dizziness, abdominal discomfort fluticasone [Advair Diskus] Adverse Reaction (Unknown, Verified 05/10/24 10:48) tachycardia salmeterol [Advair Diskus] Adverse Reaction (Unknown, Verified 05/10/24 10:48) tachycardia HPI Comments Details: I would the privilege of seeing Vaibhav in follow up for hypertension. He has a diabetic. 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 He has BPH and takes tamsulosin. He checks his blood sugar regularly and his last hemoglobin A1c was 7.3. He has not known to have any proteinuria. He is on losartan & chlorthalidone for his blood pressure regulation. He is on statins. He denies peripheral arterial disease, carotid stenosis, coronary artery disease, congestive heart failure, CVA, renal artery stenosis, hypokalemia, unco ntrolled thyroid disorders. He checks his blood pressure at home and has been better. He does not have any flushing, palpitation, diarrhea, headache, visual disturbances, new weakness. He is followed up by his primary care physician very closely. [facility] Medical History Chronic sore throat DVT of lower extremity, bilateral Ankle pain, left Mixed hyperlipidemia Bilateral hand pain Mixed hyperlipidemia GERD (gastroesophageal reflux disease) Obesity due to excess calories Non-toxic multinodular goiter Obesity (BMI 30.0-34.9) Hypertension Chronic inflammation of pancreas Pancreatic abnormality FH: cholecystectomy Hypertriglyceridemia Diabetes type 1, uncontrolled Surgical History Hx of cholecystectomy Hx of endoscopy Hx of colonoscopy History of laminectomy Family History Father Hypertension Hyperlipidemia Prostate cancer Diabetes Arthritis Mother Arthritis Hyperlipidemia Diabetes Osteoporosis Social History Household Members: Spouse and Children Household Members Other:: daughter, , son Housing: House Alcohol intake: former Year quit: 26 Patient Tobacco Use Status: Never used Tobacco e-Cigarette/Vaping Use: Never Used Second Hand Smoke Exposure: No service: No Current occupational status: disabled Cognitive needs: No Hearing needs: No Vision needs: No Physical Exam Vital Signs: Last Vital Signs Pulse 61 05/10/24 10:46 BP 140/72 H 05/10/24 10:46 Pulse Ox 97 05/10/24 10:46 Oxygen Delivery Method Room Air 05/10/24 10:46 BMI result Body Mass Index 31.0 Const General: comfortable and no acute distress Orientation/consciousness: patient oriented x3 HEENT Head: Yes normocephalic Mouth: Normal oral and palatal mucosa present Eyes EOM: EOMs intact bilaterally Neck Neck: Yes supple Resp Auscultation: clear to auscultation bilaterally Cardio Jugular venous distension: no JVD Rate: regular rate GI Palpation (GI): Soft to palpation Auscultation: normal bowel sounds General: Yes no CVA tenderness Back/Spine/Pelvis Back: no CVA tenderness Skin General skin exam: no rashes or lesions noted Neuro General: patient oriented x3 and moves all extremities Extrem General: Yes no pedal edema Results Reviewed Nephrology Results: Sodium 136 mmol/L (135-145) 05/06/24 Potassium 4.0 mmol/L (3.3-5.1) 05/06/24 Chloride 101 mmol/L (96-108) 05/06/24 Carbon Dioxide 27 mmol/L (22-29) 05/06/24 BUN 14 mg/dL (9-16) 05/06/24 Creatinine 0.88 mg/dL (0.5-1.4) 05/06/24 Calcium 9.6 mg/dL (8.4-10.2) 03/08/24 Urine Creatinine 115.23 mg/dL 03/08/24 Assessment & Plan Assessment & Plan (1) Hypertension: Code(s): I10 - Essential (primary) hypertension Category: Medical Qualifiers: Hypertension type: primary hypertension Qualified Code(s): I10 - Essential (primary) hypertension Plan Vaibhav has longstanding hypertension. He is on losartan 100 mg as well as chlorthalidone. His blood pressure is at goal now at home. HIs renin, aldosterone, aldosterone renin ratio, follow-up renal functions were reviewed. He could continue on chlorthalidone 25 mg daily and carvedilol 6.25 mg twice daily along with losartan 100 mg daily. His blood pressure needs to maintain at goal. He should be on a low-sodium diet. He should avoid nonsteroidal anti- inflammatories. He has no LVH, proteinuria or retinopathy. His renal functions are stable. I will consider doing Doppler of his renal arteries. I will increase his carvedilol if his BP is fluctuant. I did not make any other medication changes this visit. All his questions were answered. Follow-up appointment given. Coding Level of Care Code Est Pt Level 4 (67201) Diagnoses Primary hypertension I10 Hypertension type: primary hypertension
== END 2024-05-10 11:12 | disposition home or self-care (01) ==
PROVIDERS: PCP Internal Medicine; Visit Provider Internal Medicine Nephrology
DX: I10 Essential (primary) hypertension (principal)
CPT/HCPCS: 99214

== ENCOUNTER → 2024-05-10 10:19 | Outpatient (BNVA) | payer OTHER, SELFPAY | PROVIDERS: PCP Internal Medicine; Visit Provider Internal Medicine Nephrology | DX: I10 Essential (primary) hypertension (principal) | CPT/HCPCS: 99212 ==

== ENCOUNTER 2024-05-12 09:17 | Outpatient (AMB) | payer OTHER, SELFPAY ==
--- NOTE | 2024-05-12 09:37 | MHC.AMDMED ---
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 Director Name: Meli [facility] Accompanied by: Self / Same As Patient Allergies cortisone Allergy (Unknown, Verified 05/10/24 10:48) Unknown isoniazid Allergy (Unknown, Verified 05/10/24 10:48) Rash oxycodone [From PERCOCET] Allergy (Unknown, Verified 05/10/24 10:48) SWELLING promethazine [From PHENERGAN] Allergy (Unknown, Verified 05/10/24 10:48) RASH seafood Allergy (Unknown, Verified 05/10/24 10:48) Anaphylaxis tramadol [TRAMADOL] Allergy (Unknown, Verified 05/10/24 10:48) UNKNOWN, GI upset doxycycline Adverse Reaction (Intermediate, Verified 05/10/24 10:48) dizziness, abdominal discomfort fluticasone [Advair Diskus] Adverse Reaction (Unknown, Verified 05/10/24 10:48) tachycardia salmeterol [Advair Diskus] Adverse Reaction (Unknown, Verified 05/10/24 10:48) tachycardia HPI Comprehensive Diabetes Asmnt Most Recent Diabetes Results: Microalb/Creat Ratio TNP 03/08/24 Cholesterol 166 mg/dL (<200) 03/08/24 HDL Cholesterol 33 mg/dL (>40) L 03/08/24 Triglycerides 247 mg/dL (<150) H 03/08/24 Creatinine 0.88 mg/dL (0.5-1.4) 05/06/24 Blood Urea Nitrogen 14 mg/dL (9-16) 05/06/24 Sodium 136 mmol/L (135-145) 05/06/24 Potassium 4.0 mmol/L (3.3-5.1) 05/06/24 Chloride 101 mmol/L (96-108) 05/06/24 Carbon Dioxide 27 mmol/L (22-29) 05/06/24 Calcium 9.6 mg/dL (8.4-10.2) 03/08/24 AST 23 U/L (5-37) 03/08/24 ALT 16 U/L (0-40) 03/08/24 Total Protein 7.0 g/dL (6.5-8.0) 03/08/24 Albumin 4.3 g/dL (3.5-5.0) 03/08/24 [facility] Medical History Chronic sore throat DVT of lower extremity, bilateral Ankle pain, left Mixed hyperlipidemia Bilateral hand pain Mixed hyperlipidemia GERD (gastroesophageal reflux disease) Obesity due to excess calories Non-toxic multinodular goiter Obesity (BMI 30.0-34.9) Hypertension Chronic inflammation of pancreas Pancreatic abnormality FH: cholecystectomy Hypertriglyceridemia Diabetes type 1, uncontrolled Surgical History Hx of cholecystectomy Hx of endoscopy Hx of colonoscopy History of laminectomy Family History Father Hypertension Hyperlipidemia Prostate cancer Diabetes Arthritis Mother Arthritis Hyperlipidemia Diabetes Osteoporosis Social History Household Members: Spouse and Children Household Members Other:: daughter, , son Housing: House Alcohol intake: former Year quit: 28 Patient Tobacco Use Status: Never used Tobacco e-Cigarette/Vaping Use: Never Used Second Hand Smoke Exposure: No service: No Current occupational status: disabled Cognitive needs: No Hearing needs: No Vision needs: No Assessment & Plan Assessment & Plan (1) Diabetes mellitus type 1: Code(s): E10.9 - Type 1 diabetes mellitus without complications Qualifiers: Diabetes mellitus complication status: with hyperglycemia Qualified Code(s): E10.65 - Type 1 diabetes mellitus with hyperglycemia Plan: Patient presents for pump training for? T slim with control? IQ and Dexcom G6 The following topics were reviewed today: - effects of chronic pain on glucose levels -activity function review ?Sensor setting (if applicable) ??? High Alert: 200 mg/dl ??? Low Alert: 80 mg/dl Above Target: 38% At Target:61% Below Target: 0% Average glucose for the last 2 weeks 172 mg/dL Patient trending up overnight, adjusted overnight basal, see changes below Patient also had max bolus set to 10 units in general settings, increased max bolus to 25 units Discussed with patient how to use activity function, patient reports that he had been turning on activity during exercise when he noticed his glucose was going down. Patient reports he start using Activity feature when exercising which has reduced hypoglycemic events Insulin delivery settings Troubleshooting after starting new pod or inserting new insulin set: Occlusion, adhesive tape sensitivity, redness Check BG 2 hours after site change Safety information: Patient understands the basic concepts of pump therapy, how to give insulin for meals and snacks, how to troubleshoot for hyper and hypoglycemia. Setting verified by CDCES, see changes to setting below: Basal rate(s) (units/hour) : 12 AM to 3 AM 1.9 units / hr New 12 AM to 3 AM 2 units / hr 3 AM to 10 AM 1.8 units / hr New 3 AM to 10 AM 2 units / hr 10 AM to 2 PM 1.8 units / hr 2 PM to 12 AM? 2.0 units / hr Bolus setting Insulin Carbohydrate Ratio (s) 12 AM? to 12 AM 1:4.5?? 10 AM to 2 PM 1:3 2 PM to 12 AM 1:1.7 Correction Factor / Sensitivity Factor 12 AM? to 10 AM 1:20 10 AM? to 12 AM 1:15 Active Insulin Time:? 3 hours Target(s): 12 AM? to 12 AM 120 mg/dL Target with Control IQ: 12 AM? to 12 AM 110 mg/dL Patient Instructions: Patient will follow-up with nurses educator in 3 month Coding Level of Care Code Est Pt Level 1 (55900) Diagnoses Type 1 diabetes mellitus with hyperglycemia E10.65 Diabetes mellitus complication status: with hyperglycemia
== END 2024-05-12 09:42 | disposition home or self-care (01) ==
PROVIDERS: PCP Internal Medicine; Visit Provider Registered Nurse Diabetes Educator
DX: E10.65 Type 1 diabetes mellitus with hyperglycemia (principal)

== ENCOUNTER → 2024-05-12 09:17 | Outpatient (BNVA) | payer OTHER, SELFPAY | PROVIDERS: PCP Internal Medicine; Visit Provider Registered Nurse Diabetes Educator | DX: Z46.81 Encounter for fitting and adjustment of insulin pump (principal); E10.65 Type 1 diabetes mellitus with hyperglycemia | CPT/HCPCS: 99211 ==

== ENCOUNTER 2024-05-31 14:18 | Outpatient (AMB) | payer OTHER, SELFPAY ==
--- NOTE | 2024-05-31 14:22 | AM.OFFWIN_ITS ---
Intake Vital Signs 05/31/24 14:23 Height 5 ft 7 in Weight 201 lb BMI 31.5 BP 178/90 H Blood Pressure Location Lt brachial Position Sitting Pulse 45 L Pulse Source Pulse Oximeter Temp 97.2 F Temp Source Temporal Artery Scan Pulse Oximetry (%) 98 Oxygen Delivery Method Room Air Intake Visit Reasons: pain in shoulder to neck and inside throat Intake Note: pt c/o shoulder and neck pain and sore throat. Ongoing. Worse past 2 weeks Patient Tobacco Use Status: Never used Tobacco Allergies cortisone Allergy (Unknown, Verified 05/31/24 14:22) Unknown isoniazid Allergy (Unknown, Verified 05/31/24 14:22) Rash oxycodone [From PERCOCET] Allergy (Unknown, Verified 05/31/24 14:22) SWELLING promethazine [From PHENERGAN] Allergy (Unknown, Verified 05/31/24 14:22) RASH seafood Allergy (Unknown, Verified 05/31/24 14:22) Anaphylaxis tramadol [TRAMADOL] Allergy (Unknown, Verified 05/31/24 14:22) UNKNOWN, GI upset doxycycline Adverse Reaction (Intermediate, Verified 05/31/24 14:22) dizziness, abdominal discomfort fluticasone [Advair Diskus] Adverse Reaction (Unknown, Verified 05/31/24 14:22) tachycardia salmeterol [Advair Diskus] Adverse Reaction (Unknown, Verified 05/31/24 14:22) tachycardia Do you need a note to return to daycare/school/sports/work: No HPI pain in shoulder to neck and inside throat HPI Details Patient presents for a sick visit. Reporting symptoms of sinus congestion, sore throat and difficulty swallowing. Low-grade fever. No family member is sick. No recent travel. Patient reports symptoms of malaise and fatigue. [facility] Medical History Chronic sore throat DVT of lower extremity, bilateral Ankle pain, left Mixed hyperlipidemia Bilateral hand pain Mixed hyperlipidemia GERD (gastroesophageal reflux disease) Obesity due to excess calories Non-toxic multinodular goiter Obesity (BMI 30.0-34.9) Hypertension Chronic inflammation of pancreas Pancreatic abnormality FH: cholecystectomy Hypertriglyceridemia Diabetes type 1, uncontrolled Surgical History Hx of cholecystectomy Hx of endoscopy Hx of colonoscopy History of laminectomy Family History Father Hypertension Hyperlipidemia Prostate cancer Diabetes Arthritis Mother Arthritis Hyperlipidemia Diabetes Osteoporosis Social History Household Members: Spouse and Children Household Members Other:: daughter, , son Housing: House Alcohol intake: former Year quit: 26 Patient Tobacco Use Status: Never used Tobacco e-Cigarette/Vaping Use: Never Used Second Hand Smoke Exposure: No service: No Current occupational status: disabled Cognitive needs: No Hearing needs: No Vision needs: No Physical Exam Vital Signs: Last Vital Signs Temp 97.2 F 05/31/24 14:23 Pulse 45 L 05/31/24 14:23 BP 178/90 H 05/31/24 14:23 Pulse Ox 98 05/31/24 14:23 Oxygen Delivery Method Room Air 05/31/24 14:23 BMI result Body Mass Index 31.5 Const General: cooperative and healthy appearing Nutritional Appearance: well nourished Orientation/consciousness: patient oriented x3 Limitations: no limitations HEENT Head: Yes normal to inspection Eyes General: appearance normal, both eyes and all related structures Neck Neck: Yes normal visual inspection Chest Chest palpation & inspection: normal palpation of entire chest wall Resp Effort & Inspection: normal respiratory effort Neuro General: patient oriented x3 Assessment & Plan Assessment & Plan (1) Upper respiratory tract infection: Code(s): J06.9 - Acute upper respiratory infection, unspecified Plan: Antibiotics ordered. Increase fluid intake. Tylenol for aches and pains. If symptoms worsen, follow-up here for a recheck. Orders: Orders AMB Rapid Strep Screen Today Z13.9 - Encounter for screening, unspecified Coding Level of Care Code Est Pt Level 3 (44252) Diagnoses Upper respiratory tract infection J06.9
[2024-05-31 14:23] VITALS: BP 178/90; PULSE 45; TEMP 36.2; O2SAT 98; BMI 31.5
== END 2024-05-31 16:10 | disposition home or self-care (01) ==
PROVIDERS: PCP Internal Medicine; Visit Provider Internal Medicine
DX: Z13.9 Encounter for screening, unspecified (principal); J06.9 Acute upper respiratory infection, unspecified
CPT/HCPCS: 87880; 99213

== ENCOUNTER 2024-06-28 09:12 | Outpatient (AMB) | payer OTHER, SELFPAY ==
--- NOTE | 2024-06-28 07:52 | A.OFFVIS_ITS ---
Vital Signs 06/28/24 09:16 Height 5 ft 7 in Weight 200 lb 6.403 oz BMI 31.4 BP 140/78 H Blood Pressure Location Rt brachial Position Sitting Pulse 46 L Pulse Source Pulse Oximeter Intake Visit Reasons: T1DM/CONFIRMED Intake Note: Patient presents today to re-establish treatment for Type 1 Diabetes Mellitus: Last Diabetic eye exam was on: 05/2024 Last Podiatry exam was on: Does not see a [facility] Steward Most recent HbA1c: 7.0% Random Glucose- 131 mg/dL Senior Business Development Manager Required: No Senior Business Development Manager Services: Senior Business Development Manager Offered & Declined Accompanied by: Self / Same As Patient Allergies cortisone Allergy (Unknown, Verified 06/28/24 09:45) Unknown isoniazid Allergy (Unknown, Verified 06/28/24 09:45) Rash oxycodone [From PERCOCET] Allergy (Unknown, Verified 06/28/24 09:45) SWELLING promethazine [From PHENERGAN] Allergy (Unknown, Verified 06/28/24 09:45) RASH seafood Allergy (Unknown, Verified 06/28/24 09:45) Anaphylaxis tramadol [TRAMADOL] Allergy (Unknown, Verified 06/28/24 09:45) UNKNOWN, GI upset doxycycline Adverse Reaction (Intermediate, Verified 06/28/24 09:45) dizziness, abdominal discomfort fluticasone [Advair Diskus] Adverse Reaction (Unknown, Verified 06/28/24 09:45) tachycardia salmeterol [Advair Diskus] Adverse Reaction (Unknown, Verified 06/28/24 09:45) tachycardia HPI Comments Details: Patient is 63 yo male with DM type 1 diagnosed around 2016 who presents for management of diabetes. He also has a multinodular goiter and is followed here for that as well. He was last seen by Mynor Appiah on 04/05/24 and by Rema HAZEL on 05/12/24 at which time his pump settings were adjusted. Hemoglobin A1c today in the office is 7%. Hgb A1C on 04/05/24 was 7.3%. Past medical history: DM1, HTN, HLD, NTMNG (managed by this practice) Micro and macrovascular complications: Diabetes medications: backup plan 50 units of Lantus and Novolog with pump settings. Novolog via Tandem pump Symptoms reported: numbness, tingling, has some mild cramping in muscles from statin and also attributes some mild fatigue to this Hypoglycemia: rarely with symptoms of shaking, sweating - x1 mild recently. Treats low sugar with 3 sugar tablets and repeats as necessary. 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 [facility] Steward: Has not been seen recently but he will schedule Dental exam: goes every 6 month Ophthalmology evaluation: has appt in 05/2024 no retinopathy retinopathy, has mild cataracts Had thyroid ultrasound 07/18 no significant change multiple sub centimeter nodules,had us , and . Biopsy/Afirma done 2020 benig Fibrosis-4 (Fib-4) Index for liver fibrosis (calculated on lab work done:11/18) [1.37 ] points Advanced fibrosis [excluded ] Approximate Fibrosis stage Ami [0-1 ] *Use with caution in patients <35 or >65 years old, as the score has been shown to be less reliable in these patients. Prior imaging: CT of the abdomen done in 2021 showed normal liver. Average glucose 161, CGM in use 100% of the time, time in range 72% GME my 7.2 T slim with control? IQ and Dexcom G6 Basal rate(s) (units/hour) : 12 AM to 3 AM 2.0 units / hr 3 AM to 10 AM 2.0 units / hr 10 AM to 2 PM 1.8 units / hr 2 PM to 12 AM? 2.0 units / hr Bolus setting Insulin Carbohydrate Ratio (s) 12 AM? to 12 AM 1:5 new 4.5 10 AM to 2 PM 1:3 2 PM to 12 AM 1:1.7 Correction Factor / Sensitivity Factor 12 AM? to 10 AM 1:20 10 AM? to 12 AM 1:15 Active Insulin Time:? 3 hours Target(s): 12 AM? to 12 AM 120 mg/dL Target with Control IQ: 12 AM? to 12 AM 110 mg/dL [facility] Medical History Chronic sore throat DVT of lower extremity, bilateral Ankle pain, left Mixed hyperlipidemia Bilateral hand pain Mixed hyperlipidemia GERD (gastroesophageal reflux disease) Obesity due to excess calories Non-toxic multinodular goiter Obesity (BMI 30.0-34.9) Hypertension Chronic inflammation of pancreas Pancreatic abnormality FH: cholecystectomy Hypertriglyceridemia Diabetes type 1, uncontrolled Surgical History Hx of cholecystectomy Hx of endoscopy Hx of colonoscopy History of laminectomy Family History Father Hypertension Hyperlipidemia Prostate cancer Diabetes Arthritis Mother Arthritis Hyperlipidemia Diabetes Osteoporosis Social History Household Members: Spouse and Children Household Members Other:: daughter, , son Housing: House Alcohol intake: former Year quit: 28 Patient Tobacco Use Status: Never used Tobacco e-Cigarette/Vaping Use: Never Used Second Hand Smoke Exposure: No service: No Current occupational status: disabled Cognitive needs: No Hearing needs: No Vision needs: No Physical Exam Vital Signs: Last Vital Signs Pulse 46 L 06/28/24 09:16 BP 140/78 H 06/28/24 09:16 BMI result Body Mass Index 31.4 Const Other: Absence of Cushingoid features. Absence of acromegalic features. Neck exam reveals nl size thyroid about 15 gms. No thyroid nodules palpable. Heart S1 S2, Reg R/R. No M/R G. Skin exam reveals absence of vitiligo or acanthosis nigricans. Results AMB Hemoglobin A1c AMB Hemoglobin A1c 7.0 % Last Edit by BRYNN Arias on 06/28/24 10:07 Results Reviewed Results Reviewed: Laboratory Last Values Glucose (Clinic) 131 mg/dL (60-115) H 06/28/24 09:48 Hgb A1c (Clinic) 7.0 % (4.0-6.0) H 06/28/24 10:04 Laboratory Tests 11/19/23 01/04/24 04/05/24 11:05 10:05 08:56 Plt Count 229 Hgb A1c (Clinic) 7.5 H 7.3 H Laboratory Tests 06/16/23 09/16/23 11/19/23 11:16 11:40 11:05 Hgb A1c (Clinic) 6.9 H 7.5 H Calcium 9.8 AST 32 ALT 31 Assessment & Plan Assessment & Plan (1) Diabetes mellitus type 1: Code(s): E10.9 - Type 1 diabetes mellitus without complications Category: Medical Qualifiers: Diabetes mellitus complication status: with hyperglycemia Qualified Code(s): E10.65 - Type 1 diabetes mellitus with hyperglycemia Plan: This 63-year-old male with a history of type 1 diabetes being treated with a T-slim X 2 with control IQ with good glycemic control A1C in th office today is 7%. He does have some hyperglycemia after breakfast and an adjustment was made to insulin to carb ratio for breakfast. He has no known microvascular or macrovascular complications. Backup pump failure plan reviewed Lantus 50 units plus usual dosing of Humalog for meals. He has insulin syringes for backup plan. He has a nasal spray in sugar tablets for hypoglycemia. Ketone test strips sent. He reports some muscle achiness on statin and was advised he could trial Co Q10 [id number]. Lab orders placed for lipid profile and AST/ALT. (2) Non-toxic multinodular goiter: Code(s): E04.2 - Nontoxic multinodular goiter Category: Medical Plan: Multiple subcentimeter nodules Afirma benign 2020. No significant change in size on ultrasounds done in 2021 in 2022. Would recheck ultrasound 2 years after last ultrasound 07/20. Orders: Orders AMB Hemoglobin A1c Today E10.65 - Type 1 diabetes mellitus with hyperglycemia, Z13.9 - Encounter for screening, unspecified Medications: New coenzyme Q10 (Co Q-10) 10 mg PO DAILY 30 days 30 caps 6RF E78.5 - Hyperlipidemia, unspecified acetone (urine) test (Ketone Urine Test strips) As directed p.r.n. glucose over 250, illness, nausea, vomiting 25 ea 1RF E10.65 - Type 1 diabetes mellitus with hyperglycemia Changed From Lantus Solostar U-100 Insulin (insulin glargine) 35 units (0.35 mL) subcut DAILY 30 days 15 mL 5RF NS E10.65 - Type 1 diabetes mellitus with hyperglycemia, E11.65 - Type 2 diabetes mellitus with hyperglycemia To Lantus Solostar U-100 Insulin (insulin glargine) 50 units (0.5 mL) subcut DAILY 30 days PRN 3 mL 5RF pump failure NS E10.65 - Type 1 diabetes mellitus with hyperglycemia, E11.65 - Type 2 diabetes mellitus with hyperglycemia Patient Instructions: The patient was counseled to always carry a source of sugar and on the rule of 15's: Take 3 glucose tablets and repeat again in 15 minutes if blood sugar is not in normal range. Continue to repeat every 15 minutes until blood sugar is normal. Troubleshooting after starting new pod or inserting new insulin set: Occlusion, adhesive tape sensitivity, redness Check BG 2 hours after site change Safety information: Importance of a backup plan, for manual injections, proper prescriptions and emergency supplies ketone strips, and rules for testing for ketones Symptoms of DKA were reviewed: early: frequent urination, dry mouth, fatigue, feeling ill, severe symptoms: ketones in the urine, abdominal pain, nausea, vomiting and weakness. It is important to hydrate with sugar free liquids every 30 minutes and bring the sugars down to normal levels. Coding Level of Care Code Est Pt Level 4 (55524) Complex EM visit Add On G2211 Diagnoses Type 1 diabetes mellitus with hyperglycemia E10.65 Diabetes mellitus complication status: with hyperglycemia Non-toxic multinodular goiter E04.2 Time Spent (min) 30 Comment Reviewing labs/provider notes, glucose sensor/pump reports, face to face, chart doc
[2024-06-28 09:16] VITALS: BP 140/78; PULSE 46; BMI 31.4
[2024-06-28 09:53] LABS: Glucose, Whole Blood 131 mg/dL (60-115)
== END 2024-06-28 10:25 | disposition home or self-care (01) ==
PROVIDERS: PCP Internal Medicine; Visit Provider Nurse Practitioner Adult Health
DX: Z13.9 Encounter for screening, unspecified (principal); E10.65 Type 1 diabetes mellitus with hyperglycemia; E04.2 Nontoxic multinodular goiter
CPT/HCPCS: 99214; G2211

== ENCOUNTER → 2024-06-28 09:12 | Outpatient (BNVA) | payer OTHER, SELFPAY | PROVIDERS: PCP Internal Medicine; Visit Provider Nurse Practitioner Adult Health | DX: E11.65 Type 2 diabetes mellitus with hyperglycemia (principal); E04.2 Nontoxic multinodular goiter | CPT/HCPCS: 82947; 83036; 99212 ==

== ENCOUNTER 2024-07-07 09:19 | Outpatient (AMB) | payer OTHER, SELFPAY ==
[2024-07-07 09:22] VITALS: BP 152/80; BMI 31.6
--- NOTE | 2024-07-07 09:22 | A.OFFPC_ITS ---
Vital Signs 07/07/24 09:22 Height 5 ft 7 in Weight 202 lb BMI 31.6 BP 152/80 H Blood Pressure Location Lt brachial Position Sitting Intake Visit Reasons: Annual Exam Intake Note: Patient here for an Annual Physical Exam Program Manager Required: No Accompanied by: Self / Same As Patient Allergies cortisone Allergy (Unknown, Verified 07/07/24 09:45) Unknown isoniazid Allergy (Unknown, Verified 07/07/24 09:45) Rash oxycodone [From PERCOCET] Allergy (Unknown, Verified 07/07/24 09:45) SWELLING promethazine [From PHENERGAN] Allergy (Unknown, Verified 07/07/24 09:45) RASH seafood Allergy (Unknown, Verified 07/07/24 09:45) Anaphylaxis tramadol [TRAMADOL] Allergy (Unknown, Verified 07/07/24 09:45) UNKNOWN, GI upset doxycycline Adverse Reaction (Intermediate, Verified 07/07/24 09:45) dizziness, abdominal discomfort fluticasone [Advair Diskus] Adverse Reaction (Unknown, Verified 07/07/24 09:45) tachycardia salmeterol [Advair Diskus] Adverse Reaction (Unknown, Verified 07/07/24 09:45) tachycardia Medication List - Last Reconciled 07/07/24 by Kiley Napier MD acetone (urine) test (Ketone Urine Test strips) As directed p.r.n. glucose over 250, illness, nausea, vomiting albuterol sulfate 90 mcg/actuation 2 puffs PO Q6H PRN 30 days alcohol swabs (Alcohol Prep Pads) 1 pad topical .6 times a day 30 days amlodipine 10 mg PO DAILY atorvastatin 40 mg PO BEDTIME 90 days azathioprine 100 mg (2 x 50 mg) PO DAILY azithromycin take 500 mg today (day 1), then 250 mg for 4 days (days 2-5) PO BD Insulin Syringe Ultra-Fine (insulin syringe-needle U-100) 5 times a day NS betamethasone dipropionate 0.05% topical blood pressure test kit-large (Flixel Photosuch Blood Pressure Monitor kit) As directed blood sugar diagnostic (FreeStyle Lite Strips) USE 6 TIMES A DAY blood-glucose meter,continuous (Dexcom G6 [employer]) As directed blood-glucose sensor (Dexcom G6 Sensor device) As directed change every 10 days blood-glucose transmitter (Dexcom G6 Transmitter device) As directed carvedilol 6.25 mg PO BID chlorthalidone mg PO clotrimazole 1% 1 appl topical BID 2 weeks coenzyme Q10 (Co Q-10) 10 mg PO DAILY 30 days diclofenac sodium 1% 4 grams topical QID dutasteride 0.5 mg PO DAILY fenofibrate 54 mg PO DAILY 90 days fluticasone propionate 50 mcg/actuation (Allergy Relief (fluticasone)) 1 spray intranasal DAILY 30 days glucagon 3 mg/actuation (Baqsimi) 3 mg intranasal ONCE guaifenesin ER (Mucinex) 600 mg PO Q12H PRN 5 days heating pads (Advocate Heating Pad) As directed insulin aspart U-100 (Novolog U-100 Insulin aspart) Up to 120 units via a insulin pump subcutaneously; lancets 6 times a day Lantus Solostar U-100 Insulin (insulin glargine) 50 units (0.5 mL) subcut DAILY PRN 30 days NS losartan 100 mg PO DAILY omeprazole 20 mg PO BID ondansetron HCl 4 mg PO DAILY PRN 30 days pen needle, diabetic (BD Doris 2nd Gen Pen Needle) once a day tamsulosin (Flomax) 0.4 mg PO DAILY 5 days terbinafine HCl 1% 1 appl topical BID Tobacco use date assessed: 11/09/23 Fall risk assessment: No Falls in past year Last assessed Fall Risk: 07/07/24 Dental Screening Dental Screen Date: 07/07/24 Did you have a dental visit in the last 12 months?: Yes Did you have a dental problem in the last 6 months where you did not have access to dental care?: No Was dental information given to patient?: Patient has dentist HPI HPI Comments History of Present Illness Details This is a 63-year-old male with IgG4 related disease, diabetes mellitus type 1 and rheumatoid arthritis that comes for his physical exam. IgG4 related disease has been follow by [facility]. Diabetes mellitus is follow by Endocrinology and last A1c was 7%. He used to see a systems programmer analyst for his rheumatoid arthritis but not anymore. Last colonoscopy was 2006 as per patient. No chest pain or shortness on breath. [facility] Medical History (Updated 07/07/24 @ 10:02 by Kiley Napier MD) Chronic sore throat DVT of lower extremity, bilateral Ankle pain, left Mixed hyperlipidemia Bilateral hand pain Mixed hyperlipidemia GERD (gastroesophageal reflux disease) Obesity due to excess calories Non-toxic multinodular goiter Obesity (BMI 30.0-34.9) Hypertension Chronic inflammation of pancreas Pancreatic abnormality FH: cholecystectomy Hypertriglyceridemia Diabetes type 1, uncontrolled Surgical History Hx of cholecystectomy Hx of endoscopy Hx of colonoscopy History of laminectomy Family History (Updated 07/07/24 @ 09:53 by Kiley Napier MD) Father Hypertension Hyperlipidemia Prostate cancer Diabetes Arthritis Mother Arthritis Hyperlipidemia Diabetes Osteoporosis Lung cancer Brother Lung cancer Throat cancer Social History Household Members: Spouse and Children Household Members Other:: daughter, , son Housing: House Alcohol intake: former Year quit: 26 Patient Tobacco Use Status: Never used Tobacco e-Cigarette/Vaping Use: Never Used Second Hand Smoke Exposure: No service: No Current occupational status: disabled Cognitive needs: No Hearing needs: No Vision needs: No Questionnaire PHQ-9 Over the last 2 weeks, how often have you been bothered by any of the following problems? 1. Little interest or pleasure in doing things: not at all 2. Feeling down, depressed, or hopeless: not at all 3. Trouble falling or staying asleep, or sleeping too much: not at all 4. Feeling tired or having little energy: not at all 5. Poor appetite or overeating: not at all 6. Feeling bad about yourself - or that you are a failure or have let yourself or your family down: not at all 7. Trouble concentrating on things, such as reading the newspaper or watching television: not at all 8. Moving or speaking so slowly that other people could have noticed. Or the opposite - being so fidgety or restless that you have been moving around a lot more than usual: not at all 9. Thoughts that you would be better off or of hurting yourself in some way: not at all Total score: 0 Depression Screening Interpretation: Negative Depression Screening Done: Yes 85700 - PHQ-9 Billing: Yes Source: Developed by Drs. Dontae Murray, Denice Jeff, Lai Eric and colleagues, with an educational braulio from [employer]. Thrive Questionnaire Date Thrive assessed: 07/07/24 I am a: Patient What is your living situation today?: I have a steady place to live Within the past 12 months, did the food you bought not last and you didn't have the money to get more?: Never true Within the past 12 months, did you worry whether your food would run out before you got money to buy more?: Never true Do you have trouble paying for medicines?: No Do you have trouble getting transportation to medical appointments?: No Do you have trouble paying your heating and electricity bill?: No Do you have trouble taking care of your child, family member or friend?: No Do you have trouble with day-to-day activities such as bathing, preparing meals, shopping, managing finances, etc.?: No Are you currently unemployed and looking for a job?: No Are you interested in more education?: No Please select the resources that you would like help with: None Currently or been in a relationship where the following occur: No concerns reported THRIVE Score: 0 AUDIT C Alcohol Use Questionnaire (AUDIT-C) 1. How often do you have a drink containing alcohol?: Never Total Score: 0 JAVIER-7 AMB Questionnaire JAVIER-7 Date JAVIER - 7 assessed: 07/07/24 Feeling nervous, anxious, or on edge: 0 = Not at all Not being able to stop or control worryin = Not at all Worrying too much about different things: 0 = Not at all Trouble relaxin = Not at all Being so restless that it is hard to sit still: 0 = Not at all Becoming easily annoyed or irritable: 0 = Not at all Feeling afraid as if something awful might happen: 0 = Not at all Total JAVIER-7 score (0-4 normal; 5-9 mild; 10-14 moderate; 15-21 severe): 0 Source: Developed by Drs. Dontae Murray, Denice Jeff, Lai Eric and colleagues, with an educational braulio from [employer]. JAVIER-7 Assessment Billing JAVIER-7 Assessment Tool: JAVIER-7 Assessment 00687 Review of Systems Const All systems reviewed & are unremarkable except as noted in HPI and below Card Denies chest pain at rest, Denies chest pain with activity, Denies edema, Denies irregular heart rhythm, Denies claudication, Denies dyspnea, Denies dyspnea on exertion, Denies orthopnea, Denies paroxysmal nocturnal dyspnea and Denies slow heart rate Resp Denies cough, Denies dyspnea and Denies dyspnea on exertion GI Denies abdominal pain, Denies change in bowel habits, Denies excessive flatus, Denies nausea and Denies vomiting Denies urinary hesitancy, Denies urinary incontinence and Denies urinary urgency Musc Denies atrophy, Denies deformity and Denies limited range of motion Skin/Breast Denies bleeding lesions, Denies changing lesions and Denies rash Physical exam (Primary Care) Vital Signs: Last Vital Signs BP 152/80 H 07/07/24 09:22 BMI result Body Mass Index 31.6 BMI Assessment/Plan discussion: High BMI High, discussed plan: lifestyle, weight reduction, dietary and physical activity Tobacco/Smoking Status: Tobacco use Status Tobacco use date assessed 11/09/23 07/07/24 09:31 Patient Tobacco Use Status Never used Tobacco 07/07/24 09:31 e-Cigarette/Vaping Use Never Used 07/07/24 09:31 PHQ-9: PHQ-9 Score PHQ-9: Total score 0 07/07/24 09:31 Depression Screening Interpretation: Negative Thrive Assessment: Date of Thrive Assessment Date Thrive assessed 07/07/24 07/07/24 09:31 Currently or been in a relationship where the following occur: No concerns reported [facility] Head: Yes normal to inspection, Yes normocephalic and Yes atraumatic Ears: external ears normal Eyes General: appearance normal, both eyes and all related structures Eyelids: Yes eyelids normal Conjunctivae: conjunctivae normal Neck Neck: Yes normal visual inspection and Yes supple Resp Effort & Inspection: normal respiratory effort Auscultation: clear to auscultation bilaterally Cardio Jugular venous distension: no JVD Rate: regular rate Rhythm: regular rhythm Heart sounds: S1 normal heart sound present and S2 normal heart sound present GI Inspection: Yes normal to inspection Palpation (GI): Soft to palpation and nontender Auscultation: normal bowel sounds Skin General skin exam: no rashes or lesions noted Neuro General: no focal motor deficits Extrem General: Yes full ROM Psych Appearance: grossly normal Assessment and Plan Assessment & Plan (1) Physical exam: Code(s): Z00.00 - Encounter for general adult medical examination without abnormal findings Plan: Repeat in a year. (2) Rheumatoid arthritis: Code(s): M06.9 - Rheumatoid arthritis, unspecified Qualifiers: Rheumatoid arthritis location: multiple sites Rheumatoid factor presence: without rheumatoid factor Qualified Code(s): M06.09 - Rheumatoid arthritis without rheumatoid factor, multiple sites Plan: Recommend to follow-up with rheumatology. (3) IgG4 related disease: Code(s): D89.89 - Other specified disorders involving the immune mechanism, not elsewhere classified Plan: Follow-up with [facility]. (4) Diabetes mellitus type 1: Code(s): E10.9 - Type 1 diabetes mellitus without complications Qualifiers: Diabetes mellitus complication status: with hyperglycemia Qualified Code(s): E10.65 - Type 1 diabetes mellitus with hyperglycemia Plan: Continue insulin. A1c goal is equal or less than 7%. Orders: Orders Vitamin B12 and Folate Today E53.8 - Deficiency of other specified B group vit amins Thyroid Stimulating Hormone Today E04.2 - Nontoxic multinodular goiter Lipid Panel Today E78.5 - Hyperlipidemia, unspecified Complete Blood Count Auto Diff Today D64.9 - Anemia, unspecified IRON PROFILE Today D64.9 - Anemia, unspecified Vitamin D 25-OH Total Today E55.9 - Vitamin D deficiency, unspecified Microalbumin, Random (w Creat) Today E11.9 - Type 2 diabetes mellitus without complications Comprehensive Met. Panel Today E10.65 - Type 1 diabetes mellitus with hyperglycemia Referrals Gastroenterology Referral Z12.11 - Encounter for screening for malignant neoplasm of colon Medications: New prednisone see taper instructions 5 mg PO DAILY 5 days 5 tabs 0RF Coding Level of Care Code Est Pt Prev Care >65y(87734) Diagnoses Physical exam Z00.00 Rheumatoid arthritis of multiple sites with negative rheumatoid factor M06.09 Rheumatoid arthritis location: multiple sites Rheumatoid factor presence: without rheumatoid factor IgG4 related disease D89.89 Type 1 diabetes mellitus with hyperglycemia E10.65 Diabetes mellitus complication status: with hyperglycemia Additional Codes JAVIER-7 Assessment Billing - JAVIER-7 Assessment Tool: JAVIER-7 Assessment 44130 ([id number]) Time Spent (min) 32
== END 2024-07-07 10:05 | disposition home or self-care (01) ==
PROVIDERS: PCP Internal Medicine; Visit Provider Internal Medicine
DX: Z00.00 Encounter for general adult medical examination without abnormal findings (principal); M06.09 Rheumatoid arthritis without rheumatoid factor, multiple sites; D89.89 Other specified disorders involving the immune mechanism, not elsewhere classified; E10.65 Type 1 diabetes mellitus with hyperglycemia
CPT/HCPCS: 99397

== ENCOUNTER 2024-07-13 08:58 | Outpatient (REF) | payer OTHER, SELFPAY ==
[2024-07-13 10:17] LABS: MANUAL DIFF FLAG NO
[2024-07-13 10:24] LABS: Basophils Percent Auto 0.6 % (0-2); Eosinophils Absolute Auto 0.1 X10*3/uL (0.0-0.4); Eosinophils Percent Auto 1.1 % (0-4); Hematocrit 40.1 % (42.0-52.0); Hemoglobin 13.9 g/dl (14.0-18.0); Imm Gran Abs Auto 0.02 X10*3/uL (0.00-0.03); Imm Gran Pct Auto 0.3 % (0.0-0.4); Lymphocytes Absolute Auto 1.1 X10*3/uL (1.2-4.9); Lymphocytes Percent Auto 16.4 % (20-40); Mean Corpuscular HGB Conc 34.7 g/dl (31.0-36.0); Mean Corpuscular Hemoglobin 27.9 pg (27.0-33.0); Mean Corpuscular Volume 80.5 fL (80.0-98.0); Mean Platelet Volume 10.2 fL (9.4-12.4); Monocytes Absolute Auto 0.6 X10*3/uL (0.1-1.2); Monocytes Percent Auto 9.3 % (2-11); Neutrophils Absolute Auto 4.8 x10*3/uL (2.0-8.3); Neutrophils Percent Auto 72.3 % (45-73); Platelet Count 214 X10*3/uL (160-400); Red Blood Count 4.98 X10*6/uL (4.60-5.80); Red Cell Distribution Width 13.6 % (11.0-16.0); White Blood Count 6.6 X10*3/uL (4.8-10.8)
[2024-07-13 11:10] LABS: Creatinine Urine 207.54 mg/dL; Microalbum/Creatinine Ratio Ur 3.3 ug/mg cr (<30)
[2024-07-13 11:25] LABS: Vitamin B12 700 pg/mL (200-900)
[2024-07-13 12:39] LABS: Alanine Aminotransferase 22 U/L (0-40); Albumin Level 4.2 g/dL (3.5-5.0); Alkaline Phosphatase 52 U/L (39-117); Anion Gap 13 (12-20); Aspartate Amino Transferase 27 U/L (5-37); Bilirubin Total 1.7 mg/dL (0.0-1.0); Blood Urea Nitrogen 16 mg/dL (9-16); Calcium 9.7 mg/dL (8.4-10.2); Carbon Dioxide 28 mmol/L (22-29); Chloride 101 mmol/L (96-108); Cholesterol 156 mg/dL (<200); Estimated Glomerular Filt Rate > 60; Glucose Fasting 154 mg/dL (60-99); HDL Cholesterol 34 mg/dL (>40); Iron 77 mcg/dL (45-160); LDL Cholesterol Calculated 88 mg/dL (<100); Percent Iron Saturation 28 % (15-50); Potassium 3.6 mmol/L (3.3-5.1); Sodium 138 mmol/L (135-145); Total Iron Binding Capacity 271 mcg/dL (228-428); Triglycerides 174 mg/dL (<150); Unsaturated Iron Binding 194 ug/dL
[2024-07-13 12:52] LABS: Thyroid Stimulating Hormone 0.56 uIU/mL (0.32-4.0); Vitamin D 25-OH Total 39.2 ng/mL (>30)
== END 2024-07-13 08:59 | disposition home or self-care (01) ==
LOC: HO.HMGCLDS 08:58
PROVIDERS: PCP Internal Medicine; Visit Provider Internal Medicine
DX: E10.65 Type 1 diabetes mellitus with hyperglycemia (principal); E78.5 Hyperlipidemia, unspecified; E55.9 Vitamin D deficiency, unspecified; E53.8 Deficiency of other specified B group vitamins; E04.2 Nontoxic multinodular goiter; D64.9 Anemia, unspecified
CPT/HCPCS: 36415; 80053; 80061; 82043; 82306; 82570; 82607; 82746; 83540; 84443; 85025

== ENCOUNTER 2024-07-27 10:28 | Outpatient (REF) | payer OTHER, SELFPAY ==
[2024-07-27 14:50] LABS: Influenza A PCR NEGATIVE (Negative); Influenza B PCR NEGATIVE (Negative); Resp Syncy Virus RNA Qual PCR NEGATIVE (Negative); SARS COV2 PCR INHOUSE NEGATIVE (Negative)
== END 2024-07-27 10:29 | disposition home or self-care (01) ==
LOC: HO.LAB 10:28
PROVIDERS: PCP Internal Medicine; Visit Provider Registered Nurse
DX: J06.9 Acute upper respiratory infection, unspecified (principal)
CPT/HCPCS: 0241U; 87880; 99212

== ENCOUNTER 2024-07-27 10:28 | Outpatient (AMB) | payer OTHER, SELFPAY ==
--- NOTE | 2024-07-27 10:37 | AM.OFFWIN_ITS ---
Intake Vital Signs 07/27/24 10:39 Height 5 ft 7 in Weight 197 lb BMI 30.9 BP 140/90 H Blood Pressure Location Rt brachial Position Sitting Pulse 74 Pulse Source Pulse Oximeter Temp 98.5 F Temp Source Oral Pulse Oximetry (%) 98 Oxygen Delivery Method Room Air Intake Visit Reasons: EP sneezing, coughing, headache,sore throat Intake Note: Patient here for cough, headache, sneezing and sore throat that started Thursday. Patient Tobacco Use Status: Never used Tobacco Allergies cortisone Allergy (Unknown, Verified 07/27/24 10:40) Unknown isoniazid Allergy (Unknown, Verified 07/27/24 10:40) Rash oxycodone [From PERCOCET] Allergy (Unknown, Verified 07/27/24 10:40) SWELLING promethazine [From PHENERGAN] Allergy (Unknown, Verified 07/27/24 10:40) RASH seafood Allergy (Unknown, Verified 07/27/24 10:40) Anaphylaxis tramadol [TRAMADOL] Allergy (Unknown, Verified 07/27/24 10:40) UNKNOWN, GI upset doxycycline Adverse Reaction (Intermediate, Verified 07/27/24 10:40) dizziness, abdominal discomfort fluticasone [Advair Diskus] Adverse Reaction (Unknown, Verified 07/27/24 10:40) tachycardia salmeterol [Advair Diskus] Adverse Reaction (Unknown, Verified 07/27/24 10:40) tachycardia Do you need a note to return to daycare/school/sports/work: No HPI EP sneezing, coughing, headache,sore throat HPI Details This note is constructed using voice recognition software. While every effort has been made to ensure accuracy, b2b outside sales representative errors may have been included. Face Hardener used through tablet through entire visit. The patient is a 63 year old male who presents to the clinic today with cough, sneezing, headache, body aches, and sore throat since Thursday. He notes he has a history of asthma, and has been using his inhaler without much relief. The cough has now made his chest hurt while he is coughing. He denies dyspnea, and has not checked his temperature to know if he has had a fever. He is taking Mucinex, which is not helping the cough but does help with the congestion. [facility] Medical History Chronic sore throat DVT of lower extremity, bilateral Ankle pain, left Mixed hyperlipidemia Bilateral hand pain Mixed hyperlipidemia GERD (gastroesophageal reflux disease) Obesity due to excess calories Non-toxic multinodular goiter Obesity (BMI 30.0-34.9) Hypertension Chronic inflammation of pancreas Pancreatic abnormality FH: cholecystectomy Hypertriglyceridemia Diabetes type 1, uncontrolled Surgical History Hx of cholecystectomy Hx of endoscopy Hx of colonoscopy History of laminectomy Family History (Updated 07/07/24 @ 09:53 by Kiley Napier MD) Father Hypertension Hyperlipidemia Prostate cancer Diabetes Arthritis Mother Arthritis Hyperlipidemia Diabetes Osteoporosis Lung cancer Brother Lung cancer Throat cancer Social History Household Members: Spouse and Children Household Members Other:: daughter, , son Housing: House Alcohol intake: former Year quit: 28 Patient Tobacco Use Status: Never used Tobacco e-Cigarette/Vaping Use: Never Used Second Hand Smoke Exposure: No service: No Current occupational status: disabled Cognitive needs: No Hearing needs: No Vision needs: No Review of Systems Const All systems reviewed & are unremarkable except as noted in HPI and below Physical Exam Vital Signs: Last Vital Signs Temp 98.5 F 07/27/24 10:39 Pulse 74 07/27/24 10:39 BP 140/90 H 07/27/24 10:39 Pulse Ox 98 07/27/24 10:39 Oxygen Delivery Method Room Air 07/27/24 10:39 BMI result Body Mass Index 30.9 Const General: cooperative, healthy appearing, comfortable and no acute distress Orientation/consciousness: patient oriented x3 Limitations: no limitations HEENT Head: Yes normal to inspection Ears: hearing grossly normal bilaterally, external ears normal and TM's normal bilaterally General nose exam: Normal external nose present, Normal nares present and No nasal discharge present Face and sinus: Yes normal facial exam and Yes sinuses nontender Mouth: Normal oral and palatal mucosa present and moist mucous membranes Throat: Yes tonsils normal, Yes uvula midline and Yes posterior oropharynx abnormal (Erythema) Eyes General: appearance normal, both eyes and all related structures Neck Neck: Yes normal visual inspection Resp Effort & Inspection: normal respiratory effort, able to speak in complete sentences, Actively coughing, no respiratory distress, not tachypneic, no tripod positioning and no use of accessory muscles Auscultation: clear to auscultation bilaterally Cardio Jugular venous distension: no JVD Rate: regular rate Rhythm: regular rhythm Heart sounds: S1 normal heart sound present, S2 normal heart sound present, no click, no gallops, no murmurs and no rubs Skin General skin exam: no rashes or lesions noted, elasticity normal and turgor normal Neuro General: patient oriented x3 Extrem General: Yes normal to inspection and Yes no clubbing, cyanosis or edema Assessment & Plan Assessment & Plan (1) URI (upper respiratory infection): Code(s): J06.9 - Acute upper respiratory infection, unspecified Qualifiers: URI type: unspecified URI Qualified Code(s): J06.9 - Acute upper respiratory infection, unspecified Plan: Viral swab obtained to rule out Covid based on symptoms. Advised mask wearing while symptomatic and quarantine per current CDC guidelines. Reviewed at home support methods including hydration, humidification, vix vapor rub, sinus rinse. Discussed treatment with antiviral therapy for covid with paxlovid including appropriate use and side effects, and need to start medication within 5 day of symptom onset, preferably within 48 hours of symptom onset. Patient wishes to decline paxlovid. Given his feelings that the albuterol inhaler is not working, we did prescribe a short burst of prednisone for symptomatic management. Patient reports that he can tolerate this, but likes to keep the dosing low, and the duration short due to his history of tachycardia with this medication, as well as his history of diabetes. Additionally we will try benzonatate for cough suppressant. Advised follow up with worsening symptoms such as dyspnea at rest, which would require emergent evaluation. Medications: New benzonatate 100 mg PO TID 5 days PRN 15 caps 0RF Cough prednisone 40 mg (2 x 20 mg) PO DAILY 5 days 10 tabs 0RF Coding Level of Care Code Est Pt Level 3 (57518) Diagnoses Upper respiratory tract infection, unspecified type J06.9 URI type: unspecified URI
[2024-07-27 10:39] VITALS: BP 140/90; PULSE 74; TEMP 36.9; O2SAT 98; BMI 30.9
== END 2024-07-27 13:40 | disposition home or self-care (01) ==
PROVIDERS: PCP Internal Medicine; Visit Provider Registered Nurse
DX: J06.9 Acute upper respiratory infection, unspecified (principal); Z13.9 Encounter for screening, unspecified

== ENCOUNTER → 2024-08-11 11:04 | Outpatient (BNVA) | payer OTHER, SELFPAY | PROVIDERS: PCP Internal Medicine ==

== ENCOUNTER 2024-08-18 09:56 | Outpatient (AMB) | payer OTHER, SELFPAY ==
--- NOTE | 2024-08-18 10:04 | A.OFFVIS_ITS ---
Vital Signs 08/18/24 10:19 Height 5 ft 7 in Weight 201 lb 8 oz BMI 31.6 BP 172/78 H Blood Pressure Location Rt brachial Position Sitting Pulse 62 Pulse Source Pulse Oximeter Pulse Oximetry (%) 98 Oxygen Delivery Method Room Air Intake Visit Reasons: Neck/Shoulder Pain VICTOR HUGO 12/30/21 Intake Note: Pain today 08/04 Drafting Supervisor Required: Yes Drafting Supervisor Services: Drafting Supervisor Present Drafting Supervisor Name: Loan #[id number] Accompanied by: Self / Same As Patient Allergies cortisone Allergy (Unknown, Verified 08/18/24 10:18) Unknown isoniazid Allergy (Unknown, Verified 08/18/24 10:18) Rash oxycodone [From PERCOCET] Allergy (Unknown, Verified 08/18/24 10:18) SWELLING promethazine [From PHENERGAN] Allergy (Unknown, Verified 08/18/24 10:18) RASH seafood Allergy (Unknown, Verified 08/18/24 10:18) Anaphylaxis tramadol [TRAMADOL] Allergy (Unknown, Verified 08/18/24 10:18) UNKNOWN, GI upset doxycycline Adverse Reaction (Intermediate, Verified 08/18/24 10:18) dizziness, abdominal discomfort fluticasone [Advair Diskus] Adverse Reaction (Unknown, Verified 08/18/24 10:18) tachycardia salmeterol [Advair Diskus] Adverse Reaction (Unknown, Verified 08/18/24 10:18) tachycardia HPI Comments Details: Patient presents today for follow-up for left shoulder pain. bilingual interpreter was present during today's encounter. He was last seen in our office 2 years ago for same pain generators in declined interventional treatments. Patient reports he was not able to undergo acupuncture treatments for financial reasons and continue home exercise program with gentle stretching exercises for neck and left shoulder. Patient reports today his neck symptoms have been mild more recently but left shoulder pain significantly affects his daily activities and functioning and sleep. He reports progressively worsening left shoulder pain with restricted movement and most severe pain with lifting and overhead reaches. Patient completed 6 sessions of PT in 2021 but was discharged from PT due to minimal improvement and significant pain. He continues to decline steroidal injections due to previous allergic reactions but is interested to consider left diagnostic suprascapular nerve block for potential Sprint PNS trial. We also reviewed radiofrequency procedure as a backup option. Patient denies any fever or chills, dizziness, cough, chest pain, burning or tingling, weakness, bladder or bowel dysfunction or saddle anesthesia. PRIOR 12/30/21: Patient presents today for follow up after starting physical therapy for his neck and shoulder regions. He reports he made fair progress with PT and now presents with ongoing neck pain, worsening bilateral shoulder pain, left worse than right and new axial back pain that radiates to his right leg laterally and right thigh with numbness and tingling in his right foot and ankle. Prolonged positions and bending forward worsen his back pain. He does have a history of back surgery many years ago and is interested in discussing neuromodulation. Cervical MRI and left shoulder imaging again reviewed with patient. He is not interested in steroid injections due to past history of allergic reaction to cortisone injection. Patient is interested in acupuncture referral for his neck and shoulder pain. He denies any fever, abdominal or groin pain, weight loss, dizziness, bladder/bowel dysfunction or saddle anesthesia. Patient reports intermittent weakness and ambulates with cane. FORMERLY [facility], [facility]–1983 Medical History (Updated 08/18/24 @ 12:40 by MONIQUE Mcgee) Osteoarthritis of left shoulder Neck pain Myofascial pain Radiculitis of left cervical region Chronic sore throat DVT of lower extremity, bilateral Ankle pain, left Mixed hyperlipidemia Bilateral hand pain Mixed hyperlipidemia GERD (gastroesophageal reflux disease) Obesity due to excess calories Non-toxic multinodular goiter Obesity (BMI 30.0-34.9) Hypertension Chronic inflammation of pancreas Pancreatic abnormality FH: cholecystectomy Hypertriglyceridemia Diabetes type 1, uncontrolled Surgical History Hx of cholecystectomy Hx of endoscopy Hx of colonoscopy History of laminectomy Family History Father Hypertension Hyperlipidemia Prostate cancer Diabetes Arthritis Mother Arthritis Hyperlipidemia Diabetes Osteoporosis Lung cancer Brother Lung cancer Throat cancer Social History Household Members: Spouse and Children Household Members Other:: daughter, , son Housing: House Alcohol intake: former Year quit: 26 Patient Tobacco Use Status: Never used Tobacco e-Cigarette/Vaping Use: Never Used Second Hand Smoke Exposure: No service: No Current occupational status: disabled Cognitive needs: No Hearing needs: No Vision needs: No Review of Systems Const All systems reviewed & are unremarkable except as noted in HPI and below Physical Exam General: Appears afebrile. Alert and oriented. Mood and affect appropriate. Follows and participates in conversation appropriately. Respiratory effort is unlabored. No cough. Able to transition from sit to stand unassisted. Ambulates with bilaterally normal heel strike and toe off. Neck Neck: Yes no lymphadenopathy, Yes supple, No anterior neck swelling, No midline deformity, No torticollis, No tracheal deviation, Yes no JVD, No prominent supraclavicular fat pad and Yes prominent dorsocervical fat pad Back/Spine/Pelvis Cervical Spine: loss of normal cervical lordosis, cervical muscular tenderness, pain with cervical ROM, No cervical spasm, No Cervical spine tenderness and No step off deformity Thoracic/Lumbar Spine: thoracic and lumbar spine normal to inspection, thoraco- lumbar ROM limited, No thoracic spinal tenderness and No lumbar spinal tenderness Extrem Other: Bilateral shoulders normal to inspection. No erythema or ecchymosis. Patient has difficulty with overhead reach or reaching his back pockets on the left. Preserved but painful ROM on the right. Significant tenderness to palpation to the anterior aspects of the both shoulders, worse on the left. Unable to adequately assess empty can and drop arm due to patient pain. Muscle tenderness to bilateral upper trapezius muscles. No midline tenderness in the cervical, thoracic or lumbar spine. Neck ROM is limited. General: Yes capillary refill normal, Yes no clubbing, cyanosis or edema and Yes no calf tenderness Results Reviewed Results Reviewed: MR CERVICAL SPINE WITHOUT CONTRAST 11/04/21 CLINICAL INFORMATION: Radiculopathy cervical region. Neck pain with left arm/hand symptoms. COMPARISON: Plain films of the cervical spine [facility] 10/11/2021. CT scan of the neck [facility] 10/27/2020. FINDINGS: VERTEBRAL BODIES AND PARASPINAL SOFT TISSUES: There is straightening of the normal cervical lordosis. There is narrowing of intervertebral disc height at C4-C5 and C5-C6. There are mild multilevel degenerative endplate contour changes. There are mild edematous endplate signal changes at C5-C6. No fractures are demonstrated. Overall, marrow signal is homogenous. The previously demonstrated right thyroid lobe mass is not well appreciated on this study. The other paravertebral structures are unremarkable. CERVICOMEDULLARY JUNCTION AND VISUALIZED POSTERIOR FOSSA: The craniocervical and posterior fossa structures are normal. Accounting for artifact, spinal cord signal appears normal. SPINAL LEVELS: C2-C3: There is a small soft disc protrusion posteriorly in the midline but there is no spinal cord compression or central stenosis. The neural foramina are patent bilaterally. C3-C4: There is a broad-based posterior soft disc protrusion which effaces CSF ventral to the spinal cord but there is no spinal cord compression or central stenosis. There are uncovertebral osteophytes, and there is moderate left foraminal narrowing. C4-C5: The broad-based posterior disc protrusion which effaces CSF ventral to the spinal cord with slight deformity of the cord to the right of midline. There is moderate central stenosis. There are uncovertebral osteophytes, and there is severe bilateral foraminal narrowing. C5-C6: There is a prominent broad-based posterior disc protrusion which effaces CSF ventral to the spinal cord with mild flattening of the cord. There is moderate central stenosis. There are uncovertebral osteophytes and there is severe bilateral foraminal narrowing. C6-C7: There is a central and left-sided soft disc protrusion which mildly distorts the ventral thecal sac. There is no spinal cord compression or central stenosis. There are uncovertebral osteophytes and there is moderate left and mild right foraminal narrowing. C7-T1: There is mild bilateral facet arthropathy. Posterior disc contour is normal. There is no central stenosis or foraminal narrowing. T1-T2: There is a central and right-sided disc protrusion which distorts the ventral thecal sac, and extends into the right neural foramen, contributing to severe right foraminal narrowing. There is no spinal cord compression or central stenosis. The left neural foramen is patent. IMPRESSION: 1. At C4-C5 and C5-C6 there are posterior disc protrusions which efface CSF ventral to the spinal cord with mild flattening of the cord. There is moderate central stenosis and severe bilateral foraminal narrowing at these levels. 2. At T1-T2 there is a central and right-sided disc protrusion extending into the right neural foramen, contributing to severe right foraminal narrowing. 3. There are also spondylitic changes at multiple other levels as described above. 4. The previously described right thyroid lobe nodule is not well demonstrated on this study. XR CERVICAL SPINE CLINICAL INFORMATION: Myalgia. Pain in the shoulder. COMPARISON: Multiple prior examinations including CT of the neck October 2020 and x-ray of the cervical spine January 2019. FINDINGS: Multilevel cervical spondylosis manifested by endplate osteophytes and variable disc space narrowing involving C3-C4 through C5-C6. The cervical thoracic junction is partially obscured by overlying soft tissues and bone. Facets appear normal. The surrounding bone and soft tissues are unremarkable. IMPRESSION: Multilevel cervical spondylosis, overall [id number], unchanged, compared with the prior exams. XR SHOULDER, LEFT 10/11/21 CLINICAL INFORMATION: Pain in left shoulder.? COMPARISON: X-ray of the left shoulder February 2017.? FINDINGS: Acromioclavicular Joint: Mild osteoarthritis with small marginal osteophytes, unchanged compared to prior. Glenohumeral Joint: Mild osteoarthritis with small marginal osteophytes. Surrounding bones, joints and soft tissues unremarkable.? IMPRESSION: Stable mild osteoarthritis. Assessment & Plan Assessment & Plan (1) Left shoulder pain: Code(s): M25.512 - Pain in left shoulder Category: Medical (2) Osteoarthritis of left shoulder: Code(s): M19.012 - Primary osteoarthritis, left shoulder Category: Medical (3) Myofascial pain: Code(s): M79.18 - Myalgia, other site Category: Medical (4) Neck pain: Code(s): M54.2 - Cervicalgia Category: Medical Plan Discussed interventional treatments for chronic shoulder pain due to OA. Will update shoulder xray, last one taken in 2020. Schedule Left diagnostic suprascapular nerve block with local and US guidance for chronic left shoulder pain for potential Sprint PNS trial. We also reviewed suprascapular and axillary articular branches RFA procedure as a back up option. Patient declined steroid injections due to allergic reaction in the past. Patient is aware he will be contacted to schedule this procedure. Most recent A1C=7.0 (06/28/24). All questions were answered and the patient is in agreement of plan. Follow-up after injections and sooner as needed. Justification for interventional therapy: ? Patient with average pain > 6/10 ? Patient has exhausted conservative therapy, including NSAIDs, medications, PT The risks, consequences, alternatives, and benefits of various treatment options were discussed with the patient in great detail, including conservative management, injections and procedures. Orders: Orders XR shoulder LT min 2V Today M19.012 - Primary osteoarthritis, left shoulder, M25.512 - Pain in left shoulder Coding Level of Care Code Est Pt Level 4 (81489) Complex EM visit Add On G2211 Diagnoses Left shoulder pain M25.512 Osteoarthritis of left shoulder M19.012 Myofascial pain M79.18 Neck pain M54.2
[2024-08-18 10:19] VITALS: BP 172/78; PULSE 62; O2SAT 98; BMI 31.6
== END 2024-08-18 10:34 | disposition home or self-care (01) ==
PROVIDERS: PCP Internal Medicine; Visit Provider Nurse Practitioner Family
DX: M25.512 Pain in left shoulder (principal); M19.012 Primary osteoarthritis, left shoulder; M79.18 Myalgia, other site; M54.2 Cervicalgia
CPT/HCPCS: 99214; G2211

== ENCOUNTER → 2024-08-18 09:56 | Outpatient (BNVA) | payer OTHER, SELFPAY | PROVIDERS: PCP Internal Medicine; Visit Provider Nurse Practitioner Family | DX: M54.2 Cervicalgia (principal); M19.012 Primary osteoarthritis, left shoulder; M79.18 Myalgia, other site | CPT/HCPCS: 99212 ==

== ENCOUNTER 2024-08-18 11:51 | Outpatient (REF) | payer OTHER, SELFPAY ==
--- NOTE | ~2024-08-18 | XR_ITS ---
EXAMINATION: XR SHOULDER LEFT 3 VIEWS CLINICAL INFORMATION: Pain in left shoulder M25.512. COMPARISON: XR Left shoulder 10/11/2021 (report only). TECHNIQUE: AP external rotation, Grashey, and scapular Y views of the left shoulder. FINDINGS: No acute fracture or dislocation. Small acromioclavicular and glenohumeral marginal osteophytes, unchanged. No concerning lytic or blastic osseous lesion. No abnormal soft tissue calcification. XR/XR shoulder LT min 2V IMPRESSION: Mild acromioclavicular and glenohumeral osteoarthritis, unchanged. Electronically signed by: Young Dyer MD 10/05/2024 01:03 PM MEG
== END 2024-08-18 11:52 | disposition home or self-care (01) ==
LOC: HO.HMGCX 11:51
PROVIDERS: PCP Internal Medicine; Visit Provider Nurse Practitioner Family
DX: M19.012 Primary osteoarthritis, left shoulder (principal)
CPT/HCPCS: 73030

== ENCOUNTER 2024-08-22 09:16 | Outpatient (AMB) | payer OTHER, SELFPAY ==
--- NOTE | 2024-08-22 09:53 | MHC.AMDMED ---
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: DM-conf Idea Worker Required: Yes Idea Worker Language: Chinese Accompanied by: Self / Same As Patient Allergies cortisone Allergy (Unknown, Verified 08/18/24 10:18) Unknown isoniazid Allergy (Unknown, Verified 08/18/24 10:18) Rash oxycodone [From PERCOCET] Allergy (Unknown, Verified 08/18/24 10:18) SWELLING promethazine [From PHENERGAN] Allergy (Unknown, Verified 08/18/24 10:18) RASH seafood Allergy (Unknown, Verified 08/18/24 10:18) Anaphylaxis tramadol [TRAMADOL] Allergy (Unknown, Verified 08/18/24 10:18) UNKNOWN, GI upset doxycycline Adverse Reaction (Intermediate, Verified 08/18/24 10:18) dizziness, abdominal discomfort fluticasone [Advair Diskus] Adverse Reaction (Unknown, Verified 08/18/24 10:18) tachycardia salmeterol [Advair Diskus] Adverse Reaction (Unknown, Verified 08/18/24 10:18) tachycardia HPI Comprehensive Diabetes Asmnt Most Recent Diabetes Results: Microalb/Creat Ratio 3.3 ug/mg cr (<30) 07/13/24 Cholesterol 156 mg/dL (<200) 07/13/24 HDL Cholesterol 34 mg/dL (>40) L 07/13/24 Triglycerides 174 mg/dL (<150) H 07/13/24 Creatinine 1.01 mg/dL (0.5-1.4) 07/13/24 Blood Urea Nitrogen 16 mg/dL (9-16) 07/13/24 Sodium 138 mmol/L (135-145) 07/13/24 Potassium 3.6 mmol/L (3.3-5.1) 07/13/24 Chloride 101 mmol/L (96-108) 07/13/24 Carbon Dioxide 28 mmol/L (22-29) 07/13/24 Calcium 9.7 mg/dL (8.4-10.2) 07/13/24 AST 27 U/L (5-37) 07/13/24 ALT 22 U/L (0-40) 07/13/24 Total Protein 7.0 g/dL (6.5-8.0) 07/13/24 Albumin 4.2 g/dL (3.5-5.0) 07/13/24 [facility] Medical History (Updated 08/18/24 @ 12:40 by MONIQUE Mcgee) Osteoarthritis of left shoulder Neck pain Myofascial pain Radiculitis of left cervical region Chronic sore throat DVT of lower extremity, bilateral Ankle pain, left Mixed hyperlipidemia Bilateral hand pain Mixed hyperlipidemia GERD (gastroesophageal reflux disease) Obesity due to excess calories Non-toxic multinodular goiter Obesity (BMI 30.0-34.9) Hypertension Chronic inflammation of pancreas Pancreatic abnormality FH: cholecystectomy Hypertriglyceridemia Diabetes type 1, uncontrolled Surgical History Hx of cholecystectomy Hx of endoscopy Hx of colonoscopy History of laminectomy Family History Father Hypertension Hyperlipidemia Prostate cancer Diabetes Arthritis Mother Arthritis Hyperlipidemia Diabetes Osteoporosis Lung cancer Brother Lung cancer Throat cancer Social History Household Members: Spouse and Children Household Members Other:: daughter, , son Housing: House Alcohol intake: former Year quit: 26 Patient Tobacco Use Status: Never used Tobacco e-Cigarette/Vaping Use: Never Used Second Hand Smoke Exposure: No service: No Current occupational status: disabled Cognitive needs: No Hearing needs: No Vision needs: No Assessment & Plan Assessment & Plan (1) Diabetes mellitus type 1: Code(s): E10.9 - Type 1 diabetes mellitus without complications Qualifiers: Diabetes mellitus complication status: with hyperglycemia Qualified Code(s): E10.65 - Type 1 diabetes mellitus with hyperglycemia Plan: Patient presents for pump training for? T slim with control? IQ and Dexcom G6 The following topics were reviewed today: - effects of chronic pain on glucose levels -activity function review ?Sensor setting (if applicable) ??? High Alert: 200 mg/dl ??? Low Alert: 80 mg/dl Above Target: 28% At Target:72% Below Target: 0% Average glucose for the last 2 weeks 158 mg/dL Patient's glucose control doing well Patient reports he received Dexcom G7 sensors, but still has not upgraded T slim to be compatible with Dexcom G7 Instructed patient to log into tandem account, take required to tutorials for T-Slim upgrade Patient still has 6 Dexcom G6 sensors, recommended to patient he upgrade pump before running low on sensors, he can still use Dexcom G6 sensors after upgrading pump to be compatible with Dexcom G7. Instructed patient to call if he has questions about upgrade or if he needs assistance in setting up Dexcom G7 sensors Insulin delivery settings Troubleshooting after starting new pod or inserting new insulin set: Occlusion, adhesive tape sensitivity, redness Check BG 2 hours after site change Safety information: Patient understands the basic concepts of pump therapy, how to give insulin for meals and snacks, how to troubleshoot for hyper and hypoglycemia. Setting verified by CDCES, see changes to setting below: Basal rate(s) (units/hour) : 12 AM to 3 AM 2 units / hr 3 AM to 10 AM 2 units / hr 10 AM to 2 PM 1.8 units / hr 2 PM to 12 AM? 2.0 units / hr Bolus setting Insulin Carbohydrate Ratio (s) 12 AM? to 3 AM 1:4.5?? 3 AM to 10 AM 1:5 10 AM to 2 PM 1:3 2 PM to 12 AM 1:1.7 Correction Factor / Sensitivity Factor 12 AM? to 10 AM 1:20 10 AM? to 12 AM 1:15 Active Insulin Time:? 3 hours Target(s): 12 AM? to 12 AM 120 mg/dL Target with Control IQ: 12 AM? to 12 AM 110 mg/dL Patient Instructions: Patient will call for next appointment Coding Level of Care Code Est Pt Level 1 (31304) Diagnoses Type 1 diabetes mellitus with hyperglycemia E10.65 Diabetes mellitus complication status: with hyperglycemia
== END 2024-08-22 09:54 | disposition home or self-care (01) ==
PROVIDERS: PCP Internal Medicine; Visit Provider Registered Nurse Diabetes Educator
DX: E10.65 Type 1 diabetes mellitus with hyperglycemia (principal)

== ENCOUNTER → 2024-08-22 09:16 | Outpatient (BNVA) | payer OTHER, SELFPAY | PROVIDERS: PCP Internal Medicine; Visit Provider Registered Nurse Diabetes Educator | DX: Z46.81 Encounter for fitting and adjustment of insulin pump (principal); E10.65 Type 1 diabetes mellitus with hyperglycemia | CPT/HCPCS: 99211 ==

== ENCOUNTER 2024-08-25 06:06 | Outpatient (REF) | payer OTHER, SELFPAY | END 2024-08-25 06:07 | disposition home or self-care (01) | LOC: CF 06:06 | PROVIDERS: Visit Provider Internal Medicine | DX: Z13.89 Encounter for screening for other disorder (principal) ==

== ENCOUNTER 2024-09-06 10:34 | Outpatient (AMB) | payer OTHER, SELFPAY ==
--- NOTE | 2024-09-06 10:36 | MHC.OFFVIS ---
Vital Signs 09/06/24 10:40 Height 5 ft 7 in Weight 200 lb 6 oz BMI 31.4 BP 156/73 H Blood Pressure Location Lt brachial Position Sitting Pulse 66 Pulse Source Pulse Oximeter Pulse Oximetry (%) 98 Oxygen Delivery Method Room Air Intake Visit Reasons: Neck/Shoulder Pain Intake Note: Pain today 08/04 Archery Equipment Hay Sorter Required: No Archery Equipment Hay Sorter Services: Archery Equipment Hay Sorter Offered & Declined Accompanied by: Self / Same As Patient Allergies cortisone Allergy (Unknown, Verified 09/06/24 10:41) Unknown isoniazid Allergy (Unknown, Verified 09/06/24 10:41) Rash oxycodone [From PERCOCET] Allergy (Unknown, Verified 09/06/24 10:41) SWELLING promethazine [From PHENERGAN] Allergy (Unknown, Verified 09/06/24 10:41) RASH seafood Allergy (Unknown, Verified 09/06/24 10:41) Anaphylaxis tramadol [TRAMADOL] Allergy (Unknown, Verified 09/06/24 10:41) UNKNOWN, GI upset doxycycline Adverse Reaction (Intermediate, Verified 09/06/24 10:41) dizziness, abdominal discomfort fluticasone [Advair Diskus] Adverse Reaction (Unknown, Verified 09/06/24 10:41) tachycardia salmeterol [Advair Diskus] Adverse Reaction (Unknown, Verified 09/06/24 10:41) tachycardia HPI Comments Details: Patient presents today for follow up for left shoulder and worsening neck pain with radicular symptoms. Patient presented on 08/25/24 for Left diagnotic suprascapular nerve block but declined injection as he thought it was with steroids. Patient was reassured today that as previously discussed, injections were diagnostic and without steroids. He is willing to reschedule this as next steps. Patient also reports increasing neck pain with flexion and increasing weakness and numbness and tingling in his left upper extremity. He is utilizing heating packs at home with partial and temporary relief for neck and shoulder pain. Reports minimal relief with diclofenac gel and Tylenol Arthritis. Patient denies any gait imbalances, bladder or bowel dysfunction or saddle anesthesia. Denies any recent cough, cold, infection, fever or other significant changes in medical history since last office visit. PRIOR: Patient presents today for follow-up for left shoulder pain. 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 He was last seen in our office 2 years ago for same pain generators in declined interventional treatments. Patient reports he was not able to undergo acupuncture treatments for financial reasons and continue home exercise program with gentle stretching exercises for neck and left shoulder. Patient reports today his neck symptoms have been mild more recently but left shoulder pain significantly affects his daily activities and functioning and sleep. He reports progressively worsening left shoulder pain with restricted movement and most severe pain with lifting and overhead reaches. Patient completed 6 sessions of PT in 2021 but was discharged from PT due to minimal improvement and significant pain. He continues to decline steroidal injections due to previous allergic reactions but is interested to consider left diagnostic suprascapular nerve block for potential Sprint PNS trial. We also reviewed radiofrequency procedure as a backup option. Patient denies any fever or chills, dizziness, cough, chest pain, burning or tingling, weakness, bladder or bowel dysfunction or saddle anesthesia. PRIOR 12/30/21: Patient presents today for follow up after starting physical therapy for his neck and shoulder regions. He reports he made fair progress with PT and now presents with ongoing neck pain, worsening bilateral shoulder pain, left worse than right and new axial back pain that radiates to his right leg laterally and right thigh with numbness and tingling in his right foot and ankle. Prolonged positions and bending forward worsen his back pain. He does have a history of back surgery many years ago and is interested in discussing neuromodulation. Cervical MRI and left shoulder imaging again reviewed with patient. He is not interested in steroid injections due to past history of allergic reaction to cortisone injection. Patient is interested in acupuncture referral for his neck and shoulder pain. He denies any fever, abdominal or groin pain, weight loss, dizziness, bladder/bowel dysfunction or saddle anesthesia. Patient reports intermittent weakness and ambulates with cane. [facility] Medical History Osteoarthritis of left shoulder Neck pain Myofascial pain Radiculitis of left cervical region Chronic sore throat DVT of lower extremity, bilateral Ankle pain, left Mixed hyperlipidemia Bilateral hand pain Mixed hyperlipidemia GERD (gastroesophageal reflux disease) Obesity due to excess calories Non-toxic multinodular goiter Obesity (BMI 30.0-34.9) Hypertension Chronic inflammation of pancreas Pancreatic abnormality FH: cholecystectomy Hypertriglyceridemia Diabetes type 1, uncontrolled Surgical History Hx of cholecystectomy Hx of endoscopy Hx of colonoscopy History of laminectomy Family History Father Hypertension Hyperlipidemia Prostate cancer Diabetes Arthritis Mother Arthritis Hyperlipidemia Diabetes Osteoporosis Lung cancer Brother Lung cancer Throat cancer Social History Household Members: Spouse and Children Household Members Other:: daughter, , son Housing: House Alcohol intake: former Year quit: 26 Patient Tobacco Use Status: Never used Tobacco e-Cigarette/Vaping Use: Never Used Second Hand Smoke Exposure: No service: No Current occupational status: disabled Cognitive needs: No Hearing needs: No Vision needs: No Review of Systems Const All systems reviewed & are unremarkable except as noted in HPI and below Physical Exam Vital Signs: Last Vital Signs Pulse 66 09/06/24 10:40 BP 156/73 H 09/06/24 10:40 Pulse Ox 98 09/06/24 10:40 Oxygen Delivery Method Room Air 09/06/24 10:40 BMI result Body Mass Index 31.4 General: Appears afebrile. Alert and oriented. Mood and affect appropriate. Follows and participates in conversation appropriately. Respiratory effort is unlabored. No cough. Able to transition from sit to stand unassisted. Ambulates with bilaterally normal heel strike and toe off. Neck Other: Patient with decreased cervical ROM in all planes/especially with left lateral rotation. Reports increased pain worse with flexion and bending but also with extension. Spurling compression test equivocal. Pain is unchanged by Spurling maneuver with retraction. Elvey's tension test positive on the left, with radiation of pain from neck to wrist. Lhermitte's test was negative. DTR intact, +1 and symmetrical. Patient demonstrated 5/5 right and 4/5 left motor strength of bilateral upper extremities. 2 + radial pulses. Significant tightness throughout left upper trapezius as well as TTP throughout bilateral upper trapezius muscles. Minimal paravertebral tenderness over facet joints bilaterally. Neck: Yes no lymphadenopathy, Yes supple, Yes no JVD, No prominent supraclavicular fat pad and Yes prominent dorsocervical fat pad General: Yes no CVA tenderness Back/Spine/Pelvis Back: no CVA tenderness Cervical Spine: No Lhermitte's sign positive, loss of normal cervical lordosis, cervical muscular tenderness, pain with cervical ROM, cervical spasm (left), No Cervical spine tenderness and No step off deformity Thoracic/Lumbar Spine: thoracic and lumbar spine normal to inspection, thoraco-lumbar ROM limited, No thoracic spinal tenderness and No lumbar spinal tenderness Extrem Other: Bilateral shoulders normal to inspection. No erythema or ecchymosis. Patient has difficulty with overhead reach or reaching his back pockets on the left. Preserved but painful ROM on the right. Significant tenderness to palpation to the anterior aspects of the both shoulders, worse on the left. Unable to adequately assess empty can and drop arm due to patient pain. Muscle tenderness to bilateral upper trapezius muscles. No midline tenderness in the cervical, thoracic or lumbar spine. Neck ROM is limited. General: Yes capillary refill normal, Yes no clubbing, cyanosis or edema and Yes no calf tenderness Results Reviewed Results Reviewed: MR CERVICAL SPINE WITHOUT CONTRAST 11/04/21 CLINICAL INFORMATION: Radiculopathy cervical region. Neck pain with left arm/hand symptoms. COMPARISON: Plain films of the cervical spine [facility] 10/11/2021. CT scan of the neck [facility] 10/27/2020. FINDINGS: VERTEBRAL BODIES AND PARASPINAL SOFT TISSUES: There is straightening of the normal cervical lordosis. There is narrowing of intervertebral disc height at C4-C5 and C5-C6. There are mild multilevel degenerative endplate contour changes. There are mild edematous endplate signal changes at C5-C6. No fractures are demonstrated. Overall, marrow signal is homogenous. The previously demonstrated right thyroid lobe mass is not well appreciated on this study. The other paravertebral structures are unremarkable. CERVICOMEDULLARY JUNCTION AND VISUALIZED POSTERIOR FOSSA: The craniocervical and posterior fossa structures are normal. Accounting for artifact, spinal cord signal appears normal. SPINAL LEVELS: C2-C3: There is a small soft disc protrusion posteriorly in the midline but there is no spinal cord compression or central stenosis. The neural foramina are patent bilaterally. C3-C4: There is a broad-based posterior soft disc protrusion which effaces CSF ventral to the spinal cord but there is no spinal cord compression or central stenosis. There are uncovertebral osteophytes, and there is moderate left foraminal narrowing. C4-C5: The broad-based posterior disc protrusion which effaces CSF ventral to the spinal cord with slight deformity of the cord to the right of midline. There is moderate central stenosis. There are uncovertebral osteophytes, and there is severe bilateral foraminal narrowing. C5-C6: There is a prominent broad-based posterior disc protrusion which effaces CSF ventral to the spinal cord with mild flattening of the cord. There is moderate central stenosis. There are uncovertebral osteophytes and there is severe bilateral foraminal narrowing. C6-C7: There is a central and left-sided soft disc protrusion which mildly distorts the ventral thecal sac. There is no spinal cord compression or central stenosis. There are uncovertebral osteophytes and there is moderate left and mild right foraminal narrowing. C7-T1: There is mild bilateral facet arthropathy. Posterior disc contour is normal. There is no central stenosis or foraminal narrowing. T1-T2: There is a central and right-sided disc protrusion which distorts the ventral thecal sac, and extends into the right neural foramen, contributing to severe right foraminal narrowing. There is no spinal cord compression or central stenosis. The left neural foramen is patent. IMPRESSION: 1. At C4-C5 and C5-C6 there are posterior disc protrusions which efface CSF ventral to the spinal cord with mild flattening of the cord. There is moderate central stenosis and severe bilateral foraminal narrowing at these levels. 2. At T1-T2 there is a central and right-sided disc protrusion extending into the right neural foramen, contributing to severe right foraminal narrowing. 3. There are also spondylitic changes at multiple other levels as described above. 4. The previously described right thyroid lobe nodule is not well demonstrated on this study. XR CERVICAL SPINE CLINICAL INFORMATION: Myalgia. Pain in the shoulder. COMPARISON: Multiple prior examinations including CT of the neck October 2020 and x-ray of the cervical spine January 2019. FINDINGS: Multilevel cervical spondylosis manifested by endplate osteophytes and variable disc space narrowing involving C3-C4 through C5-C6. The cervical thoracic junction is partially obscured by overlying soft tissues and bone. Facets appear normal. The surrounding bone and soft tissues are unremarkable. IMPRESSION: Multilevel cervical spondylosis, overall [id number], unchanged, compared with the prior exams. XR SHOULDER, LEFT 10/11/21 CLINICAL INFORMATION: Pain in left shoulder.? COMPARISON: X-ray of the left shoulder February 2017.? FINDINGS: Acromioclavicular Joint: Mild osteoarthritis with small marginal osteophytes, unchanged compared to prior. Glenohumeral Joint: Mild osteoarthritis with small marginal osteophytes. Surrounding bones, joints and soft tissues unremarkable.? IMPRESSION: Stable mild osteoarthritis. Assessment & Plan Assessment & Plan (1) Cervical radiculopathy due to osteoarthritis of spine: Code(s): M47.22 - Other spondylosis with radiculopathy, cervical region Category: Medical (2) Radiculitis of left cervical region: Code(s): M54.12 - Radiculopathy, cervical region Category: Medical (3) Left shoulder pain: Code(s): M25.512 - Pain in left shoulder Category: Medical (4) Myofascial pain: Code(s): M79.18 - Myalgia, other site Category: Medical (5) Osteoarthritis of left shoulder: Code(s): M19.012 - Primary osteoarthritis, left shoulder Category: Medical (6) Neck pain: Code(s): M54.2 - Cervicalgia Category: Medical Plan MRI of the cervical spine to assess for neural integrity and compression and follow up on previous MRI findings. Reviewed interventional treatments for chronic shoulder pain due to OA and neck pain. Proceed with Left diagnostic suprascapular nerve block with local and US guidance for chronic left shoulder pain for potential Sprint PNS trial as previously planned. We also reviewed suprascapular and axillary articular branches RFA procedure as a back up option. Patient declined steroid injections due to allergic reaction in the past, however tolerates oral prednisone from other providers without any side effects. Patient is aware he will be contacted to reschedule this procedure. Most recent A1C=7.0 (06/28/24). Script sent for personal TENS unit and heating pad via [employer]. Patient is aware that both devices will be delivered to his home, pending insurance approval. All questions were answered and the patient is in agreement of plan. Follow-up after injections and sooner as needed. Orders: Orders MR cervical spine wo con Today F40.240 - Claustrophobia, M47.22 - Other spondylosis with radiculopathy, cervical region, M54.12 - Radiculopathy, cervical region Medications: New gabapentin 300 mg PO BID 30 days 60 caps 0RF pain M25.512 - Pain in left shoulder, M47.22 - Other spondylosis with radiculopathy, cervical region, M54.12 - Radiculopathy, cervical region, M79.18 - Myalgia, other site Coding Level of Care Code Est Pt Level 4 (34898) Complex EM visit Add On G2211 Diagnoses Cervical radiculopathy due to osteoarthritis of spine M47.22 Radiculitis of left cervical region M54.12 Left shoulder pain M25.512 Myofascial pain M79.18 Osteoarthritis of left shoulder M19.012 Neck pain M54.2
[2024-09-06 10:40] VITALS: BP 156/73; PULSE 66; O2SAT 98; BMI 31.4
== END 2024-09-06 10:51 | disposition home or self-care (01) ==
PROVIDERS: PCP Internal Medicine; Visit Provider Nurse Practitioner Family
DX: M47.22 Other spondylosis with radiculopathy, cervical region (principal); M25.512 Pain in left shoulder; M79.18 Myalgia, other site; M19.012 Primary osteoarthritis, left shoulder; M54.2 Cervicalgia
CPT/HCPCS: 99214; G2211

== ENCOUNTER → 2024-09-06 10:34 | Outpatient (BNVA) | payer OTHER, SELFPAY | PROVIDERS: PCP Internal Medicine; Visit Provider Nurse Practitioner Family | DX: M25.512 Pain in left shoulder (principal); M47.22 Other spondylosis with radiculopathy, cervical region; M79.18 Myalgia, other site; M19.012 Primary osteoarthritis, left shoulder | CPT/HCPCS: 99212 ==

== ENCOUNTER 2024-09-15 10:12 | Outpatient (AMB) | payer OTHER, SELFPAY ==
--- NOTE | 2024-09-15 10:37 | AM.OFFWIN_ITS ---
Intake Vital Signs 09/15/24 10:38 Weight 202 lb BP 130/80 Blood Pressure Location Lt brachial Position Sitting Pulse 66 Pulse Source Pulse Oximeter Temp 99.4 F Temp Source Oral Pulse Oximetry (%) 97 Oxygen Delivery Method Room Air Intake Visit Reasons: EP-cough, body ache, sore throat, chest pain Intake Note: Patient here for cough, body aches, dry throat, fatigued, chest pain which started about 1 week. Patient Tobacco Use Status: Never used Tobacco Allergies cortisone Allergy (Unknown, Verified 09/15/24 10:38) Unknown isoniazid Allergy (Unknown, Verified 09/15/24 10:38) Rash oxycodone [From PERCOCET] Allergy (Unknown, Verified 09/15/24 10:38) SWELLING promethazine [From PHENERGAN] Allergy (Unknown, Verified 09/15/24 10:38) RASH seafood Allergy (Unknown, Verified 09/15/24 10:38) Anaphylaxis tramadol [TRAMADOL] Allergy (Unknown, Verified 09/15/24 10:38) UNKNOWN, GI upset doxycycline Adverse Reaction (Intermediate, Verified 09/15/24 10:38) dizziness, abdominal discomfort fluticasone [Advair Diskus] Adverse Reaction (Unknown, Verified 09/15/24 10:38) tachycardia salmeterol [Advair Diskus] Adverse Reaction (Unknown, Verified 09/15/24 10:38) tachycardia Do you need a note to return to daycare/school/sports/work: No HPI HPI Comments History of Present Illness Details The patient is a 64-year-old male presenting with cough, body aches, and difficulty breathing. The cough has persisted for eight days and is primarily dry, though the patient does report productive episodes with green and yellow mucus. The patient describes experiencing alternating sensations of hot and cold, accompanied by body aches and dizziness. There have been occasional episodes of shortness of breath and sensations of mucus accumulation in the chest. The patient denies any ear pain, though mild headaches are present. The patient has a known history of asthma and has been using albuterol inhalers without significant relief. Rqrk-asp-xufzoku medications such as Mucinex and Tylenol have provided only limited benefit. The patient has not tested for COVID-19 at home. Examination at this visit revealed signs suggestive of bilateral ear infections, noted as whiteness behind the tympanic membranes. The patient reports the use of Tessalon Perles in the past, which had no significant effect. [facility] Medical History Osteoarthritis of left shoulder Neck pain Myofascial pain Radiculitis of left cervical region Chronic sore throat DVT of lower extremity, bilateral Ankle pain, left Mixed hyperlipidemia Bilateral hand pain Mixed hyperlipidemia GERD (gastroesophageal reflux disease) Obesity due to excess calories Non-toxic multinodular goiter Obesity (BMI 30.0-34.9) Hypertension Chronic inflammation of pancreas Pancreatic abnormality FH: cholecystectomy Hypertriglyceridemia Diabetes type 1, uncontrolled Surgical History Hx of cholecystectomy Hx of endoscopy Hx of colonoscopy History of laminectomy Family History Father Hypertension Hyperlipidemia Prostate cancer Diabetes Arthritis Mother Arthritis Hyperlipidemia Diabetes Osteoporosis Lung cancer Brother Lung cancer Throat cancer Social History Household Members: Spouse and Children Household Members Other:: daughter, , son Housing: House Alcohol intake: former Year quit: 26 Patient Tobacco Use Status: Never used Tobacco e-Cigarette/Vaping Use: Never Used Second Hand Smoke Exposure: No service: No Current occupational status: disabled Cognitive needs: No Hearing needs: No Vision needs: No Review of Systems Const All systems reviewed & are unremarkable except as noted in HPI and below Physical Exam Vital Signs: Last Vital Signs Temp 99.4 F 09/15/24 10:38 Pulse 66 09/15/24 10:38 BP 130/80 09/15/24 10:38 Pulse Ox 97 09/15/24 10:38 Oxygen Delivery Method Room Air 09/15/24 10:38 General: Cooperative, healthy appearing, comfortable and no acute distress Orientation/consciousness: Patient oriented x3 Limitations: No limitations Head: Normal to inspection Ears: Hearing grossly normal bilaterally, external ears normal, bilateral loss of landmarks, erythema and effusions Nose: Normal external nose present, Normal nares present and No nasal discharge present Face and sinus: Normal facial exam and Yes sinuses nontender Mouth: Normal oral and palatal mucosa present and moist mucous membranes Throat: Yes tonsils normal, Yes uvula midline. Posterior oropharynx erythema Eyes: Appearance normal, both eyes and all related structures Neck: Normal visual inspection Respirtory: Clear to auscultation bilaterally. Normal respiratory effort, able to speak in complete sentences, Actively coughing, no respiratory distress, not tachypneic, no tripod positioning and no use of accessory muscles Cardiovascular: Regular rate and rhythm. Normal S1 and S2 Skin: No rashes or lesions noted Neuro: Patient oriented x3 Extremities: Normal to inspection and Yes no clubbing, cyanosis or edema Assessment & Plan Assessment & Plan (1) URI (upper respiratory infection): Code(s): J06.9 - Acute upper respiratory infection, unspecified Qualifiers: URI type: unspecified URI Qualified Code(s): J06.9 - Acute upper respiratory infection, unspecified Plan: - Vital signs stable, pt well appearing, lungs CTA - Asthma: Continue use of albuterol inhaler every four to six hours as needed for dyspnea. Monitor for reduction in wheezing and improvement in breathing. - Upper Respiratory Infection: No specific antiviral discussed; emphasize supportive care with hydration and rest. Continue the use of mifu-cqf-jtghziy medications as needed for symptom relief. - Sent flu/covid and rsv testing as the infectious etiology is yet to be determined. (2) Bilateral otitis media with effusion: Code(s): H65.93 - Unspecified nonsuppurative otitis media, bilateral Plan: - Acute Otitis Media: Prescribe Augmentin amoxicillin/clavulanate) to be taken every 12 hours with food to manage ear infections and cover potential bacterial etiology. Orders: Orders SARS-CoV2/FLU/RSV Today J06.9 - Acute upper respiratory infection, unspecified Medications: New amoxicillin-pot clavulanate 875-125 mg 1 tab PO Q12H 14 tabs 0RF Coding Level of Care Code Est Pt Level 4 (38910) Diagnoses Upper respiratory tract infection, unspecified type J06.9 URI type: unspecified URI Bilateral otitis media with effusion H65.93
[2024-09-15 10:38] VITALS: BP 130/80; PULSE 66; TEMP 37.4; O2SAT 97
== END 2024-09-15 11:35 | disposition home or self-care (01) ==
PROVIDERS: PCP Internal Medicine; Visit Provider Physician Assistant
DX: J06.9 Acute upper respiratory infection, unspecified (principal); H65.93 Unspecified nonsuppurative otitis media, bilateral

== ENCOUNTER 2024-09-15 10:12 | Outpatient (REF) | payer OTHER, SELFPAY ==
[2024-09-15 16:45] LABS: Influenza A PCR NEGATIVE (Negative); Influenza B PCR NEGATIVE (Negative); Resp Syncy Virus RNA Qual PCR NEGATIVE (Negative); SARS COV2 PCR INHOUSE NEGATIVE (Negative)
== END 2024-09-15 10:13 | disposition home or self-care (01) ==
LOC: HO.LAB 10:12
PROVIDERS: PCP Internal Medicine; Visit Provider Physician Assistant
DX: J06.9 Acute upper respiratory infection, unspecified (principal); H65.93 Unspecified nonsuppurative otitis media, bilateral
CPT/HCPCS: 0241U; 99212

== ENCOUNTER 2024-09-27 09:45 | Outpatient (AMB) | payer OTHER, SELFPAY ==
--- NOTE | 2024-09-27 08:16 | A.OFFVIS_ITS ---
Vital Signs 09/27/24 10:03 Height 5 ft 7 in Weight 202 lb 13.204 oz BMI 31.8 BP 120/78 Blood Pressure Location Rt brachial Position Sitting Pulse 74 Pulse Source Pulse Oximeter Intake Visit Reasons: T1DM/CONF Intake Note: Patient presents today to re-establish treatment for Type 1 Diabetes Mellitus: Last Diabetic eye exam was on: 05/2024, Normal Exam Last Podiatry exam was on: Does not see a Ice Scraper Most recent HbA1c: 6.9%, 09/27/2024 Random Glucose- 185 mg/dL, Today Mining Engineer Required: No Mining Engineer Services: Mining Engineer Offered & Declined Accompanied by: Self / Same As Patient Allergies cortisone Allergy (Unknown, Verified 09/27/24 10:07) Unknown isoniazid Allergy (Unknown, Verified 09/27/24 10:07) Rash oxycodone [From PERCOCET] Allergy (Unknown, Verified 09/27/24 10:07) SWELLING promethazine [From PHENERGAN] Allergy (Unknown, Verified 09/27/24 10:07) RASH seafood Allergy (Unknown, Verified 09/27/24 10:07) Anaphylaxis tramadol [TRAMADOL] Allergy (Unknown, Verified 09/27/24 10:07) UNKNOWN, GI upset doxycycline Adverse Reaction (Intermediate, Verified 09/27/24 10:07) dizziness, abdominal discomfort fluticasone [Advair Diskus] Adverse Reaction (Unknown, Verified 09/27/24 10:07) tachycardia salmeterol [Advair Diskus] Adverse Reaction (Unknown, Verified 09/27/24 10:07) tachycardia HPI Comments Details: Patient is 64 yo male with DM type 1 diagnosed around 2016 who presents for management of diabetes. He also has a multinodular goiter and is followed here for that as well. He was last seen by Mynor Appiah on 04/05/24 and by Rema HAZEL on 05/12/24 at which time his pump settings were adjusted. Hemoglobin A1c 09/27/24 6/9%, %06/28/24 7%. Hgb A1C on 04/05/24 was 7.3%. He has an appointment with his zipper joiner he has occasional vertigo and believes it is related to his blood pressure medication. Past medical history: DM1, HTN, HLD, NTMNG (managed by this practice) Micro and macrovascular complications: Diabetes medications: backup plan 50 units of Lantus and Novolog with pump sett ings. Novolog via Tandem pump Symptoms reported: numbness, tingling, Hypoglycemia: rarely with symptoms of shaking, sweating - x1 mild recently. Treats low sugar with 3 sugar tablets and repeats as necessary. Hyperglycemia: + urinary frequency (uses diuretic), +nocturia (2-3x/night), +polydypsia Exercise: always moving, 15-20 minutes most days, limited due to back pain Lead Applier - CDE education: currently. Ice Scraper: Has not been seen recently but he will schedule Dental exam: goes every 6 month Ophthalmology evaluation: had appt in 05/2024 no retinopathy , has mild cataracts Dexcom average glucose: 168 14 day continuous glucose monitor report reviewed Glucose Managment indicator 7.3 % Days with CGM data 100 % TIme in ranges: 5.2 % very high (above 250) 29 % high ?(181-250) 66 % in range ?(70-180] 0 % low (69-55) [ 0] % ?very low (below 54) 45 Standard Deviation Interpretation [ readings in good control run running about 10 points above target] Had thyroid ultrasound 07/18 no significant change multiple sub centimeter nodules,had us , and 23. Biopsy/Afirma done 2020 benign Fibrosis-4 (Fib-4) Index for liver fibrosis (calculated on lab work done:11/18)[1.37 ] points Advanced fibrosis [excluded ] Approximate Fibrosis stage Ami [0-1 ] *Use with caution in patients <35 or >65 years old, as the score has been shown to be less reliable in these patients. Prior imaging: CT of the abdomen done in 2021 showed normal liver. Average glucose 161, CGM in use 100% of the time, time in range 72% GME my 7.2 T slim with control? IQ and Dexcom G6 Basal rate(s) (units/hour) : 12 AM to 3 AM 2.0 units / hr 3 AM to 10 AM 2.0 units / hr 10 AM to 2 PM 1.8 units / hr 2 PM to 12 AM? 2.0 units / hr Bolus setting Insulin Carbohydrate Ratio (s) 12 AM? to 12 AM 1:4.5 10 AM to 2 PM 1:3 2 PM to 12 AM 1:1.7 Correction Factor / Sensitivity Factor 12 AM? to 10 AM 1:20 10 AM? to 12 AM 1:15 Active Insulin Time:? 3 hours Target(s): 12 AM? to 12 AM 120 mg/dL Target with Control IQ: 12 AM? to 12 AM 110 mg/dL PFSH Medical History Osteoarthritis of left shoulder Neck pain Myofascial pain Radiculitis of left cervical region Chronic sore throat DVT of lower extremity, bilateral Ankle pain, left Mixed hyperlipidemia Bilateral hand pain Mixed hyperlipidemia GERD (gastroesophageal reflux disease) Obesity due to excess calories Non-toxic multinodular goiter Obesity (BMI 30.0-34.9) Hypertension Chronic inflammation of pancreas Pancreatic abnormality FH: cholecystectomy Hypertriglyceridemia Diabetes type 1, uncontrolled Surgical History Hx of cholecystectomy Hx of endoscopy Hx of colonoscopy History of laminectomy Family History Father Hypertension Hyperlipidemia Prostate cancer Diabetes Arthritis Mother Arthritis Hyperlipidemia Diabetes Osteoporosis Lung cancer Brother Lung cancer Throat cancer Social History Household Members: Spouse and Children Household Members Other:: daughter, , son Housing: House Alcohol intake: former Year quit: 26 Patient Tobacco Use Status: Never used Tobacco e-Cigarette/Vaping Use: Never Used Second Hand Smoke Exposure: No service: No Current occupational status: disabled Cognitive needs: No Hearing needs: No Vision needs: No Physical Exam Vital Signs: Last Vital Signs Pulse 74 09/27/24 10:03 BP 120/78 09/27/24 10:03 BMI result Body Mass Index 31.8 Const Other: Absence of Cushingoid features. Absence of acromegalic features. Neck exam reveals nl size thyroid about 15 gms. No thyroid nodules palpable. Heart S1 S2, Reg R/R. No M/R G. Skin exam reveals absence of vitiligo or acanthosis nigricans. No edema Neuro exam grossly nonfocal Visual exam of foot performed. No ulcerations or open lesions. No inter digit maceration or fissuring. No onychomycosis, no callouses. Sensation intact to monofilament exam. Vibratory sensation is normal with 128 Hz tuning fork. Office Procedures Glucose Monitoring Details Details: see [facility] [id number] - Glucose Monitoring, continuous Procedure code (CPT) selection complete Results AMB Hemoglobin A1c AMB Hemoglobin A1c 6.9 % Last Edit by BRYNN Ibrahim on 09/27/24 10:20 Results Reviewed Results Reviewed: Laboratory Last Values Glucose (Clinic) 185 mg/dL (60-115) H 09/27/24 10:06 Assessment & Plan Assessment & Plan (1) Diabetes type 1, uncontrolled: Code(s): E10.65 - Type 1 diabetes mellitus with hyperglycemia Category: Medical Plan: This 63-year-old male with a history of type 1 diabetes being treated with a T-slim X 2 with control IQ with excellent glycemic control He has no known microvascular or macrovascular complications. Backup pump failure plan reviewed Lantus 50 units plus usual dosing of Humalog for meals. He has insulin syringes for backup plan. He has a nasal spray and sugar tablets for hypoglycemia. Has Ketone test strips He reports some muscle achiness on statin and was advised he could trial Co Q10 [id number]. Lab orders placed for lipid profile and AST/ALT. The patient had an opportunity to ask questions regarding treatment plan. The patient expressed understanding and agreement with the above treatment plan. The patient is aware they should contact our office by phone for worsening glucose readings or for any low blood sugars which may warrant a change in diabetes medication. Compliance is encouraged with medications and any followup testing/consults which may have been ordered. He will follow up with Nephrology and PCP regarding intermittent dizziness Orders: Orders AMB Hemoglobin A1c Today E10.65 - Type 1 diabetes mellitus with hyperglycemia AMB Glucose Monitoring Today E10.65 - Type 1 diabetes mellitus with hyperglycemia Medications: Changed From insulin aspart U-100 Up to 120 units via a insulin pump subcutaneously; 40 mL 6RF E10.65 - Type 1 diabetes mellitus with hyperglycemia, E10.9 - Type 1 diabetes mellitus without complications To insulin aspart U-100 (Novolog U-100 Insulin aspart) Up to 140 units via a insulin pump subcutaneously; 30 days 50 mL 6RF E10.65 - Type 1 diabetes mellitus with hyperglycemia, E10.9 - Type 1 diabetes mellitus without complications Coding Level of Care Code Est Pt Level 4 (18914) Diagnoses Diabetes type 1, uncontrolled E10.65 CPT Codes Details - CPT: 13157 - Glucose Monitoring, continuous ([id number]) Time Spent (min) 35 Comment Time spent reviewing labs/provider notes, face to face, chart doc
[2024-09-27 10:03] VITALS: BP 120/78; PULSE 74; BMI 31.8
[2024-09-27 10:13] LABS: Glucose, Whole Blood 185 mg/dL (60-115)
== END 2024-09-27 10:23 | disposition home or self-care (01) ==
PROVIDERS: PCP Internal Medicine; Visit Provider Nurse Practitioner Adult Health
DX: E10.65 Type 1 diabetes mellitus with hyperglycemia (principal)
CPT/HCPCS: 99214

== ENCOUNTER → 2024-09-27 09:45 | Outpatient (BNVA) | payer OTHER, SELFPAY | PROVIDERS: PCP Internal Medicine; Visit Provider Nurse Practitioner Adult Health | DX: E10.65 Type 1 diabetes mellitus with hyperglycemia (principal); Z96.41 Presence of insulin pump (external) (internal); Z79.4 Long term (current) use of insulin | CPT/HCPCS: 82947; 83036; 95250; 99212 ==

== ENCOUNTER 2024-10-11 10:15 | Outpatient (AMB) | payer OTHER, SELFPAY ==
--- OUTSIDE RECORDS SUMMARY | 2024-10-11 10:17 | XMS_ITS | Continuity of Care Document ---
Author Organization [facility] Address [address] [place] [id number]- Care Team Providers Care Product Scientist Name Role Phone Seamus Napier MD, Kiley Gomez Primary Care Physician Encounter [facility] [place] Date(s): 08/29/24 - 09/28/24 [facility] [address] [place] [address]- Encounter Type: Triage Allergies, Adverse Reactions, Alerts Substance Criticality Severity Reaction Reaction Severity Status promethazine Active TraZODone Hydrochloride Active Percocet 5/325 Activ e aspirin edema & redness Acti ve Seafood edema, difficul ty breathing Active Immunizations Given and Recorded Vaccine Date Status Refusal Reason pneumococcal 23-valent vaccine 07/21/16 Given Medications atorvastatin 20 mg oral tablet 1 tablet = 20 mg, By Mouth, Daily, 0 Refills, Maintenance, 12/08/22 11:03:00 AM EST, Partial fill upon patient request if the prescription is for a schedule II opioid drug. Start Date: 12/08/22 Status: Ordered Repeat number: 1 Avodart 0.5 mg oral capsule 1 capsule = 0.5 mg, By Mouth, Daily, # 90 capsule, 0 Refills, Maintenance, 05/15/19 7:31:41 PM EDT, Capsule Start Date: 05/15/19 Status: Ordered Quantity: 90.0 Unit: capsule Repeat number: 1 betamethasone-clotrimazole 0.05%-1% topical cream Topically, 2 times a day, 0 Refills, Maintenance, 04/15/21 11:08:00 AM EDT, Partial fill upon patient request if the prescription is for a schedule II opioid drug. Start Date: 04/15/21 Status: Ordered Repeat number: 1 chlorthalidone 25 mg oral tablet 25 mg, 1, tablet, By Mouth, Daily, Refills 0, Maintenance, 04/15/21 11:11:00 AM EDT, Partial fill upon patient request if the prescription is for a schedule II opioid drug. Start Date: 04/15/21 Status: Ordered Repeat number: 1 Duoneb Inhalation Solution 3, mL, Neb, Every 4 hours, PRN, Refills 0, Maintenance, 07/21/16 12:56:37 PM EDT, Inhalation Solution Start Date: 07/21/16 Status: Ordered Repeat number: 1 fenofibrate 160 mg oral tablet 1 tablet = 160 mg, By Mouth, Daily, # 90 tablet, 0 Refills, Maintenance, 05/15/19 7:32:47 PM EDT, Tablet Start Date: 05/15/19 Status: Ordered Quantity: 90.0 Unit: tablet Repeat number: 1 fenofibrate 50 mg oral capsule 1 capsule = 50 mg, By Mouth, Daily, 0 Refills, Maintenance, 11/30/23 11:32:00 AM EST, Partial fill upon patient request if the prescription is for a schedule II opioid drug. Start Date: 11/30/23 Status: Ordered Repeat number: 1 Flomax 0.4 mg oral capsule 0.4 mg, By Mouth, Daily, Refills 0, Maintenance, 07/05/16 3:58:52 PM EDT Start Date: 07/05/16 Status: Ordered Repeat number: 1 Flonase 50 mcg/inh nasal spray 1 sprays, Nares, Both, 2 times a day, PRN Congestion, 0 Refills, Maintenance, 05/15/19 7:32:13 PM EDT, [place] Start Date: 05/15/19 Status: Ordered Repeat number: 1 Gabapentin By Mouth, 0 Refills, Maintenance, 12/08/22 11:03:00 AM EST, Partial fill upon patient request if theprescription is for a schedule II opioid drug. Start Date: 12/08/22 Status: Ordered Repeat number: 1 hydrALAZINE 0 Refills, Maintenance, 12/08/22 11:06:00 AM EST, Partial fill upon patient request if the prescription is for a schedule II opioid drug. Start Date: 12/08/22 Status: Ordered Repeat number: 1 Imuran 50 mg oral tablet 100 mg, 2, tablet, By Mouth, Daily, # 60 tablet, Refills 11, Tot. Refills 11, Maintenance, 10/27/23 4:23:00 PM EST, Route to Pharmacy Electronically, [facility]/pharmacy #[id number], 170, cm, 12/08/22 11:00:00 EST,Height Start Date: 10/27/23 Stop Date: 10/21/24 Status: Ordered Quantity: 60.0 Unit: tablet Repeat number: 12 losartan 100 mg oral tablet 1 tablet = 100 mg, By Mouth, Daily, # 90 tablet, 0 Refills, Maintenance, 05/15/19 7:24:09 PM EDT, Tablet Start Date: 05/15/19 Status: Ordered Quantity: 90.0 Unit: tablet Repeat number: 1 MiraLax oral powder for reconstitution = 17 Gm, By Mouth, Daily, dissolve in water before taking, # 527 Gm, 5 Refills, Maintenance, 08/29/24 1:45:00 PM EST, REC Powder, [facility]/pharmacy #[id number], Partial fill upon patient request if the prescription is for a schedule II opioid drug., 17 Gm By Mouth Daily,Instr:dissolve in water before taking, 170, cm, 11/30/23 11:28:00 EST, Height Start Date: 08/29/24 Status: Ordered Quantity: 527.0 Unit: g Repeat number: 6 NovoLOG 100 units/mL subcutaneous solution See Instructions, Subcutaneous Injection, Use as directed for Diabetes mellitus type 1. (Max Dose =50 units/day), 10 mL vials, # 9 vials, 2 Refills, Maintenance, 05/15/19 7:31:02 PM EDT Start Date: 05/15/19 Stop Date: 08/13/19 Status: Ordered Quantity: 9.0 Unit: vials Repeat number: 1 omeprazole 20 mg oral enteric coated capsule 1 capsule = 20 mg, By Mouth, Daily, # 30 capsule, 0 Refills, Maintenance, 10/22/11 4:25:19 PM EST, EC Capsule Start Date: 10/22/11 Status: Ordered Quantity: 30.0 Unit: capsule Repeat number: 1 ProAir HFA 90 mcg/inh inhalation aerosol with adapter 1, puffs, Inhalation, Every 6 hours, PRN, # 8.5 Gm, Refills 0, Maintenance, 05/15/19 7:45:02 PM EDT,Aerosol Start Date: 05/15/19 Status: Ordered Quantity: 8.5 Unit: g Repeat number: 1 Zofran 4 mg oral tablet 1 tablet = 4 mg, By Mouth, Every 6 hours, PRN as needed for nausea/vomiting, 0 Refills, Maintenance, 05/15/19 7:44:24 PM EDT, Tablet Start Date: 05/15/19 Status: Ordered Repeat number: 1 Problem List Condition Confirmation Course Effective Dates Status Health St atus Informant Abdominal pain Confirmed Active Obese class I Confirmed Active Social History Social History Type Response Smoking Status Never smoker entered on: 07/20/16 Sex Sex Representation Male (finding) Patient Care team information Care Team Personnel Name: Chaparrita Raines RN Position: [facility] RN Member Role: Primary Care Nurse Name: Domitila RNNupur Position: [facility] ED RN W/OE and Tasks Member Role: Primary Care Nurse Name: Marylou Huber RN Position: [facility] RN Member Role: Primary Care Nurse Name: Renae Chisholm RN Position: [facility] ED RN W/OE and Tasks Member Role: Primary Care Nurse Name: Radha Knox RN Position: [facility] RN Member Role: Primary Care Nurse Name: Cheli Vaughn RN Position: [facility] RN Member Role: Primary Care Nurse Name: Rubén Moody RN Position: [facility] RN Member Role: Primary Care Nurse Name: Seamus Napier MD , Bhargavi Position: Reference Physician Member Role: PCP Address: [address] [place] [address] [address] [place] [id number] Telecom: Name: Mere Kuhn RN Position: [facility] RN Member Role: Primary Care Nurse Care Team Related Persons Name: MAGGIE TEJADA Name: MAGGIE TEJADA I Insurance Providers Guarantor name: GUILLE TEJADA Health Plan Information #: 1 Payer: [facility] [employer] Member Number: NA Policy Number: NA Group Number: NA
--- NOTE | 2024-10-11 10:37 | A.OFFVIS_ITS ---
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: T1DM Weight Recorder Required: Yes Weight Recorder Language: Benefits Coordinator Services: Weight Recorder Offered & Declined Accompanied by: Self / Same As Patient Allergies cortisone Allergy (Unknown, Verified 09/27/24 10:07) Unknown isoniazid Allergy (Unknown, Verified 09/27/24 10:07) Rash oxycodone [From PERCOCET] Allergy (Unknown, Verified 09/27/24 10:07) SWELLING promethazine [From PHENERGAN] Allergy (Unknown, Verified 09/27/24 10:07) RASH seafood Allergy (Unknown, Verified 09/27/24 10:07) Anaphylaxis tramadol [TRAMADOL] Allergy (Unknown, Verified 09/27/24 10:07) UNKNOWN, GI upset doxycycline Adverse Reaction (Intermediate, Verified 09/27/24 10:07) dizziness, abdominal discomfort fluticasone [Advair Diskus] Adverse Reaction (Unknown, Verified 09/27/24 10:07) tachycardia salmeterol [Advair Diskus] Adverse Reaction (Unknown, Verified 09/27/24 10:07) tachycardia HPI Comprehensive Diabetes Asmnt Most Recent Diabetes Results: No Data to Display [facility] Medical History Osteoarthritis of left shoulder Neck pain Myofascial pain Radiculitis of left cervical region Chronic sore throat DVT of lower extremity, bilateral Ankle pain, left Mixed hyperlipidemia Bilateral hand pain Mixed hyperlipidemia GERD (gastroesophageal reflux disease) Obesity due to excess calories Non-toxic multinodular goiter Obesity (BMI 30.0-34.9) Hypertension Chronic inflammation of pancreas Pancreatic abnormality FH: cholecystectomy Hypertriglyceridemia Diabetes type 1, uncontrolled Surgical History Hx of cholecystectomy Hx of endoscopy Hx of colonoscopy History of laminectomy Family History Father Hypertension Hyperlipidemia Prostate cancer Diabetes Arthritis Mother Arthritis Hyperlipidemia Diabetes Osteoporosis Lung cancer Brother Lung cancer Throat cancer Social History Household Members: Spouse and Children Household Members Other:: daughter, , son Housing: House Alcohol intake: former Year quit: 26 Patient Tobacco Use Status: Never used Tobacco e-Cigarette/Vaping Use: Never Used Second Hand Smoke Exposure: No service: No Current occupational status: disabled Cognitive needs: No Hearing needs: No Vision needs: No Assessment & Plan Assessment & Plan (1) Diabetes type 1, uncontrolled: Code(s): E10.65 - Type 1 diabetes mellitus with hyperglycemia Plan: Patient presents for pump training for? T slim with control? IQ and Dexcom G6 The following topics were reviewed today: - process for upgrading T slim to Dexcom G7 ?Sensor setting (if applicable) ??? High Alert: 200 mg/dl ??? Low Alert: 80 mg/dl Above Target: 24% At Target:77% Below Target: 0% Average glucose for the last 2 weeks 157 mg/dL Patient's glucose control doing well Patient and his daughter were unable to upgrade insulin pump to be compatible with Dexcom G7 sensor, at today's visit patient given samples of Dexcom G6 sensors, in instructed to make appointment with sheet metal erector to do tutorial in the clinic. Patient instructed to bring tandem log in information, Dexcom G7 sensor, tandem cartridge and insulin to training appointment Insulin delivery settings Troubleshooting after starting new pod or inserting new insulin set: Occlusion, adhesive tape sensitivity, redness Check BG 2 hours after site change Safety information: Patient understands the basic concepts of pump therapy, how to give insulin for meals and snacks, how to troubleshoot for hyper and hypoglycemia. Setting verified by CDCES,no changes to setting below: Basal rate(s) (units/hour) : 12 AM to 3 AM 2 units / hr 3 AM to 10 AM 2 units / hr 10 AM to 2 PM 1.8 units / hr 2 PM to 12 AM? 2.0 units / hr Bolus setting Insulin Carbohydrate Ratio (s) 12 AM? to 3 AM 1:4.5?? 3 AM to 10 AM 1:5 10 AM to 2 PM 1:3 2 PM to 12 AM 1:1.7 Correction Factor / Sensitivity Factor 12 AM? to 10 AM 1:20 10 AM? to 12 AM 1:15 Active Insulin Time:? 3 hours Target(s): 12 AM? to 12 AM 120 mg/dL Target with Control IQ: 12 AM? to 12 AM 110 mg/dL Patient Instructions: Lleve la informaci?n de inicio de sesi?n de Tandem, el sensor Dexcom G7, el cartucho y la insulina para actualizar la bomba de insulina. Coding Level of Care Code Est Pt Level 1 (11883) Diagnoses Diabetes type 1, uncontrolled E10.65
== END 2024-10-11 10:51 | disposition home or self-care (01) ==
PROVIDERS: PCP Internal Medicine; Visit Provider Registered Nurse Diabetes Educator
DX: E10.65 Type 1 diabetes mellitus with hyperglycemia (principal)

== ENCOUNTER → 2024-10-11 10:15 | Outpatient (BNVA) | payer OTHER, SELFPAY | PROVIDERS: PCP Internal Medicine; Visit Provider Registered Nurse Diabetes Educator | DX: E10.65 Type 1 diabetes mellitus with hyperglycemia (principal); Z46.81 Encounter for fitting and adjustment of insulin pump | CPT/HCPCS: 82947; 99211; 99212 ==

== ENCOUNTER 2024-10-11 10:30 | Outpatient (AMB) | payer OTHER, SELFPAY ==
--- NOTE | 2024-10-11 10:31 | MHC.OFFVIS ---
Vital Signs 10/11/24 10:32 Height 5 ft 7 in Weight 202 lb 6.15 oz BMI 31.7 BP 164/84 H Blood Pressure Location Lt brachial Position Sitting Pulse 57 Pulse Source Pulse Oximeter Intake Visit Reasons: T1DM Intake Note: Patient present today for Type 1 Diabetes Mellitus. Last Diabetic eye exam: 10/11/24 Last Podiatry Visit: Doesn't have one. Random Glucose: 106 mg/dl HgA1C: 6.9% 09/27/24 Slitter Processed Film Required: No Accompanied by: Self / Same As Patient Allergies cortisone Allergy (Unknown, Verified 10/11/24 11:07) Unknown isoniazid Allergy (Unknown, Verified 10/11/24 11:07) Rash oxycodone [From PERCOCET] Allergy (Unknown, Verified 10/11/24 11:07) SWELLING promethazine [From PHENERGAN] Allergy (Unknown, Verified 10/11/24 11:07) RASH seafood Allergy (Unknown, Verified 10/11/24 11:07) Anaphylaxis tramadol [TRAMADOL] Allergy (Unknown, Verified 10/11/24 11:07) UNKNOWN, GI upset doxycycline Adverse Reaction (Intermediate, Verified 10/11/24 11:07) dizziness, abdominal discomfort fluticasone [Advair Diskus] Adverse Reaction (Unknown, Verified 10/11/24 11:07) tachycardia salmeterol [Advair Diskus] Adverse Reaction (Unknown, Verified 10/11/24 11:07) tachycardia HPI Comments Details: Patient is 64 yo male with DM type 1 diagnosed around 2016 who presents for management of diabetes. He also has a multinodular goiter and is followed here for that as well. He follows with Jasmin Wilkins APRN , last seen 09/27/24, has next visit in December 2024 This appointment was arranged urgently for concerns of foot infection while he was seeing our CDE Rema today 10/11/24 Hemoglobin A1c 09/27/24 6.9% , %06/28/24 7%. Hgb A1C on 04/05/24 was 7.3%. Random glucose 106 mg/dl Past medical history: DM1, HTN, HLD, NTMNG (managed by this practice) Micro and macrovascular complications: Diabetes medications: backup plan 50 units of Lantus and Novolog with pump settings. Novolog via Tandem pump Symptoms reported: Hypoglycemia: rarely with symptoms of shaking, sweating - x1 mild recently. Treats low sugar with 3 sugar tablets and repeats as necessary. Hyperglycemia: + urinary frequency (uses diuretic), +nocturia (2-3x/night), +polydypsia Exercise: always moving, 15-20 minutes most days, limited due to back pain Station Master - CDE education: currently. 10/11/24 Blending Tank Tender: Referral placed for urgent visit today 10/11/24 Dental exam: goes every 6 month Ophthalmology evaluation: had appt in 05/2024 no retinopathy , has mild cataracts CGM interpretation: Insulin pump downloaded along with Dexcom CGM: Noted to have hyperglycemia especially after his meals mostly later in the day. Noticed that some days he is not bolusing prior to his meals and giving it after. Multinodular goiter: Had thyroid ultrasound 07/18 no significant change multiple sub centimeter nodules,had us , and 23. Patient had repeated FNA of Right lower pole thyroid on 02/14/2021 cytology was benign., consistent benign follicular nodule [place] category 2. Afirma was performed as this nodule had a prior FNA on November 2020 advised the hospital that was AUS. Afirma was negative. This decrease the risk of malignancy to 4%. He had fine-needle aspiration on 12/21/2020 at [facility] Right thyroid nodule was benign 1.2 x 0.8 x 1.2 cm and right lower pole nodule was atypia of undetermined significance size was 1 x 0.8 x 0.9 cm. There was no Afirma are other genetic testing sample performed. Fibrosis-4 (Fib-4) Index for liver fibrosis (calculated on lab work done:11/18)[1.37 ] points Advanced fibrosis [excluded ] Approximate Fibrosis stage Ami [0-1 ] *Use with caution in patients <35 or >65 years old, as the score has been shown to be less reliable in these patients. Prior imaging: CT of the abdomen done in 2021 showed normal liver. Physical exam General: sitting comfortably in no acute distress HEENT: normocephalic/atraumatic, Neck: supple, symmetrical, no thyromegaly , no dorsocervical or supraclavicular fat pads Cardiac: normal heart sounds Pulm: normal breath sounds B/L, no added breath sounds Abd: not distended, no tenderness Extremities: no edema, no signs of myxedema Neuro: AAO x3, Speech: normal, no facial droop, moving all 4 extremities Skin: no rash Foot exam: intact sensation to monofilament, intact pulses, ingrown toenail noted on both big toes. The left 1 is worsened with slight inflammation of the big toe with some erythema. No significant tenderness or temperature change. Laboratory Tests 07/13/24 09/27/24 09:06 10:16 Creatinine 1.01 Estimated GFR > 60 Hgb A1c (Clinic) 6.9 H AST 27 ALT 22 Triglycerides 174 H Cholesterol 156 LDL Cholesterol, Calc 88 HDL Cholesterol 34 L TSH 0.56 Urine Creatinine 207.54 Urine Microalbumin 7.0 Microalb/Creat Ratio 3.3 US THYROID 06/2023 CLINICAL INFORMATION: Nontoxic single thyroid nodule. COMPARISON: CT soft tissue neck with contrast 07/18/2022. Ultrasound thyroid 01/09/2022 and 11/01/2020. TECHNIQUE: Linear transducer hayes-scale and color Doppler examination with attention to the region of the thyroid. FINDINGS: SIZE: Measurements of the thyroid lobes and nodules are given in sagittal, anteroposterior and transverse dimensions respectively. Right Thyroid Lobe: 5.2 x 2.5 x 2.0 cm, volume 13.1 mL. Previously 5.2 x 2.0 x 1.9 cm, volume 11.9 mL. Parenchyma: The gland echotexture is homogeneous. Thyroid vascularity is normal. Left Thyroid Lobe: 3.4 x 1.7 x 1.9 cm, volume 5.7 mL. Previously 4.4 x 1.8 x 1.7 cm, volume 7.1 mL. Parenchyma: The gland echotexture is homogeneous. Thyroid vascularity is normal. Isthmus: 0.4 cm in maximum AP dimension. Previously 0.2 cm. Estimated total number of nodules greater than or equal to 1 cm: 0. Ceramic Artist nodules are described as follows: 1. Location: Right mid. Size: 0.5 x 0.4 x 0.5 cm, volume 0.1 mL. Previously: 0.7 x 0.5 x 0.8 cm, volume 0.2 mL. Nodule characteristics: Composition: Solid/almost completely solid (2). Echogenicity: Isoechoic (1). Shape: Not taller than wide (0). Margins: Smooth (0). Echogenic Foci: None (0). ACR TI-RADS total points: 3 Previous: 3 ACR TI-RADS category: 3 Previous: 3 Significant change in size (>/= 20% in 2 dimensions and minimal increase of 2 mm or 50% or greater increase in volume): No Change in features: More solid on the current study Change in ACR TI-RADS risk category: No 2. Location: Right inferior. Size: 0.4 x 0.3 x 0.4 cm, volume 0.02 mL. Previously: 0.4 x 0.3 x 0.4 cm, volume 0.02 mL. Nodule characteristics: Composition: Cystic(0). ACR TI-RADS total points: 0 Previous: 0 ACR TI-RADS category: 1 Previous: 1 Significant change in size (>/= 20% in 2 dimensions and minimal increase of 2 mm or 50% or greater increase in volume): No Change in features: No Change in ACR TI-RADS risk category: No 3. Location: Left mid. Size: 0.7 x 0.3 x 0.5 cm, volume 0.1 mL. Previously: 0.6 x 0.4 x 0.3 cm, volume 0.04 mL. Nodule characteristics: Composition: Solid/almost completely solid (2). Echogenicity: Isoechoic (1). Shape: Not taller than wide (0). Margins: Smooth (0). Echogenic Foci: None (0). ACR TI-RADS total points: 3 Previous: 4 ACR TI-RADS category: 3 Previous: 4 Significant change in size (>/= 20% in 2 dimensions and minimal increase of 2 mm or 50% or greater increase in volume): No Change in features: No Change in ACR TI-RADS risk category: Yes 4. Location: Left inferior. Size: 0.7 x 0.5 x 0.7 cm, volume 0.1 mL. Previously: 0.6 x 0.5 x 0.7 cm, volume 0.1 mL. Nodule characteristics: Composition: Solid/almost completely solid (2). Echogenicity: Isoechoic (1). Shape: Not taller than wide (0). Margins: Smooth (0). Echogenic Foci: None (0). ACR TI-RADS total points: 3 Previous: 4 ACR TI-RADS category: 3 Previous: 4 Significant change in size (>/= 20% in 2 dimensions and minimal increase of 2 mm or 50% or greater increase in volume): No Change in features: No Change in ACR TI-RADS risk category: Yes NODES: 0.8 cm TRV benign-appearing lymph node is seen on the right at level 3, similar to the prior study. US/US thyroid IMPRESSION: Homogeneous thyroid gland with subcentimeter thyroid nodules. Based on ACR TI-RADS recommendations, no follow-up imaging is recommended. COUNT INCLUDES THE [facility] Medical History Osteoarthritis of left shoulder Neck pain Myofascial pain Radiculitis of left cervical region Chronic sore throat DVT of lower extremity, bilateral Ankle pain, left Mixed hyperlipidemia Bilateral hand pain Mixed hyperlipidemia GERD (gastroesophageal reflux disease) Obesity due to excess calories Non-toxic multinodular goiter Obesity (BMI 30.0-34.9) Hypertension Chronic inflammation of pancreas Pancreatic abnormality FH: cholecystectomy Hypertriglyceridemia Diabetes type 1, uncontrolled Surgical History Hx of cholecystectomy Hx of endoscopy Hx of colonoscopy History of laminectomy Family History Father Hypertension Hyperlipidemia Prostate cancer Diabetes Arthritis Mother Arthritis Hyperlipidemia Diabetes Osteoporosis Lung cancer Brother Lung cancer Throat cancer Social History Household Members: Spouse and Children Household Members Other:: daughter, , son Housing: House Alcohol intake: former Year quit: 26 Patient Tobacco Use Status: Never used Tobacco e-Cigarette/Vaping Use: Never Used Second Hand Smoke Exposure: No service: No Current occupational status: disabled Cognitive needs: No Hearing needs: No Vision needs: No Physical Exam Vital Signs: Last Vital Signs Pulse 57 10/11/24 10:32 BP 164/84 H 10/11/24 10:32 BMI result Body Mass Index 31.7 Office Procedures Glucose Monitoring Details Details: see HPI Procedure code (CPT) selection complete Assessment & Plan Assessment & Plan (1) Diabetes type 1, uncontrolled: Code(s): E10.65 - Type 1 diabetes mellitus with hyperglycemia Category: Medical Qualifiers: Glycemic state: with hyperglycemia Qualified Code(s): E10.65 - Type 1 diabetes mellitus with hyperglycemia Plan: This 63-year-old male with a history of type 1 diabetes being treated with a T-slim X 2 with control IQ with good glycemic control He has no known microvascular or macrovascular complications. Backup pump failure plan reviewed Lantus 50 units plus usual dosing of Humalog for meals. He has insulin syringes for backup plan. He has a nasal spray and sugar tablets for hypoglycemia. Has Ketone test strips H Reviewed CGM data as well as pump data today which did show he was having some hyperglycemia later in the day postprandially usually from 15:00 to midnight. I discussed with him making minimal changes to tighten his carb ratios and increasing his sensitivity, however patient wanted to hold off on some of the changes and go with the education to bolus himself 15 minutes before meals. I discussed with the him definitely these changes could be considered by his main provider in the near future as overall he has good control. Today's major concern was his ingrown toenail in the left big toe. He does not have a bolt cutter. I placed a referral for Podiatry for him to be evaluated urgently. I have also asked him to go see his primary care physician/urgent care for evaluation of ingrown toenail. At this time I examined his foot, while it does appear mildly erythematous on the big toe, I do not feel any major temperature changes, which is not significantly tender. He does have an ingrown toenail, however intact pulses. No need for him to go to the emergency room but does definitely need further evaluation with a his primary care for ingrown toenail also with Podiatry. The patient had an opportunity to ask questions regarding treatment plan. The patient expressed understanding and agreement with the above treatment plan. The patient is aware they should contact our office by phone for worsening glucose readings or for any low blood sugars which may warrant a change in diabetes medication. Compliance is encouraged with medications and any followup testing/consults which may have been ordered. (2) Non-toxic multinodular goiter: Code(s): E04.2 - Nontoxic multinodular goiter Category: Medical Plan: Patient with a history of prior FNA biopsies in 2020 with nontoxic multinodular goiter, with most recent ultrasound in June 2023 which showed subcentimeter thyroid nodules. I reviewed his ultrasound, no need for further imaging unless he has any clinical changes. Plan I spent 30 minutes in reviewing the record, seeing the patient and documenting in the medical record. Orders: Orders AMB Glucose Monitoring Today E10.65 - Type 1 diabetes mellitus with hyperglycemia Referrals Podiatry Referral E10.65 - Type 1 diabetes mellitus with hyperglycemia Patient Instructions: Call your PCP or go to urgent care for treatment of foot inflammation Also establish with foot doctor referral sent please give their office a call [facility] P[facility] o acuda a atenci?n de urgencia para recibir tratamiento de la inflamaci?n del pie. Tambi?n establezca con la referencia del m?dico de los pies enviada, [facility] consultorio. Coding Level of Care Code Est Pt Level 4 (79663) Diagnoses Uncontrolled type 1 diabetes mellitus with hyperglycemia E10.65 Glycemic state: with hyperglycemia Non-toxic multinodular goiter E04.2 Time Spent (min) 30
[2024-10-11 10:32] VITALS: BP 164/84; PULSE 57; BMI 31.7
[2024-10-11 11:15] LABS: Glucose, Whole Blood 106 mg/dL (60-115)
== END 2024-10-11 11:38 | disposition home or self-care (01) ==
LOC: HO.ENCR 10:30
PROVIDERS: PCP Internal Medicine; Visit Provider Student in an Organized Health Care Education/Training Program
DX: E10.65 Type 1 diabetes mellitus with hyperglycemia (principal); E04.2 Nontoxic multinodular goiter
CPT/HCPCS: 99214

== ENCOUNTER 2024-11-02 09:16 | Outpatient (AMB) | payer OTHER, SELFPAY ==
--- NOTE | 2024-11-02 10:06 | MHC.AMDMED ---
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: Pump upgrade 90 min Stretching Machine Tender Frame Required: Yes Stretching Machine Tender Frame Services: Stretching Machine Tender Frame Offered & Declined Accompanied by: Self / Same As Patient Allergies cortisone Allergy (Unknown, Verified 10/11/24 11:07) Unknown isoniazid Allergy (Unknown, Verified 10/11/24 11:07) Rash oxycodone [From PERCOCET] Allergy (Unknown, Verified 10/11/24 11:07) SWELLING promethazine [From PHENERGAN] Allergy (Unknown, Verified 10/11/24 11:07) RASH seafood Allergy (Unknown, Verified 10/11/24 11:07) Anaphylaxis tramadol [TRAMADOL] Allergy (Unknown, Verified 10/11/24 11:07) UNKNOWN, GI upset doxycycline Adverse Reaction (Intermediate, Verified 10/11/24 11:07) dizziness, abdominal discomfort fluticasone [Advair Diskus] Adverse Reaction (Unknown, Verified 10/11/24 11:07) tachycardia salmeterol [Advair Diskus] Adverse Reaction (Unknown, Verified 10/11/24 11:07) tachycardia HPI Comprehensive Diabetes Asmnt Most Recent Diabetes Results: No Data to Display [facility] Medical History Osteoarthritis of left shoulder Neck pain Myofascial pain Radiculitis of left cervical region Chronic sore throat DVT of lower extremity, bilateral Ankle pain, left Mixed hyperlipidemia Bilateral hand pain Mixed hyperlipidemia GERD (gastroesophageal reflux disease) Obesity due to excess calories Non-toxic multinodular goiter Obesity (BMI 30.0-34.9) Hypertension Chronic inflammation of pancreas Pancreatic abnormality FH: cholecystectomy Hypertriglyceridemia Diabetes type 1, uncontrolled Surgical History Hx of cholecystectomy Hx of endoscopy Hx of colonoscopy History of laminectomy Family History Father Hypertension Hyperlipidemia Prostate cancer Diabetes Arthritis Mother Arthritis Hyperlipidemia Diabetes Osteoporosis Lung cancer Brother Lung cancer Throat cancer Social History Household Members: Spouse and Children Household Members Other:: daughter, , son Housing: House Alcohol intake: former Year quit: 26 Patient Tobacco Use Status: Never used Tobacco e-Cigarette/Vaping Use: Never Used Second Hand Smoke Exposure: No service: No Current occupational status: disabled Cognitive needs: No Hearing needs: No Vision needs: No Assessment & Plan Assessment & Plan (1) Diabetes type 1, uncontrolled: Code(s): E10.65 - Type 1 diabetes mellitus with hyperglycemia Qualifiers: Glycemic state: with hyperglycemia Qualified Code(s): E10.65 - Type 1 diabetes mellitus with hyperglycemia Plan: Patient presents for pump training for? T slim with control? IQ and Dexcom G6 The following topics were reviewed today: - we were unable to complete pump update at today's visit patient does not have access to [employer] e-mail address. Instructed patient he needs to reset password, on [employer] account Called [employer] support they sent password reset to patient's e-mail In addition patient has spoke with customer service to report problem with cartridge loading [employer] will be sending patient replacement pump When patient receives replacement pump he is to reset [employer] password so that at next week's visit we can complete tutorials and set up Dexcom G7 ?Sensor setting (if applicable) ??? High Alert: 200 mg/dl ??? Low Alert: 80 mg/dl Above Target: 38% At Target:62% Below Target: 0% Average glucose for the last 2 weeks 173 mg/dL Insulin delivery settings Troubleshooting after starting new pod or inserting new insulin set: Occlusion, adhesive tape sensitivity, redness Check BG 2 hours after site change Safety information: Patient understands the basic concepts of pump therapy, how to give insulin for meals and snacks, how to troubleshoot for hyper and hypoglycemia. Setting verified by CDCES,no changes to setting below: Basal rate(s) (units/hour) : 12 AM to 3 AM 2 units / hr 3 AM to 10 AM 2 units / hr 10 AM to 2 PM 1.8 units / hr 2 PM to 12 AM? 2.0 units / hr Bolus setting Insulin Carbohydrate Ratio (s) 12 AM? to 3 AM 1:4.5?? 3 AM to 10 AM 1:5 10 AM to 2 PM 1:3 2 PM to 12 AM 1:1.7 Correction Factor / Sensitivity Factor 12 AM? to 10 AM 1:20 10 AM? to 12 AM 1:15 Active Insulin Time:? 3 hours Target(s): 12 AM? to 12 AM 120 mg/dL Target with Control IQ: 12 AM? to 12 AM 110 mg/dL Coding Level of Care Code Est Pt Level 1 (97128) Diagnoses Uncontrolled type 1 diabetes mellitus with hyperglycemia E10.65 Glycemic state: with hyperglycemia
== END 2024-11-02 10:07 | disposition home or self-care (01) ==
PROVIDERS: PCP Internal Medicine; Visit Provider Registered Nurse Diabetes Educator
DX: E10.65 Type 1 diabetes mellitus with hyperglycemia (principal)

== ENCOUNTER → 2024-11-02 09:16 | Outpatient (BNVA) | payer OTHER, SELFPAY | PROVIDERS: PCP Internal Medicine; Visit Provider Registered Nurse Diabetes Educator | DX: E10.65 Type 1 diabetes mellitus with hyperglycemia (principal); Z79.4 Long term (current) use of insulin; Z96.41 Presence of insulin pump (external) (internal) | CPT/HCPCS: 99211 ==

== ENCOUNTER 2024-11-03 09:58 | Outpatient (REF) | payer OTHER, SELFPAY ==
[2024-11-03 18:27] LABS: Anion Gap 13 (12-20); Blood Urea Nitrogen 16 mg/dL (9-16); Carbon Dioxide 27 mmol/L (22-29); Chloride 101 mmol/L (96-108); Estimated Glomerular Filt Rate > 60; Potassium 3.5 mmol/L (3.3-5.1); Sodium 137 mmol/L (135-145)
== END 2024-11-03 09:59 | disposition home or self-care (01) ==
LOC: HO.HKASLDS 09:58
PROVIDERS: PCP Internal Medicine; Visit Provider Internal Medicine Nephrology
DX: I10 Essential (primary) hypertension (principal); E11.9 Type 2 diabetes mellitus without complications; K86.89 Other specified diseases of pancreas; Z79.899 Other long term (current) drug therapy
CPT/HCPCS: 36415; 80051; 82565; 84520; 99212

== ENCOUNTER 2024-11-03 09:58 | Outpatient (AMB) | payer OTHER, SELFPAY ==
--- NOTE | 2024-11-03 10:38 | HO.NEPHOV ---
Vital Signs 11/03/24 10:41 Height 5 ft 7 in Weight 203 lb 6 oz BMI 31.8 BP 134/80 Blood Pressure Location Lt brachial Position Sitting Pulse 65 Pulse Source Pulse Oximeter Pulse Oximetry (%) 96 Oxygen Delivery Method Room Air Intake Visit Reasons: 6 mon follow up-Conf Theatrical Variety Agent Required: Yes Theatrical Variety Agent Language: Stage Builder Services: Theatrical Variety Agent Offered & Declined ([facility] member certification manager services refused ) Accompanied by: Self / Same As Patient Allergies cortisone Allergy (Unknown, Verified 11/03/24 10:40) Unknown isoniazid Allergy (Unknown, Verified 11/03/24 10:40) Rash oxycodone [From PERCOCET] Allergy (Unknown, Verified 11/03/24 10:40) SWELLING promethazine [From PHENERGAN] Allergy (Unknown, Verified 11/03/24 10:40) RASH seafood Allergy (Unknown, Verified 11/03/24 10:40) Anaphylaxis tramadol [TRAMADOL] Allergy (Unknown, Verified 11/03/24 10:40) UNKNOWN, GI upset doxycycline Adverse Reaction (Intermediate, Verified 11/03/24 10:40) dizziness, abdominal discomfort fluticasone [Advair Diskus] Adverse Reaction (Unknown, Verified 11/03/24 10:40) tachycardia salmeterol [Advair Diskus] Adverse Reaction (Unknown, Verified 11/03/24 10:40) tachycardia HPI Comments Details: Vaibhav in follow up for hypertension. He has a diabetes. 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 He has BPH and takes tamsulosin. He checks his blood sugar regularly and his last hemoglobin A1c was 6.9. He has not known to have any proteinuria. He is on losartan & chlorthalidone for his blood pressure regulation. He is on statins. He denies peripheral arterial disease, carotid stenosis, coronary artery disease, congestive heart failure, CVA, renal artery stenosis, hypokalemia, uncontrolled thyroid disorders. He checks his blood pressure at home and has been better. He does not have any flushing, palpitation, diarrhea, headache, visual disturbances, new weakness. He is followed up by his primary care physician very closely. [facility] Medical History Osteoarthritis of left shoulder Neck pain Myofascial pain Radiculitis of left cervical region Chronic sore throat DVT of lower extremity, bilateral Ankle pain, left Mixed hyperlipidemia Bilateral hand pain Mixed hyperlipidemia GERD (gastroesophageal reflux disease) Obesity due to excess calories Non-toxic multinodular goiter Obesity (BMI 30.0-34.9) Hypertension Chronic inflammation of pancreas Pancreatic abnormality FH: cholecystectomy Hypertriglyceridemia Diabetes type 1, uncontrolled Surgical History Hx of cholecystectomy Hx of endoscopy Hx of colonoscopy History of laminectomy Family History Father Hypertension Hyperlipidemia Prostate cancer Diabetes Arthritis Mother Arthritis Hyperlipidemia Diabetes Osteoporosis Lung cancer Brother Lung cancer Throat cancer Social History Household Members: Spouse and Children Household Members Other:: daughter, , son Housing: House Alcohol intake: former Year quit: 26 Patient Tobacco Use Status: Never used Tobacco e-Cigarette/Vaping Use: Never Used Second Hand Smoke Exposure: No service: No Current occupational status: disabled Cognitive needs: No Hearing needs: No Vision needs: No Review of Systems Const All systems reviewed & are unremarkable except as noted in HPI and below Physical Exam Vital Signs: Last Vital Signs Pulse 65 11/03/24 10:41 BP 134/80 11/03/24 10:41 Pulse Ox 96 11/03/24 10:41 Oxygen Delivery Method Room Air 11/03/24 10:41 BMI result Body Mass Index 31.8 Const General: comfortable and no acute distress Orientation/consciousness: patient oriented x3 HEENT Head: Yes normocephalic Mouth: Normal oral and palatal mucosa present Eyes EOM: EOMs intact bilaterally Neck Neck: Yes supple Resp Auscultation: clear to auscultation bilaterally Cardio Jugular venous distension: no JVD Rate: regular rate GI Palpation (GI): Soft to palpation Auscultation: normal bowel sounds General: Yes no CVA tenderness Back/Spine/Pelvis Back: no CVA tenderness Skin General skin exam: no rashes or lesions noted Neuro General: patient oriented x3 and moves all extremities Extrem General: Yes no pedal edema Results Reviewed Nephrology Results: No Data to Display Assessment & Plan Assessment & Plan (1) Hypertension: Code(s): I10 - Essential (primary) hypertension Category: Medical Qualifiers: Hypertension type: primary hypertension Qualified Code(s): I10 - Essential (primary) hypertension Plan Vaibhav has longstanding hypertension. He is on losartan 100 mg as well as chlorthalidone. His blood pressure is at goal now at home. HIs renin, aldosterone, aldosterone renin ratio, follow-up renal functions were reviewed. He could continue on chlorthalidone 25 mg daily and carvedilol 6.25 mg twice daily along with losartan 100 mg daily. His blood pressure needs to maintain at goal. He should be on a low-sodium diet. He should avoid nonsteroidal anti-inflammatories. He has no LVH, proteinuria or retinopathy. His renal functions are stable. I will consider doing Doppler of his renal arteries. I did not make any other medication changes this visit. All his questions were answered. Follow-up appointment given Orders: Orders Creatinine Today I10 - Essential (primary) hypertension Blood Urea Nitrogen Today I10 - Essential (primary) hypertension Electrolytes Today I10 - Essential (primary) hypertension Coding Level of Care Code Est Pt Level 4 (44660) Diagnoses Primary hypertension I10 Hypertension type: primary hypertension
[2024-11-03 10:41] VITALS: BP 134/80; PULSE 65; O2SAT 96; BMI 31.8
== END 2024-11-03 10:59 | disposition home or self-care (01) ==
PROVIDERS: PCP Internal Medicine; Visit Provider Internal Medicine Nephrology
DX: I10 Essential (primary) hypertension (principal)
CPT/HCPCS: 99214

== ENCOUNTER 2024-11-10 10:44 | Outpatient (AMB) | payer OTHER, SELFPAY ==
--- NOTE | 2024-11-10 11:28 | MHC.AMDMED ---
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: 60 min Machine Try Out Setter Required: Yes Machine Try Out Setter Name: Kiley C Allergies cortisone Allergy (Unknown, Verified 11/03/24 10:40) Unknown isoniazid Allergy (Unknown, Verified 11/03/24 10:40) Rash oxycodone [From PERCOCET] Allergy (Unknown, Verified 11/03/24 10:40) SWELLING promethazine [From PHENERGAN] Allergy (Unknown, Verified 11/03/24 10:40) RASH seafood Allergy (Unknown, Verified 11/03/24 10:40) Anaphylaxis tramadol [TRAMADOL] Allergy (Unknown, Verified 11/03/24 10:40) UNKNOWN, GI upset doxycycline Adverse Reaction (Intermediate, Verified 11/03/24 10:40) dizziness, abdominal discomfort fluticasone [Advair Diskus] Adverse Reaction (Unknown, Verified 11/03/24 10:40) tachycardia salmeterol [Advair Diskus] Adverse Reaction (Unknown, Verified 11/03/24 10:40) tachycardia HPI Comprehensive Diabetes Asmnt Most Recent Diabetes Results: Microalb/Creat Ratio 3.3 ug/mg cr (<30) 07/13/24 Cholesterol 156 mg/dL (<200) 07/13/24 HDL Cholesterol 34 mg/dL (>40) L 07/13/24 Triglycerides 174 mg/dL (<150) H 07/13/24 Creatinine 0.90 mg/dL (0.5-1.4) 11/03/24 Blood Urea Nitrogen 16 mg/dL (9-16) 11/03/24 Sodium 137 mmol/L (135-145) 11/03/24 Potassium 3.5 mmol/L (3.3-5.1) 11/03/24 Chloride 101 mmol/L (96-108) 11/03/24 Carbon Dioxide 27 mmol/L (22-29) 11/03/24 Calcium 9.7 mg/dL (8.4-10.2) 07/13/24 AST 27 U/L (5-37) 07/13/24 ALT 22 U/L (0-40) 07/13/24 Total Protein 7.0 g/dL (6.5-8.0) 07/13/24 Albumin 4.2 g/dL (3.5-5.0) 07/13/24 [facility] Medical History Osteoarthritis of left shoulder Neck pain Myofascial pain Radiculitis of left cervical region Chronic sore throat DVT of lower extremity, bilateral Ankle pain, left Mixed hyperlipidemia Bilateral hand pain Mixed hyperlipidemia GERD (gastroesophageal reflux disease) Obesity due to excess calories Non-toxic multinodular goiter Obesity (BMI 30.0-34.9) Hypertension Chronic inflammation of pancreas Pancreatic abnormality FH: cholecystectomy Hypertriglyceridemia Diabetes type 1, uncontrolled Surgical History Hx of cholecystectomy Hx of endoscopy Hx of colonoscopy History of laminectomy Family History Father Hypertension Hyperlipidemia Prostate cancer Diabetes Arthritis Mother Arthritis Hyperlipidemia Diabetes Osteoporosis Lung cancer Brother Lung cancer Throat cancer Social History Household Members: Spouse and Children Household Members Other:: daughter, , son Housing: House Alcohol intake: former Year quit: 26 Patient Tobacco Use Status: Never used Tobacco e-Cigarette/Vaping Use: Never Used Second Hand Smoke Exposure: No service: No Current occupational status: disabled Cognitive needs: No Hearing needs: No Vision needs: No Assessment & Plan Assessment & Plan (1) Diabetes type 1, uncontrolled: Code(s): E10.65 - Type 1 diabetes mellitus with hyperglycemia Qualifiers: Glycemic state: with hyperglycemia Qualified Code(s): E10.65 - Type 1 diabetes mellitus with hyperglycemia Plan: Patient presents for pump training for? T slim with control? IQ and Dexcom G6 The following topics were reviewed today: Patient received new pump. Settings entered into new T slim New T slim had upgrade to Dexcom G7, Dexcom G7 placed in back of right arm and sensor started. Patient left visit with sensor in warmup ?Sensor setting (if applicable) ??? High Alert: 200 mg/dl ??? Low Alert: 80 mg/dl Above Target: % At Target:% Below Target: % Average glucose for the last 2 weeks mg/dL Insulin delivery settings Troubleshooting after starting new pod or inserting new insulin set: Occlusion, adhesive tape sensitivity, redness Check BG 2 hours after site change Safety information: Patient understands the basic concepts of pump therapy, how to give insulin for meals and snacks, how to troubleshoot for hyper and hypoglycemia. Setting verified by CDCES: Basal rate(s) (units/hour) : 12 AM to 10AM 2 units / hr 10 AM to 2 PM 1.8 units / hr 2 PM to 12 AM? 2.0 units / hr Bolus setting Insulin Carbohydrate Ratio (s) 12 AM? to 10 AM 1:4.5?? 10 AM to 2 PM 1:3 2 PM to 12 AM 1:1.7 Correction Factor / Sensitivity Factor 12 AM? to 10 AM 1:20 10 AM? to 12 AM 1:15 Active Insulin Time:? 3 hours Target(s): 12 AM? to 12 AM 120 mg/dL Target with Control IQ: 12 AM? to 12 AM 110 mg/dL Patient Instructions: Patient will follow-up with endocrine RECRUITMENT CONSULTANT in 12/2024 Patient will contact patient financial specialist with questions or concerns Patient will follow-up with patient financial specialist in 4 months Coding Level of Care Code Est Pt Level 1 (54042) Diagnoses Uncontrolled type 1 diabetes mellitus with hyperglycemia E10.65 Glycemic state: with hyperglycemia
== END 2024-11-10 11:30 | disposition home or self-care (01) ==
PROVIDERS: PCP Internal Medicine; Visit Provider Registered Nurse Diabetes Educator
DX: E10.65 Type 1 diabetes mellitus with hyperglycemia (principal)

== ENCOUNTER → 2024-11-10 10:44 | Outpatient (BNVA) | payer OTHER, SELFPAY | PROVIDERS: PCP Internal Medicine; Visit Provider Registered Nurse Diabetes Educator | DX: E10.65 Type 1 diabetes mellitus with hyperglycemia (principal); Z96.41 Presence of insulin pump (external) (internal); Z79.4 Long term (current) use of insulin | CPT/HCPCS: 99211 ==

== ENCOUNTER 2024-11-29 09:41 | Outpatient (REF) | payer OTHER, SELFPAY ==
--- OUTSIDE RECORDS SUMMARY | 2024-11-29 10:14 | XMS_ITS | Encounter Summary ---
Author Organization [employer] Address [address] [facility] [address] [place] [address] Care Team Providers Care Vc++ Developer Name Role Phone Unavailable Primary Care Provider Unavailabl e Encounter Details Date Type Department Care Team (Latest Contact Info) Description 01/24/2019 Abstract [facility] CONVERSIONS Dental, Provider, DDS Social History Tobacco Use Types Packs/Day Years Used Date Smoking Tobacco: Never Assessed Sex and Gender Information Value Date Recorded Sex Assigned at Male 08/25/2022 10:15 AM EDT Legal Sex Male 10:15 AM EDT Gender Identity Male 08/25/2022 10:15 AM EDT Sexual Orientation Straight 08/25/2022 10 :15 AM EDT documented as of this encounter Plan of Treatment Not on file documented as of this encounter Visit Diagnoses Not on filedocumented in this encounter
--- OUTSIDE RECORDS SUMMARY | 2024-11-29 10:14 | XMS_ITS | Encounter Summary ---
Author Organization [employer] Address [address] [place] [address] Care Team Providers Care Police Investigator Name Role Phone Unavailable Primary Care Provider Unavailabl e Encounter Details Date Type Department Care Team (Late st Contact Info) Description 10/05/2023 Telephone [facility] [address] [place] [address] Gi Bui BDS Social History Tobacco Use Types Packs/Day Years Used Date Smoking Tobacco: Never Smokeless Tobacco: Never Sex and Gender Information Value Date Recorded Sex Assigned at Male 08/25/2022 10:15 AM EDT Legal Sex Male 10:15 AM EDT Gender Identity Male 08/25/2022 10:15 AM EDT Sexual Orientation Straight 08/25/2022 10 :15 AM EDT documented as of this encounter Miscellaneous Notes * Telephone Encounter - Rose Wright - 10/14/2023 10:54 AM EST Patient was seen today with DR ROWAN for extraction. Patient can not take the medication he was prescribed severally allergic to both med's.He ask if they can be changed and would like a call back . * Telephone Encounter - Raquel Holbrook - 10/05/2023 8:42 AM EST Patient was scripted amoxicillin but he states he can't take it because it doesn't do his belly anygood. He still took it for 2 days because its all he had but he is looking for new antibiotic to besent to pharmacy. He has an ext appt on Thursday and wants to get the script today so that he can start taking it quickly DR documented in this encounter Plan of Treatment Not on file documented as of this encounter Visit Diagnoses Not on filedocumented in this encounter
--- OUTSIDE RECORDS SUMMARY | 2024-11-29 10:14 | XMS_ITS | Clinical Summary ---
Author Organization [employer] Address [address] [facility] [address] [place] [address] Care Team Providers Care Aircraft Magneto Mechanic Name Role Phone Unavailable Primary Care Provider Unavailabl e Allergies Active Allergy Reactions Criticality Noted Date Comments Acetaminophen 09/26/2022 Oxycodone 09/26/2022 Oxycodone-Acetaminophen 10/21/2022 Shellfish Allergy 10/21/2022 Other reaction(s): edema, difficulty breathing Tramadol Hcl 09/26/2022 Trazodone 10/21/2022 Medications losartan (Cozaar) 100 MG tablet Take 100 mg by mouth. 9 Active hydrALAZINE (Apresoline) 25 MG tablet TAKE 1 TABLET BY MOUTH 3 TIMES A DAY FOR 30 DAYS 2 Active omeprazole (PriLOSEC) [address] capsule Take 20 mg by mouth in the morning and at bedtime. 2 Active mometasone-for moterol (Dulera) 100-5 MCG/ACT inhaler Inhale. Active NovoLOG 100 UNIT/ML solution INJECT 120UNITS SUBCUTANEOUSLY VIA PUMP 2 Active gabapentin (Neurontin) 300 MG capsule TAKE 1 CAPSULE BY MOUTH TWICE A DAY NEEDED FOR PAIN 2 Active folic acid (Folvite) 1 MG tablet Take 1,000 mcg by mouth in the morning. 2 Active fluticasone (Flonase Allergy Relief) 50 MCG/ACT nasal spray Administer into affected nostril(s). 9 Active dutasteride (Avodart) 0.5 MG capsule Take by mouth. 9 Active Social History Tobacco Use Types Packs/Day Years Used Date Smoking Tobacco: Never Smokeless Tobacco: Never Tobacco Cessation:Counseling Given: Not Answered Sex and Gender Information Value Date Recorded Sex Assigned at Male 08/25/2022 10:15 AM EDT Legal Sex Male 10:15 AM EDT Gender Identity Male 08/25/2022 10:15 AM EDT Sexual Orientation Straight 08/25/2022 10 :15 AM EDT Last Filed Vital Signs Vital Sign Reading Time Taken Comments Blood Pressure 167/79 10/14/2023 9:01 AM EST Pulse 81 10/21/2022 8:47 AM EST Temperature - - Respiratory Rate - - Oxygen Saturation - - Inhaled Oxygen Concentration - - Weight - - Height - - Body Mass Index - - Plan of Treatment Health Maintenance Due Date Last Done Comments CT Colonography 1958 Colonoscopy 1958 Colorectal Cancer Screening 1958 Dental Oral Exam 1958 Dental X-Ray: Full Mouth 1958 Depression Screening 1958 FIT DNA/Cologuard 1958 FIT 1958 FOBT 1958 Lipid Panel 1958 SDOH Screening 1958 Sigmoidoscopy 1958 Alcohol/Substance Use Screening 1970 Hepatitis C Screening 1976 Zoster Vaccines (1 of 2) 1977 Pneumococcal Vaccine: 50+ Years (3 of 3 - PCV) 07/21/2017 07/21/2016, 01/16/2016 RSV Patients and Patients Aged 60 years or older (1 - Risk 60-74 years 1-dose series) 2018 COVID-19 Vaccine (3 - Pfizer risk series) 04/05/2021 03/08/2021, 02/15/2021 Dental Prophylaxis 04/22/2023 10/21/2022 Influenza Vaccine (#1) 2024 , 08/25/2022, 08/16/2021, Additional history exists Dental X-Ray: Bitewings 08/21/2024 08/20/20 23, 10/21/2022, 09/26/2022 Tobacco Screening 10/14/2024 10/14/2023 DTaP/Tdap/Td Vaccines (2 - Td or Tdap) 06/21/2029 06/21/2019 Hepatitis B Vaccines Completed 02/02/2017, 09/01/2016, 07/31/2016 HIB Vaccines Aged Out No longer eligi ble based on patient's age to complete this topic HPV Vaccines Aged Out No longer eligi ble based on patient's age to complete this topic Hepatitis A Vaccines Aged Out No long er eligible based on patient's age to complete this topic IPV Vaccines Aged Out No longer eligi ble based on patient's age to complete this topic Meningococcal Vaccine Aged Out No pricilla kacy eligible based on patient's age to complete this topic RSV under 20 months Aged Out No longe r eligible based on patient's age to complete this topic Rotavirus Vaccines Aged Out No longer eligible based on patient's age to complete this topic Procedures Procedure Name Priority Date/Time Associated Diagnosis Comments BITEWING - SINGLE RADIOGRAPHIC IMAGE Routine 08/20/2023 1:00 PM EDT PROPHYLAXIS - ADULT Routine 10/21/2022 9 :00 AM EST Encounter for dental examination from Last 3 Months or Most Recently Relevant to Health Maintenance Insurance [facility]
--- OUTSIDE RECORDS SUMMARY | 2024-11-29 10:14 | XMS_ITS | Continuity of Care Document ---
Author Organization [facility] Address [address] [place] [address]- Care Team Providers Care Watershed Tender Name Role Phone Seamus Napier MD, Kiley Gomez Primary Care Physician Encounter [facility] Date(s): 10/20/24 - 11/19/24 [facility] [address] [place] [address]- Encounter Type: Triage Allergies, Adverse Reactions, Alerts [...] 0 Refills, Maintenance, 05/15/19 7:32:13 PM EDT, [place] Start Date: 05/15/19 Status: Ordered Repeat number: [...] tablet, Refills 11, Tot. Refills 11, Maintenance, 10/24/2411:26:00 AM EST, Route to Pharmacy Electronically, [facility]/pharmacy #[id number], 170, cm, 11/30/23 11:28:00 EST, Height Start Date: 10/24/24 Stop Date: 10/19/25 Status: Ordered Quantity: 60.0 Unit: tablet Repeat [...] Maintenance, 08/29/24 1:45:00 PM EST, REC Powder, [facility]/pharmacy #[id number], Partial fill upon patient request if [...] Team Personnel Name: Chaparrita Raines RN Position: [facility] RN Member Role: Primary Care Nurse Name: Domitila RNNupur Position: [facility] ED RN W/OE and Tasks Member Role: Primary Care Nurse Name: Marylou Huber RN Position: [facility] RN Member Role: Primary Care Nurse Name: Renae Chisholm RN Position: [facility] ED RN W/OE and Tasks Member Role: Primary Care Nurse Name: Radha Knox RN Position: [facility] RN Member Role: Primary Care Nurse Name: Cheli Vaughn RN Position: [facility] RN Member Role: Primary Care Nurse Name: Rubén Moody RN Position: [facility] RN Member Role: Primary Care Nurse Name: Seamus Napier MD , Bhargavi Position: Reference Physician Member Role: PCP Address: [address] [place] [id number] Telecom: Name: Mere Kuhn RN Position: [facility] RN Member Role: Primary Care Nurse Care Team Related Persons Name: MAGGIE TEJADA Name: MAGGIE TEJADA I Insurance Providers Guarantor name: GUILLE TEJADA Health Plan Information #: 1 Payer: [facility] [employer] Member Number: NA Policy Number: NA Group Number: NA
--- OUTSIDE RECORDS SUMMARY | 2024-11-29 10:14 | XMS_ITS | Encounter Summary ---
Author Organization [employer] Address [address] [facility] [address] [place] [address] Care Team Providers Care Steam Shovelman Name Role Phone Unavailable Primary Care Provider Unavailabl e Encounter Details Date Type Department Care Team (Latest Contact Info) Description 12/19/2020 Abstract [facility] CONVERSIONS Dental, Provider, DDS Social History Tobacco [...]
--- OUTSIDE RECORDS SUMMARY | 2024-11-29 10:14 | XMS_ITS | Encounter Summary ---
Author Organization [employer] Address [address] [facility] [address] [place] [address] Care Team Providers Care Em Physician Name Role Phone Unavailable Primary Care Provider Unavailabl e Reason for Visit * Reason Onset Date Comments Dental Pain 09/30/2022 Patient called i n with continued pain from 09/[address] Irby requested allergies and pharmacy. [facility] [address] No allergies to abx. usually uses amox. Responded via email and tel call charting. DR Encounter Details Date Type Department Care Team ([facility] st Contact Info) Description 09/30/2022 Telephone [facility] [address] [place] [id number] Dental, Provider, DDS Dental Pain (Patient called in with continued pain from 09/[address] Irby requested allergies and pharmacy. [facility] [address] No allergies to abx. usually uses amox. Responded via email and tel call charting. ) Social History Tobacco Use Types Packs/Day Years Used Date Smoking Tobacco: Never Assessed Sex and Gender Information Value Date Recorded Sex Assigned at Male 08/25/2022 10:15 AM EDT Legal Sex Male 10:15 AM EDT Gender Identity Male 08/25/2022 10:15 AM EDT Sexual Orientation Straight 08/25/2022 10 :15 AM EDT COVID-19 Exposure Response Date Recorded In the last 10 days, have yo u been in contact with someone who was confirmed or suspected to have Coronavirus/COVID-19? No / Unsure 09/26/2022 9:55 AM EST documented as of this encounter Miscellaneous Notes * Telephone Encounter - Raquel Giangs - 10/01/2022 12:51 PM EST Patient has been informed that script has been sent to pharmacy. * Telephone Encounter - Raquel Holbrook - 09/30/2022 1:44 PM EST Patient called in with continued pain from 09/[address] Irby requested allergies and pharmacy. [facility] [address] [place] [address]. No allergies to abx. usually uses amox. Responded via email and tel call charting. documented in this encounter Plan of Treatment Not on file documented as of this encounter Visit Diagnoses Not on filedocumented in this encounter
[2024-11-29 14:00] LABS: Alanine Aminotransferase 19 U/L (0-40); Albumin Level 4.3 g/dL (3.5-5.0); Alkaline Phosphatase 54 U/L (39-117); Anion Gap 15 (12-20); Aspartate Amino Transferase 33 U/L (5-37); Bilirubin Total 1.6 mg/dL (0.0-1.0); Blood Urea Nitrogen 16 mg/dL (9-16); Calcium 9.5 mg/dL (8.4-10.2); Carbon Dioxide 28 mmol/L (22-29); Chloride 101 mmol/L (96-108); Cholesterol 173 mg/dL (<200); Estimated Glomerular Filt Rate > 60; Glucose Random 139 mg/dL (60-115); HDL Cholesterol 29 mg/dL (>40); LDL Cholesterol Calculated 68 mg/dL (<100); Potassium 3.5 mmol/L (3.3-5.1); Sodium 140 mmol/L (135-145); Total Protein 7.5 g/dL (6.5-8.0); Triglycerides 380 mg/dL (<150)
[2024-11-29 14:12] LABS: Creatinine Urine 156.58 mg/dL
[2024-11-29 14:17] LABS: Vitamin D 25-OH Total 47.6 ng/mL (>30)
== END 2024-11-29 09:42 | disposition home or self-care (01) ==
LOC: HO.HMGCLDS 09:41
PROVIDERS: PCP Internal Medicine; Visit Provider Internal Medicine
DX: E10.65 Type 1 diabetes mellitus with hyperglycemia (principal); E78.5 Hyperlipidemia, unspecified; E55.9 Vitamin D deficiency, unspecified
CPT/HCPCS: 36415; 80053; 80061; 82043; 82306; 82570

== ENCOUNTER 2024-11-30 09:45 | Outpatient (AMB) | payer OTHER, SELFPAY ==
--- NOTE | 2024-11-30 09:47 | A.OFFPC_ITS ---
Vital Signs 11/30/24 09:48 Height 5 ft 7 in Weight 202 lb BMI 31.6 BP 136/70 Blood Pressure Location Lt brachial Position Sitting Intake Visit Reasons: 4 months F/U Intake Note: Patient here for a 4 month follow up Radioactive Waste Disposal Dispatcher Required: Yes Radioactive Waste Disposal Dispatcher Language: Cytology Manager Name: Kiley Napier MD Information Interpreted: non-clinical & clinical Accompanied by: Self / Same As Patient Allergies cortisone Allergy (Unknown, Verified 11/30/24 10:23) Unknown isoniazid Allergy (Unknown, Verified 11/30/24 10:23) Rash oxycodone [From PERCOCET] Allergy (Unknown, Verified 11/30/24 10:23) SWELLING promethazine [From PHENERGAN] Allergy (Unknown, Verified 11/30/24 10:23) RASH seafood Allergy (Unknown, Verified 11/30/24 10:23) Anaphylaxis tramadol [TRAMADOL] Allergy (Unknown, Verified 11/30/24 10:23) UNKNOWN, GI upset doxycycline Adverse Reaction (Intermediate, Verified 11/30/24 10:23) dizziness, abdominal discomfort fluticasone [Advair Diskus] Adverse Reaction (Unknown, Verified 11/30/24 10:23) tachycardia salmeterol [Advair Diskus] Adverse Reaction (Unknown, Verified 11/30/24 10:23) tachycardia Medication List - Last Reconciled 11/30/24 by Kiley Napier MD acetone (urine) test (Ketone Urine Test strips) As directed p.r.n. glucose over 250, illness, nausea, vomiting albuterol sulfate 90 mcg/actuation 2 puffs PO Q6H PRN 30 days alcohol swabs (Alcohol Prep Pads) 1 pad topical .6 times a day 30 days atorvastatin 40 mg PO BEDTIME 90 days azathioprine 100 mg (2 x 50 mg) PO DAILY BD Insulin Syringe Ultra-Fine (insulin syringe-needle U-100) 5 times a day NS betamethasone dipropionate 0.05% topical blood pressure test kit-large (hurleypalmerflattuch Blood Pressure Monitor kit) As directed blood sugar diagnostic (FreeStyle Lite Strips) USE 6 TIMES A DAY blood-glucose meter,continuous (Dexcom G6 Hydroelectric Station Chief) As directed blood-glucose sensor (Dexcom G6 Sensor device) As directed change every 10 days blood-glucose transmitter (Dexcom G6 Transmitter device) As directed carvedilol 6.25 mg PO BID chlorthalidone 50 mg PO DAILY coenzyme Q10 (Co Q-10) 10 mg PO DAILY 30 days diclofenac sodium 1% 4 grams topical QID dutasteride 0.5 mg PO DAILY fenofibrate 54 mg PO DAILY 90 days fluticasone propionate 50 mcg/actuation (Allergy Relief (fluticasone)) 1 spray intranasal DAILY 30 days gabapentin 300 mg PO BID 30 days glucagon 3 mg/actuation (Baqsimi) 3 mg intranasal ONCE heating pads (Advocate Heating Pad) As directed insulin aspart U-100 (Novolog U-100 Insulin aspart) subcutaneously continuous; up to 150 units daily 30 days lancets 6 times a day Lantus Solostar U-100 Insulin (insulin glargine) 50 units (0.5 mL) subcut DAILY PRN 30 days NS losartan 100 mg PO DAILY omeprazole 20 mg PO BID ondansetron HCl 4 mg PO DAILY PRN 30 days pen needle, diabetic (BD Doris 2nd Gen Pen Needle) once a day polyethylene glycol 3350 (Gavilax) grams PO tamsulosin (Flomax) 0.4 mg PO DAILY 5 days terbinafine HCl 1% 1 appl topical BID Tobacco use date assessed: 11/30/24 Fall risk assessment: No Falls in past year Last assessed Fall Risk: 11/30/24 Dental Screening Dental Screen Date: 11/30/24 Did you have a dental visit in the last 12 months?: Yes Did you have a dental problem in the last 6 months where you did not have access to dental care?: No Was dental information given to patient?: Patient has dentist HPI HPI Comments History of Present Illness Details The patient is a 64-year-old male presenting with a follow-up of multiple chronic conditions. The patient has a history of type 1 diabetes and reports using an insulin pump with NovoLog, maintaining good glycemic control. He is also being treated for hypertension, with carvedilol and losartan, noting recent dry mouth and difficulty sleeping, potentially related to medication side effects. Mixed hyperlipidemia is managed with atorvastatin, reported as achieving LDL targets but persistently elevated triglycerides. Past medical history includes IgG4-related pancreatitis managed with azathioprine. The patient also has rheumatoid arthritis, affecting bilateral shoulders, more severe on the left. Rheumatology had prescribed hydroxychloroquine, but he ceased follow-up roughly four months ago. Additionally, the patient has a history of prostate cancer, currently under surveillance with dutasteride supplementation. Anemia has been recurrent, with recent hemoglobin recorded as 13.9 g/dL. Current symptoms include dry mouth and significant discomfort with limited shoulder mobility. Past imaging confirmed left shoulder arthritis, but recommended MRI remained undone. Current renal function and urine protein levels are stable. [facility] Medical History (Updated 11/30/24 @ 13:33 by Kiley Napier MD) 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 Neck pain Myofascial pain Radiculitis of left cervical region Chronic sore throat DVT of lower extremity, bilateral Ankle pain, left Mixed hyperlipidemia Bilateral hand pain Mixed hyperlipidemia GERD (gastroesophageal reflux disease) Obesity due to excess calories Non-toxic multinodular goiter Obesity (BMI 30.0-34.9) Hypertension Chronic inflammation of pancreas Pancreatic abnormality FH: cholecystectomy Hypertriglyceridemia Diabetes type 1, uncontrolled Surgical History Hx of cholecystectomy Hx of endoscopy Hx of colonoscopy History of laminectomy Family History Father Hypertension Hyperlipidemia Prostate cancer Diabetes Arthritis Mother Arthritis Hyperlipidemia Diabetes Osteoporosis Lung cancer Brother Lung cancer Throat cancer Social History Household Members: Spouse and Children Household Members Other:: daughter, , son Housing: House Alcohol intake: former Year quit: 28 Patient Tobacco Use Status: Never used Tobacco e-Cigarette/Vaping Use: Never Used Second Hand Smoke Exposure: No service: No Current occupational status: disabled Cognitive needs: No Hearing needs: No Vision needs: No Questionnaire PHQ-9 Over the last 2 weeks, how often have you been bothered by any of the following problems? 1. Little interest or pleasure in doing things: not at all 2. Feeling down, depressed, or hopeless: not at all 3. Trouble falling or staying asleep, or sleeping too much: not at all 4. Feeling tired or having little energy: not at all 5. Poor appetite or overeating: not at all 6. Feeling bad about yourself - or that you are a failure or have let yourself or your family down: not at all 7. Trouble concentrating on things, such as reading the newspaper or watching television: not at all 8. Moving or speaking so slowly that other people could have noticed. Or the opposite - being so fidgety or restless that you have been moving around a lot more than usual: not at all 9. Thoughts that you would be better off or of hurting yourself in some way: not at all Total score: 0 Depression Screening Interpretation: Negative Depression Screening Done: Yes 76673 - PHQ-9 Billing: Yes Source: Developed by Drs. Dontae Murray, Denice Jeff, Lai Eric and colleagues, with an educational braulio from [employer]. Thrive Questionnaire Date Thrive assessed: 11/30/24 I am a: Patient What is your living situation today?: I have a steady place to live Within the past 12 months, did the food you bought not last and you didn't have the money to get more?: Never true Within the past 12 months, did you worry whether your food would run out before you got money to buy more?: Never true Do you have trouble paying for medicines?: No Do you have trouble getting transportation to medical appointments?: No Do you have trouble paying your heating and electricity bill?: No Do you have trouble taking care of your child, family member or friend?: No Do you have trouble with day-to-day activities such as bathing, preparing meals, shopping, managing finances, etc.?: No Are you currently unemployed and looking for a job?: No Are you interested in more education?: No Please select the resources that you would like help with: None Currently or been in a relationship where the following occur: No concerns reported THRIVE Score: 0 AUDIT C Alcohol Use Questionnaire (AUDIT-C) 1. How often do you have a drink containing alcohol?: Never Total Score: 0 Score Reviewed/Action Taken: No JAVIER-7 AMB Questionnaire JAVIER-7 Date JAVIER - 7 assessed: 11/30/24 Feeling nervous, anxious, or on edge: 0 = Not at all Not being able to stop or control worryin = Not at all Worrying too much about different things: 0 = Not at all Trouble relaxin = Not at all Being so restless that it is hard to sit still: 0 = Not at all Becoming easily annoyed or irritable: 0 = Not at all Feeling afraid as if something awful might happen: 0 = Not at all Total JAVIER-7 score (0-4 normal; 5-9 mild; 10-14 moderate; 15-21 severe): 0 Source: Developed by Drs. Dontae Murray, Denice Jeff, Lai Eric and colleagues, with an educational braulio from [employer]. JAVIER-7 Assessment Billing JAVIER-7 Assessment Tool: JAVIER-7 Assessment 22106 Review of Systems Const All systems reviewed & are unremarkable except as noted in HPI and below Card Denies chest pain at rest, Denies chest pain with activity, Denies edema, Denies irregular heart rhythm, Denies claudication, Denies orthopnea, Denies paroxysmal nocturnal dyspnea and Denies slow heart rate Physical exam (Primary Care) Vital Signs: Last Vital Signs BP 136/70 11/30/24 09:48 BMI result Body Mass Index 31.6 BMI Assessment/Plan discussion: High BMI High, discussed plan: lifestyle, weight reduction, dietary and physical activity Tobacco/Smoking Status: Tobacco use Status Tobacco use date assessed 11/30/24 11/30/24 09:54 Patient Tobacco Use Status Never used Tobacco 11/30/24 09:54 e-Cigarette/Vaping Use Never Used 11/30/24 09:54 PHQ-9: PHQ-9 Score PHQ-9: Total score 0 11/30/24 13:34 Depression Screening Interpretation: Negative Thrive Assessment: Date of Thrive Assessment Date Thrive assessed 11/30/24 11/30/24 09:54 Currently or been in a relationship where the following occur: No concerns reported Resp Effort & Inspection: normal respiratory effort Auscultation: clear to auscultation bilaterally Cardio Jugular venous distension: no JVD Rate: regular rate Rhythm: regular rhythm Heart sounds: S1 normal heart sound present and S2 normal heart sound present Extrem General: Yes full ROM Coding Level of Care Code Est Pt Level 4 (03427) Complex EM visit Add On G2211 Diagnoses Osteoarthritis of left shoulder M19.012 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 Rheumatoid arthritis of multiple sites with negative rheumatoid factor M06.09 Rheumatoid arthritis location: multiple sites Rheumatoid factor presence: without rheumatoid factor Mixed hyperlipidemia E78.2 GERD (gastroesophageal reflux disease) K21.9 Type 1 diabetes mellitus with hyperglycemia E10.65 Diabetes mellitus complication status: with hyperglycemia Primary hypertension I10 Hypertension type: primary hypertension Additional Codes JAVIER-7 Assessment Billing - JAVIER-7 Assessment Tool: JAVIER-7 Assessment 87917 ([id number]) PHQ-9 - 66846 - PHQ-9 Billing: Yes ([id number]) Time Spent (min) 22 Assessment & Plan Assessment & Plan (1) Osteoarthritis of left shoulder: Code(s): M19.012 - Primary osteoarthritis, left shoulder Category: Medical (2) IgG4-related pancreatitis: Code(s): K86.1 - Other chronic pancreatitis Category: Medical (3) Rheumatoid arthritis: Code(s): M06.9 - Rheumatoid arthritis, unspecified Category: Medical Qualifiers: Rheumatoid arthritis location: multiple sites Rheumatoid factor presence: without rheumatoid factor Qualified Code(s): M06.09 - Rheumatoid arthritis without rheumatoid factor, multiple sites (4) Mixed hyperlipidemia: Code(s): E78.2 - Mixed hyperlipidemia Category: Medical (5) GERD (gastroesophageal reflux disease): Code(s): K21.9 - Gastro-esophageal reflux disease without esophagitis Category: Medical (6) Diabetes mellitus type 1: Code(s): E10.9 - Type 1 diabetes mellitus without complications Category: Medical Qualifiers: Diabetes mellitus complication status: with hyperglycemia Qualified Co de(s): E10.65 - Type 1 diabetes mellitus with hyperglycemia (7) Hypertension: Code(s): I10 - Essential (primary) hypertension Category: Medical Qualifiers: Hypertension type: primary hypertension Qualified Code(s): I10 - Essential (primary) hypertension Plan - Encourage continued use of carvedilol with a possible adjustment post evening meals to alleviate nocturnal dry mouth. - Monitor diabetes control via blood glucose and continue current insulin regimen. - Reevaluate triglyceride management; consider dietary modifications. - Advise continuation of azathioprine to manage IgG4-related pancreatitis. - Recommend referral to rheumatology for rheumatoid arthritis and reconsideration of hydroxychloroquine. - Suggest orthopedic consultation given persistent and severe shoulder arthritis symptoms. - Monitor anemia status through periodic hemoglobin checks. - Promote use of saliva-stimulating agents such as biotene for dry mouth management. Patient was informed and verbally consented to the use of an ambient scribe for clinic note documentation during this visit. I discussed the patient's multiple chronic conditions, emphasizing the impo rtance of compliance with prescribed medications while addressing reported side effects such as dry mouth associated with antihypertensive therapy. We explored options to mitigate these side effects, such as adjusting medication timings. The necessity of ongoing endocrine and rheumatologic care was stressed, ensuring the integration of rheumatology for rheumatoid arthritis management as it involves complex treatment regimens. We discussed symptomatic management of arthritis and agreed upon the need for further orthopedic evaluation. Continued surveillance and periodic laboratory assessments were recommended to monitor diabetes, lipid levels, and anemia. The significance of maintaining renal function preservation was reiterated, given stable renal and urine protein readings. Orders: Orders Lipid Panel 4 Months E78.5 - Hyperlipidemia, unspecified Complete Blood Count Auto Diff 4 Months D64.9 - Anemia, unspecified IRON PROFILE 4 Months D64.9 - Anemia, unspecified Vitamin D 25-OH Total 4 Months E55.9 - Vitamin D deficiency, unspecified Vitamin B12 and Folate 4 Months E53.8 - Deficiency of other specified B group vitamins Comprehensive Kell. Panel Fast 4 Months E10.65 - Type 1 diabetes mellitus with hyperglycemia Referrals Rheumatology Referral M06.09 - Rheumatoid arthritis without rheumatoid factor, multiple sites Orthopedics Referral M19.012 - Primary osteoarthritis, left shoulder Patient Instructions: - Continue taking carvedilol; adjust evening dose timing as discussed to alleviate dry mouth. - Use biotene mouthwash as needed to combat dry mouth. - Follow dietary recommendations to manage triglycerides, such as limiting sugar and refined carbohydrate intake. - Adhere to diabetes management with insulin modifications as necessary. - Schedule an appointment with a audit analyst for arthritis evaluation. - Follow up with an orthopedist for shoulder pain assessment and management. - Monitor for symptoms of anemia and report any unusual fatigue or weakness. - Ensure laboratory tests are completed as requested for ongoing monitoring.
[2024-11-30 09:48] VITALS: BP 136/70; BMI 31.6
--- OUTSIDE RECORDS SUMMARY | 2024-11-30 10:22 | XMS_ITS | Encounter Summary ---
Author Organization [employer] Address [address] [place] [address] Care Team Providers Care Senior Structural Engineer Name Role Phone Unavailable Primary Care Provider Unavailabl e Encounter Details Date Type Department Care Team (Latest Contact Info) Description 01/24/2019 Abstract [facility] CONVERSIONS Dental, Provider, DDS Social History Tobacco [...]
--- OUTSIDE RECORDS SUMMARY | 2024-11-30 10:22 | XMS_ITS | Clinical Summary ---
Author Organization [employer] Address [address] [place] [address] Care Team Providers Care Loading And Unloading Supervisor Name Role Phone Unavailable Primary Care Provider [...] Recently Relevant to Health Maintenance Insurance D[facility]AL [facility]
--- OUTSIDE RECORDS SUMMARY | 2024-11-30 10:22 | XMS_ITS | Encounter Summary ---
Author Organization [employer] Address [address] [facility] [address] [place] [address] Care Team Providers Care Equipment Service Technician Name Role Phone Unavailable Primary Care Provider Unavailabl e Encounter Details Date Type Department Care Team (Latest Contact Info) Description 12/19/2020 Abstract [facility] CONVERSIONS Dental, Provider, DDS Social History Tobacco [...]
--- OUTSIDE RECORDS SUMMARY | 2024-11-30 10:23 | XMS_ITS | Encounter Summary ---
Author Organization [employer] Address [address] [facility] [address] [address] [place] [address] Care Team Providers Care Search Engine Marketing Strategist Name Role Phone Unavailable Primary Care Provider Unavailabl e Reason for Visit * Reason Onset Date Comments Dental Pain 09/30/2022 Patient called i n with continued pain from 09/[address] Irby requested allergies and pharmacy. Patient uses [facility] on [address] No allergies to abx. usually uses amox. Responded via email and tel call charting. DR Encounter Details Date Type Department Care Team ([facility] st Contact Info) Description 09/30/2022 Telephone [facility] [address] [place] [id number] Dental, Provider, DDS Dental Pain (Patient called in with continued pain from 09/[address] Irby requested allergies and pharmacy. [facility] uses [facility] on [address] No allergies to abx. usually uses [...] allergies and pharmacy. [facility] uses [facility] on [address] [place] [address]. No allergies to abx. usually uses amox. Responded via email and tel call charting. documented in this encounter Plan of Treatment Not on file documented as of this encounter Visit Diagnoses Not on filedocumented in this encounter
--- OUTSIDE RECORDS SUMMARY | 2024-11-30 10:23 | XMS_ITS | Encounter Summary ---
Author Organization [employer] Address [address] [place] [address] Care Team Providers Care Ladle Cleaner Name Role Phone Unavailable Primary Care Provider Unavailabl e Encounter Details Date Type Department Care Team (Late st Contact Info) Description 10/05/2023 Telephone [facility] [address] [place] [address] Gi Bui BDS Social History Tobacco Use [...]
== END 2024-11-30 10:40 | disposition home or self-care (01) ==
PROVIDERS: PCP Internal Medicine; Visit Provider Internal Medicine
DX: E10.65 Type 1 diabetes mellitus with hyperglycemia (principal); K86.1 Other chronic pancreatitis; M06.09 Rheumatoid arthritis without rheumatoid factor, multiple sites; M19.012 Primary osteoarthritis, left shoulder; E78.2 Mixed hyperlipidemia; K21.9 Gastro-esophageal reflux disease without esophagitis; I10 Essential (primary) hypertension

== ENCOUNTER → 2024-11-30 09:45 | Outpatient (BNVA) | payer OTHER, SELFPAY | PROVIDERS: PCP Internal Medicine; Visit Provider Internal Medicine | DX: M19.012 Primary osteoarthritis, left shoulder (principal); K86.1 Other chronic pancreatitis; M06.09 Rheumatoid arthritis without rheumatoid factor, multiple sites; E78.2 Mixed hyperlipidemia; K21.9 Gastro-esophageal reflux disease without esophagitis; E10.65 Type 1 diabetes mellitus with hyperglycemia; I10 Essential (primary) hypertension | CPT/HCPCS: 96127; 99212 ==

== ENCOUNTER 2024-12-27 09:44 | Outpatient (AMB) | payer OTHER, SELFPAY ==
--- NOTE | 2024-12-27 08:16 | A.OFFVIS_ITS ---
Vital Signs 12/27/24 09:51 Height 5 ft 7 in Weight 207 lb 3.752 oz BMI 32.5 BP 168/84 H Blood Pressure Location Rt brachial Position Sitting Pulse 64 Pulse Source Pulse Oximeter Pulse Oximetry (%) 97 Oxygen Delivery Method Room Air Intake Visit Reasons: T1DM Intake Note: Patient presents today for a follow-up on Type 1 Diabetes Mellitus: Last Diabetic eye exam was on: 11/24/2024, has eye surgery coming soon Last Podiatry exam was on: Patient does not see a Yard Caller Most recent HbA1c: 6.6%, 12/27/2024 Random Glucose- 131 mg/dL, Today Straddle Bug Driver Required: No Accompanied by: Self / Same As Patient Allergies cortisone Allergy (Unknown, Verified 12/27/24 09:50) Unknown isoniazid Allergy (Unknown, Verified 12/27/24 09:50) Rash oxycodone [From PERCOCET] Allergy (Unknown, Verified 12/27/24 09:50) SWELLING promethazine [From PHENERGAN] Allergy (Unknown, Verified 12/27/24 09:50) RASH seafood Allergy (Unknown, Verified 12/27/24 09:50) Anaphylaxis tramadol [TRAMADOL] Allergy (Unknown, Verified 12/27/24 09:50) UNKNOWN, GI upset doxycycline Adverse Reaction (Intermediate, Verified 12/27/24 09:50) dizziness, abdominal discomfort fluticasone [Advair Diskus] Adverse Reaction (Unknown, Verified 12/27/24 09:50) tachycardia salmeterol [Advair Diskus] Adverse Reaction (Unknown, Verified 12/27/24 09:50) tachycardia HPI Comments Details: Patient is 64 yo male with DM type 1 diagnosed around 2015 who presents for management of diabetes. He also has a multinodular goiter. He was last seen by provider 10/11/24. Hemoglobin A1c 12/27/24 6.6%, 09/27/24 6/9%, 06/28/24 7%. Hgb A1C on 04/05/24 was 7.3%. Patient received new T slim pump with Dexcom G7 which was set up by Rema Brooks CDE 11/18/2024. He reports occasional problem with a the sensor not pairing with his pump. He was advised to try to keep the pump in the sensor on the same to side of his body. Past medical history: DM1, HTN, HLD, NTMNG (managed by this practice) Micro and macrovascular complications: Diabetes medications: backup plan 53 units of Lantus and Novolog in usual doses with meals. Novolog via Tandem pump Hypoglycemia: rarely with symptoms of shaking, sweating - x1 mild recently. Treats low sugar with 3 sugar tablets and repeats as necessary. Nothing recent Hyperglycemia: + urinary frequency (uses diuretic), +nocturia (2-3x/night), +polydypsia occurred once and required insulin=injection Exercise: always moving, 15-20 minutes most days, limited due to back pain Nuclear Test Technician - CDE education: currently. Has neuropathy: Symptoms reported numbness, tingling, had issue with ingrown toenail 10/18. 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 Alaniz saw patient 10/18 with no need for ongoing f/u From her note: Patient with a history of prior FNA biopsies in 2020 with nontoxic multinodular goiter, with most recent ultrasound in June 2023 which showed subcentimeter thyroid nodules. I reviewed his ultrasound, no need for further imaging unless he has any clinical changes. Multinodular goiter: Had thyroid ultrasound 07/18 no significant change multiple sub centimeter nodules,had us , and . Patient had repeated FNA of Right lower pole thyroid on 02/14/2021 cytology was benign., consistent benign follicular nodule Slaughter category 2. Afirma was performed as this nodule had a prior FNA on November 2020 advised the hospital that was AUS. Afirma was negative. This decrease the risk of malignancy to 4%. He had fine-needle aspiration on 12/21/[address] [facility] Right thyroid nodule was benign 1.2 x 0.8 x 1.2 cm and right lower pole nodule was atypia of undetermined significance size was 1 x 0.8 x 0.9 cm. There was no Afirma are other genetic testing sample performed. Fibrosis-4 (Fib-4) Index for liver fibrosis (calculated on lab work done:11/18)1.37 points Advanced fibrosis excluded Approximate Fibrosis stage Ami 0-1 *Use with caution in patients <35 or >65 years old, as the score has been shown to be less reliable in these patients. Prior imaging: CT of the abdomen done in 2021 showed normal liver. 12 AM to 10AM 2 units / hr 10 AM to 2 PM 1.8 units / hr 2 PM to 12 AM? 2.0 units / hr Bolus setting Insulin Carbohydrate Ratio (s) 12 AM? to 10 AM 1:4.5?? 10 AM to 2 PM 1:3 2 PM to 12 AM 1:1.7 Correction Factor / Sensitivity Factor 12 AM? to 10 AM 1:20 10 AM? to 12 AM 1:15 Active Insulin Time:? 3 hours Target(s): 12 AM? to 12 AM 120 mg/dL Target with Control IQ: 12 AM? 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 Neck pain Myofascial pain Radiculitis of left cervical region Chronic sore throat DVT of lower extremity, bilateral Ankle pain, left Mixed hyperlipidemia Bilateral hand pain Mixed hyperlipidemia GERD (gastroesophageal reflux disease) Obesity due to excess calories Non-toxic multinodular goiter Obesity (BMI 30.0-34.9) Hypertension Chronic inflammation of pancreas Pancreatic abnormality FH: cholecystectomy Hypertriglyceridemia Diabetes type 1, uncontrolled Surgical History Hx of cholecystectomy Hx of endoscopy Hx of colonoscopy History of laminectomy Family History Father Hypertension Hyperlipidemia Prostate cancer Diabetes Arthritis Mother Arthritis Hyperlipidemia Diabetes Osteoporosis Lung cancer Brother Lung cancer Throat cancer Social History Household Members: Spouse and Children Household Members Other:: daughter, , son Housing: House Alcohol intake: former Year quit: 28 Patient Tobacco Use Status: Never used Tobacco e-Cigarette/Vaping Use: Never Used Second Hand Smoke Exposure: No service: No Current occupational status: disabled Cognitive needs: No Hearing needs: No Vision needs: No Physical Exam Vital Signs: Last Vital Signs Pulse 64 12/27/24 09:51 BP 168/84 H 12/27/24 09:51 Pulse Ox 97 12/27/24 09:51 Oxygen Delivery Method Room Air 12/27/24 09:51 BMI result Body Mass Index 32.5 Const Other: Absence of Cushingoid features. Absence of acromegalic features. Neck exam reveals nl size thyroid about 15 gms. No thyroid nodules palpable. Heart S1 S2, Reg R/R. No M/R G. Skin exam reveals absence of vitiligo or acanthosis nigricans. Visual exam of foot performed. No ulcerations or open lesions. No inter digit maceration or fissuring. mild onychomycosis toe nails with some thickening, no callouses. Sensation intact to monofilament exam. Vibratory sensation is normal with 128 Hz tuning fork. Office Procedures Glucose Monitoring Details Details: see hpi [id number] - Glucose monitoring, continuous-physician I&R Procedure code (CPT) selection complete Results AMB Hemoglobin A1c AMB Hemoglobin A1c 6.6 % Last Edit by BRYNN Ibrahim on 12/27/24 10:16 Results Reviewed Results Reviewed: Laboratory Last Values Glucose (Clinic) 131 mg/dL (60-115) H 12/27/24 10:00 Assessment & Plan Assessment & Plan (1) Diabetes mellitus type 1: Code(s): E10.9 - Type 1 diabetes mellitus without complications Category: Medical Qualifiers: Diabetes mellitus complication status: with hyperglycemia Qualified Code(s): E10.65 - Type 1 diabetes mellitus with hyperglycemia Plan: 64-year-old type 1 diabetic with mild neuropathy on an insulin pump with the an A1c of 6.6% 12/27/24. Backup insulin, test strips, lancets sent. The patient had an opportunity to ask questions regarding treatment plan. The patient expressed understanding and agreement with the above treatment plan. The patient is aware they should contact our office by phone for worsening glucose readings or for any low blood sugars which may warrant a change in diabetes medication. Compliance is encouraged with medications and any followup testing/consults which may have been ordered. Orders: Orders AMB Hemoglobin A1c Today E10.65 - Type 1 diabetes mellitus with hyperglycemia AMB Glucose Monitoring Today E10.65 - Type 1 diabetes mellitus with hyperglycemia Medications: Changed From Lantus Solostar U-100 Insulin (insulin glargine) 50 units (0.5 mL) subcut DAILY 30 days PRN 3 mL 5RF pump failure NS E10.65 - Type 1 diabetes mellitus with hyperglycemia, E11.65 - Type 2 diabetes mellitus with hyperglycemia To Lantus Solostar U-100 Insulin (insulin glargine) 53 units (0.53 mL) subcut DAILY 30 days PRN 3 mL 5RF pump failure NS E10.65 - Type 1 diabetes mellitus with hyperglycemia, E11.65 - Type 2 diabetes mellitus with hyperglycemia Refilled alcohol swabs (Alcohol Prep Pads) 1 pad topical .6 times a day 30 days 200 ea 8RF E10.65 - Type 1 diabetes mellitus with hyperglycemia alcohol swabs (Alcohol Prep Pads) 1 pad topical .6 times a day 30 days 200 ea 8RF E10.65 - Type 1 diabetes mellitus with hyperglycemia blood sugar diagnostic (FreeStyle Lite Strips) USE 6 TIMES A DAY 200 strips 11RF E10.65 - Type 1 diabetes mellitus with hyperglycemia Lantus Solostar U-100 Insulin (insulin glargine) 53 units (0.53 mL) subcut DAILY 30 days PRN 3 mL 5RF pump failure NS E10.65 - Type 1 diabetes mellitus with hyperglycemia, E11.65 - Type 2 diabetes mellitus with hyperglycemia Patient Instructions: Take 15 carb carbohydrate grams to treat a low sugar (3-4 glucose tablets, half a glass of juice or 15 carbohydrate grams of soft candy such as gummie snacks). Recheck your sugar in 15 minutes and re-treat again with 15 carbohydrate grams if low or still with symptoms. Do not drive a car or operate machinery if you do not know what your blood sugar is, if it is low or in excess of 300. Symptoms of DKA (diabetic ketoacidosis): early: frequent urination, dry mouth, fatigue, feeling ill, severe symptoms: ketones in the urine, abdominal pain, nausea, vomiting and weakness. It is important to hydrate with sugar free liquids every 15-30 minutes and bring the sugars down to normal levels. If you are moderate or severe with ketones or unable to bring glucose to less than 200, go to the emergency room. Troubleshooting after starting new pod or inserting new insulin set: Occlusion, adhesive tape sensitivity, redness Check BG 2 hours after site change Safety information: Importance of a backup plan, for manual injections, proper prescriptions and emergency supplies ketone strips, and rules for testing for ketones Sick day management reviewed The patient was counseled to achieve a target A1C of 7% (154 avg). Fasting blood sugars should be 90-130 in the morning and less than 180 two hours after meals. Reviewed the relationship between poor diabetic control and the development of complications. Check your feet daily looking for any signs of infection, drainage, redness, ulceration and seek medical attention if this occurs. Break in shoes gradually and do not wear open-toed shoes or walk stocking footed or barefooted. Coding Level of Care Code Est Pt Level 4 (64055) Complex EM visit Add On G2211 Diagnoses Type 1 diabetes mellitus with hyperglycemia E10.65 Diabetes mellitus complication status: with hyperglycemia CPT Codes Details - CPT: 93973 - Glucose monitoring, continuous-physician I&R ([id number]) Time Spent (min) 37 Comment Reviewing labs/provider notes, glucose sensor/pump reports, face to face, chart doc
[2024-12-27 09:51] VITALS: BP 168/84; PULSE 64; O2SAT 97; BMI 32.5
[2024-12-27 10:07] LABS: Glucose, Whole Blood 131 mg/dL (60-115)
--- OUTSIDE RECORDS SUMMARY | 2024-12-27 11:13 | XMS_ITS | Encounter Summary ---
Author Organization [employer] Address [address] [facility] [address] [place] [address] Care Team Providers Care Wave Soldering Machine Operator Name Role Phone Unavailable Primary Care Provider Unavailabl e Reason for Visit * Reason Onset Date Comments Dental Pain 09/30/2022 Patient called i n with continued pain from 09/[address] Irby requested allergies and pharmacy. [facility] [address] No allergies to abx. usually uses amox. Responded via email and tel call charting. DR Encounter Details Date Type Department Care Team ([facility] st Contact Info) Description 09/30/2022 Telephone [facility] [address] [place] [id number] Dental, Provider, DDS Dental Pain (Patient called in with continued pain from 09/[address] Irby requested allergies and pharmacy. [facility] [address] No allergies to abx. usually uses [...] allergies and pharmacy. [facility] [address] [place] [address]. No allergies to abx. usually uses amox. Responded via email and tel call charting. documented in this encounter Plan of Treatment Not on file documented as of this encounter Visit Diagnoses Not on filedocumented in this encounter
--- OUTSIDE RECORDS SUMMARY | 2024-12-27 11:13 | XMS_ITS | Encounter Summary ---
Author Organization [employer] Address [address] [facility] 7[address] [place] [address] Care Team Providers Care Chief Dietitian Name Role Phone Unavailable Primary Care Provider Unavailabl e Encounter Details Date Type Department Care Team (Latest Contact Info) Description 01/24/2019 Abstract [facility] CONVERSIONS Dental, Provider, DDS Social History [...]
--- OUTSIDE RECORDS SUMMARY | 2024-12-27 11:13 | XMS_ITS | Encounter Summary ---
Author Organization [employer] Address [address] [place] [address] Care Team Providers Care Payroll Processor Name Role Phone Unavailable Primary Care Provider Unavailabl e Encounter Details Date Type Department Care Team (Late st Contact Info) Description 10/05/2023 Telephone [facility] [address] [place] [address] Gi Bui BDS Social History Tobacco Use [...]
--- OUTSIDE RECORDS SUMMARY | 2024-12-27 11:13 | XMS_ITS | Encounter Summary ---
Author Organization [employer] Address [address] [facility] 7t [place] [address] Care Team Providers Care Lean Engineer Name Role Phone Unavailable Primary Care Provider Unavailabl e Encounter Details Date Type Department Care Team (Latest Contact Info) Description 12/19/2020 Abstract [facility] CONVERSION[facility] Dental, Provider, DDS Social History Tobacco [...]
--- OUTSIDE RECORDS SUMMARY | 2024-12-27 11:13 | XMS_ITS | Clinical Summary ---
Author Organization [employer] Address [address] [facility] 7t [place] [address] Care Team Providers Care Doctor Of Naprapathic Medicine Name Role Phone Unavailable Primary Care Provider [...] Recently Relevant to Health Maintenance Insurance [facility]
== END 2024-12-27 10:32 | disposition home or self-care (01) ==
PROVIDERS: PCP Internal Medicine; Visit Provider Nurse Practitioner Adult Health
DX: E10.65 Type 1 diabetes mellitus with hyperglycemia (principal)
CPT/HCPCS: 95251; 99214; G2211

== ENCOUNTER → 2024-12-27 09:44 | Outpatient (BNVA) | payer OTHER, SELFPAY | PROVIDERS: PCP Internal Medicine; Visit Provider Nurse Practitioner Adult Health | DX: E10.65 Type 1 diabetes mellitus with hyperglycemia (principal); Z79.4 Long term (current) use of insulin | CPT/HCPCS: 82947; 83036; 99212 ==

== ENCOUNTER 2025-01-13 09:10 | Outpatient (AMB) | payer OTHER, SELFPAY ==
--- NOTE | 2025-01-13 09:54 | MHC.OFFVIS ---
Vital Signs 01/13/25 09:58 Height 5 ft 7 in Weight 207 lb BMI 32.4 Intake Visit Reasons: INP-ANA Intake Note: Patient referred by Dr. Way for ANA. Engineering Specialist Technician Required: Yes Engineering Specialist Technician Services: Engineering Specialist Technician Offered & Declined Engineering Specialist Technician Name: Shreya Allergies cortisone Allergy (Unknown, Verified 01/13/25 10:05) Unknown isoniazid Allergy (Unknown, Verified 01/13/25 10:05) Rash oxycodone [From PERCOCET] Allergy (Unknown, Verified 01/13/25 10:05) SWELLING promethazine [From PHENERGAN] Allergy (Unknown, Verified 01/13/25 10:05) RASH seafood Allergy (Unknown, Verified 01/13/25 10:05) Anaphylaxis tramadol [TRAMADOL] Allergy (Unknown, Verified 01/13/25 10:05) UNKNOWN, GI upset doxycycline Adverse Reaction (Intermediate, Verified 01/13/25 10:05) dizziness, abdominal discomfort fluticasone [Advair Diskus] Adverse Reaction (Unknown, Verified 01/13/25 10:05) tachycardia salmeterol [Advair Diskus] Adverse Reaction (Unknown, Verified 01/13/25 10:05) tachycardia HPI Comments Details: 64 year old r. handed male referred to us for sleep evaluation by PCP. He goes to bed at 11pm wakes up at 5:30am, 2x bathroom break. His c/o of loud snoring, choking and gasping for air. He wakes up because the machine dries out his mouth, and thinks his pressures are not good, as he can not get enough air in. He has asthma is using Ventolin, Fluticasone as needed daily and still having trouble getting enough air in. He has a sore and dry throat at night despite drinking water several times at night to help with swallowing and breathing. He has problems with his salivary glands being obstructed and not secreting saliva in the past and he uses lozenges which help. He is a diabetic, Triglycerides are elevated, Type 1 diabetes, A1c and Random Glucose is high, on Insulin Pump, and followed by nephrology as BP was elevated at last appt. He c/o persisitent l. should pain, and Lumbosacral Spondylosis with radiculopathy. He has numbness and tingling in his feet which keep him up at night. Diet tends to be poor he is seeing a hospital staff pharmacist. Memory is and mood is normal. [facility] Medical History 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 Neck pain Myofascial pain Radiculitis of left cervical region Chronic sore throat DVT of lower extremity, bilateral Ankle pain, left Mixed hyperlipidemia Bilateral hand pain Mixed hyperlipidemia GERD (gastroesophageal reflux disease) Obesity due to excess calories Non-toxic multinodular goiter Obesity (BMI 30.0-34.9) Hypertension Chronic inflammation of pancreas Pancreatic abnormality FH: cholecystectomy Hypertriglyceridemia Diabetes type 1, uncontrolled Surgical History Hx of cholecystectomy Hx of endoscopy Hx of colonoscopy History of laminectomy Family History Father Hypertension Hyperlipidemia Prostate cancer Diabetes Arthritis Mother Arthritis Hyperlipidemia Diabetes Osteoporosis Lung cancer Brother Lung cancer Throat cancer Social History Household Members: Spouse and Children Household Members Other:: daughter, , son Housing: House Alcohol intake: former Year quit: 26 Patient Tobacco Use Status: Never used Tobacco e-Cigarette/Vaping Use: Never Used Second Hand Smoke Exposure: No service: No Current occupational status: disabled Cognitive needs: No Hearing needs: No Vision needs: No Physical Exam Vital Signs: BMI result Body Mass Index 32.4 Const General: cooperative, comfortable and no acute distress Orientation/consciousness: patient oriented x3 HEENT Face and sinus: Yes normal facial exam and Yes face symmetric Throat: Yes other ([place] score of 4) Eyes Pupils: Equal, round and reactive pupils present Neck Neck: Yes full ROM (Limited ROM) Resp Effort & Inspection: normal respiratory effort and able to speak in complete sentences Neuro General: patient oriented x3 Cranial nerves: Yes CN's II-XII intact bilaterally, Yes Facial sensation intact/muscles of mastication intact, Yes Equal, round and reactive pupils present, Yes Normal accommodation reflex present, Yes Bilaterally intact EOM present, Yes Normal facial strength present, Yes Midline tongue present, Yes Ability to bilaterally rotate head present and Yes Ability to bilaterally elevate shoulders present Gait exam (Neuro): Normal gait present Motor exam (neuro): 5/5 motor strength present throughout and Normal motor muscle tone present throughout Deep tendon reflexes (DTR's): Right triceps reflex intensity grade: 2+, Left triceps reflex intensity grade: 2+, Rt Biceps (C5, C6): 2+, Left biceps reflex intensity grade: 2+, Right brachioradialis reflex intensity grade: 2+, Left brachioradialis reflex intensity grade: 2+, Right patellar reflex intensity grade: 2+ and Left patellar reflex intensity grade: 2+ Psych Appearance: grossly normal Thought process: Normal thought process present Thought content: Normal thought content present Results Reviewed Results Reviewed: Pulmonology referral He denies Parasomnia ENT and Pulmonolgy for PFT/ PT Assessment & Plan Assessment & Plan (1) Pain in salivary gland region: Code(s): K11.8 - Other diseases of salivary glands Category: Medical (2) Breathing difficulty: Code(s): R06.89 - Other abnormalities of breathing Category: Medical (3) Left shoulder pain: Code(s): M25.512 - Pain in left shoulder Category: Medical Qualifiers: Chronicity: chronic Qualified Code(s): M25.512 - Pain in left shoulder; G89.29 - Other chronic pain (4) Loud snoring: Code(s): R06.83 - Snoring Category: Medical Plan Sleep apnea /snoring HST is submitted by PCP PFT for evaluation asthma PT for L. Shoulder pain and 5mg to 10mg Baclofen at bedtime, no driving. ENT for salivary gland evaluation. Orders: Orders PFT pulmonary function test Today R06.89 - Other abnormalities of breathing PT Evaluation and Treatment Today M54.32 - Sciatica, left side Referrals Ear/Nose/Throat Referral K11.8 - Other diseases of salivary glands Medications: New baclofen take 5mg PO - 10mg PO as needed for shoulder pain at bedtime. 5 mg PO BEDTIME 30 tabs 2RF MDD 10mg M25.512 - Pain in left shoulder Patient Instructions: Sleep Hygiene provided: set a scheduled bedtime and wake time to help regulate the circadian rhythm and balance the release of pituitary hormones. Sleep in a dark room, temperatures below 68 degrees, and no devices n bed. Limit caffeinated products 6 hours prior to bed, and limit fluids 2-4 hours prior to bed. Gentle night yoga, diffusing essential oils, and playing soft music can be relaxing. PT for L. Shoulder pain and use muscle relaxer Baclofen 5mg to 10mg as needed for pain, at bedtime, no driving. PFT for Pulmonology evaluation for asthmatic exacerbations. ENT for evaluation of salivary glands and or obstruction, chronic dry mouth and choking. Coding Level of Care Code New Pt Level 4 (58125) Complex EM visit Add On G2211 Diagnoses Pain in salivary gland region K11.8 Breathing difficulty R06.89 Chronic left shoulder pain M25.512; G89.29 Chronicity: chronic Loud snoring R06.83 Time Spent (min) 40 Comment Evaluation of Sleep apnea Sleep Questionnaire Difficulty falling asleep: No Difficulty staying asleep?: Yes Number of arousals: 2-3 Snoring: Yes Witnessed apneas: Yes Gasping arousals: Yes Nocturia: No GERD: Yes Vivid dreams: Yes Acting out dreams: No Abnormal behavior in sleep: No Abnormal movements in sleep: No Morning headaches: Yes Excessive daytime sleepiness: Yes Daytime naps: Yes (<1 hour) Restless legs: Yes Hallucinations: No Sleep Study: Yes CPAP: Yes
[2025-01-13 09:58] VITALS: BMI 32.4
--- OUTSIDE RECORDS SUMMARY | 2025-01-13 10:00 | XMS_ITS | Encounter Summary ---
Author Organization [employer] Address [address] [facility] 7t [place] [address] Care Team Providers Care Porcelain Finisher Name Role Phone Unavailable Primary Care Provider Unavailabl e Reason for Visit * Reason Onset Date Comments Dental Pain 09/30/2022 Patient called i n with continued pain from 09/[address] Irby requested allergies and pharmacy. [facility] [address] No allergies to abx. usually uses amox. Responded via email and tel call charting. DR Encounter Details Date Type Department Care Team ([facility] st Contact Info) Description 09/30/2022 Telephone [facility] [address] [place] [address] Dental, Provider, DDS Dental Pain (Patient called in with continued pain from 09/[address] Irby requested allergies and pharmacy. [facility] [address] No allergies to abx. usually uses [...] allergies and pharmacy. [facility] [address] [place] [address]. No allergies to abx. usually uses amox. Responded via email and tel call charting. documented in this encounter Plan of Treatment Not on file documented as of this encounter Visit Diagnoses Not on filedocumented in this encounter
--- OUTSIDE RECORDS SUMMARY | 2025-01-13 10:00 | XMS_ITS | Encounter Summary ---
Author Organization [employer] Address [address] [facility] [address] 7[address] [place] [address] Care Team Providers Care Bacteriology Technician Name Role Phone Unavailable Primary Care Provider Unavailabl e Encounter Details Date Type Department Care Team (Late st Contact Info) Description 10/05/2023 Telephone [facility] [address] [place] [address] Gi Bui BDS Social History Tobacco Use [...]
--- OUTSIDE RECORDS SUMMARY | 2025-01-13 10:00 | XMS_ITS | Encounter Summary ---
Author Organization [employer] Address [address] [facility] 7t [place] [address] Care Team Providers Care Engineering Group Manager Name Role Phone Unavailable Primary Care Provider Unavailabl e Encounter Details Date Type Department Care Team (Latest Contact Info) Description 12/19/2020 Abstract [facility] [place] CONVERSIONS Dental, Provider, DDS Social History Tobacco [...]
--- OUTSIDE RECORDS SUMMARY | 2025-01-13 10:00 | XMS_ITS | Clinical Summary ---
Author Organization [employer] Address [address] [facility] 7t [place] [address] Care Team Providers Care Licensed Clinical Psychologist Name Role Phone Unavailable Primary Care Provider [...] Recently Relevant to Health Maintenance Insurance DENTAL [facility]
--- OUTSIDE RECORDS SUMMARY | 2025-01-13 10:00 | XMS_ITS | Encounter Summary ---
Author Organization [employer] Address [address] [facility] 7t [place] [address] Care Team Providers Care Florist Helper Name Role Phone Unavailable Primary Care Provider Unavailabl e Encounter Details Date Type Department Care Team (Latest Contact Info) Description 01/24/2019 Abstract [facility] CONVERSIONS Dental, Provider, DDS Social History [...]
== END 2025-01-13 11:19 | disposition home or self-care (01) ==
LOC: HO.HSMS 09:11
PROVIDERS: PCP Internal Medicine; Visit Provider Physician Assistant Medical
DX: K11.8 Other diseases of salivary glands (principal); R06.89 Other abnormalities of breathing; M25.512 Pain in left shoulder; G89.29 Other chronic pain; R06.83 Snoring
CPT/HCPCS: 99204; G2211

== ENCOUNTER → 2025-01-13 09:10 | Outpatient (BNVA) | payer OTHER, SELFPAY | PROVIDERS: PCP Internal Medicine; Visit Provider Physician Assistant Medical | DX: R06.83 Snoring (principal); R06.89 Other abnormalities of breathing; M25.512 Pain in left shoulder; K11.8 Other diseases of salivary glands; G89.29 Other chronic pain | CPT/HCPCS: 99202 ==

== ENCOUNTER 2025-01-19 09:40 | Outpatient (AMB) | payer OTHER, SELFPAY ==
--- NOTE | 2025-01-19 09:42 | MHC.OFFVIS ---
Vital Signs 01/19/25 09:46 Height 5 ft 7 in Weight 207 lb BMI 32.4 Handedness Right Intake Visit Reasons: Left shoulder pain and weakness Intake Note: Vaibhav is a 64 year old right hand dominant male who presents with complaints of progressively worsening left shoulder pain and weakness. The patient states that he injured his left shoulder approximately 7 years ago while lifting a heavy object. Since that time his symptoms have gotten worse. He has failed the last 6 weeks of conservative treatment which has included physical therapy exercises, a home exercise program, Tylenol and anti-inflammatory medicines. The patient reports difficulty lifting his left hand above shoulder height. Training Program Manager Required: Yes Training Program Manager Language: Personalized Living Manager Nurse Services: Training Program Manager Present Training Program Manager Name: BRYNN Ulrich/MARIANA Information Interpreted: clinical only Allergies cortisone Allergy (Unknown, Verified 01/19/25 09:46) Unknown isoniazid Allergy (Unknown, Verified 01/19/25 09:46) Rash oxycodone [From PERCOCET] Allergy (Unknown, Verified 01/19/25 09:46) SWELLING promethazine [From PHENERGAN] Allergy (Unknown, Verified 01/19/25 09:46) RASH seafood Allergy (Unknown, Verified 01/19/25 09:46) Anaphylaxis tramadol [TRAMADOL] Allergy (Unknown, Verified 01/19/25 09:46) UNKNOWN, GI upset doxycycline Adverse Reaction (Intermediate, Verified 01/19/25 09:46) dizziness, abdominal discomfort fluticasone [Advair Diskus] Adverse Reaction (Unknown, Verified 01/19/25 09:46) tachycardia salmeterol [Advair Diskus] Adverse Reaction (Unknown, Verified 01/19/25 09:46) tachycardia Medication List - Last Reconciled 01/19/25 by Danish Tirado MD acetone (urine) test (Ketone Urine Test strips) As directed p.r.n. glucose over 250, illness, nausea, vomiting albuterol sulfate 90 mcg/actuation 2 puffs PO Q6H PRN 30 days alcohol swabs (Alcohol Prep Pads) 1 pad topical .6 times a day 30 days atorvastatin 40 mg PO BEDTIME 90 days azathioprine 100 mg (2 x 50 mg) PO DAILY baclofen 5 mg PO BEDTIME MDD 10mg BD Insulin Syringe Ultra-Fine (insulin syringe-needle U-100) 5 times a day NS betamethasone dipropionate 0.05% topical blood pressure test kit-large ([employer] Blood Pressure Monitor kit) As directed blood sugar diagnostic (FreeStyle Lite Strips) USE 6 TIMES A DAY blood-glucose meter,continuous (Dexcom G6 Flocculator Operator) As directed blood-glucose sensor (Dexcom G6 Sensor device) As directed change every 10 days blood-glucose transmitter (Dexcom G6 Transmitter device) As directed carvedilol 6.25 mg PO BID chlorthalidone 50 mg PO DAILY coenzyme Q10 (Co Q-10) 10 mg PO DAILY 30 days diclofenac sodium 1% 4 grams topical QID dutasteride 0.5 mg PO DAILY fenofibrate 54 mg PO DAILY 90 days fluticasone propionate 50 mcg/actuation (Allergy Relief (fluticasone)) 1 spray intranasal DAILY 30 days gabapentin 300 mg PO BID 30 days glucagon 3 mg/actuation (Baqsimi) 3 mg intranasal ONCE heating pads ([employer] Heating Pad) As directed insulin aspart U-100 (Novolog U-100 Insulin aspart) subcutaneously continuous; up to 150 units daily 30 days lancets 6 times a day Lantus Solostar U-100 Insulin (insulin glargine) 53 units (0.53 mL) subcut DAILY PRN 30 days NS losartan 100 mg PO DAILY omeprazole 20 mg PO BID ondansetron HCl 4 mg PO DAILY PRN 30 days pen needle, diabetic (BD Doris 2nd Gen Pen Needle) once a day polyethylene glycol 3350 (Gavilax) grams PO tamsulosin (Flomax) 0.4 mg PO DAILY 5 days terbinafine HCl 1% 1 appl topical BID PFSH Medical History 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 Neck pain Myofascial pain Radiculitis of left cervical region Chronic sore throat DVT of lower extremity, bilateral Ankle pain, left Mixed hyperlipidemia Bilateral hand pain Mixed hyperlipidemia GERD (gastroesophageal reflux disease) Obesity due to excess calories Non-toxic multinodular goiter Obesity (BMI 30.0-34.9) Hypertension Chronic inflammation of pancreas Pancreatic abnormality FH: cholecystectomy Hypertriglyceridemia Diabetes type 1, uncontrolled Surgical History Hx of cholecystectomy Hx of endoscopy Hx of colonoscopy History of laminectomy Family History Father Hypertension Hyperlipidemia Prostate cancer Diabetes Arthritis Mother Arthritis Hyperlipidemia Diabetes Osteoporosis Lung cancer Brother Lung cancer Throat cancer Social History Household Members: Spouse and Children Household Members Other:: daughter, , son Housing: House Alcohol intake: former Year quit: 28 Patient Tobacco Use Status: Never used Tobacco e-Cigarette/Vaping Use: Never Used Second Hand Smoke Exposure: No service: No Current occupational status: disabled Cognitive needs: No Hearing needs: No Vision needs: No Physical Exam Vital Signs: BMI result Body Mass Index 32.4 Const Other: Well-nourished well-developed very friendly male awake alert and oriented x3 in no acute distress Extrem Other: Bilateral upper extremity examination shows good capillary refill, no skin lesions noted, normal sensation light touch Left shoulder examination shows decreased active and passive range of motion when compared to his right shoulder, 4+ out of 5 strength with supraspinatus testing, positive impingement signs, tenderness over his acromioclavicular joint, no instability Results Reviewed Results Reviewed: X-rays of the patient's left shoulder show severe acromioclavicular joint narrowing, a type 3 acromion, no acute bony abnormalities Assessment & Plan Assessment & Plan (1) Rotator cuff insufficiency of left shoulder: Code(s): M25.312 - Other instability, left shoulder Category: Medical Plan Mr. Sepulveda presents with left shoulder pain and weakness due to impingement syndrome and possible rotator cuff tearing. Thus, I will send the patient for an MRI of his left shoulder for further evaluation. I will see him back once the MRI is completed to discuss the findings and treatment options. Feel free to call me at any time should questions regarding his orthopedic management arise. Thank you very much for asking me to see this very friendly gentleman. I spent 20 minutes in reviewing the patient's records and imaging studies, seeing the patient and documenting in the medical record. Orders: Orders MR isidro LT wo con Today M25.312 - Other instability, left shoulder Medications: New lorazepam (Ativan) Take one tab 2 hours before your MRI; take the second tab 30 minutes before your MRI. 1 mg PO ONCE 2 tabs 0RF Coding Level of Care Code New Pt Level 3 (33991) Complex EM visit Add On G2991 Diagnoses Rotator cuff insufficiency of left shoulder M25.312
[2025-01-19 09:46] VITALS: BMI 32.4
== END 2025-01-19 10:01 | disposition home or self-care (01) ==
LOC: HO.HOS 09:41
PROVIDERS: PCP Internal Medicine; Visit Provider Orthopaedic Surgery
DX: M25.312 Other instability, left shoulder (principal); M75.42 Impingement syndrome of left shoulder
CPT/HCPCS: 99203; G2211

== ENCOUNTER → 2025-01-19 09:40 | Outpatient (BNVA) | payer OTHER, SELFPAY | PROVIDERS: PCP Internal Medicine; Visit Provider Orthopaedic Surgery | DX: M25.312 Other instability, left shoulder (principal) | CPT/HCPCS: 99202 ==

== ENCOUNTER 2025-02-22 09:27 | Outpatient (REF) | payer OTHER, SELFPAY ==
--- NOTE | 2025-02-22 09:40 | PFT_ITS ---
Spirometry [] Lung Volumes [] Diffusion Capacity [] Methacholine Challenge [] Flow Volume Loops [] MVV [] MIP/MEP(Max inspiratory pressure/Max expiratory pressure) [] 6 Minute Walk Test [] ABG [] Interpretation [] MTDD
--- OUTSIDE RECORDS SUMMARY | 2025-02-22 10:08 | XMS_ITS | Encounter Summary ---
Author Organization [employer] Address [address] [facility] 7t [place] [address] Care Team Providers Care Systems Testing Laboratory Technician Name Role Phone Unavailable Primary Care Provider Unavailabl e Reason for Visit * Reason Onset Date Comments Dental Pain 09/30/2022 Patient called i n with continued pain from 09/[address] Irby requested allergies and pharmacy. [facility] on [address] No allergies to abx. usually uses amox. Responded via email and tel call charting. DR Encounter Details Date Type Department Care Team ([facility] st Contact Info) Description 09/30/2022 Telephone [facility] ADULT DENTAL [address] [place] [id number] Dental, Provider, DDS Dental Pain (Patient called in with continued pain from 09/[address] Irby requested allergies and pharmacy. [facility] on [address] No allergies to abx. usually uses [...] allergies and pharmacy. [facility] [address] [place] [address]. No allergies to abx. usually uses amox. Responded via email and tel call charting. documented in this encounter Plan of Treatment Not on file documented as of this encounter Visit Diagnoses Not on filedocumented in this encounter
--- OUTSIDE RECORDS SUMMARY | 2025-02-22 10:08 | XMS_ITS | Clinical Summary ---
Author Organization [employer] Address [address] [facility] 7t [place] [address] Care Team Providers Care Hand Kiss Setter Name Role Phone Unavailable Primary Care Provider [...] Recently Relevant to Health Maintenance Insurance DENTAL [facility]
--- OUTSIDE RECORDS SUMMARY | 2025-02-22 10:08 | XMS_ITS | Encounter Summary ---
Author Organization [employer] Address [address] [facility] 7t [place] [address] Care Team Providers Care Camera Operator Name Role Phone Unavailable Primary Care Provider Unavailabl e Encounter Details Date Type Department Care Team (Latest Contact Info) Description 12/19/2020 Abstract [facility] CONVERSIONS Dental, Provider, DDS Social [...]
--- OUTSIDE RECORDS SUMMARY | 2025-02-22 10:08 | XMS_ITS | Encounter Summary ---
Author Organization [employer] Address [address] [facility] [address]t [place] [address] Care Team Providers Care Machine Silk Screen Printer Name Role Phone Unavailable Primary Care Provider Unavailabl e Encounter Details Date Type Department Care Team (Latest Contact Info) Description 01/24/2019 Abstract [facility] CONVERSIONS Dental, Provider, DDS Social History [...]
--- OUTSIDE RECORDS SUMMARY | 2025-02-22 10:08 | XMS_ITS | Encounter Summary ---
Author Organization [employer] Address [address] [facility] [address] 7[address] [place] [address] Care Team Providers Care Detective Bureau Chief Name Role Phone Unavailable Primary Care Provider Unavailabl e Encounter Details Date Type Department Care Team (Late st Contact Info) Description 10/05/2023 Telephone [facility] [address] [place] [address] Gi Bui BDS Social History Tobacco Use [...]
[2025-02-22 10:17] VITALS: PULSE 65; O2SAT 99
== END 2025-02-22 09:28 | disposition home or self-care (01) ==
LOC: HO.RESP 09:27
PROVIDERS: PCP Internal Medicine; Visit Provider Physician Assistant Medical
DX: R06.89 Other abnormalities of breathing (principal)
CPT/HCPCS: 94010; 94640; 94727; 94729

== ENCOUNTER → 2025-02-22 09:40 | Outpatient (BNV) | payer OTHER, SELFPAY | PROVIDERS: PCP Internal Medicine; Visit Provider Internal Medicine Pulmonary Disease | DX: R06.89 Other abnormalities of breathing (principal) | CPT/HCPCS: 94060; 94727; 94729 ==

== ENCOUNTER → 2025-03-08 13:33 | Outpatient (REF) | payer OTHER, SELFPAY ==
--- OUTSIDE RECORDS SUMMARY | 2025-03-08 13:40 | XMS_ITS | Encounter Summary ---
Author Organization [employer] Address [address] [facility] [address] [place] [address] Care Team Providers Care Manager Fast Food Name Role Phone Unavailable Primary Care Provider Unavailabl e Encounter Details Date Type Department Care Team (Latest Contact Info) Description 12/19/2020 Abstract [facility] CONVERSIONS Dental, Provider, DDS Social History [...]
--- OUTSIDE RECORDS SUMMARY | 2025-03-08 13:40 | XMS_ITS | Clinical Summary ---
Author Organization [employer] Address [address] [facility] 7t [place] [address] Care Team Providers Care Process Designer Name Role Phone Unavailable Primary Care Provider [...] Additional history exists Dental X-Ray: Bitewings 08/21/2024 08/20/20, 10/21/2022, 09/26/2022 Tobacco Screening 10/14/2024 10/14/2023 DTaP/Tdap/Td [...] Recently Relevant to Health Maintenance Insurance DENTAL [facility]
--- OUTSIDE RECORDS SUMMARY | 2025-03-08 13:40 | XMS_ITS | Encounter Summary ---
Author Organization [employer] Address [address] [facility] [address] [place] [address] Care Team Providers Care Skid Adzer Name Role Phone Unavailable Primary Care Provider Unavailabl e Reason for Visit * Reason Onset Date Comments Dental Pain 09/30/2022 Patient called i n with continued pain from 09/[address] Irby requested allergies and pharmacy. [facility] [address] No allergies to abx. usually uses amox. Responded via email and tel call charting. DR Encounter Details Date Type Department Care Team ([facility] st Contact Info) Description 09/30/2022 Telephone [facility] ADULT DENTAL [address] [place] [address] Dental, Provider, DDS Dental Pain (Patient called in with continued pain from 09/[address] Irby requested allergies and pharmacy. [facility] [address] No allergies to abx. usually uses [...] allergies and pharmacy. [facility] [address] [place] [address] Road. No allergies to abx. usually uses amox. Responded via email and tel call charting. documented in this encounter Plan of Treatment Not on file documented as of this encounter Visit Diagnoses Not on filedocumented in this encounter
--- OUTSIDE RECORDS SUMMARY | 2025-03-08 13:40 | XMS_ITS | Encounter Summary ---
Author Organization [employer] Address [address] [facility] [address] [place] [address] Care Team Providers Care Barge Master Name Role Phone Unavailable Primary Care Provider Unavailabl e Encounter Details Date Type Department Care Team (Late st Contact Info) Description 10/05/2023 Telephone [facility] [address] [place] [address] Gi Bui BDS Social History Tobacco Use [...]
--- OUTSIDE RECORDS SUMMARY | 2025-03-08 13:40 | XMS_ITS | Encounter Summary ---
Author Organization [employer] Address [address] [facility] [address] [address] [facility] [address] [place] [address] Care Team Providers Care Supervisor General Name Role Phone Unavailable Primary Care Provider Unavailabl e Encounter Details Date Type Department Care Team (Latest Contact Info) Description 01/24/2019 Abstract [facility] CONVERSIONS Dental, Provider, DDS Social History [...]
== END ==
LOC: HO.SL 13:33
PROVIDERS: PCP Internal Medicine; Visit Provider Internal Medicine
DX: G47.33 Obstructive sleep apnea (adult) (pediatric) (principal)
CPT/HCPCS: 95806

== ENCOUNTER → 2025-03-08 14:02 | Outpatient (BNV) | payer OTHER, SELFPAY | PROVIDERS: PCP Internal Medicine; Visit Provider Internal Medicine | DX: G47.33 Obstructive sleep apnea (adult) (pediatric) (principal) | CPT/HCPCS: 95806 ==

== ENCOUNTER 2025-03-28 10:10 | Outpatient (AMB) | payer OTHER, SELFPAY ==
--- NOTE | 2025-03-28 10:37 | HO.NEPHOV ---
Vital Signs 03/28/25 10:43 Height 5 ft 7 in Weight 204 lb 8 oz BMI 32.0 BP 130/70 Blood Pressure Location Lt brachial Position Sitting Pulse 63 Pulse Source Pulse Oximeter Pulse Oximetry (%) 98 Oxygen Delivery Method Room Air Intake Visit Reasons: Sooner appt/Medication review Environmental Protection Specialist Required: Yes Environmental Protection Specialist Services: Environmental Protection Specialist Offered & Declined ([facility] Environmental Protection Specialist services refused ) Accompanied by: Self / Same As Patient Allergies cortisone Allergy (Unknown, Verified 03/28/25 10:38) Unknown isoniazid Allergy (Unknown, Verified 03/28/25 10:38) Rash oxycodone [From PERCOCET] Allergy (Unknown, Verified 03/28/25 10:38) SWELLING promethazine [From PHENERGAN] Allergy (Unknown, Verified 03/28/25 10:38) RASH seafood Allergy (Unknown, Verified 03/28/25 10:38) Anaphylaxis tramadol [TRAMADOL] Allergy (Unknown, Verified 03/28/25 10:38) UNKNOWN, GI upset doxycycline Adverse Reaction (Intermediate, Verified 03/28/25 10:38) dizziness, abdominal discomfort fluticasone [Advair Diskus] Adverse Reaction (Unknown, Verified 03/28/25 10:38) tachycardia salmeterol [Advair Diskus] Adverse Reaction (Unknown, Verified 03/28/25 10:38) tachycardia HPI Comments Details: Vaibhav was seen in follow up for hypertension. He has a diabetes. 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 He has BPH and takes tamsulosin. He checks his blood sugar regularly and his last hemoglobin A1c was 6.9. He has not known to have any proteinuria. He is on losartan & chlorthalidone for his blood pressure regulation. He is on statins. He denies peripheral arterial disease, carotid stenosis, coronary artery disease, congestive heart failure, CVA, renal artery stenosis, hypokalemia, uncontrolled thyroid disorders. He checks his blood pressure at home and has been better. He does not have any flushing, palpitation, diarrhea, headache, visual disturbances, new weakness. He is followed up by his primary care physician very closely. 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 Neck pain Myofascial pain Radiculitis of left cervical region Chronic sore throat DVT of lower extremity, bilateral Ankle pain, left Mixed hyperlipidemia Bilateral hand pain Mixed hyperlipidemia GERD (gastroesophageal reflux disease) Obesity due to excess calories Non-toxic multinodular goiter Obesity (BMI 30.0-34.9) Hypertension Chronic inflammation of pancreas Pancreatic abnormality FH: cholecystectomy Hypertriglyceridemia Diabetes type 1, uncontrolled Surgical History Hx of cholecystectomy Hx of endoscopy Hx of colonoscopy History of laminectomy Family History Father Hypertension Hyperlipidemia Prostate cancer Diabetes Arthritis Mother Arthritis Hyperlipidemia Diabetes Osteoporosis Lung cancer Brother Lung cancer Throat cancer Social History Household Members: Spouse and Children Household Members Other:: daughter, , son Housing: House Alcohol intake: former Year quit: 26 Patient Tobacco Use Status: Never used Tobacco e-Cigarette/Vaping Use: Never Used Second Hand Smoke Exposure: No service: No Current occupational status: disabled Cognitive needs: No Hearing needs: No Vision needs: No Review of Systems Const All systems reviewed & are unremarkable except as noted in HPI and below Physical Exam Vital Signs: Last Vital Signs Pulse 63 03/28/25 10:43 BP 148/80 H 03/28/25 10:43 Pulse Ox 98 03/28/25 10:43 Oxygen Delivery Method Room Air 03/28/25 10:43 BMI result Body Mass Index 32.0 Const General: comfortable and no acute distress Orientation/consciousness: patient oriented x3 HEENT Head: Yes normocephalic Mouth: Normal oral and palatal mucosa present Eyes EOM: EOMs intact bilaterally Neck Neck: Yes supple Resp Auscultation: clear to auscultation bilaterally Cardio Jugular venous distension: no JVD Rate: regular rate GI Palpation (GI): Soft to palpation Auscultation: normal bowel sounds General: Yes no CVA tenderness Back/Spine/Pelvis Back: no CVA tenderness Skin General skin exam: no rashes or lesions noted Neuro General: patient oriented x3 and moves all extremities Extrem General: Yes no pedal edema Results Reviewed Nephrology Results: No Data to Display Assessment & Plan Assessment & Plan (1) Uncontrolled hypertension: Code(s): I10 - Essential (primary) hypertension Category: Medical Plan Vaibhav has longstanding hypertension. He is on losartan 100 mg as well as chlorthalidone. His blood pressure is at goal now at home. His renin, aldosterone, aldosterone renin ratio, follow-up renal functions were reviewed. He could continue on chlorthalidone 25 mg daily and carvedilol 6.25 mg twice daily along with losartan 100 mg daily. His blood pressure needs to maintain at goal. He should be on a low-sodium diet. He should avoid nonsteroidal anti-inflammatories. He has no LVH, proteinuria or retinopathy. His renal functions are stable. I will consider doing Doppler of his renal arteries. He needs to loose weight . I did not make any other medication changes this visit. All his questions were answered. Follow-up appointment given Orders: Orders Creatinine 6 Months I10 - Essential (primary) hypertension Protein Creatinine Ratio, Ur 6 Months I10 - Essential (primary) hypertension Blood Urea Nitrogen 6 Months I10 - Essential (primary) hypertension Electrolytes 6 Months I10 - Essential (primary) hypertension Calcium 6 Months I10 - Essential (primary) hypertension Coding Level of Care Code Est Pt Level 4 (56587) Diagnoses Uncontrolled hypertension I10
[2025-03-28 10:43] VITALS: BP 130/70; PULSE 63; O2SAT 98; BMI 32.0
--- OUTSIDE RECORDS SUMMARY | 2025-03-28 11:41 | XMS_ITS | Encounter Summary ---
Author Organization [employer] Address [address] [facility] [address] [place] [address] Care Team Providers Care Filament Coil Winder Name Role Phone Unavailable Primary Care Provider Unavailabl e Encounter Details Date Type Department Care Team (Latest Contact Info) Description 12/19/2020 Abstract [facility] CONVERSIONS Dental, Provider, DDS Social History [...]
== END 2025-03-28 10:58 | disposition home or self-care (01) ==
LOC: HO.HKAS 10:11
PROVIDERS: PCP Internal Medicine; Visit Provider Internal Medicine Nephrology
DX: I10 Essential (primary) hypertension (principal)
CPT/HCPCS: 99214

== ENCOUNTER → 2025-03-28 10:10 | Outpatient (BNVA) | payer OTHER, SELFPAY | PROVIDERS: PCP Internal Medicine; Visit Provider Internal Medicine Nephrology | DX: I10 Essential (primary) hypertension (principal); E11.9 Type 2 diabetes mellitus without complications | CPT/HCPCS: 99212 ==

== ENCOUNTER 2025-03-29 09:33 | Outpatient (AMB) | payer OTHER, SELFPAY ==
[2025-03-29 09:38] VITALS: BP 136/62; PULSE 69; RESP 16; TEMP 36.7; O2SAT 98; BMI 31.9
--- NOTE | 2025-03-29 09:38 | AM.OFFWIN_ITS ---
Intake Vital Signs 03/29/25 09:38 Height 5 ft 7 in Weight 204 lb BMI 31.9 BP 136/62 Blood Pressure Location Lt brachial Position Sitting Respiration 16 Pulse 69 Pulse Source Pulse Oximeter Temp 98.0 F Temp Source Oral Pulse Oximetry (%) 98 Oxygen Delivery Method Room Air Intake Visit Reasons: EP-sore throat, neck pain, headaches, earache Intake Note: Pt is here today c/o s/t, neck pain h/a and Lt earache x1week Patient Tobacco Use Status: Never used Tobacco Allergies cortisone Allergy (Unknown, Verified 03/29/25 09:45) Unknown isoniazid Allergy (Unknown, Verified 03/29/25 09:45) Rash oxycodone [From PERCOCET] Allergy (Unknown, Verified 03/29/25 09:45) SWELLING promethazine [From PHENERGAN] Allergy (Unknown, Verified 03/29/25 09:45) RASH seafood Allergy (Unknown, Verified 03/29/25 09:45) Anaphylaxis tramadol [TRAMADOL] Allergy (Unknown, Verified 03/29/25 09:45) UNKNOWN, GI upset doxycycline Adverse Reaction (Intermediate, Verified 03/29/25 09:45) dizziness, abdominal discomfort fluticasone [Advair Diskus] Adverse Reaction (Unknown, Verified 03/29/25 09:45) tachycardia salmeterol [Advair Diskus] Adverse Reaction (Unknown, Verified 03/29/25 09:45) tachycardia HPI HPI Comments History of Present Illness Details History - The patient is a 64-year-old male pres enting with oral and neck pain. - Recently developed sialadenitis with p ain and swelling in the salivary gland area. - The patient experiences discomfort exa cerbated by swallowing, and has observed swelling over the last two weeks with intermittent pressure and pain continuing. - Cervical radiculopathy is a pre-existi ng condition noted in the neck area and contributes to the patient's current complaints. - Follow-up with an ENT specialist is sc heduled but presents delays in care caused by appointment availability until October 27, 2025. - The patient indicates no effective all eviation of symptoms with prior measures attempted. Physical Exam General: Cooperative, healthy appearing, comfortable and no acute distress Orientation/consciousness: Patient oriented x3 Limitations: No limitations Head: Normal to inspection Ears: Hearing grossly normal bilaterally, external ears normal, EACs normal bilat, TM's with erythema on left, normal on right. Nose: Normal external nose present, Normal nares present and No nasal discharge present Face and sinus: TTP and slight edema left cheek/anterior to ear/parotid gland Mouth: Normal oral and palatal mucosa present, moist mucous membranes Throat: Yes tonsils normal, Yes uvula midline. Posterior oropharynx erythema Eyes: Appearance normal, both eyes and all related structures Neck: Normal visual inspection, patient reports neck pain Respiratory: Normal respiratory effort, able to speak in complete sentences, Actively coughing, no respiratory distress, not tachypneic, no tripod positioning and no use of accessory muscles Skin: No rashes or lesions noted Neuro: Patient oriented x3 Extremities: Normal to inspection and Yes no clubbing, cyanosis or edema PFSH Medical History 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 Neck pain Myofascial pain Radiculitis of left cervical region Chronic sore throat DVT of lower extremity, bilateral Ankle pain, left Mixed hyperlipidemia Bilateral hand pain Mixed hyperlipidemia GERD (gastroesophageal reflux disease) Obesity due to excess calories Non-toxic multinodular goiter Obesity (BMI 30.0-34.9) Hypertension Chronic inflammation of pancreas Pancreatic abnormality FH: cholecystectomy Hypertriglyceridemia Diabetes type 1, uncontrolled Surgical History Hx of cholecystectomy Hx of endoscopy Hx of colonoscopy History of laminectomy Family History Father Hypertension Hyperlipidemia Prostate cancer Diabetes Arthritis Mother Arthritis Hyperlipidemia Diabetes Osteoporosis Lung cancer Brother Lung cancer Throat cancer Social History Household Members: Spouse and Children Household Members Other:: daughter, , son Housing: House Alcohol intake: former Year quit: 26 Patient Tobacco Use Status: Never used Tobacco e-Cigarette/Vaping Use: Never Used Second Hand Smoke Exposure: No service: No Current occupational status: disabled Cognitive needs: No Hearing needs: No Vision needs: No Review of Systems Const All systems reviewed & are unremarkable except as noted in HPI and below Physical Exam Vital Signs: Last Vital Signs Temp 98.0 F 03/29/25 09:38 Pulse 69 03/29/25 09:38 Resp 16 03/29/25 09:38 BP 136/62 03/29/25 09:38 Pulse Ox 98 03/29/25 09:38 Oxygen Delivery Method Room Air 03/29/25 09:38 BMI result Body Mass Index 31.9 Results AMB Rapid Strep AMB Rapid Strep Negative Last Edit by Adeola Vasquez CMA on 03/29/25 09:50 Results Reviewed Results Reviewed: Laboratory Last Values Strep Scn Rapid Clinic Negative 03/29/25 09:49 Assessment & Plan Assessment & Plan (1) Parotiditis: Code(s): K11.20 - Sialoadenitis, unspecified Plan: Rapid strep negative. To address the sialadenitis, I will prescribe Augmentin, which is well-suited for treating potential bacterial infection in the salivary gland area. The patient should use warm salt water rinses to facilitate symptom management. An expedited ENT evaluation is recommended if feasible, as the patient is currently scheduled for October, but is on the cancellation list. The pre-existing cervical radiculopathy will primarily require monitoring, but acute symptom management is currently prioritized. If symptoms worsen or new concerns arise, reevaluation will be necessary. The patient will be advised of these recommendations and informed of the importance of follow-up if the condition does not improve as expected. Patient was informed and verbally consented to the use of an ambient scribe for clinic note documentation during this visit Orders: Orders AMB Rapid Strep Screen Today Z13.9 - Encounter for screening, unspecified Medications: New amoxicillin-pot clavulanate 875-125 mg 1 tab PO Q12H 10 tabs 0RF Coding Level of Care Code Est Pt Level 3 (11841) Diagnoses Parotiditis K11.20
--- OUTSIDE RECORDS SUMMARY | 2025-03-29 09:59 | XMS_ITS | Encounter Summary ---
Author Organization [employer] Address [address] [facility] [address] [place] [address] Care Team Providers Care Data Collection Interviewer Name Role Phone Unavailable Primary Care Provider Unavailabl e Encounter Details Date Type Department Care Team (Latest Contact Info) Description 12/19/2020 Abstract [facility] CONVERSIONS Dental, Provider, DDS Social History Tobacco [...]
== END 2025-03-29 10:09 | disposition home or self-care (01) ==
PROVIDERS: PCP Internal Medicine; Visit Provider Physician Assistant
DX: K11.20 Sialoadenitis, unspecified (principal); Z13.9 Encounter for screening, unspecified

== ENCOUNTER → 2025-03-29 09:33 | Outpatient (BNVA) | payer OTHER, SELFPAY | PROVIDERS: PCP Internal Medicine; Visit Provider Physician Assistant | DX: K11.20 Sialoadenitis, unspecified (principal) | CPT/HCPCS: 87880; 99212 ==

== ENCOUNTER 2025-04-26 09:44 | Outpatient (AMB) | payer OTHER, SELFPAY ==
--- NOTE | 2025-04-26 07:31 | A.OFFVIS_ITS ---
Vital Signs 04/26/25 09:53 04/26/25 10:25 Height 5 ft 7 in Weight 202 lb 13.204 oz BMI 31.8 BP 154/84 H 154/78 H Blood Pressure Location Rt brachial Rt brachial Position Sitting Sitting Pulse 56 Pulse Source Pulse Oximeter Pulse Oximetry (%) 96 Oxygen Delivery Method Room Air Intake Visit Reasons: T1DM Intake Note: Patient presents today for a follow-up on Type 1 Diabetes Mellitus, Patient on Tslim Insulin Pump: Last Diabetic eye exam was on: 11/24/2024, [facility], pending eye surgery soon??? Last Podiatry exam was on: Patient does not see a Dental Chair Assembler Most recent HbA1c: 6.7%, 04/26/2025 Random Glucose- 146 mg/dL, Today Varnishing Unit Tool Setter Required: Yes Varnishing Unit Tool Setter Language: Supervisor Meter Shop Services: Varnishing Unit Tool Setter Offered & Declined Allergies cortisone Allergy (Unknown, Verified 03/29/25 09:45) Unknown isoniazid Allergy (Unknown, Verified 03/29/25 09:45) Rash oxycodone (From PERCOCET) Allergy (Unknown, Verified 03/29/25 09:45) SWELLING promethazine (From PHENERGAN) Allergy (Unknown, Verified 03/29/25 09:45) RASH seafood Allergy (Unknown, Verified 03/29/25 09:45) Anaphylaxis tramadol (TRAMADOL) Allergy (Unknown, Verified 03/29/25 09:45) UNKNOWN, GI upset doxycycline Adverse Reaction (Intermediate, Verified 03/29/25 09:45) dizziness, abdominal discomfort fluticasone (Advair Diskus) Adverse Reaction (Unknown, Verified 03/29/25 09:45) tachycardia salmeterol (Advair Diskus) Adverse Reaction (Unknown, Verified 03/29/25 09:45) tachycardia HPI Comments Details: Patient is 64 yo male with DM type 1 diagnosed around 2016 who presents for management of diabetes. He also has a multinodular goiter. He was last seen by provider 12/27/24. Hemoglobin A1c 04/26/25 6.7%, 12/27/24 6.6%, 09/27/24 6/9%, 06/28/24 7%. Hgb A1C on 04/05/24 was 7.3%. Patient received new T slim pump with Dexcom G7 which was set up by Rema Brooks CDE 11/18/2024. He reports occasional problem with a the sensor not pairing with his pump. He was advised to try to keep the pump and the sensor on the same to side of his body. Past medical history: DM1, HTN, HLD, NTMNG (managed by this practice) Micro and macrovascular complications: Diabetes medications: backup plan 53 units of Lantus and Novolog in usual doses with meals. Novolog via Tandem pump Hypoglycemia: rarely with symptoms of shaking, sweating - x1 mild recently. Treats low sugar with 3 sugar tablets and repeats as necessary. 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 Has neuropathy: Symptoms reported numbness, tingling, had issue with ingrown toenail 10/18. Dental Chair Assembler: seen regularly be phlebotomist prn Dental exam: goes every 6 month Denies retinopathy: Ophthalmology evaluation: had appt in 05/2024, has mild cataracts surgery scheduled later this month Nephropathy: EGFR>60 11/29/2024 on [facility], microalbumin 11.[address] Sepulveda on a regular basis. BP elevated today. He reports he did not take his blood pressure medications this morning. Last few visits with Nephrology have been in good range. Has HLD on statin LDL 68 11/29/2024 Dexcom average glucose: 154 14 day continuous glucose monitor report reviewed TIme in ranges: 2.3 % very high (above 250) 20 % high ?(181-250) 70 % in range ?(70-180] 0 % low (69-55) 0 % ?very low (below 54) Interpretation in excellent range most of the time, periodically enters in carbs after his sugars start to climb instead of before the meal overall doing very well Total daily dose 126 units at times this is higher than this so his med list has been altered to 170 units daily Basal 39% 49 bolus 61% 76 units Carbs 167 thryoid nodule: Dr. Alaniz saw patient 10/18 with no need for ongoing f/u From her note: Patient with a history of prior FNA biopsies in 2020 with nontoxic multinodular goiter, with most recent ultrasound in June 2023 which showed subcentimeter thyroid nodules. I reviewed his ultrasound, no need for further imaging unless he has any clinical changes. Multinodular goiter: Had thyroid ultrasound 07/18 no significant change multiple sub centimeter nodules,had us , and . Patient had repeated FNA of Right lower pole thyroid on 02/14/2021 cytology was benign., consistent benign follicular nodule [place] category 2. Afirma was performed as this nodule had a prior FNA on November 2020 advised the hospital that was AUS. Afirma was negative. This decrease the risk of malignancy to 4%. He had fine-needle aspiration on 12/21/2020 at [facility] Right thyroid nodule was benign 1.2 x 0.8 x 1.2 cm and right lower pole nodule was atypia of undetermined significance size was 1 x 0.8 x 0.9 cm. There was no Afirma are other genetic testing sample performed. Fibrosis-4 (Fib-4) Index for liver fibrosis (calculated on lab work done:11/18)1.37 points Advanced fibrosis excluded Approximate Fibrosis stage Ami 0-1 *Use with caution in patients <35 or >65 years old, as the score has been shown to be less reliable in these patients. Prior imaging: CT of the abdomen done in 2021 showed normal liver. 12 AM to 10AM 2 units / hr 10 AM to 2 PM 1.8 units / hr 2 PM to 12 AM? 2.0 units / hr Bolus setting Insulin Carbohydrate Ratio (s) 12 AM? to 10 AM 1:4.5?? 10 AM to 2 PM 1:3 2 PM to 12 AM 1:1.7 Correction Factor / Sensitivity Factor 12 AM? to 10 AM 1:20 10 AM? to 12 AM 1:15 Active Insulin Time:? 3 hours Target(s): 12 AM? to 12 AM 120 mg/dL Target with Control IQ: 12 AM? to 12 AM 110 mg/dL [facility] Medical History 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 Neck pain Myofascial pain Radiculitis of left cervical region Chronic sore throat DVT of lower extremity, bilateral Ankle pain, left Mixed hyperlipidemia Bilateral hand pain Mixed hyperlipidemia GERD (gastroesophageal reflux disease) Obesity due to excess calories Non-toxic multinodular goiter Obesity (BMI 30.0-34.9) Hypertension Chronic inflammation of pancreas Pancreatic abnormality FH: cholecystectomy Hypertriglyceridemia Diabetes type 1, uncontrolled Surgical History Hx of cholecystectomy Hx of endoscopy Hx of colonoscopy History of laminectomy Family History Father Hypertension Hyperlipidemia Prostate cancer Diabetes Arthritis Mother Arthritis Hyperlipidemia Diabetes Osteoporosis Lung cancer Brother Lung cancer Throat cancer Social History Household Members: Spouse and Children Household Members Other:: daughter, , son Housing: House Alcohol intake: former Year quit: 28 Patient Tobacco Use Status: Never used Tobacco e-Cigarette/Vaping Use: Never Used Second Hand Smoke Exposure: No service: No Current occupational status: disabled Cognitive needs: No Hearing needs: No Vision needs: No Physical Exam Vital Signs: Last Vital Signs Pulse 56 04/26/25 09:53 BP 154/78 H 04/26/25 10:25 Pulse Ox 96 04/26/25 09:53 Oxygen Delivery Method Room Air 04/26/25 09:53 BMI result Body Mass Index 31.8 Const Other: Absence of Cushingoid features. Absence of acromegalic features. Neck exam reveals nl size thyroid about 15 gms. No thyroid nodules palpable. Heart S1 S2, Reg R/R. No M/R G. Skin exam reveals absence of vitiligo or acanthosis nigricans. No edema Visual exam of foot performed. No ulcerations or open lesions. No inter digit maceration or fissuring. + onychomycosis of nail beds, no callouses. Sensation intact to monofilament exam. Vibratory sensation is normal with 128 Hz tuning fork. Results AMB Hemoglobin A1c AMB Hemoglobin A1c 6.7 % Last Edit by BRYNN Ibrahim on 04/26/25 10:15 Results Reviewed Results Reviewed: Laboratory Last Values Glucose (Clinic) 146 mg/dL (60-115) H 04/26/25 09:58 Hgb A1c (Clinic) 6.7 % (4.0-6.0) H 04/26/25 10:11 Assessment & Plan Assessment & Plan (1) Diabetes mellitus type 1: Code(s): E10.9 - Type 1 diabetes mellitus without complications Category: Medical Qualifiers: Diabetes mellitus complication status: with hyperglycemia Qualified Code(s): E10.65 - Type 1 diabetes mellitus with hyperglycemia Plan: 64-year-old type 1 diabetic with nephropathy followed by Dr. Sepulveda with glucose in excellent control. A1c 6.7% in the office today. The patient had an opportunity to ask questions regarding treatment plan. The patient expressed understanding and agreement with the above treatment plan. The patient is aware they should contact our office by phone for worsening glucose readings or for any low blood sugars which may warrant a change in diabetes medication. Compliance is encouraged with medications and any followup testing/consults which may have been ordered. Orders: Orders AMB Hemoglobin A1c Today E10.65 - Type 1 diabetes mellitus with hyperglycemia Medications: Changed From insulin aspart U-100 (Novolog U-100 Insulin aspart) subcutaneously continuous; up to 150 units daily 30 days 40 mL 6RF E10.65 - Type 1 diabetes mellitus with hyperglycemia, E10.9 - Type 1 diabetes mellitus without complications To insulin aspart U-100 (Novolog U-100 Insulin aspart) subcutaneously continuous; up to 170 units daily 50 mL 6RF 30 days E10.65 - Type 1 diabetes mellitus with hyperglycemia, E10.9 - Type 1 diabetes mellitus without complications From lancets 6 times a day 200 ea 11RF E10.65 - Type 1 diabetes mellitus with hyperglycemia To lancets 6 times a day prn pump failure 200 ea 11RF E10.65 - Type 1 diabetes mellitus with hyperglycemia From blood sugar diagnostic (FreeStyle Lite Strips) USE 6 TIMES A DAY 200 strips 11RF E10.65 - Type 1 diabetes mellitus with hyperglycemia To blood sugar diagnostic (FreeStyle Lite Strips) USE 6 TIMES A DAY prn sensor failure 200 strips 11RF E10.65 - Type 1 diabetes mellitus with hyperglycemia Patient Instructions: Check your feet daily looking for any signs of infection, drainage, redness, ulceration and seek medical attention if this occurs. Break in shoes gradually and do not wear open-toed shoes or walk stocking footed or barefooted. Symptoms of DKA (diabetic ketoacidosis): early: frequent urination, dry mouth, fatigue, feeling ill, severe symptoms: ketones in the urine, abdominal pain, nausea, vomiting and weakness. It is important to hydrate with sugar free liquids every 15-30 minutes and bring the sugars down to normal levels. If you are moderate or severe with ketones or unable to bring glucose to less than 200, go to the emergency room. Coding Level of Care Code Est Pt Level 4 (78103) Complex EM visit Add On G2211 Diagnoses Type 1 diabetes mellitus with hyperglycemia E10.65 Diabetes mellitus complication status: with hyperglycemia Time Spent (min) 30 Comment Time spent reviewing labs/provider notes, face to face, chart doc
[2025-04-26 09:53] VITALS: BP 154/84; PULSE 56; O2SAT 96; BMI 31.8
[2025-04-26 10:03] LABS: Glucose, Whole Blood 146 mg/dL (60-115)
--- OUTSIDE RECORDS SUMMARY | 2025-04-26 10:05 | XMS_ITS | Patient Health Record ---
Author Organization [facility] Address [address] [place] [id number] Care Team Providers Care Petrology Teacher Name Role Phone Reza MENDOZA, Asma Primary Care Provider Dontae Tompkins Unavailable [phone] OYULA, JV Unavailable Unavailable Allergies Allergen (clinical drug ingredient) Drug/Non Drug Allergy documented on EMR Reaction Allergy Type Onset Date Status aspirin Aspirin Unknown Drug Allergy Active Reason For Referral No Information Medications Medication SIG (Take, Route, Fr equency, Duration) Notes Start Date End Date Status Lisinopril 10/26/2024 10/26/2024 Active Fenofibrate 10/26/2024 10/26/2024 Active Nasal [place] 10/26/2024 10/26/2024 Active Dicyclomine HCl 10 MG 1-2 tablets Orally prn abdominal pain 10/26/2024 10/26/2024 Active ProAir HFA 10/26/2024 10/26/2024 Active Advil 10/26/2024 10/26/2024 Active Omeprazole 10/26/2024 10/26/2024 Active Problems Problem Type SNOMED Code ICD Code Onset Dates Problem Status W/U Status Risk Notes Problem Irritable bowel syndrome (54169674) Irritable bowel syndrome (564.1) Active confirmed Problem Colon cancer screening (874982031) Colon cancer screening (V76.51) Active confirmed Problem Gastroesophageal reflux disease (732114835) GERD (gastroesophage al reflux disease) (530.81) Active confirmed Problem 972619604 Idiopathic acute pancreatitis (K85.0) Active confirmed Plan Of Treatment Pending Test Test Name Order Date CHEM 7 PROFILE 07/30/2016 LIVER PROFILE 07/30/2016 CALCIUM 07/30/2016 AMYLASE 07/30/2016 LIPASE 07/30/2016 IgG SUBCLASSES PANEL, SERUM 07/30/2016 CA 19-9 07/30/2016 MRI ABD NO CONTRAST (MRCP) 07/30/2016 MRI ABD W&WO CONTRAST 07/30/2016 Insurance Providers Payer Name Payer Address Payer Phone Subscriber Number Group Number Insured Name Patient Relationship to Insured Coverage Start Date Coverage End Date MEDICARE OF [place] [address] [place] [id number] [phone] [id number] GUILLE TEJADA Self - patient is the insured MEDICAID OF [facility] [address] [place] [phone] [id number] GUILLE TEJADA Self - patient is the insured Medical (General) History Medical History History ICD Code GERD--EGD in 2002 was neg for H.pylori, gastritis, PUD Asthma HTN Arthritis Colonoscopy in 2006 neg except diverticu losis and int. hemorrhoids Neg. abd U/S in 10/2009 Neg celiac disease labs in 10/2009 Denies [place],DM,CVA,renal disease Surgical History Surgery Date(Month/Year) back surgery
--- OUTSIDE RECORDS SUMMARY | 2025-04-26 10:05 | XMS_ITS | Encounter Summary ---
Author Organization [employer] Address [address] [facility] [address] [place] [address] Care Team Providers Care Tool Grinder Operator Surface Name Role Phone Unavailable Primary Care Provider Unavailabl e Encounter Details Date Type Department Care Team (Latest Contact Info) Description 12/19/2020 Abstract [facility] CONVERSIONS Dental, Provider, DDS Social History [...]
[2025-04-26 10:25] VITALS: BP 154/78
== END 2025-04-26 10:22 | disposition home or self-care (01) ==
LOC: HO.ENCR 09:44
PROVIDERS: PCP Internal Medicine; Visit Provider Nurse Practitioner Adult Health
DX: E10.65 Type 1 diabetes mellitus with hyperglycemia (principal)
CPT/HCPCS: 99214; G2211

== ENCOUNTER → 2025-04-26 09:44 | Outpatient (BNVA) | payer OTHER, SELFPAY | PROVIDERS: PCP Internal Medicine; Visit Provider Nurse Practitioner Adult Health | DX: E10.65 Type 1 diabetes mellitus with hyperglycemia (principal); Z96.41 Presence of insulin pump (external) (internal); Z79.4 Long term (current) use of insulin | CPT/HCPCS: 82947; 83036; 99212 ==

== ENCOUNTER 2025-05-04 09:12 | Outpatient (REF) | payer OTHER, SELFPAY ==
--- OUTSIDE RECORDS SUMMARY | 2025-05-04 09:37 | XMS_ITS | Patient Health Record ---
Author Organization [facility] Address [address] [place] [id number] Care Team Providers Care Scoop Operator Name Role Phone Reza MENDOZA, Asma Primary Care Provider Dontae Tompkins Unavailable [phone] OYULA, JV Unavailable Unavailable Allergies Allergen (clinical drug ingredient) Drug/Non Drug Allergy documented on EMR Reaction Allergy Type Onset Date Status aspirin Aspirin Unknown Drug Allergy Active Reason For Referral No Information Medications Medication SIG (Take, Route, Fr equency, Duration) Notes Start Date End Date Status Lisinopril 10/26/2024 10/26/2024 Active Fenofibrate 10/26/2024 10/26/2024 Active Nasal [place] 10/26/2024 10/26/2024 Active Dicyclomine HCl 10 MG 1-2 tablets Orally prn abdominal pain 10/26/2024 10/26/2024 Active ProAir HFA 10/26/2024 10/26/2024 Active Advil 10/26/2024 10/26/2024 Active Omeprazole 10/26/2024 10/26/2024 Active Problems Problem Type SNOMED Code ICD Code Onset Dates Problem Status W/U Status Risk Notes Problem Irritable bowel syndrome (40568067) Irritable bowel syndrome (564.1) Active confirmed Problem Colon cancer screening (130191560) Colon cancer screening (V76.51) Active confirmed Problem Gastroesophageal reflux disease (673826110) GERD (gastroesophage al reflux disease) (530.81) Active confirmed Problem 785948491 Idiopathic acute pancreatitis (K85.0) Active confirmed Plan [...] OF [place] [address] [place] [address] [id number] GUILLE TEJADA Self - patient is the insured MEDICAID OF [facility] [address] [place] [address] [id number] GUILLE TEJADA Self - patient is the insured Medical (General) History Medical History History ICD Code GERD--EGD in 2002 was neg for H.pylori, gastritis, PUD Asthma HTN Arthritis Colonoscopy in 2006 neg except diverticu losis and int. hemorrhoids Neg. abd U/S in 10/2009 Neg celiac disease labs in 10/2009 Denies [place],DM,CVA,renal disease Surgical History Surgery Date(Month/Year) back surgery
--- OUTSIDE RECORDS SUMMARY | 2025-05-04 09:37 | XMS_ITS | Encounter Summary ---
Author Organization [employer] Address [address] [facility] [address] [place] [address] Care Team Providers Care Solar Energy Systems Designer Name Role Phone Unavailable Primary Care Provider Unavailabl e Encounter Details Date Type Department Care Team (Latest Contact Info) Description 12/19/2020 Abstract [facility] CONVERSIONS Dental, Provider, DDS Social History [...]
[2025-05-04 10:34] LABS: MANUAL DIFF FLAG NO
[2025-05-04 10:44] LABS: Hematocrit 39.1 % (42.0-52.0); Hemoglobin 13.4 g/dl (14.0-18.0); Imm Gran Abs Auto 0.02 X10*3/uL (0.00-0.03); Imm Gran Pct Auto 0.3 % (0.0-0.4); Lymphocytes Absolute Auto 1.3 X10*3/uL (1.2-4.9); Mean Corpuscular HGB Conc 34.3 g/dl (31.0-36.0); Mean Corpuscular Hemoglobin 27.4 pg (27.0-33.0); Mean Corpuscular Volume 80.0 fL (80.0-98.0); NRBC Abs Auto 0.000 X10*3/uL (0.0-0.012); NRBC Pct Auto 0.0 /100WBC (0.0-0.2); Platelet Count 200 X10*3/uL (160-400); Red Blood Count 4.89 X10*6/uL (4.60-5.80); White Blood Count 6.0 X10*3/uL (4.8-10.8)
[2025-05-04 11:35] LABS: Alanine Aminotransferase 34 U/L (0-40); Albumin Level 4.5 g/dL (3.5-5.0); Alkaline Phosphatase 49 U/L (39-117); Anion Gap 12 (12-20); Aspartate Amino Transferase 33 U/L (5-37); Blood Urea Nitrogen 16 mg/dL (9-16); Calcium 9.3 mg/dL (8.4-10.2); Carbon Dioxide 28 mmol/L (22-29); Chloride 103 mmol/L (96-108); Cholesterol 168 mg/dL (<200); Estimated Glomerular Filt Rate > 60; HDL Cholesterol 31 mg/dL (>40); Iron 62 mcg/dL (45-160); Percent Iron Saturation 23 % (15-50); Potassium 3.3 mmol/L (3.3-5.1); Sodium 140 mmol/L (135-145); Total Iron Binding Capacity 273 mcg/dL (228-428); Total Protein 6.9 g/dL (6.5-8.0); Triglycerides 323 mg/dL (<150); Unsaturated Iron Binding 211 ug/dL
[2025-05-04 11:41] LABS: Folate 11.9 ng/mL (> or = 4.0); Vitamin B12 875 pg/mL (200-900)
== END 2025-05-04 09:13 | disposition home or self-care (01) ==
LOC: HO.HMGCLDS 09:12
PROVIDERS: PCP Internal Medicine; Visit Provider Internal Medicine
DX: E10.65 Type 1 diabetes mellitus with hyperglycemia (principal); I10 Essential (primary) hypertension; E78.5 Hyperlipidemia, unspecified; E55.9 Vitamin D deficiency, unspecified; E53.8 Deficiency of other specified B group vitamins; D64.9 Anemia, unspecified; K86.1 Other chronic pancreatitis; M06.09 Rheumatoid arthritis without rheumatoid factor, multiple sites; G47.33 Obstructive sleep apnea (adult) (pediatric); Z99.89 Dependence on other enabling machines and devices
CPT/HCPCS: 36415; 80053; 80061; 82306; 82607; 82746; 83540; 85025; 99212

== ENCOUNTER 2025-05-04 10:31 | Outpatient (AMB) | payer OTHER, SELFPAY ==
--- NOTE | 2025-05-04 10:37 | A.OFFPC_ITS ---
Vital Signs 05/04/25 10:38 Height 5 ft 7 in Weight 198 lb BMI 31.0 BP 152/80 H Blood Pressure Location Lt brachial Position Sitting Intake Visit Reasons: dm Intake Note: Patient here for a follow up DM Yard Foreman Required: No Accompanied by: Self / Same As Patient Allergies cortisone Allergy (Unknown, Verified 05/04/25 10:59) Unknown isoniazid Allergy (Unknown, Verified 05/04/25 10:59) Rash oxycodone (From PERCOCET) Allergy (Unknown, Verified 05/04/25 10:59) SWELLING promethazine (From PHENERGAN) Allergy (Unknown, Verified 05/04/25 10:59) RASH seafood Allergy (Unknown, Verified 05/04/25 10:59) Anaphylaxis tramadol (TRAMADOL) Allergy (Unknown, Verified 05/04/25 10:59) UNKNOWN, GI upset doxycycline Adverse Reaction (Intermediate, Verified 05/04/25 10:59) dizziness, abdominal discomfort fluticasone (Advair Diskus) Adverse Reaction (Unknown, Verified 05/04/25 10:59) tachycardia salmeterol (Advair Diskus) Adverse Reaction (Unknown, Verified 05/04/25 10:59) tachycardia Medication List - Last Reconciled 05/04/25 by Kiley Napier MD acetone (urine) test (Ketone Urine Test strips) As directed p.r.n. glucose over 250, illness, nausea, vomiting albuterol sulfate 90 mcg/actuation 2 puffs PO Q6H PRN 30 days alcohol swabs (Alcohol Prep Pads) 1 pad topical .6 times a day 30 days atorvastatin 40 mg PO BEDTIME 90 days azathioprine 100 mg (2 x 50 mg) PO DAILY baclofen 5 - 10 mg (1 - 2 x 5 mg) PO BEDTIME 90 days BD Insulin Syringe Ultra-Fine (insulin syringe-needle U-100) 5 times a day NS blood pressure test kit-large (Invacio Blood Pressure Monitor kit) As directed blood sugar diagnostic (FreeStyle Lite Strips) USE 6 TIMES A DAY prn sensor failure blood-glucose sensor (Dexcom G6 Sensor device) As directed change every 10 days blood-glucose transmitter (Dexcom G6 Transmitter device) As directed blood-glucose,resident hall director,cont (Dexcom G6 Community Relations Rep) As directed carvedilol 6.25 mg PO BID chlorthalidone 50 mg PO DAILY coenzyme Q10 (Co Q-10) 10 mg PO DAILY 30 days CPAP (CPAP Machine/Device) autoCPAP 6-20 cmH2O dutasteride 0.5 mg PO DAILY fenofibrate 54 mg PO DAILY 90 days fluticasone propionate 50 mcg/actuation (Allergy Relief (fluticasone)) 1 spray intranasal DAILY 30 days gabapentin 300 mg PO BID 30 days glucagon 3 mg/actuation (Baqsimi) 3 mg intranasal ONCE heating pads (Advocate Heating Pad) As directed insulin aspart U-100 (Novolog U-100 Insulin aspart) subcutaneously continuous; up to 170 units daily 30 days lancets 6 times a day prn pump failure Lantus Solostar U-100 Insulin (insulin glargine) 53 units (0.53 mL) subcut DAILY PRN 30 days NS losartan 100 mg PO DAILY omeprazole 20 mg PO BID ondansetron HCl 4 mg PO DAILY PRN 30 days pen needle, diabetic (BD Doris 2nd Gen Pen Needle) once a day tamsulosin (Flomax) 0.4 mg PO DAILY 5 days Tobacco use date assessed: 11/30/24 Fall risk assessment: No Falls in past year Last assessed Fall Risk: 05/04/25 Dental Screening Dental Screen Date: 11/30/24 HPI HPI Comments History of Present Illness Details The patient is a 64-year-old male presenting with follow-up for multiple chronic conditions, including hypertension and diabetes mellitus. On has IgG4 related disorder and rheumatoid arthritis for which he takes azathioprine and follows with Gastroenterology. Complains of bilateral shoulder pain that was evaluated by ortho and I told him to contact them. Hypertension has been a concern, with the patient reporting elevated blood pressure readings and occasional dizziness, particularly in the mornings. The patient has not been taking carvedilol consistently, which may contribute to the elevated readings. Diabetes mellitus management includes the use of an insulin pump, and the most recent HbA1c was 6.7%, indicating good control. The patient experienced hypoglycemia in the morning, necessitating food intake to stabilize blood glucose levels. The patient also reports claustrophobia, which affects the use of CPAP for sleep apnea. Despite this, the patient has been using the CPAP machine for the past nine days, with mixed results due to mask displacement. Hyperlipidemia is managed with atorvastatin and fenofibrate, with laboratory results pending. The patient denies smoking and has abstained from alcohol for over 20 years. [facility] Medical History 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 Neck pain Myofascial pain Radiculitis of left cervical region Chronic sore throat DVT of lower extremity, bilateral Ankle pain, left Mixed hyperlipidemia Bilateral hand pain Mixed hyperlipidemia GERD (gastroesophageal reflux disease) Obesity due to excess calories Non-toxic multinodular goiter Obesity (BMI 30.0-34.9) Hypertension Chronic inflammation of pancreas Pancreatic abnormality FH: cholecystectomy Hypertriglyceridemia Diabetes type 1, uncontrolled Surgical History Hx of cholecystectomy Hx of endoscopy Hx of colonoscopy History of laminectomy Family History Father Hypertension Hyperlipidemia Prostate cancer Diabetes Arthritis Mother Arthritis Hyperlipidemia Diabetes Osteoporosis Lung cancer Brother Lung cancer Throat cancer Social History Household Members: Spouse and Children Household Members Other:: daughter, , son Housing: House Alcohol intake: former Year quit: 26 Patient Tobacco Use Status: Never used Tobacco e-Cigarette/Vaping Use: Never Used Second Hand Smoke Exposure: No service: No Current occupational status: disabled Cognitive needs: No Hearing needs: No Vision needs: No Questionnaire Thrive Questionnaire Date Thrive assessed: 11/30/24 JAVIER-7 AMB Questionnaire JAVIER-7 Date JAVIER - 7 assessed: 11/30/24 Source: Developed by Drs. Dontae Murray, Denice Jeff, Lai Eric and colleagues, with an educational braulio from [employer]. Review of Systems Const All systems reviewed & are unremarkable except as noted in HPI and below Card Denies chest pain at rest, Denies chest pain with activity, Denies edema, Denies irregular heart rhythm, Denies claudication, Denies dyspnea, Denies dyspnea on exertion, Denies orthopnea, Denies paroxysmal nocturnal dyspnea and Denies slow heart rate Resp Denies cough, Denies dyspnea and Denies dyspnea on exertion GI Denies abdominal pain, Denies change in bowel habits, Denies excessive flatus, Denies nausea and Denies vomiting Denies urinary hesitancy, Denies urinary incontinence and Denies urinary urgency Musc Denies abnormal gait, Denies atrophy, Denies deformity and Denies limited range of motion Skin/Breast Denies bleeding lesions, Denies changing lesions and Denies rash Neuro Denies abnormal gait and Denies lack of coordination Physical exam (Primary Care) Vital Signs: Last Vital Signs BP 152/80 H 05/04/25 10:38 BMI result Body Mass Index 31.0 BMI Assessment/Plan discussion: High BMI High, discussed plan: lifestyle, weight reduction, dietary and physical activity Tobacco/Smoking Status: Tobacco use Status Tobacco use date assessed 11/30/24 05/04/25 10:43 Patient Tobacco Use Status Never used Tobacco 05/04/25 10:43 e-Cigarette/Vaping Use Never Used 05/04/25 10:43 Thrive Assessment: Date of Thrive Assessment Date Thrive assessed 11/30/24 05/04/25 10:43 Resp Effort & Inspection: normal respiratory effort Auscultation: clear to auscultation bilaterally Cardio Jugular venous distension: no JVD Rate: regular rate Rhythm: regular rhythm Heart sounds: S1 normal heart sound present and S2 normal heart sound present Extrem General: Yes full ROM Coding Level of Care Code Est Pt Level 4 (26087) Complex EM visit Add On G2211 Diagnoses Type 1 diabetes mellitus with hyperglycemia E10.65 Diabetes mellitus complication status: with hyperglycemia Hyperlipidemia LDL goal <70 E78.5 Primary hypertension I10 Hypertension type: primary hypertension 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 Rheumatoid arthritis of multiple sites with negative rheumatoid factor M06.09 Rheumatoid arthritis location: multiple sites Rheumatoid factor presence: without rheumatoid factor ANA on CPAP G47.33 Time Spent (min) 23 Assessment & Plan Assessment & Plan (1) Diabetes mellitus type 1: Code(s): E10.9 - Type 1 diabetes mellitus without complications Category: Medical Qualifiers: Diabetes mellitus complication status: with hyperglycemia Qualified Code(s): E10.65 - Type 1 diabetes mellitus with hyperglycemia (2) Hyperlipidemia LDL goal <70: Code(s): E78.5 - Hyperlipidemia, unspecified Category: Medical (3) Hypertension: Code(s): I10 - Essential (primary) hypertension Category: Medical Qualifiers: Hypertension type: primary hypertension Qualified Code(s): I10 - Essential (primary) hypertension (4) IgG4-related pancreatitis: Code(s): K86.1 - Other chronic pancreatitis Category: Medical (5) Rheumatoid arthritis: Code(s): M06.9 - Rheumatoid arthritis, unspecified Category: Medical Qualifiers: Rheumatoid arthritis location: multiple sites Rheumatoid factor presence: without rheumatoid factor Qualified Code(s): M06.09 - Rheumatoid arthritis without rheumatoid factor, multiple sites (6) ANA on CPAP: Code(s): G47.33 - Obstructive sleep apnea (adult) (pediatric) Category: Medical Plan The management plan includes ensuring adherence to antihypertensive medication, particularly carvedilol, to better control blood pressure and reduce dizziness episodes. For diabetes mellitus, the patient should continue using the insulin pump and monitor blood glucose levels closely to prevent hypoglycemic episodes. The patient is advised to continue using the CPAP machine for sleep apnea, with adjustments to the mask to prevent displacement during sleep. Follow-up with the anthropology department chair is recommended to review pending laboratory results and adjust hyperlipidemia management as necessary. Patient was informed and verbally consented to the use of an ambient scribe for clinic note documentation during this visit.
[2025-05-04 10:38] VITALS: BP 152/80; BMI 31.0
== END 2025-05-04 11:12 | disposition home or self-care (01) ==
LOC: HO.HMCH 10:31
PROVIDERS: PCP Internal Medicine; Visit Provider Internal Medicine
DX: E10.65 Type 1 diabetes mellitus with hyperglycemia (principal); K86.1 Other chronic pancreatitis; M06.09 Rheumatoid arthritis without rheumatoid factor, multiple sites; I10 Essential (primary) hypertension; E78.5 Hyperlipidemia, unspecified; G47.33 Obstructive sleep apnea (adult) (pediatric)

== ENCOUNTER 2025-05-16 10:37 | Outpatient (AMB) | payer OTHER, SELFPAY ==
--- NOTE | 2025-05-16 11:09 | MHC.AMDMED ---
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: 60 min Allergies cortisone Allergy (Unknown, Verified 05/04/25 10:59) Unknown isoniazid Allergy (Unknown, Verified 05/04/25 10:59) Rash oxycodone (From PERCOCET) Allergy (Unknown, Verified 05/04/25 10:59) SWELLING promethazine (From PHENERGAN) Allergy (Unknown, Verified 05/04/25 10:59) RASH seafood Allergy (Unknown, Verified 05/04/25 10:59) Anaphylaxis tramadol (TRAMADOL) Allergy (Unknown, Verified 05/04/25 10:59) UNKNOWN, GI upset doxycycline Adverse Reaction (Intermediate, Verified 05/04/25 10:59) dizziness, abdominal discomfort fluticasone (Advair Diskus) Adverse Reaction (Unknown, Verified 05/04/25 10:59) tachycardia salmeterol (Advair Diskus) Adverse Reaction (Unknown, Verified 05/04/25 10:59) tachycardia HPI Comprehensive Diabetes Asmnt Most Recent Diabetes Results: Cholesterol, (<200) 168 mg/dL 05/04/25 HDL Cholesterol, (>40) 31 mg/dL L 05/04/25 Triglycerides, (<150) 323 mg/dL H 05/04/25 Creatinine, (0.5-1.4) 1.00 mg/dL 05/04/25 BUN, (9-16) 16 mg/dL 05/04/25 Sodium, (135-145) 140 mmol/L 05/04/25 Potassium, (3.3-5.1) 3.3 mmol/L 05/04/25 Chloride, (96-108) 103 mmol/L 05/04/25 Carbon Dioxide, (22-29) 28 mmol/L 05/04/25 Calcium, (8.4-10.2) 9.3 mg/dL 05/04/25 AST, (5-37) 33 U/L 05/04/25 ALT, (0-40) 34 U/L 05/04/25 Total Protein, (6.5-8.0) 6.9 g/dL 05/04/25 Albumin, (3.5-5.0) 4.5 g/dL 05/04/25 [facility] Medical History 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 Neck pain Myofascial pain Radiculitis of left cervical region Chronic sore throat DVT of lower extremity, bilateral Ankle pain, left Mixed hyperlipidemia Bilateral hand pain Mixed hyperlipidemia GERD (gastroesophageal reflux disease) Obesity due to excess calories Non-toxic multinodular goiter Obesity (BMI 30.0-34.9) Hypertension Chronic inflammation of pancreas Pancreatic abnormality FH: cholecystectomy Hypertriglyceridemia Diabetes type 1, uncontrolled Surgical History Hx of cholecystectomy Hx of endoscopy Hx of colonoscopy History of laminectomy Family History Father Hypertension Hyperlipidemia Prostate cancer Diabetes Arthritis Mother Arthritis Hyperlipidemia Diabetes Osteoporosis Lung cancer Brother Lung cancer Throat cancer Social History Household Members: Spouse and Children Household Members Other:: daughter, , son Housing: House Alcohol intake: former Year quit: 26 Patient Tobacco Use Status: Never used Tobacco e-Cigarette/Vaping Use: Never Used Second Hand Smoke Exposure: No service: No Current occupational status: disabled Cognitive needs: No Hearing needs: No Vision needs: No Assessment & Plan Assessment & Plan (1) Diabetes mellitus type 1: Code(s): E10.9 - Type 1 diabetes mellitus without complications Qualifiers: Diabetes mellitus complication status: with hyperglycemia Qualified Code(s): E10.65 - Type 1 diabetes mellitus with hyperglycemia Plan: Patient presents for pump training for? T slim with control? IQ and Dexcom G7 The following topics were reviewed today: Infusion site rotation ?Sensor setting (if applicable) ??? High Alert: 200 mg/dl ??? Low Alert: 80 mg/dl Pt's A1c on 04/26/25 was 6.7% Insulin delivery settings Discussed with patient rotation of infusion sets patient has several areas of hypertrophy 2-3 inches from belly button. Discussed alternate locations for infusion set. Patient reports he is getting new cell phone, and he receives cell phone we can set up T connect aspen and connect pump to T connect Troubleshooting after starting new pod or inserting new insulin set: Occlusion, adhesive tape sensitivity, redness Check BG 2 hours after site change Safety information: Patient understands the basic concepts of pump therapy, how to give insulin for meals and snacks, how to troubleshoot for hyper and hypoglycemia. Setting verified by CDCES: No changes made to pump setting at today's visit Basal rate(s) (units/hour) : 12 AM to 10AM 2 units / hr 10 AM to 2 PM 1.8 units / hr 2 PM to 12 AM? 2.0 units / hr Bolus setting Insulin Carbohydrate Ratio (s) 12 AM? to 10 AM 1:4.5?? 10 AM to 2 PM 1:3 2 PM to 12 AM 1:1.7 Correction Factor / Sensitivity Factor 12 AM? to 10 AM 1:20 10 AM? to 12 AM 1:15 Active Insulin Time:? 3 hours Target(s): 12 AM? to 12 AM 120 mg/dL Target with Control IQ: 12 AM? to 12 AM 110 mg/dL Coding Level of Care Code Est Pt Level 1 (21045) Diagnoses Type 1 diabetes mellitus with hyperglycemia E10.65 Diabetes mellitus complication status: with hyperglycemia
--- OUTSIDE RECORDS SUMMARY | 2025-05-16 11:49 | XMS_ITS | Patient Health Record ---
Author Organization [facility] Address [address] [place] [id number] Care Team Providers Care Personal Insurance Advisor Name Role Phone Reza MENDOZA, Asma Primary Care Provider Dontae Tompkins Unavailable [phone] OYULA, JV Unavailable Unavailable Allergies Allergen (clinical drug ingredient) Drug/Non Drug Allergy documented on EMR Reaction Allergy Type Onset Date Status aspirin Aspirin Unknown Drug Allergy Active Reason For Referral No Information Medications Medication SIG (Take, Route, Fr equency, Duration) Notes Start Date End Date Status Lisinopril 10/26/2024 10/26/2024 Active Fenofibrate 10/26/2024 10/26/2024 Active Nasal [place] 10/26/2024 10/26/2024 Active Dicyclomine HCl 10 MG 1-2 tablets Orally prn abdominal pain 10/26/2024 10/26/2024 Active ProAir HFA 10/26/2024 10/26/2024 Active Advil 10/26/2024 10/26/2024 Active Omeprazole 10/26/2024 10/26/2024 Active Problems Problem Type SNOMED Code ICD Code Onset Dates Problem Status W/U Status Risk Notes Problem Irritable bowel syndrome (08501369) Irritable bowel syndrome (564.1) Active confirmed Problem Colon cancer screening (354470734) Colon cancer screening (V76.51) Active confirmed Problem Gastroesophageal reflux disease (172436959) GERD (gastroesophage al reflux disease) (530.81) Active confirmed Problem 907080019 Idiopathic acute pancreatitis (K85.0) Active confirmed Plan [...] OF [place] [address] [place] [address] [id number] GUILLE TEJADA Self - patient is the insured MEDICAID OF [facility] [address] [place] [address] [id number] GUILLE TEJADA Self - patient is the insured Medical (General) History Medical History History ICD Code GERD--EGD in 2002 was neg for H.pylori, gastritis, PUD Asthma HTN Arthritis Colonoscopy in 2006 neg except diverticu losis and int. hemorrhoids Neg. abd U/S in 10/2009 Neg celiac disease labs in 10/2009 Denies VT,DM,CVA,renal disease Surgical History Surgery Date(Month/Year) back surgery
--- OUTSIDE RECORDS SUMMARY | 2025-05-16 11:49 | XMS_ITS | Clinical Summary ---
Author Organization [employer] Address [address] [facility] [address] [place] [address] Care Team Providers Care Wire Temperer Name Role Phone Unavailable Primary Care Provider [...] 04/05/2021 03/08/2021, 02/15/2021 Dental Prophylaxis 04/22/2023 10/21/2022 Dental X-Ray: Bitewings 08/21/2024 08/20/20 23, 10/21/2022, 09/26/2022 Tobacco Screening 10/14/2024 10/14/2023 Influenza Vaccine (#1) 2025 , 08/25/2022, 08/16/2021, Additional history exists DTaP/Tdap/Td Vaccines (2 - Td or Tdap) [...] patient's age to complete this topic Meningococcal B Vaccine Aged Out No l onger eligible based on patient's age to complete [...] Recently Relevant to Health Maintenance Insurance [facility]
== END 2025-05-16 11:18 | disposition home or self-care (01) ==
LOC: HO.ENCR 10:38
PROVIDERS: PCP Internal Medicine; Visit Provider Registered Nurse Diabetes Educator
DX: E10.65 Type 1 diabetes mellitus with hyperglycemia (principal)

== ENCOUNTER → 2025-05-16 10:37 | Outpatient (BNVA) | payer OTHER, SELFPAY | PROVIDERS: PCP Internal Medicine; Visit Provider Registered Nurse Diabetes Educator | DX: E10.65 Type 1 diabetes mellitus with hyperglycemia (principal) | CPT/HCPCS: 99211 ==

== ENCOUNTER 2025-07-25 09:26 | Outpatient (REF) | payer OTHER, SELFPAY | END 2025-07-25 09:27 | disposition home or self-care (01) | LOC: HO.LNP 09:26 | PROVIDERS: PCP Internal Medicine; Visit Provider Physician Assistant Medical | DX: R09.81 Nasal congestion (principal); R05.9 Cough, unspecified; H92.09 Otalgia, unspecified ear | CPT/HCPCS: 87633; 99212 ==

== ENCOUNTER 2025-07-25 09:26 | Outpatient (AMB) | payer OTHER, SELFPAY ==
[2025-07-25 09:41] VITALS: BP 160/82; PULSE 61; TEMP 36.9; O2SAT 98; BMI 31.9
--- NOTE | 2025-07-25 09:41 | AM.OFFWIN_ITS ---
Intake Vital Signs 07/25/25 09:41 Height 5 ft 7 in Weight 204 lb BMI 31.9 BP 160/82 H Blood Pressure Location Rt brachial Position Sitting Pulse 61 Pulse Source Pulse Oximeter Temp 98.5 F Temp Source Oral Pulse Oximetry (%) 98 Oxygen Delivery Method Room Air Intake Visit Reasons: EP Flu symptoms Intake Note: pt presents with sinus pain and congestions, headache, coughing Patient Tobacco Use Status: Never used Tobacco Allergies cortisone Allergy (Unknown, Verified 07/25/25 09:53) Unknown isoniazid Allergy (Unknown, Verified 07/25/25 09:53) Rash oxycodone (From PERCOCET) Allergy (Unknown, Verified 07/25/25 09:53) SWELLING promethazine (From PHENERGAN) Allergy (Unknown, Verified 07/25/25 09:53) RASH seafood Allergy (Unknown, Verified 07/25/25 09:53) Anaphylaxis tramadol (TRAMADOL) Allergy (Unknown, Verified 07/25/25 09:53) UNKNOWN, GI upset doxycycline Adverse Reaction (Intermediate, Verified 07/25/25 09:53) dizziness, abdominal discomfort fluticasone (Advair Diskus) Adverse Reaction (Unknown, Verified 07/25/25 09:53) tachycardia salmeterol (Advair Diskus) Adverse Reaction (Unknown, Verified 07/25/25 09:53) tachycardia Do you need a note to return to daycare/school/sports/work: No HPI HPI Comments History of Present Illness Details History - The patient is a 64-year-old male pres enting with symptoms of an upper respiratory infection. - Symptoms began approximately two weeks ago, including a dry cough and nasal congestion. - Denies fever, chills, shortness of suri ath, or wheezing. - Reports ear pain and has been using ov eu-usp-[id number] medications such as Coricidin and Flonase without significant relief. - No history of smoking and denies nause a or vomiting. - He states that his is also sick w ith the same symptoms. - He is a non smoker. - He denies TENORIO, dizziness, CP, SOB, abd pain, n/v/d. Physical Exam General: Cooperative, healthy appearing, comfortable and no acute distress Orientation/consciousness: Patient oriented x3 Limitations: No limitations Head: Normal to inspection Ears: Hearing grossly normal bilaterally, external ears normal and TM's normal bilaterally Nose: Clear mucosa noted. Face and sinus: Sinuses nontender to palpation. Mouth: Normal oral and palatal mucosa present and moist mucous membranes noted. Throat: Tonsils normal. Uvula is midline. Posterior oropharynx with erythema and no exudates. Eyes: Appearance normal, both eyes and all related structures Neck: Normal visual inspection, full ROM. No lymphadenopathy noted. Respiratory: Clear to auscultation bilaterally. Normal respiratory effort, able to speak in complete sentences. No respiratory distress, not tachypneic, no tripod positioning and no use of accessory muscles. Cardiovascular: Regular rate and rhythm. Normal S1 and S2 Skin: No rashes or lesions noted Patient was informed and verbally consented to the use of an ambient scribe for clinic note documentation during this visit [facility] Medical History 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 Neck pain Myofascial pain Radiculitis of left cervical region Chronic sore throat DVT of lower extremity, bilateral Ankle pain, left Mixed hyperlipidemia Bilateral hand pain Mixed hyperlipidemia GERD (gastroesophageal reflux disease) Obesity due to excess calories Non-toxic multinodular goiter Obesity (BMI 30.0-34.9) Hypertension Chronic inflammation of pancreas Pancreatic abnormality FH: cholecystectomy Hypertriglyceridemia Diabetes type 1, uncontrolled Surgical History Hx of cholecystectomy Hx of endoscopy Hx of colonoscopy History of laminectomy Family History Father Hypertension Hyperlipidemia Prostate cancer Diabetes Arthritis Mother Arthritis Hyperlipidemia Diabetes Osteoporosis Lung cancer Brother Lung cancer Throat cancer Social History Household Members: Spouse and Children Household Members Other:: daughter, , son Housing: House Alcohol intake: former Year quit: 28 Patient Tobacco Use Status: Never used Tobacco e-Cigarette/Vaping Use: Never Used Second Hand Smoke Exposure: No service: No Current occupational status: disabled Cognitive needs: No Hearing needs: No Vision needs: No Review of Systems Const All systems reviewed & are unremarkable except as noted in HPI and below Physical Exam Vital Signs: Last Vital Signs Temp 98.5 F 07/25/25 09:41 Pulse 61 07/25/25 09:41 BP 160/82 H 07/25/25 09:41 Pulse Ox 98 07/25/25 09:41 Oxygen Delivery Method Room Air 07/25/25 09:41 BMI result Body Mass Index 31.9 Assessment & Plan Assessment & Plan (1) URI (upper respiratory infection): Code(s): J06.9 - Acute upper respiratory infection, unspecified Qualifiers: URI type: unspecified URI Qualified Code(s): J06.9 - Acute upper respiratory infection, unspecified Plan Most likely URI vs covid vs flu vs RSV vs viral illness plan - A respiratory culture was sent to the lab to test for COVID-19, influenza, RSV, and other respiratory pathogens. - The patient was advised to continue using [id number]-[id number] medications and was prescribed a decongestant. - tessalon perles as needed for cough - will add flonase and albuterol as needed as well - will call with results - follow up with PCP Medications: New benzonatate 100 mg PO bid-tid PRN 21 caps 0RF Cough 7 days Refilled fluticasone propionate 50 mcg/actuation (Allergy Relief (fluticasone)) administer into each nostril 1 spray intranasal DAILY 16 grams 3RF 30 days albuterol sulfate 90 mcg/actuation 2 puffs PO Q6H PRN 6.7 grams 3RF bronchospasm 30 days Coding Level of Care Code Est Pt Level 3 (04167) Diagnoses Upper respiratory tract infection, unspecified type J06.9 URI type: unspecified URI
--- OUTSIDE RECORDS SUMMARY | 2025-07-25 10:13 | XMS_ITS | Clinical Summary ---
Author Organization [employer] Address [address] [facility] [address] [place] [address] Care Team Providers Care Track Repair Person Name Role Phone Unavailable Primary Care Provider [...] Recently Relevant to Health Maintenance Insurance [facility]
--- OUTSIDE RECORDS SUMMARY | 2025-07-25 10:13 | XMS_ITS | Encounter Summary ---
Author Organization [employer] Address [address] [facility] [address] [place] [address] Care Team Providers Care Anode Adjuster Name Role Phone Unavailable Primary Care Provider Unavailabl e Encounter Details Date Type Department Care Team (Late st Contact Info) Description 10/05/2023 Telephone [facility] [address] [place] [address] Gi Bui BDS Social History Tobacco Use [...] Miscellaneous Notes * Telephone Encounter - Rose Wrigth - 10/14/2023 10:54 AM EST Patient was [...]
--- OUTSIDE RECORDS SUMMARY | 2025-07-25 10:13 | XMS_ITS | Encounter Summary ---
Author Organization [employer] Address [address] [facility] 7t [place] [address] Care Team Providers Care Hospice Home Care Coordinator Name Role Phone Unavailable Primary Care Provider Unavailabl e Reason for Visit * Reason Onset Date Comments Dental Pain 09/30/2022 Patient called i n with continued pain from 09/[address] Irby requested allergies and pharmacy. [facility] [address] No allergies to abx. usually uses amox. Responded via email and tel call charting. DR Encounter Details Date Type Department Care Team ([facility] st Contact Info) Description 09/30/2022 Telephone [facility] ADULT DENTAL [address] [place] [id number] Dental, Provider, DDS Dental Pain (Patient called in with continued pain from 09/[address] Irby requested allergies and pharmacy. [facility] [address] No allergies to abx. usually uses [...] Miscellaneous Notes * Telephone Encounter - Raquel Holbrook - 10/01/2022 12:51 PM EST Patient has been informed that script has been sent to pharmacy. * Telephone Encounter - Raquel Holbrook - 09/30/2022 1:44 PM EST Patient called in with continued pain from 09/[address] Irby requested allergies and pharmacy. [facility] [address] [place] [address]. No allergies to abx. usually uses amox. Responded via email and tel call charting. documented in this encounter Plan of Treatment Not on file documented as of this encounter Visit Diagnoses Not on filedocumented in this encounter
--- OUTSIDE RECORDS SUMMARY | 2025-07-25 10:13 | XMS_ITS | Encounter Summary ---
Author Organization [employer] Address 75 [facility] 7t [place] [address] Care Team Providers Care Medical Device Sales Name Role Phone Unavailable Primary Care Provider Unavailabl e Encounter Details Date Type Department Care Team (Latest Contact Info) Description 01/24/2019 Abstract [facility] CONVERSIONS Dental, Provider, DDS Social History [...]
--- OUTSIDE RECORDS SUMMARY | 2025-07-25 10:13 | XMS_ITS | Patient Health Record ---
Author Organization [facility] Address [address] [place] [address] Care Team Providers Care Game Tester Name Role Phone Reza MENDOZA, Asma Primary Care Provider Dontae Tompkins Unavailable [phone] OYULA, JV Unavailable Unavailable Allergies Allergen (clinical drug ingredient) Drug/Non Drug Allergy documented on EMR Reaction Allergy Type Onset Date Status aspirin Aspirin Unknown Drug Allergy Active Reason For Referral No Information Medications Medication SIG (Take, Route, Fr equency, Duration) Notes Start Date End Date Status Lisinopril 10/26/2024 10/26/2024 Active Fenofibrate 10/26/2024 10/26/2024 Active Nasal [place] 10/26/2024 10/26/2024 Active Dicyclomine HCl 10 MG 1-2 tablets Orally prn abdominal pain 10/26/2024 10/26/2024 Active ProAir HFA 10/26/2024 10/26/2024 Active Advil 10/26/2024 10/26/2024 Active Omeprazole 10/26/2024 10/26/2024 Active Problems Problem Type SNOMED Code ICD Code Onset Dates Problem Status W/U Status Risk Notes Problem Irritable bowel syndrome (94238092) Irritable bowel syndrome (564.1) Active confirmed Problem Colon cancer screening (698706446) Colon cancer screening (V76.51) Active confirmed Problem Gastroesophageal reflux disease (672657483) GERD (gastroesophage al reflux disease) (530.81) Active confirmed Problem 787935791 Idiopathic acute pancreatitis (K85.0) Active confirmed Plan [...] OF [place] [address] [employer] [employer] [address] [id number] GUILLE TEJADA Self - patient is the insured MEDICAID OF [facility] [address] [place] [address] [id number] GUILLE TEJADA Self - patient is the insured Medical (General) History Medical History History ICD Code GERD--EGD in 2002 was neg for H.pylori, gastritis, PUD Asthma HTN Arthritis Colonoscopy in 2006 neg except diverticu losis and int. hemorrhoids Neg. abd U/S in 10/2009 Neg celiac disease labs in 10/2009 Denies [place],DM,CVA,renal disease Surgical History Surgery Date(Month/Year) back surgery
--- OUTSIDE RECORDS SUMMARY | 2025-07-25 10:13 | XMS_ITS | Encounter Summary ---
Author Organization [employer] Address 75 [facility] 7t [place] [address] Care Team Providers Care Alcohol Rubber Name Role Phone Unavailable Primary Care Provider Unavailabl e Encounter Details Date Type Department Care Team (Latest Contact Info) Description 12/19/2020 Abstract [facility] CONVERSIONS Dental, Provider, DDS Social [...]
== END 2025-07-25 10:15 | disposition home or self-care (01) ==
PROVIDERS: PCP Internal Medicine; Visit Provider Physician Assistant Medical
DX: J06.9 Acute upper respiratory infection, unspecified (principal)

== ENCOUNTER 2025-07-26 08:14 | Outpatient (AMB) | payer OTHER, SELFPAY ==
[2025-07-26 08:26] VITALS: BP 148/80; PULSE 64; O2SAT 97; BMI 31.6
--- NOTE | 2025-07-26 08:26 | MHC.PC.OV ---
Vital Signs 07/26/25 08:26 Height 5 ft 7 in Weight 202 lb BMI 31.6 BP 148/80 H Blood Pressure Location Rt brachial Position Sitting Pulse 64 Pulse Source Pulse Oximeter Pulse Oximetry (%) 97 Oxygen Delivery Method Room Air Intake Visit Reasons: Annual Exam- A1C needed Centrifugal Station Operator Required: No Accompanied by: Self / Same As Patient Allergies cortisone Allergy (Unknown, Verified 07/26/25 08:54) Unknown isoniazid Allergy (Unknown, Verified 07/26/25 08:54) Rash oxycodone (From PERCOCET) Allergy (Unknown, Verified 07/26/25 08:54) SWELLING promethazine (From PHENERGAN) Allergy (Unknown, Verified 07/26/25 08:54) RASH seafood Allergy (Unknown, Verified 07/26/25 08:54) Anaphylaxis tramadol (TRAMADOL) Allergy (Unknown, Verified 07/26/25 08:54) UNKNOWN, GI upset benzonatate Adverse Reaction (Intermediate, Verified 07/26/25 08:54) Anxiety doxycycline Adverse Reaction (Intermediate, Verified 07/26/25 08:54) dizziness, abdominal discomfort fluticasone (Advair Diskus) Adverse Reaction (Unknown, Verified 07/26/25 08:54) tachycardia salmeterol (Advair Diskus) Adverse Reaction (Unknown, Verified 07/26/25 08:54) tachycardia Medication List - Last Reconciled 07/26/25 by Kiley Napier MD acetone (urine) test (Ketone Urine Test strips) As directed p.r.n. glucose over 250, illness, nausea, vomiting albuterol sulfate 90 mcg/actuation 2 puffs PO Q6H PRN 30 days alcohol swabs (Alcohol Prep Pads) 1 pad topical .6 times a day 30 days atorvastatin 40 mg PO BEDTIME 90 days azathioprine 100 mg (2 x 50 mg) PO DAILY baclofen 5 - 10 mg (1 - 2 x 5 mg) PO BEDTIME 90 days BD Insulin Syringe Ultra-Fine (insulin syringe-needle U-100) 5 times a day NS blood pressure test kit-large (CareTouch Blood Pressure Monitor kit) As directed blood sugar diagnostic (FreeStyle Lite Strips) USE 6 TIMES A DAY prn sensor failure blood-glucose sensor (Hypereightcom G6 Sensor device) As directed change every 10 days blood-glucose transmitter (Dexcom G6 Transmitter device) As directed blood-glucose,labor supervisor,cont (Dexcom G6 Infertility Medical Assistant) As directed carvedilol 6.25 mg PO BID chlorthalidone 50 mg PO DAILY CPAP (CPAP Machine/Device) autoCPAP 6-20 cmH2O dutasteride 0.5 mg PO DAILY fenofibrate 54 mg PO DAILY 90 days fluticasone propionate 50 mcg/actuation (Allergy Relief (fluticasone)) 1 spray intranasal DAILY 30 days gabapentin 300 mg PO BID 30 days glucagon 3 mg/actuation (Baqsimi) 3 mg intranasal ONCE heating pads (Advocate Heating Pad) As directed insulin aspart U-100 (Novolog U-100 Insulin aspart) subcutaneously continuous; up to 170 units daily 30 days lancets 6 times a day prn pump failure Lantus Solostar U-100 Insulin (insulin glargine) 53 units (0.53 mL) subcut DAILY PRN 30 days NS losartan 100 mg PO DAILY omeprazole 20 mg PO BID ondansetron HCl 4 mg PO DAILY PRN 30 days pen needle, diabetic (BD Doris 2nd Gen Pen Needle) once a day tamsulosin (Flomax) 0.4 mg PO DAILY 5 days Tobacco use date assessed: 11/30/24 Fall risk assessment: No Falls in past year Last assessed Fall Risk: 07/26/25 Dental Screening Dental Screen Date: 11/30/24 HPI HPI Comments History of Present Illness Details The patient is a 64-year-old male presenting with a wellness check-up focusing on preventative care measures and chronic condition management. Hypertension has been a persistent issue, with current blood pressure readings at 148/80 mmHg. The patient is on carvedilol and losartan for management, with adjustments made based on dietary intake. The patient has a history of anemia, attributed to chronic autoimmune conditions. Laboratory results indicate slightly low hemoglobin levels. Hypertriglyceridemia is noted, with triglyceride levels previously reaching 400 mg/dL. The patient is advised against fenofibrate use unless triglyceride levels exceed 500 mg/dL. The patient has a history of autoimmune pancreatitis, managed with azathioprine. This condition is linked to the patient's IgG levels. Prostate cancer is being monitored, with recent PSA levels noted to have increased slightly from 0.5 to over 1. Urology continues to follow up on this condition. Diabetic neuropathy is managed with gabapentin, taken as needed. The patient reports variable adherence based on daily activities. Preventative care measures include updating the pneumonia vaccination to PCV-20, as the patient previously received the older version. 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 Neck pain Myofascial pain Radiculitis of left cervical region Chronic sore throat DVT of lower extremity, bilateral Ankle pain, left Mixed hyperlipidemia Bilateral hand pain Mixed hyperlipidemia GERD (gastroesophageal reflux disease) Obesity due to excess calories Non-toxic multinodular goiter Obesity (BMI 30.0-34.9) Hypertension Chronic inflammation of pancreas Pancreatic abnormality FH: cholecystectomy Hypertriglyceridemia Diabetes type 1, uncontrolled Surgical History Hx of cholecystectomy Hx of endoscopy Hx of colonoscopy History of laminectomy Family History Father Hypertension Hyperlipidemia Prostate cancer Diabetes Arthritis Mother Arthritis Hyperlipidemia Diabetes Osteoporosis Lung cancer Brother Lung cancer Throat cancer Social History Household Members: Spouse and Children Household Members Other:: daughter, , son Housing: House Alcohol intake: former Year quit: 28 Patient Tobacco Use Status: Never used Tobacco Tobacco use type: Cigarette e-Cigarette/Vaping Use: Never Used Second Hand Smoke Exposure: No service: No Current occupational status: disabled Cognitive needs: No Hearing needs: No Vision needs: No Questionnaire PHQ-9 Over the last 2 weeks, how often have you been bothered by any of the following problems? 1. Little interest or pleasure in doing things: not at all 2. Feeling down, depressed, or hopeless: not at all 3. Trouble falling or staying asleep, or sleeping too much: not at all 4. Feeling tired or having little energy: not at all 5. Poor appetite or overeating: not at all 6. Feeling bad about yourself - or that you are a failure or have let yourself or your family down: not at all 7. Trouble concentrating on things, such as reading the newspaper or watching television: not at all 8. Moving or speaking so slowly that other people could have noticed. Or the opposite - being so fidgety or restless that you have been moving around a lot more than usual: not at all 9. Thoughts that you would be better off or of hurting yourself in some way: not at all Total score: 0 Depression Screening Interpretation: Negative Depression Screening Done: Yes 56139 - PHQ-9 Billing: Yes Source: Developed by Drs. Dontae Murray, Denice Jeff, Lai Eric and colleagues, with an educational braulio from [employer]. Thrive Questionnaire Date Thrive assessed: 11/30/24 AUDIT C Alcohol Use Questionnaire (AUDIT-C) 1. How often do you have a drink containing alcohol?: Never 3. How often do you have six or more drinks on one occasion?: Never Total Score: 0 Score Reviewed/Action Taken: No JAVIER-7 AMB Questionnaire JAVIER-7 Date JAVIER - 7 assessed: 11/30/24 Source: Developed by Drs. Dontae Murray, Denice Jeff, Lai Eric and colleagues, with an educational braulio from [employer]. Review of Systems Const All systems reviewed & are unremarkable except as noted in HPI and below Card Denies chest pain at rest, Denies chest pain with activity, Denies edema, Denies irregular heart rhythm, Denies claudication, Denies dyspnea, Denies dyspnea on exertion, Denies orthopnea, Denies paroxysmal nocturnal dyspnea and Denies slow heart rate Resp Denies cough, Denies dyspnea and Denies dyspnea on exertion Physical exam (Primary Care) Vital Signs: Last Vital Signs Pulse 64 07/26/25 08:26 BP 148/80 H 07/26/25 08:26 Pulse Ox 97 07/26/25 08:26 Oxygen Delivery Method Room Air 07/26/25 08:26 BMI result Body Mass Index 31.6 BMI Assessment/Plan discussion: High BMI High, discussed plan: lifestyle, weight reduction, dietary and physical activity Tobacco/Smoking Status: Tobacco use Status Tobacco use date assessed 11/30/24 07/26/25 08:28 Patient Tobacco Use Status Never used Tobacco 07/26/25 08:28 Tobacco use type Cigarette 07/26/25 08:28 e-Cigarette/Vaping Use Never Used 07/26/25 08:28 PHQ-9: PHQ-9 Score PHQ-9: Total score 0 07/26/25 09:17 Depression Screening Interpretation: Negative Thrive Assessment: Date of Thrive Assessment Date Thrive assessed 11/30/24 07/26/25 08:28 HENNJ Head: Yes normal to inspection, Yes normocephalic and Yes atraumatic Ears: external ears normal Eyes General: appearance normal, both eyes and all related structures Eyelids: Yes eyelids normal Conjunctivae: conjunctivae normal Neck Neck: Yes normal visual inspection and Yes supple Resp Effort & Inspection: normal respiratory effort Auscultation: clear to auscultation bilaterally Cardio Jugular venous distension: no JVD Rate: regular rate Rhythm: regular rhythm Heart sounds: S1 normal heart sound present and S2 normal heart sound present GI Inspection: Yes normal to inspection Palpation (GI): Soft to palpation and nontender Auscultation: normal bowel sounds Skin General skin exam: no rashes or lesions noted Neuro General: no focal motor deficits Extrem General: Yes full ROM Psych Appearance: grossly normal Results AMB Hemoglobin A1c AMB Hemoglobin A1c 6.2 % Last Edit by Deyanira Varner CMA on 07/26/25 08:50 Immunizations pneumoc 20-brigid conj-dip cr(PF) 0.5 mL IM syringe Performing Provider: Kiley Napier MD Performing Location: [facility] Administered by: Tish Winston CMA on 07/26/25 09:17 Dose Route Admin Location Dispensed Lot Number Expiration Date [facility] Senior Relationship Manager 0.5 mL IM Right Deltoid 0.5 mL [id number] 07/25/26 [employer] Total Dispensed Waste 0.5 mL 0 % VIS Given Date VIS Provided VIS Publication Date 07/26/25 Single Vaccine 25 Eligibility Eligibility Date Funding Source Not [facility] Eligible 07/26/25 Private Results Reviewed Results Reviewed: Laboratory Last Values Hgb A1c (Clinic) 6.2 % (4.0-6.0) H 07/26/25 08:28 Coding Level of Care Code Est Pt Prev Care >65y(19101) Diagnoses Physical exam Z00.00 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 Type 1 diabetes mellitus with hyperglycemia E10.65 Diabetes mellitus complication status: with hyperglycemia Additional Codes PHQ-9 - 35385 - PHQ-9 Billing: Yes ([id number]) Time Spent (min) 31 Assessment & Plan Assessment & Plan (1) Physical exam: Code(s): Z00.00 - Encounter for general adult medical examination without abnormal findings Category: Medical (2) IgG4-related pancreatitis: Code(s): K86.1 - Other chronic pancreatitis Category: Medical (3) Diabetes mellitus type 1: Code(s): E10.9 - Type 1 diabetes mellitus without complications Category: Medical Qualifiers: Diabetes mellitus complication status: with hyperglycemia Qualified Code(s): E10.65 - Type 1 diabetes mellitus with hyperglycemia Plan Plan Patient was informed and verbally consented to the use of an ambient scribe for clinic note documentation during this visit. 1. Encounter for general adult medical examination without abnormal findings Z00.00 The patient requires an update to the pneumonia vaccination with PCV-20, as the previous version was administered. 2. Other chronic pancreatitis K86.1 HCC 34 Autoimmune pancreatitis is managed with azathioprine, and the condition is linked to IgG levels. Orders: Orders AMB Hemoglobin A1c Today Z13.9 - Encounter for screening, unspecified Microalbumin, Random (w Creat) 4 Months R80.9 - Proteinuria, unspecified Complete Blood Count Auto Diff 4 Months D64.9 - Anemia, unspecified Comprehensive [place]. Panel Fast 4 Months I10 - Essential (primary) hypertension XR shoulder LT min 2V Today M25.512 - Pain in left shoulder XR shoulder RT min 2V Today M25.511 - Pain in right shoulder Pneumococcal 20 Immunization Today Z23 - Encounter for immunization Lipid Panel 4 Months E78.5 - Hyperlipidemia, unspecified IRON PROFILE 4 Months D64.9 - Anemia, unspecified Medications: New diclofenac sodium 1% (Arthritis Pain (diclofenac)) apply to single elbow, wrist or hand; for hand includes palm/fingers/back of hand 2 grams topical QID 50 grams 1RF 30 days Discontinued fenofibrate Discontinued Reason: Patient Completed Course 54 mg PO DAILY 90 days 90 tabs 1RF
--- OUTSIDE RECORDS SUMMARY | 2025-07-26 08:40 | XMS_ITS | Encounter Summary ---
Author Organization [employer] Address [address] [facility] 7t [place] [address] Care Team Providers Care Health Care Marketing Specialist Name Role Phone Unavailable Primary Care Provider Unavailabl e Reason for Visit * Reason Onset Date Comments Dental Pain 09/30/2022 Patient called i n with continued pain from 09/[address] Irby requested allergies and pharmacy[facility] [address] No allergies to abx. usually uses amox. Responded via email and tel call charting. DR Encounter Details Date Type Department Care Team ([facility] st Contact Info) Description 09/30/2022 Telephone [facility] ADULT DENTAL [address] [place] [id number] Dental, Provider, DDS Dental Pain (Patient called in with continued pain from 09/[address] Irby requested allergies and pharmacy. [facility] [address] No allergies to abx. usually uses [...] allergies and pharmacy. [facility] [address] [place] [address]. No allergies to abx. usually uses amox. Responded via email and tel call charting. documented in this encounter Plan of Treatment Not on file documented as of this encounter Visit Diagnoses Not on filedocumented in this encounter
--- OUTSIDE RECORDS SUMMARY | 2025-07-26 08:40 | XMS_ITS | Encounter Summary ---
Author Organization [employer] Address [address] [facility] 7t [place] [address] Care Team Providers Care Anime Designer Name Role Phone Unavailable Primary Care Provider Unavailabl e Encounter Details Date Type Department Care Team (Late st Contact Info) Description 10/05/2023 Telephone [facility]ULT [facility] [address] [place] [address] Gi Bui BDS Social History Tobacco Use [...]
--- OUTSIDE RECORDS SUMMARY | 2025-07-26 08:40 | XMS_ITS | Patient Health Record ---
Author Organization [facility] Address [address] [place] [address] Care Team Providers Care Hide Or Skin Buffer Name Role Phone Reza MENDOZA, Asma Primary Care Provider Dontae Tompkins Unavailable [phone] OYULA, JV Unavailable Unavailable Allergies Allergen (clinical drug ingredient) Drug/Non Drug Allergy documented on EMR Reaction Allergy Type Onset Date Status aspirin Aspirin Unknown Drug Allergy Active Reason For Referral No Information Medications Medication SIG (Take, Route, Fr equency, Duration) Notes Start Date End Date Status Lisinopril 10/26/2024 10/26/2024 Active Fenofibrate 10/26/2024 10/26/2024 Active Nasal [place] 10/26/2024 10/26/2024 Active Dicyclomine HCl 10 MG 1-2 tablets Orally prn abdominal pain 10/26/2024 10/26/2024 Active ProAir HFA 10/26/2024 10/26/2024 Active Advil 10/26/2024 10/26/2024 Active Omeprazole 10/26/2024 10/26/2024 Active Problems Problem Type SNOMED Code ICD Code Onset Dates Problem Status W/U Status Risk Notes Problem Irritable bowel syndrome (82962389) Irritable bowel syndrome (564.1) Active confirmed Problem Colon cancer screening (523756246) Colon cancer screening (V76.51) Active confirmed Problem Gastroesophageal reflux disease (363826129) GERD (gastroesophage al reflux disease) (530.81) Active confirmed Problem 826472449 Idiopathic acute pancreatitis (K85.0) Active confirmed Plan [...] OF [place] [address] [place] [address] [id number] GUILLE TEJADA Self - patient is the insured MEDICAID OF [facility] [address] [place] [address] [id number] GUILLE TEJADA Self - patient is the insured Medical (General) History Medical History History ICD Code GERD--EGD in 2002 was neg for H.pylori, gastritis, PUD Asthma HTN Arthritis Colonoscopy in 2006 neg except diverticu losis and int. hemorrhoids Neg. abd U/S in 10/2009 Neg celiac disease labs in 10/2009 Denies [place],DM,CVA,renal disease Surgical History Surgery Date(Month/Year) back surgery
--- OUTSIDE RECORDS SUMMARY | 2025-07-26 08:40 | XMS_ITS | Clinical Summary ---
Author Organization [employer] Address 75 [facility] 7t [place] [address] Care Team Providers Care Visual Presentation Manager Name Role Phone Unavailable Primary Care [...] Recently Relevant to Health Maintenance Insurance DENTAL [facility]
--- OUTSIDE RECORDS SUMMARY | 2025-07-26 08:40 | XMS_ITS | Encounter Summary ---
Author Organization [employer] Address 75 [facility] 7t [place] [address] Care Team Providers Care Basketball Referee Name Role Phone Unavailable Primary Care Provider Unavailabl e Encounter Details Date Type Department Care Team (Latest Contact Info) Description 12/19/2020 Abstract [facility] CONVERSIONS Dental, Provider, DDS Social [...]
--- OUTSIDE RECORDS SUMMARY | 2025-07-26 08:40 | XMS_ITS | Encounter Summary ---
Author Organization [employer] Address 75 [facility] 7t [place] [address] Care Team Providers Care District Captain Name Role Phone Unavailable Primary Care Provider Unavailabl e Encounter Details Date Type Department Care Team (Latest Contact Info) Description 01/24/[address] [facility] CONVERSIONS Dental, Provider, DDS Social [...]
== END 2025-07-26 09:18 | disposition home or self-care (01) ==
LOC: HO.HMCH 08:15
PROVIDERS: PCP Internal Medicine; Visit Provider Internal Medicine
DX: Z00.00 Encounter for general adult medical examination without abnormal findings (principal); K86.1 Other chronic pancreatitis; E10.65 Type 1 diabetes mellitus with hyperglycemia; Z23 Encounter for immunization; Z13.9 Encounter for screening, unspecified

== ENCOUNTER → 2025-07-26 08:14 | Outpatient (BNVA) | payer OTHER, SELFPAY | PROVIDERS: PCP Internal Medicine; Visit Provider Internal Medicine | DX: Z00.00 Encounter for general adult medical examination without abnormal findings (principal); E10.65 Type 1 diabetes mellitus with hyperglycemia; E10.40 Type 1 diabetes mellitus with diabetic neuropathy, unspecified; I10 Essential (primary) hypertension; D64.9 Anemia, unspecified; E78.1 Pure hyperglyceridemia; K85.90 Acute pancreatitis without necrosis or infection, unspecified; C61 Malignant neoplasm of prostate; K86.1 Other chronic pancreatitis; R80.9 Proteinuria, unspecified; M25.512 Pain in left shoulder; M25.511 Pain in right shoulder; Z23 Encounter for immunization | CPT/HCPCS: 83036; 90471; 90677; 96127; 99397 ==

== ENCOUNTER 2025-07-27 11:26 | Outpatient (REF) | payer OTHER, SELFPAY ==
--- NOTE | ~2025-07-27 | XR_ITS ---
EXAMINATION: XR SHOULDER, RIGHT CLINICAL INFORMATION: M25.511 - Pain in right shoulder COMPARISON: None available. TECHNIQUE: Three views of the right shoulder. FINDINGS: Small marginal ossified is are present involving glenoid and humeral head. There is no dislocation. AC joint is minimally degenerated. There is stippled calcific density projecting in the rotator cuff. XR/XR shoulder RT min 2V IMPRESSION: Rotator cuff calcific tendinitis, likely supraspinatus tendon is involved. Mild degenerative changes of the glenohumeral joint. Electronically signed by: Fortino Prajapati MD 07/27/2025 12:17 PM EDT
--- NOTE | ~2025-07-27 | XR_ITS ---
EXAMINATION: XR SHOULDER, LEFT CLINICAL INFORMATION: M25.512 - Pain in left shoulder COMPARISON: None available. TECHNIQUE: Three views of the left shoulder. FINDINGS: Small marginal osteophytes are evident involving glenoid and humeral head. AC joint is unremarkable. There is no dislocation. There is stippled calcific density in the rotator cuff adjacent greater tuberosity. XR/XR shoulder LT min 2V IMPRESSION: Possible supraspinatus calcific tendinitis. Given the stippled appearance of the calcification, this could represent pyrophosphate deposition rather than hydroxyapatite. Mild degenerative change. Electronically signed by: Fortino Prajapati MD 07/27/2025 12:20 PM EDT
--- OUTSIDE RECORDS SUMMARY | 2025-07-27 13:17 | XMS_ITS | Encounter Summary ---
Author Organization [employer] Address [address] [facility] 7t [place] [address] Care Team Providers Care Deputy Sheriff Generalist Name Role Phone Unavailable Primary Care Provider Unavailabl e Reason for Visit * Reason Onset Date Comments Dental Pain 09/30/2022 Patient called i n with continued pain from 09/[address] Irby requested allergies and pharmacy. [facility] [address] No allergies to abx. usually uses amox. Responded via email and tel call charting. DR Encounter Details Date Type Department Care Team ([facility] st Contact Info) Description 09/30/2022 Telephone [facility] ADULT DENTAL [address] [place] [phone] Dental, Provider, DDS Dental Pain (Patient called in with continued pain from 09/[address] Irby requested allergies and pharmacy. [facility] [address] No allergies to abx. usually uses [...] allergies and pharmacy. [facility] [address] [place] [address]. No allergies to abx. usually uses amox. Responded via email and tel call charting. documented in this encounter Plan of Treatment Not on file documented as of this encounter Visit Diagnoses Not on filedocumented in this encounter
--- OUTSIDE RECORDS SUMMARY | 2025-07-27 13:17 | XMS_ITS | Encounter Summary ---
Author Organization [employer] Address [address] [facility] 7t [place] [address] Care Team Providers Care Quality Lab Assoc Name Role Phone Unavailable Primary Care Provider Unavailabl e Encounter Details Date Type Department Care Team (Late st Contact Info) Description 10/05/2023 Telephone [facility] [address] [place] [address] Gi Bui BDS Social History Tobacco Use [...]
--- OUTSIDE RECORDS SUMMARY | 2025-07-27 13:17 | XMS_ITS | Patient Health Record ---
Author Organization [facility] Address [address] [place] [id number] Care Team Providers Care Pill Packer Name Role Phone Reza MENDOZA, Asma Primary Care Provider Dontae Tompkins Unavailable [phone] OYULA, JV Unavailable Unavailable Allergies Allergen (clinical drug ingredient) Drug/Non Drug Allergy documented on EMR Reaction Allergy Type Onset Date Status aspirin Aspirin Unknown Drug Allergy Active Reason For Referral No Information Medications Medication SIG (Take, Route, Fr equency, Duration) Notes Start Date End Date Status Lisinopril 10/26/2024 10/26/2024 Active Fenofibrate 10/26/2024 10/26/2024 Active Nasal [place] 10/26/2024 10/26/2024 Active Dicyclomine HCl 10 MG 1-2 tablets Orally prn abdominal pain 10/26/2024 10/26/2024 Active ProAir HFA 10/26/2024 10/26/2024 Active Advil 10/26/2024 10/26/2024 Active Omeprazole 10/26/2024 10/26/2024 Active Problems Problem Type SNOMED Code ICD Code Onset Dates Problem Status W/U Status Risk Notes Problem Irritable bowel syndrome (02789565) Irritable bowel syndrome (564.1) Active confirmed Problem Colon cancer screening (146105028) Colon cancer screening (V76.51) Active confirmed Problem Gastroesophageal reflux disease (361316870) GERD (gastroesophage al reflux disease) (530.81) Active confirmed Problem 852202475 Idiopathic acute pancreatitis (K85.0) Active confirmed Plan [...] OF [place] [address] [place] [address] [id number] GUILLE TEJADA Self - patient is the insured MEDICAID OF [facility] [address] [place] [address] [id number] GUILLE TEJADA Self - patient is the insured Medical (General) History Medical History History ICD Code GERD--EGD in 2002 was neg for H.pylori, gastritis, PUD Asthma HTN Arthritis Colonoscopy in 2006 neg except diverticu losis and int. hemorrhoids Neg. abd U/S in 10/2009 Neg celiac disease labs in 10/2009 Denies [place],DM,CVA,renal disease Surgical History Surgery Date(Month/Year) back surgery
--- OUTSIDE RECORDS SUMMARY | 2025-07-27 13:17 | XMS_ITS | Encounter Summary ---
Author Organization [employer] Address [address] [facility] 7t [place] [address] Care Team Providers Care Durability Engineer Name Role Phone Unavailable Primary Care Provider Unavailabl e Encounter Details Date Type Department Care Team (Latest Contact Info) Description 01/24/2019 Abstract [facility] CONVERSIONS Dental, Provider, DDS Social History [...]
--- OUTSIDE RECORDS SUMMARY | 2025-07-27 13:17 | XMS_ITS | Clinical Summary ---
Author Organization [employer] Address [address] [facility] 7t [place] [address] Care Team Providers Care Film Sorter Name Role Phone Unavailable Primary Care Provider [...] Relevant to Health Maintenance Insurance DENTAL [facility]
--- OUTSIDE RECORDS SUMMARY | 2025-07-27 13:17 | XMS_ITS | Encounter Summary ---
Author Organization [employer] Address [address] [facility] 7t [place] [address] Care Team Providers Care Clinical Lab Specialist Name Role Phone Unavailable Primary Care Provider Unavailabl e Encounter Details Date Type Department Care Team (Latest Contact Info) Description 12/19/2020 Abstract [facility] CONVERSIONS Dental, Provider, DDS Social [...]
== END 2025-07-27 11:27 | disposition home or self-care (01) ==
LOC: HO.HMGCX 11:26
PROVIDERS: PCP Internal Medicine; Visit Provider Internal Medicine
DX: M25.512 Pain in left shoulder (principal); M25.511 Pain in right shoulder
CPT/HCPCS: 73030

== ENCOUNTER → 2025-07-27 11:30 | Outpatient (BNV) | payer OTHER, SELFPAY | PROVIDERS: PCP Internal Medicine; Visit Provider Radiology Diagnostic Radiology | DX: M19.012 Primary osteoarthritis, left shoulder (principal); M75.31 Calcific tendinitis of right shoulder; M19.011 Primary osteoarthritis, right shoulder | CPT/HCPCS: 73030 ==

== ENCOUNTER 2025-08-01 09:44 | Outpatient (AMB) | payer OTHER, SELFPAY ==
--- NOTE | 2025-08-01 09:48 | A.OFFVIS_ITS ---
Vital Signs 08/01/25 09:49 Height 5 ft 7 in Weight 203 lb 11.06 oz BMI 31.9 BP 144/70 H Blood Pressure Location Lt brachial Position Sitting Pulse 58 Pulse Source Pulse Oximeter Pulse Oximetry (%) 98 Oxygen Delivery Method Room Air Intake Visit Reasons: T1DM Intake Note: Patient presents today for a follow-up on Type 1 Diabetes Mellitus, Patient on Tslim Insulin Pump: Last Diabetic eye exam was on:06/28/2025, [facility] Last Podiatry exam was on: Patient has an upcoming appointment in the next couple of months Dr. Ziggy Mujica on [facility]. Most recent HbA1c: DUE Random Glucose-?156 ?mg/dL, Today Test Preparer Required: No Test Preparer Services: Test Preparer Offered & Declined (Nigerian) Accompanied by: Self / Same As Patient Allergies cortisone Allergy (Unknown, Verified 08/01/25 09:56) Unknown isoniazid Allergy (Unknown, Verified 08/01/25 09:56) Rash oxycodone (From PERCOCET) Allergy (Unknown, Verified 08/01/25 09:56) SWELLING promethazine (From PHENERGAN) Allergy (Unknown, Verified 08/01/25 09:56) RASH seafood Allergy (Unknown, Verified 08/01/25 09:56) Anaphylaxis tramadol (TRAMADOL) Allergy (Unknown, Verified 08/01/25 09:56) UNKNOWN, GI upset benzonatate Adverse Reaction (Intermediate, Verified 08/01/25 09:56) Anxiety doxycycline Adverse Reaction (Intermediate, Verified 08/01/25 09:56) dizziness, abdominal discomfort fluticasone (Advair Diskus) Adverse Reaction (Unknown, Verified 08/01/25 09:56) tachycardia salmeterol (Advair Diskus) Adverse Reaction (Unknown, Verified 08/01/25 09:56) tachycardia HPI Comments Details: Patient is 64 yo male with DM type 1 diagnosed around 2016 who presents for management of diabetes. He also has a multinodular goiter that was followed by Dr. Alaniz . He was last seen by Jasmin Quinteros NP on 12/27/24. Hemoglobin A1c 04/26/25 6.7%, 12/27/24 6.6%, 09/27/24 6/9%, 06/28/24 7%. Hgb A1C on 04/05/24 was 7.3%. Patient received new T slim pump with Dexcom G7 which was set up by Rema Brooks CDE 11/18/2024. He reports occasional problem with a the sensor not pairing with his pump. He was advised to try to keep the pump and the sensor on the same to side of his body. Past medical history: DM1, HTN, HLD, NTMNG (managed by this practice) Micro and macrovascular complications: Diabetes medications: backup plan 53 units of Lantus and Novolog in usual doses with meals. Novolog via Tandem pump Hypoglycemia: rarely with symptoms of shaking, sweating - x1 mild recently. Treats low sugar with 3 sugar tablets and repeats as necessary. Nothing recent Hyperglycemia: + urinary frequency (uses diuretic), +nocturia (2-3x/night), +polydypsia occurred once and required insulin=injection Exercise: always moving, 15-20 minutes most days, limited due to back pain Anesthesia Assistant - CDE education: currently. Has neuropathy: Symptoms reported numbness, tingling, had issue with ingrown toenail 10/18. 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 Sepulveda on a regular basis. BP elevated today. He reports he did not take his blood pressure medications this morning. Last few visits with Nephrology have been in good range. Has HLD on statin LDL 68 11/29/2024 Dexcom average glucose: 157 14 day continuous glucose monitor report reviewed TIme in ranges: 2 % very high (above 250) 23 % high ?(181-250) 75 % in range ?(70-180] 0 % low (69-55) 0 % ?very low (below 54) Interpretation in excellent range most of the time, periodically enters in carbs after his sugars start to climb instead of before the meal overall doing very well Basal rate(s) (units/hour) : 12 AM to 10AM 2 units / hr 10 AM to 2 PM 1.8 units / hr 2 PM to 12 AM? 2.0 units / hr Bolus setting Insulin Carbohydrate Ratio (s) 12 AM? to 10 AM 1:4.5?? 10 AM to 2 PM 1:3 2 PM to 12 AM 1:1.7 Correction Factor / Sensitivity Factor 12 AM? to 10 AM 1:20 10 AM? to 12 AM 1:15 Active Insulin Time:? 3 hours Target(s): 12 AM? to 12 AM 120 mg/dL Target with Control IQ: 12 AM? to 12 AM 110 mg/dL Total daily dose 94 units at times this is higher than this so his med list has been altered to 170 units daily Basal 39% 49 bolus 61% 76 units Carbs 167 thryoid nodule: Dr. Alaniz saw patient 10/18 with no need for ongoing f/u From her note: Patient with a history of prior FNA biopsies in 2020 with nontoxic multinodular goiter, with most recent ultrasound in June 2023 which showed subcentimeter thyroid nodules. I reviewed his ultrasound, no need for further imaging unless he has any clinical changes. Multinodular goiter: Had thyroid ultrasound 07/18 no significant change multiple sub centimeter nodules,had us , and . Patient had repeated FNA of Right lower pole thyroid on 02/14/2021 cytology was benign., consistent benign follicular nodule Donnellson category 2. Afirma was performed as this nodule had a prior FNA on November 2020 advised the hospital that was AUS. Afirma was negative. This decrease the risk of malignancy to 4%. He had fine-needle aspiration on 12/21/2020 at [facility] Right thyroid nodule was benign 1.2 x 0.8 x 1.2 cm and right lower pole nodule was atypia of undetermined significance size was 1 x 0.8 x 0.9 cm. There was no Afirma are other genetic testing sample performed. Fibrosis-4 (Fib-4) Index for liver fibrosis (calculated on lab work done:11/18)1.37 points Advanced fibrosis excluded Approximate Fibrosis stage Ami 0-1 *Use with caution in patients <35 or >65 years old, as the score has been shown to be less reliable in these patients. Prior imaging: CT of the abdomen done in 2021 showed normal liver. 12 AM to 10AM 2 units / hr 10 AM to 2 PM 1.8 units / hr 2 PM to 12 AM? 2.0 units / hr Bolus setting Insulin Carbohydrate Ratio (s) 12 AM? to 10 AM 1:4.5?? 10 AM to 2 PM 1:3 2 PM to 12 AM 1:1.7 Correction Factor / Sensitivity Factor 12 AM? to 10 AM 1:20 10 AM? to 12 AM 1:15 Active Insulin Time:? 3 hours Target(s): 12 AM? to 12 AM 120 mg/dL Target with Control IQ: 12 AM? 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 Neck pain Myofascial pain Radiculitis of left cervical region Chronic sore throat DVT of lower extremity, bilateral Ankle pain, left Mixed hyperlipidemia Bilateral hand pain Mixed hyperlipidemia GERD (gastroesophageal reflux disease) Obesity due to excess calories Non-toxic multinodular goiter Obesity (BMI 30.0-34.9) Hypertension Chronic inflammation of pancreas Pancreatic abnormality FH: cholecystectomy Hypertriglyceridemia Diabetes type 1, uncontrolled Surgical History Hx of cholecystectomy Hx of endoscopy Hx of colonoscopy History of laminectomy Family History Father Hypertension Hyperlipidemia Prostate cancer Diabetes Arthritis Mother Arthritis Hyperlipidemia Diabetes Osteoporosis Lung cancer Brother Lung cancer Throat cancer Social History Household Members: Spouse and Children Household Members Other:: daughter, , son Housing: House Alcohol intake: former Year quit: 26 Patient Tobacco Use Status: Never used Tobacco Tobacco use type: Cigarette e-Cigarette/Vaping Use: Never Used Second Hand Smoke Exposure: No service: No Current occupational status: disabled Cognitive needs: No Hearing needs: No Vision needs: No Physical Exam Vital Signs: Last Vital Signs Pulse 58 08/01/25 09:49 BP 144/70 H 08/01/25 09:49 Pulse Ox 98 08/01/25 09:49 Oxygen Delivery Method Room Air 08/01/25 09:49 BMI result Body Mass Index 31.9 Const Other: Absence of Cushingoid features. Absence of acromegalic features. Neck exam reveals nl size thyroid about 15 gms. No thyroid nodules palpable. Heart S1 S2, Reg R/R. No M/R G. Skin exam reveals absence of vitiligo or acanthosis nigricans. No edema Visual exam of foot performed. No ulcerations or open lesions. No inter digit maceration or fissuring. + onychomycosis of nail beds, no callouses. Sensation intact to monofilament exam. Vibratory sensation is normal with 128 Hz tuning fork. Results AMB Hemoglobin A1c AMB Hemoglobin A1c 6.7 % Last Edit by Kimberlyn Jeong CMA on 08/01/25 10:18 Results Reviewed Results Reviewed: Laboratory Last Values Glucose (Clinic) 156 mg/dL (60-115) H 08/01/25 10:01 Hgb A1c (Clinic) 6.7 % (4.0-6.0) H 08/01/25 10:05 Assessment & Plan Assessment & Plan (1) Diabetes type 1, uncontrolled: Code(s): E10.65 - Type 1 diabetes mellitus with hyperglycemia Category: Medical Qualifiers: Glycemic state: with hyperglycemia Qualified Code(s): E10.65 - Type 1 diabetes mellitus with hyperglycemia Plan: This 63-year-old male with a history of type 1 diabetes being treated with a T-slim X 2 with control IQ with excellent glycemic control and no known microvascular or macrovascular complications. The plan is to continue the current management (2) Thyroid nodule: Code(s): E04.1 - Nontoxic single thyroid nodule Category: Medical Plan: Repeat thyroid ultrasound shows benign-appearing subcentimeter nodules. Patient is clinically euthyroid Will check TSH and free T4 Orders: Orders AMB Hemoglobin A1c 08/01/25 E10.65 - Type 1 diabetes mellitus with hyperglycemia Coding Level of Care Code Est Pt Level 4 (43583) Diagnoses Uncontrolled type 1 diabetes mellitus with hyperglycemia E10.65 Glycemic state: with hyperglycemia Thyroid nodule E04.1
[2025-08-01 09:49] VITALS: BP 144/70; PULSE 58; O2SAT 98; BMI 31.9
[2025-08-01 10:06] LABS: Glucose, Whole Blood 156 mg/dL (60-115)
--- OUTSIDE RECORDS SUMMARY | 2025-08-01 11:10 | XMS_ITS | Encounter Summary ---
Author Organization [employer] Address [address] [facility] 7t [place] [address] Care Team Providers Care Mixer Blender Name Role Phone Unavailable Primary Care Provider Unavailabl e Encounter Details Date Type Department Care Team (Late st Contact Info) Description 10/05/2023 Telephone [facility] [address] [place] [address] Gi Bui BDS Social History Tobacco Use [...]
--- OUTSIDE RECORDS SUMMARY | 2025-08-01 11:10 | XMS_ITS | Clinical Summary ---
Author Organization [employer] Address [address] [facility] 7t [place] [address] Care Team Providers Care Product Demonstrator Name Role Phone Unavailable Primary Care Provider [...] Recently Relevant to Health Maintenance Insurance DENTAL [facility]
--- OUTSIDE RECORDS SUMMARY | 2025-08-01 11:10 | XMS_ITS | Encounter Summary ---
Author Organization [employer] Address [address] [facility] 7t [place] [address] Care Team Providers Care Well Drill Operator Helper Cable Tool Name Role Phone Unavailable Primary Care Provider Unavailabl e Reason for Visit * Reason Onset Date Comments Dental Pain 09/30/2022 Patient called i n with continued pain from 09/[address] Irby requested allergies and pharmacy. [facility] on [address] No allergies to abx. usually uses amox. Responded via email and tel call charting. DR Encounter Details Date Type Department Care Team ([facility] st Contact Info) Description 09/30/2022 Telephone [facility] ADULT DENTAL [address] [place] [id number] Dental, Provider, DDS Dental Pain (Patient called in with continued pain from 09/[address] Irby requested allergies and pharmacy. [facility] on [address] No allergies to abx. usually uses [...] allergies and pharmacy. [facility] [address] [place] [address]. No allergies to abx. usually uses amox. Responded via email and tel call charting. documented in this encounter Plan of Treatment Not on file documented as of this encounter Visit Diagnoses Not on filedocumented in this encounter
--- OUTSIDE RECORDS SUMMARY | 2025-08-01 11:10 | XMS_ITS | Encounter Summary ---
Author Organization [employer] Address [address] [facility] 7t [place] [address] Care Team Providers Care Beta Tester Name Role Phone Unavailable Primary Care Provider Unavailabl e Encounter Details Date Type Department Care Team (Latest Contact Info) Description 01/24/2019 Abstract [facility] CONVERSIONS Dental, Provider, DDS Social History [...]
--- OUTSIDE RECORDS SUMMARY | 2025-08-01 11:10 | XMS_ITS | Encounter Summary ---
Author Organization [employer] Address [address] [facility] 7t [place] [address] Care Team Providers Care Police Justice Name Role Phone Unavailable Primary Care Provider Unavailabl e Encounter Details Date Type Department Care Team (Latest Contact Info) Description 12/19/2020 Abstract [facility] CONVERSIONS Dental, Provider, DDS Social History [...]
--- OUTSIDE RECORDS SUMMARY | 2025-08-01 11:10 | XMS_ITS | Patient Health Record ---
Author Organization [facility] Address [address] [place] [address] Care Team Providers Care Team Physician Name Role Phone Reza MENDOZA, Asma Primary Care Provider Dontae Tompkins Unavailable [phone] OYULA, JV Unavailable Unavailable Allergies Allergen (clinical drug ingredient) Drug/Non Drug Allergy documented on EMR Reaction Allergy Type Onset Date Status aspirin Aspirin Unknown Drug Allergy Active Reason For Referral No Information Medications Medication SIG (Take, Route, Fr equency, Duration) Notes Start Date End Date Status Lisinopril 10/26/2024 10/26/2024 Active Fenofibrate 10/26/2024 10/26/2024 Active Nasal [place] 10/26/2024 10/26/2024 Active Dicyclomine HCl 10 MG 1-2 tablets Orally prn abdominal pain 10/26/2024 10/26/2024 Active ProAir HFA 10/26/2024 10/26/2024 Active Advil 10/26/2024 10/26/2024 Active Omeprazole 10/26/2024 10/26/2024 Active Problems Problem Type SNOMED Code ICD Code Onset Dates Problem Status W/U Status Risk Notes Problem Irritable bowel syndrome (47423975) Irritable bowel syndrome (564.1) Active confirmed Problem Colon cancer screening (323718072) Colon cancer screening (V76.51) Active confirmed Problem Gastroesophageal reflux disease (859188039) GERD (gastroesophage al reflux disease) (530.81) Active confirmed Problem 326702922 Idiopathic acute pancreatitis (K85.0) Active confirmed Plan [...] OF [place] [address] [place] [address] [id number] GUILLE TEJADA Self - patient is the insured MEDICAID OF [facility] [address] [place] [address] [id number] GUILLE TEJADA Self - patient is the [...]
== END 2025-08-01 10:10 | disposition home or self-care (01) ==
LOC: HO.ENCR 09:44
PROVIDERS: PCP Internal Medicine; Visit Provider Internal Medicine Endocrinology, Diabetes & Metabolism
DX: E10.65 Type 1 diabetes mellitus with hyperglycemia (principal); E04.1 Nontoxic single thyroid nodule
CPT/HCPCS: 99214

== ENCOUNTER → 2025-08-01 09:44 | Outpatient (BNVA) | payer OTHER, SELFPAY | PROVIDERS: PCP Internal Medicine; Visit Provider Internal Medicine Endocrinology, Diabetes & Metabolism | DX: E10.65 Type 1 diabetes mellitus with hyperglycemia (principal); E04.1 Nontoxic single thyroid nodule; Z96.41 Presence of insulin pump (external) (internal) | CPT/HCPCS: 82947; 83036; 99212 ==

== ENCOUNTER 2025-09-25 13:39 | Outpatient (REF) | payer OTHER, SELFPAY ==
[2025-09-25 16:48] LABS: Anion Gap 12 (12-20); Blood Urea Nitrogen 20 mg/dL (9-16); Calcium 9.4 mg/dL (8.4-10.2); Carbon Dioxide 27 mmol/L (22-29); Chloride 105 mmol/L (96-108); Estimated Glomerular Filt Rate > 60; Potassium 3.5 mmol/L (3.3-5.1); Sodium 140 mmol/L (135-145)
--- OUTSIDE RECORDS SUMMARY | 2025-09-25 17:14 | XMS_ITS | Encounter Summary ---
Author Organization [employer] Address [address] [facility] 7t [place] [address] Care Team Providers Care Stone Mason Name Role Phone Unavailable Primary Care Provider Unavailabl e Encounter Details Date Type Department Care Team (Latest Contact Info) Description 12/19/[address] [facility] CONVERSIONS Dental, Provider, DDS Social History [...]
--- OUTSIDE RECORDS SUMMARY | 2025-09-25 17:14 | XMS_ITS | Encounter Summary ---
Author Organization [employer] Address [address] [facility] 7t [place] [address] Care Team Providers Care Animal Behaviorist Name Role Phone Unavailable Primary Care Provider Unavailabl e Reason for Visit * Reason Onset Date Comments Dental Pain 09/30/2022 Patient called i n with continued pain from 09/[address] Irby requested allergies and pharmacy. [facility] [address] No allergies to abx. usually uses amox. Responded via email and tel call charting. DR Encounter Details Date Type Department Care Team ([facility] st Contact Info) Description 09/30/2022 Telephone [facility] ADULT DENTAL [address] [place] [address] Dental, Provider, DDS Dental Pain (Patient called in with continued pain from 09/[address] Irby requested allergies and pharmacy. [facility] [address] No allergies to abx. usually uses [...] allergies and pharmacy. [facility] [address] [place] [address]. No allergies to abx. usually uses amox. Responded via email and tel call charting. documented in this encounter Plan of Treatment Not on file documented as of this encounter Visit Diagnoses Not on filedocumented in this encounter
--- OUTSIDE RECORDS SUMMARY | 2025-09-25 17:14 | XMS_ITS | Clinical Summary ---
Author Organization [employer] Address [address] [facility] 7t [place] [address] Care Team Providers Care Doll Maker Name Role Phone Unavailable Primary Care Provider [...] 1976 Zoster Vaccines (1 of 2) 1977 RSV Patients and Patients Aged 60 years or older (1 - Risk 50-74 years 1-dose series) 2008 Pneumococcal Vaccine: 50+ Years (3 of 3 - PCV) 07/21/2017 07/21/2016, 01/16/2016 COVID-19 Vaccine (3 - Pfizer risk series) [...] Recently Relevant to Health Maintenance Insurance DENTAL [facility]
--- OUTSIDE RECORDS SUMMARY | 2025-09-25 17:14 | XMS_ITS | Encounter Summary ---
Author Organization [employer] Address [address] [facility] 7t [place] [address] Care Team Providers Care Group Leader Semiconductor Processing Name Role Phone Unavailable Primary Care Provider Unavailabl e Encounter Details Date Type Department Care Team (Late st Contact Info) Description 10/05/2023 Telephone [facility] [address] [place] [address] Gi Bui BDS Social History Tobacco Use [...]
--- OUTSIDE RECORDS SUMMARY | 2025-09-25 17:14 | XMS_ITS | Encounter Summary ---
Author Organization [employer] Address [address] [facility] 7t [place] [address] Care Team Providers Care Extrusion Utility Worker Name Role Phone Unavailable Primary Care Provider Unavailabl e Encounter Details Date Type Department Care Team (Latest Contact Info) Description 01/24/2019 Abstract [facility] CONVERSIONS Dental, Provider, DDS Social History [...]
[2025-09-25 17:37] LABS: Total Protein Urine Random < 7 mg/dL (<12)
== END 2025-09-25 13:40 | disposition home or self-care (01) ==
LOC: HO.HMGCLDS 13:39
PROVIDERS: PCP Internal Medicine; Visit Provider Internal Medicine Nephrology
DX: I10 Essential (primary) hypertension (principal)
CPT/HCPCS: 36415; 80051; 82310; 82565; 82570; 84156; 84520

== ENCOUNTER 2025-10-24 09:56 | Outpatient (AMB) | payer OTHER, SELFPAY ==
--- NOTE | 2025-10-24 10:43 | HO.NEPHOV ---
Vital Signs 10/24/25 10:44 Height 5 ft 7 in Weight 204 lb BMI 31.9 BP 140/90 H Blood Pressure Location Lt brachial Position Sitting Pulse 62 Pulse Source Pulse Oximeter Pulse Oximetry (%) 95 Oxygen Delivery Method Room Air Intake Visit Reasons: 6mon follow-up w/labs-LVM Edge Stainer Required: No Accompanied by: Self / Same As Patient Allergies cortisone Allergy (Unknown, Verified 10/24/25 10:45) Unknown isoniazid Allergy (Unknown, Verified 10/24/25 10:45) Rash oxycodone (From PERCOCET) Allergy (Unknown, Verified 10/24/25 10:45) SWELLING promethazine (From PHENERGAN) Allergy (Unknown, Verified 10/24/25 10:45) RASH seafood Allergy (Unknown, Verified 10/24/25 10:45) Anaphylaxis tramadol (TRAMADOL) Allergy (Unknown, Verified 10/24/25 10:45) UNKNOWN, GI upset benzonatate Adverse Reaction (Intermediate, Verified 10/24/25 10:45) Anxiety doxycycline Adverse Reaction (Intermediate, Verified 10/24/25 10:45) dizziness, abdominal discomfort fluticasone (Advair Diskus) Adverse Reaction (Unknown, Verified 10/24/25 10:45) tachycardia salmeterol (Advair Diskus) Adverse Reaction (Unknown, Verified 10/24/25 10:45) tachycardia HPI Comments Details: Vaibhav was seen in follow up for hypertension. He has a diabetes. 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 He has BPH and takes tamsulosin. He checks his blood sugar regularly. He has not known to have any proteinuria. He is on losartan & chlorthalidone for his blood pressure regulation. He is on statins. He denies peripheral arterial disease, carotid stenosis, coronary artery disease, congestive heart failure, CVA, renal artery stenosis, hypokalemia, uncontrolled thyroid disorders. He checks his blood pressure at home and has been better. He does not have any flushing, palpitation, diarrhea, headache, visual disturbances, new weakness. He is followed up by his primary care physician very closely. [facility] Medical History 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 Neck pain Myofascial pain Radiculitis of left cervical region Chronic sore throat DVT of lower extremity, bilateral Ankle pain, left Mixed hyperlipidemia Bilateral hand pain Mixed hyperlipidemia GERD (gastroesophageal reflux disease) Obesity due to excess calories Non-toxic multinodular goiter Obesity (BMI 30.0-34.9) Hypertension Chronic inflammation of pancreas Pancreatic abnormality FH: cholecystectomy Hypertriglyceridemia Diabetes type 1, uncontrolled Surgical History Hx of cholecystectomy Hx of endoscopy Hx of colonoscopy History of laminectomy Family History Father Hypertension Hyperlipidemia Prostate cancer Diabetes Arthritis Mother Arthritis Hyperlipidemia Diabetes Osteoporosis Lung cancer Brother Lung cancer Throat cancer Social History Household Members: Spouse and Children Household Members Other:: daughter, , son Housing: House Alcohol intake: former Year quit: 26 Patient Tobacco Use Status: Never used Tobacco Tobacco use type: Cigarette e-Cigarette/Vaping Use: Never Used Second Hand Smoke Exposure: No service: No Current occupational status: disabled Cognitive needs: No Hearing needs: No Vision needs: No Review of Systems Const All systems reviewed & are unremarkable except as noted in HPI and below Physical Exam Vital Signs: Last Vital Signs Pulse 62 10/24/25 10:44 BP 140/90 H 10/24/25 10:44 Pulse Ox 95 10/24/25 10:44 Oxygen Delivery Method Room Air 10/24/25 10:44 BMI result Body Mass Index 31.9 Const General: comfortable and no acute distress Orientation/consciousness: patient oriented x3 HEENT Head: Yes normocephalic Mouth: Normal oral and palatal mucosa present Eyes EOM: EOMs intact bilaterally Neck Neck: Yes supple Resp Auscultation: clear to auscultation bilaterally Cardio Jugular venous distension: no JVD Rate: regular rate GI Palpation (GI): Soft to palpation Auscultation: normal bowel sounds General: Yes no CVA tenderness Back/Spine/Pelvis Back: no CVA tenderness Skin General skin exam: no rashes or lesions noted Neuro General: patient oriented x3 and moves all extremities Extrem General: Yes no pedal edema Results Reviewed Nephrology Results: Sodium, (135-145) 140 mmol/L 09/25/25 Potassium, (3.3-5.1) 3.5 mmol/L 09/25/25 Chloride, (96-108) 105 mmol/L 09/25/25 Carbon Dioxide, (22-29) 27 mmol/L 09/25/25 BUN, (9-16) 20 mg/dL H 09/25/25 Creatinine, (0.5-1.4) 0.92 mg/dL 09/25/25 Calcium, (8.4-10.2) 9.4 mg/dL 09/25/25 Urine Creatinine 175.52 mg/dL 09/25/25 Protein/Creatinin Ratio TNP 09/25/25 Assessment & Plan Assessment & Plan (1) Hypertension: Code(s): I10 - Essential (primary) hypertension Category: Medical Qualifiers: Hypertension type: primary hypertension Qualified Code(s): I10 - Essential (primary) hypertension Plan Vaibhav has longstanding hypertension. He is on losartan 100 mg as well as chlorthalidone. His blood pressure is at goal now at home. He could continue on chlorthalidone 25 mg daily and carvedilol 6.25 mg twice daily along with losartan 100 mg daily. His blood pressure needs to maintain at goal. He should be on a low-sodium diet. He should avoid nonsteroidal anti-inflammatories. He has no LVH, proteinuria or retinopathy. His renal functions are stable. I will consider doing Doppler of his renal arteries. He needs to loose weight . I did not make any other medication changes this visit. All his questions were answered. Follow-up appointment given Orders: Orders Creatinine 3 Months I10 - Essential (primary) hypertension Blood Urea Nitrogen 3 Months I10 - Essential (primary) hypertension Electrolytes 3 Months I10 - Essential (primary) hypertension Calcium 3 Months I10 - Essential (primary) hypertension Coding Level of Care Code Est Pt Level 4 (08499) Diagnoses Primary hypertension I10 Hypertension type: primary hypertension
[2025-10-24 10:44] VITALS: BP 140/90; PULSE 62; O2SAT 95; BMI 31.9
--- OUTSIDE RECORDS SUMMARY | 2025-10-24 12:57 | XMS_ITS | Encounter Summary ---
Author Organization [employer] Address [address] [facility] [address] [place] [address] Care Team Providers Care Assembler Gold Frame Name Role Phone Unavailable Primary Care Provider Unavailabl e Encounter Details Date Type Department Care Team (Late st Contact Info) Description 10/05/2023 Telephone [facility] [address] [place] [address] Gi Bui BDS Social History Tobacco Use [...]
--- OUTSIDE RECORDS SUMMARY | 2025-10-24 12:57 | XMS_ITS | Encounter Summary ---
Author Organization [employer] Address [address] [facility] [address] [place] [address] Care Team Providers Care Food Safety Director Name Role Phone Unavailable Primary Care Provider Unavailabl e Reason for Visit * Reason Onset Date Comments Dental Pain 09/30/2022 Patient called i n with continued pain from 09/[address] Irby requested allergies and pharmacy. [facility] on [address] No allergies to abx. usually uses amox. Responded via email and tel call charting. DR Encounter Details Date Type Department Care Team ([facility] st Contact Info) Description 09/30/2022 Telephone [facility] [address] [place] [id number] Dental, Provider, DDS Dental Pain (Patient called in with continued pain from 09/[address] Irby requested allergies and pharmacy. [facility] uses [facility] on [address] No allergies to abx. usually uses [...] allergies and pharmacy. [facility] on [address] [place] [address]. No allergies to abx. usually uses amox. Responded via email and tel call charting. documented in this encounter Plan of Treatment Not on file documented as of this encounter Visit Diagnoses Not on filedocumented in this encounter
--- OUTSIDE RECORDS SUMMARY | 2025-10-24 12:57 | XMS_ITS | Clinical Summary ---
Author Organization [email or web address] Address [address] [facility] [address] [place] [address] Care Team Providers Care Pharmacy Scheduler Name Role Phone Unavailable Primary Care Provider [...] Recently Relevant to Health Maintenance Insurance DENTAL [facility]
--- OUTSIDE RECORDS SUMMARY | 2025-10-24 12:57 | XMS_ITS | Encounter Summary ---
Author Organization [employer] Address [address] [facility] [address] [place] [address] Care Team Providers Care Stile Ripsaw Operator Name Role Phone Unavailable Primary Care Provider Unavailabl e Encounter Details Date Type Department Care Team (Latest Contact Info) Description 12/19/2020 Abstract [facility] CONVERSIONS Dental, Provider, DDS [...]
--- OUTSIDE RECORDS SUMMARY | 2025-10-24 12:57 | XMS_ITS | Encounter Summary ---
Author Organization [employer] Address [address] [facility] [address] [place] [address] Care Team Providers Care Mainframe Developer Name Role Phone Unavailable Primary Care Provider Unavailabl e Encounter Details Date Type Department Care Team (Latest Contact Info) Description 01/24/2019 Abstract [facility] CONVERSIONS Dental, Provider, DDS Social History [...]
--- OUTSIDE RECORDS SUMMARY | 2025-10-24 12:57 | XMS_ITS | Patient Health Record ---
Author Organization [facility] Address [address] [place] [id number] Care Team Providers Care Turkish Rubber Name Role Phone Reza MENDOZA, Asma Primary Care Provider Dontae Tompkins Unavailable [phone] OYULA, JV Unavailable Unavailable Allergies Allergen (clinical drug ingredient) Drug/Non Drug Allergy documented on EMR Reaction Allergy Type Onset Date Status aspirin Aspirin Unknown Drug Allergy Active Reason For Referral No Information Medications Medication SIG (Take, Route, Frequency, Duration) Notes Start Date End Date Status Lisinopril Active Fenofibrate Active Nasal [place] Active Dicyclomine HCl 10 MG Capsule 1-2 tablets Orally prn abdominal pain Active ProAir HFA Active Advil Active Omeprazole Active Social History Social History Additional Details Category Social Info Options Details Miscellaneous: Marital status: 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 Section Notes: Nonsmoker; no alcohol Problems Problem Type SNOMED Code ICD Code Onset Dates Problem Status W/U Status Risk Notes Problem Irritable bowel syndrome (33865388) Irritable bowel syndrome (564.1) Active confirmed Problem Colon cancer screening (546071028) Colon cancer screening (V76.51) Active confirmed Problem Gastroesophageal reflux disease (713931322) GERD (gastroesophage al reflux disease) (530.81) Active confirmed Problem Idiopathic acute pancreatitis (075606057) Idiopathic acute pancreatitis (K85.0) Active confirmed Plan [...] Start Date Coverage End Date [place] OF [place] [address] [place] [id number] GUILLE TEJADA Self - patient is the insured [facility] [address] [place] [phone] [id number] GUILLE TEJADA Self - patient is the insured Medical (General) History Medical History History ICD Code GERD--EGD in 2002 was neg for H.pylori, gastritis, PUD Asthma HTN Arthritis Colonoscopy in 2006 neg except diverticu losis and int. hemorrhoids Neg. abd U/S in 10/2009 Neg celiac disease labs in 10/2009 Denies TX,DM,CVA,renal disease Surgical History Surgery Date(Month/Year) back surgery
== END 2025-10-24 11:10 | disposition home or self-care (01) ==
LOC: HO.HKAS 09:56
PROVIDERS: PCP Internal Medicine; Visit Provider Internal Medicine Nephrology
DX: I10 Essential (primary) hypertension (principal)
CPT/HCPCS: 99214

== ENCOUNTER → 2025-10-24 09:56 | Outpatient (BNVA) | payer OTHER, SELFPAY | PROVIDERS: PCP Internal Medicine; Visit Provider Internal Medicine Nephrology | DX: I10 Essential (primary) hypertension (principal); Z79.899 Other long term (current) drug therapy | CPT/HCPCS: 99212 ==